=== PATIENT | female | born 1950 | race Caucasian/White ===

== ENCOUNTER 2018-10-13 21:46 | Outpatient (REF) | payer BC, MEDICARE, SELFPAY ==
[2018-10-13 20:59] LABS: ALT 29 U/L (12-78); AST 21 U/L (15-37); Albumin 4.1 g/dL (3.4-5.0); Alkaline Phosphatase 131 U/L (46-116); BUN 18 mg/dL (7-18); Bilirubin, Total 0.3 mg/dL (0.2-1.0); CREATININE 0.77 mg/dL (0.55-1.02); Calcium 9.5 mg/dL (8.5-10.1); Calculated LDL 155; Chloride 105 mmol/L (98-107); Cholesterol 238 mg/dL (50-200); Glucose 98 mg/dL (70-100); HDL Cholesterol 48 mg/dL (40-60); Potassium 4.1 mmol/L (3.5-5.1); Sodium 141 mmol/L (136-145); Total Protein 7.4 g/dL (6.4-8.2); Triglyceride 175 mg/dL (30-150)
[2018-10-13 21:26] LABS: Vitamin D 25 Total 26.5 ng/ml (30-100)
== END 2018-10-13 22:06 ==
LOC: NCHCN 21:46
PROVIDERS: PCP Nurse Practitioner; Visit Provider Nurse Practitioner
DX: I10 Essential (primary) hypertension (principal); E78.5 Hyperlipidemia, unspecified; E55.9 Vitamin D deficiency, unspecified
CPT/HCPCS: 80053; 80061; 82306; 83721

== ENCOUNTER 2018-11-27 01:26 | Outpatient (CLI) | payer BC, MEDICARE, SELFPAY ==
--- NOTE | 2018-11-27 07:30 | MERGE_ITS ---
*[facility]* *[facility]* [address] [place] [address] Date of study: 11/27/2018 Transthoracic Echocardiography M-mode, complete 2D, complete spectral Doppler, and color Doppler *STUDY CONCLUSIONS* Summary: 1. Left ventricle: The cavity size was normal. Wall thickness was normal. Systolic function was normal. The estimated ejection fraction was 60-65%. Wall motion was normal; there were no regional wall motion abnormalities. 2. Right ventricle: The cavity size was normal. Systolic function was normal. 3. Aortic valve: Trileaflet; mildly thickened, mildly calcified leaflets. Valve mobility was restricted. Transvalvular velocity was increased. There was mild stenosis. There was mild to moderate regurgitation. Peak velocity (S): 2.7m/sec. VTI ratio of LVOT to aortic valve: 0.42. 4. Inferior vena cava: The vessel was patent and normal in size. The respirophasic diameter changes were in the normal range (greater than or equal to 50%), consistent with normal central venous pressure. *PATIENT PRESENTATION* Height: 162.6cm (64in ) S/D Pressure: 153 / 83 Weight: 74.8kg (164.7lb ) BSA: 1.86m^2 Test start time: 07:40 AM. Test stop time: 08:35 AM. PERFORMING Unknown PERFORMING [facility] CONSULTING Dianne Reece ORDERING Dianne Reece REFERRING Dianne Reece BANQUET STEWARD Haven Simms, (R)(CT), TIMUR *PROCEDURE DATA* Procedure information: This study was interpreted by [facility]. Pertinent images and digital data are archived for permanent storage and are available for subsequent review. No prior study was available for comparison. Study status: Routine. Transthoracic echocardiography. M-mode, complete 2D, complete spectral Doppler, and color Doppler. A Transthoracic Echocardiogram was performed. Scanning was performed from the parasternal, apical, subcostal, and suprasternal notch acoustic windows. Images were obtained using an [id number] cardiac ultrasound machine. Image quality was adequate. Study completion: The patient tolerated the procedure well. There were no complications. History: PMH: New heart murmur r01.1. *CARDIAC ANATOMY* Left ventricle: The cavity size was normal. Wall thickness was normal. Systolic function was normal. The estimated ejection fraction was 60-65%. Wall motion was normal; there were no regional wall motion abnormalities. Aortic valve: Trileaflet; mildly thickened, mildly calcified leaflets. Valve mobility was restricted. Doppler: Transvalvular velocity was increased. There was mild stenosis. There was mild to moderate regurgitation. VTI ratio of LVOT to aortic valve: 0.42. Valve area (VTI): 1.4cm^2. Indexed valve area (VTI): 0.7cm^2/m^2. Peak velocity ratio of LVOT to aortic valve: 0.43. Valve area (Vmax): 1.4cm^2. Indexed valve area (Vmax): 0.8cm^2/m^2. Mean velocity ratio of LVOT to aortic valve: 0.43. Valve area (Vmean): 1.4cm^2. Indexed valve area (Vmean): 0.8cm^2/m^2. Mean gradient (S): 16.9mm Hg. Peak gradient (S): 28.6mm Hg. Aorta: Aortic root: The aortic root was normal in size. Ascending aorta: The ascending aorta was at upper normal limits. Mitral valve: Mildly calcified annulus. Mildly thickened leaflets. Mobility was not restricted. Doppler: Transvalvular velocity was within the normal range. There was no evidence for stenosis. There was mild regurgitation. Valve area by pressure half-time: 4.1cm^2. Indexed valve area by pressure half-time: 2.2cm^2/m^2. Peak gradient (D): 3.1mm Hg. Left atrium: The atrium was normal in size. Right ventricle: The cavity size was normal. Systolic function was normal. Pulmonic valve: The pulmonary valve appears to be grossly normal. Doppler: Transvalvular velocity was within the normal range. There was no evidence for stenosis. There was no significant regurgitation. Tricuspid valve: Structurally normal valve. Doppler: Transvalvular velocity was within the normal range. There was no evidence for stenosis. There was mild regurgitation. Pulmonary artery: The main pulmonary artery was normal-sized. Pulmonary systolic pressure was in the range of 35mm Hg to 40mm Hg. Right atrium: The atrium was normal in size. Pericardium: There was no pericardial effusion. Systemic veins: Inferior vena cava: Well visualized. The vessel was patent and normal in size. The respirophasic diameter changes were in the normal range (greater than or equal to 50%), consistent with normal central venous pressure. Baseline ECG: Normal sinus rhythm. Measurements Left ventricle Value Reference LV ID, ED, PLAX 5.0 cm 3.5 - 6.0 LV ID, ES, PLAX 2.8 cm 2.1 - 4.0 LV PW thickness, ED, PLAX 1.0 cm LV end-diastolic volume, 1-p A2C 66 ml LV ejection fraction, 1-p A2C 75 % LV end-diastolic volume, 1-p A4C 58 ml LV ejection fraction, 1-p A4C 65 % LV e', lateral 0.06 m/sec LV E/e', lateral 15 LV e', medial 0.052 m/sec LV E/e', medial 17 LV e', average 0.056 m/sec LV E/e', average 16 Ventricular septum Value Reference IVS thickness, ED, PLAX 1.0 cm LVOT Value Reference LVOT ID, A-P 2.1 cm LVOT area 3.3 cm^2 LVOT peak velocity, S 1.15 m/sec LVOT mean velocity, S 0.84 m/sec LVOT VTI, S 26.9 cm LVOT peak gradient, S 5.3 mm Hg LVOT mean gradient, S 3.2 mm Hg Stroke volume (SV), LVOT DP 89 ml Stroke index (SV/bsa), LVOT DP 48 ml/m^2 Aortic valve Value Reference Aortic valve peak velocity, S 2.7 m/sec Aortic valve mean velocity, S 2 m/sec Aortic valve VTI, S 64.0 cm Aortic mean gradient, S 16.9 mm Hg Aortic peak gradient, S 28.6 mm Hg VTI ratio, LVOT/AV 0.42 Aortic valve area, VTI 1.4 cm^2 Velocity ratio, peak, LVOT/AV 0.43 Aortic valve area, peak velocity 1.4 cm^2 Velocity ratio, mean, LVOT/AV 0.43 Aortic valve area, mean velocity 1.4 cm^2 Aortic valve area/bsa, mean velocity 0.8 cm^2/m^2 Aortic regurg deceleration 372 cm/s^2 Aortic regurg pressure half-time 406 ms Aorta Value Reference Aortic root ID, ED 3.3 cm Ascending aorta ID, A-P, S 3.7 cm Left atrium Value Reference LA ID, A-P, ES 2.5 cm LA ID/bsa, A-P 1.3 cm/m^2 <=2.2 LA volume/bsa, ES, 1-p A4C 20 ml/m^2 LA volume, ES, 2-p 39 ml LA volume/bsa, ES, 2-p 21 ml/m^2 LA/aortic root ratio 0.74 Mitral valve Value Reference Mitral E-wave peak velocity 0.88 m/sec Mitral A-wave peak velocity 1.13 m/sec Mitral deceleration time 186 ms 150 - 230 Mitral pressure half-time 54 ms Mitral peak gradient, D 3.1 mm Hg Mitral E/A ratio, peak 0.78 Mitral valve area, PHT, DP 4.1 cm^2 Pulmonary veins Value Reference Pulmonary vein peak velocity, S 0.61 m/sec Pulmonary vein peak velocity, D 0.41 m/sec Pulmonary vein velocity ratio, peak, 1.47 S/D Pulmonary vein A-wave reversal peak 0.43 m/sec velocity Pulmonary vein A-wave reversal 152 ms duration Tricuspid valve Value Reference Tricuspid regurg peak velocity 2.8 m/sec Tricuspid peak RV-RA gradient 31.9 mm Hg Right atrium Value Reference RA area, ES, A4C 14.4 cm^2 8.3 - 19.5 Legend: (L) and (H) joellen values outside specified reference range. I have personally reviewed the images and have reviewed and edited the reported findings. Electronically signed by Camilo Coleman 11/27/2018 09:46
== END 2018-11-27 01:46 ==
PROVIDERS: PCP Nurse Practitioner; Visit Provider Nurse Practitioner Family
DX: R01.1 Cardiac murmur, unspecified (principal); I35.0 Nonrheumatic aortic (valve) stenosis
CPT/HCPCS: 93306

== ENCOUNTER 2018-11-27 07:27 | Outpatient (CLI) | payer BC, SELFPAY ==
--- NOTE | 2018-11-27 09:00 | DI.MAMMO_ITS ---
SYMPTOM/DIAGNOSIS: SCREENING BILATERAL SCREENING MAMMOGRAM: Mammograms were interpreted according to the usual protocol including computer analysis with CAD system, tomosynthesis and C view imaging. Comparison is made with exams from 2011 through 2018. The breasts are composed of fatty density tissue, breast density category A. No suspicious masses or suspicious microcalcifications are seen. There has been no significant changes. IMPRESSION: Category 1, negative mammogram. Yearly screening mammography is recommended. Breast density category A. SA ASSESSMENT OF FINDINGS: Negative. Category 1. Patient will receive a letter notifying them of these results. BI-RAD category A. The breasts are almost entirely fatty.
== END 2018-11-27 07:47 ==
PROVIDERS: PCP Nurse Practitioner; Visit Provider Nurse Practitioner Family
DX: Z12.31 Encounter for screening mammogram for malignant neoplasm of breast (principal)
CPT/HCPCS: 77063; 77067

== ENCOUNTER 2019-10-20 16:00 | Outpatient (REF) | payer BC, SELFPAY ==
[2019-10-20 19:01] LABS: ALT 29 U/L (14-59); AST 22 U/L (15-37); Albumin 4.5 g/dL (3.4-5.0); Alkaline Phosphatase 116 U/L (46-116); Anion Gap 7.4 mmol/L (3-11); BUN 24 mg/dL (7-18); Bilirubin, Total 0.4 mg/dL (0.2-1.0); CO2 29.6 mmol/L (21.0-32.0); CREATININE 0.88 mg/dL (0.55-1.02); Calcium 9.8 mg/dL (8.5-10.1); Calculated LDL 157 mg/dL (<100); Chloride 104 mmol/L (98-107); Cholesterol 238 mg/dL (<200); Glucose 98 mg/dL (74-106); HDL Cholesterol 49 mg/dL (40-60); Potassium 4.4 mmol/L (3.5-5.1); Sodium 141 mmol/L (136-145); Total Protein 7.6 g/dL (6.4-8.2); Triglyceride 162 mg/dL (<150)
== END 2019-10-20 16:20 ==
LOC: NCHCN 16:00
PROVIDERS: PCP Nurse Practitioner; Visit Provider Nurse Practitioner
DX: I10 Essential (primary) hypertension (principal); E78.5 Hyperlipidemia, unspecified; I35.0 Nonrheumatic aortic (valve) stenosis
CPT/HCPCS: 80053; 80061

== ENCOUNTER 2020-04-11 17:40 | Outpatient (REF) | payer MEDICARE, BC, SELFPAY ==
--- NOTE | 2020-04-11 15:40 | PAPFT_PTH ---
PATIENT: Shellie Lyon LOC: [facility] U#:[id number] AGE/SX: 69/F ROOM: RE04/11/[address]: ISIDORO Sprague : 1950 BED: DIS: 04/11/2020 SPEC #: [id number] RECD: 04/11/20 18:31 STATUS: SOLITARIO REQ #: [id number] MYRANDA: 04/11/20 15:[address]: Carmen Souht DEPT: [facility] Cytology RECD BY: Paty Núñez ENTERED: 04/11/20 18:31 SP TYPE: PAPFT OTHR DR: Dianne Reece Tissues: 1 - CX/ENDOCX FOR PAP SMEARS Procedures: PAP THIN PREP/[facility] Screening HPV DNA PROBE Comments: [id number]
== END 2020-04-11 18:00 ==
LOC: LBN 17:40
PROVIDERS: PCP Nurse Practitioner; Visit Provider Nurse Practitioner Family
DX: Z12.4 Encounter for screening for malignant neoplasm of cervix (principal); Z11.51 Encounter for screening for human papillomavirus (HPV)
CPT/HCPCS: 88142; 87624

== ENCOUNTER 2020-05-11 03:28 | Outpatient (CLI) | payer MEDICARE, BC, SELFPAY ==
--- NOTE | 2020-05-11 08:00 | DI.MAMMO_ITS ---
EXAM: MG MAMMO SCREENING CLINICAL HISTORY: screening,Z12.39. TECHNIQUE: Bilateral full field digital CC and MLO mammographic images were obtained with 3D tomosyn thesis and utilizing computer aided detection (CAD). COMPARISON: Prior mammograms dating back to 2010, the most recent being November 2018. FINDINGS: There are no CAD designations. There are no spiculated masses nor malignant appearing microcalcification groups. There is no signif icant architectural distortion nor skin thickening-retraction. IMPRESSION: No radiographic evidence of malignancy. BI-RADS Category 1 - Negative Breast Density - Category A - Almost entirely fatty Breast density Category C or D implies that the patient has dense breast tissue. Dense breast tissue can make it harder to find cancer on a mammogram. Dense breast tissue is also associated with an incr eased risk of breast cancer. This information about the result of the mammogram report was provided to the patient to raise their awareness. Use this report when you speak with the patient about their risks for breast cancer, which includes their family history. At that time, you may recommend additional screening tests (Ultrasoun d or MRI) as these tests may add significant information. A negative radiographic report should not delay biopsy if a dominant or clinically suspicious mass is present. Up to ten percent of cancers are not identified on mammography. A negative report may reinforce clinical impression. Adenosis and dense breasts may obscure an underlying neoplasm. False positive reports average 6 to 10%. Patient will receive a letter notifying them of these results.
== END 2020-05-11 03:48 ==
PROVIDERS: PCP Nurse Practitioner; Visit Provider Nurse Practitioner Family
DX: Z12.31 Encounter for screening mammogram for malignant neoplasm of breast (principal)
CPT/HCPCS: 77063; 77067

== ENCOUNTER 2020-12-05 16:41 | Outpatient (REF) | payer MEDICARE, BC, SELFPAY ==
[2020-12-05 20:19] LABS: ALT 22 U/L (14-59); AST 24 U/L (15-37); Albumin 2.6 g/dL (3.4-5.0); Alkaline Phosphatase 106 U/L (46-116); Anion Gap 10.7 mmol/L (3-11); BUN 19 mg/dL (7-18); Bilirubin, Total 0.3 mg/dL (0.2-1.0); CO2 26.3 mmol/L (21.0-32.0); CREATININE 0.9 mg/dL (0.55-1.02); Calcium 9.8 mg/dL (8.5-10.1); Calculated LDL 160 mg/dL (<100); Chloride 105 mmol/L (98-107); Cholesterol 242 mg/dL (<200); Glucose 105 mg/dL (74-106); HDL Cholesterol 50 mg/dL (40-60); Potassium 4.2 mmol/L (3.5-5.1); Sodium 142 mmol/L (136-145); TSH (W/Ref FT4) 1.17 uIU/mL (0.36-3.74); Total Protein 7.2 g/dL (6.4-8.2); Triglyceride 162 mg/dL (<150)
[2020-12-05 20:20] LABS: Abs Immature Grans 0.01 10^3/uL (0.0-0.06); Absolute Basophil Count 0.03 10^3/uL (0.0-0.2); Absolute Eosinophil Count 0.05 10^3/uL (0.0-0.7); Absolute Lymphocyte Count 2.37 10^3/uL (1.2-3.4); Absolute Monocyte Count 0.59 10^3/uL (0.1-0.8); Absolute Neutrophil Count 5.35 10^3/uL (1.2-6.7); Basophils % 0.4; Eosinophils % 0.6; HCT 40.9 % (36.0-46.0); HGB 13.6 g/dL (11.2-15.7); Immature Grans % 0.1; Lymphocytes % 28.2; MCH 27.3 pg (27.0-33.0); MCHC 33.3 % (32.0-36.0); MPV 11.4 fL (8.0-11.0); Neutrophils % 63.7; Nucleated RBC 0 %; Platelet Count 250 10^3/uL (130-400); RBC 4.99 10^6/uL (3.93-5.22); RDW 12.6 % (11.7-14.6); RDW-SD 37.6 fL
== END 2020-12-05 16:42 | disposition home or self-care (01) ==
LOC: NCHCN 16:41
PROVIDERS: PCP Nurse Practitioner; Visit Provider Nurse Practitioner
DX: R53.83 Other fatigue (principal); I10 Essential (primary) hypertension; E78.5 Hyperlipidemia, unspecified
CPT/HCPCS: 80053; 80061; 84443; 85025

== ENCOUNTER → 2021-10-30 02:40 | Outpatient (CLI) | payer MEDICARE, SELFPAY ==
--- NOTE | 2021-10-30 | DI.MAMMO_ITS ---
Exam(s) MAMMO SCREENING EXAM: MAMMO SCREENING CLINICAL HISTORY: SCREENING, Z12.39. TECHNIQUE: Bilateral full field digital CC and MLO mammographic images were obtained with 3D tomosyn thesis and utilizing computer aided detection (CAD). COMPARISON: Prior mammograms were reviewed, the most recent being May 2020. FINDINGS: There has been no significant change in the appearance and distribution of the fibroglandular tissue. There are no CAD designations. There are no new spiculated masses nor malignant appearing microcalcification groups. There is no significant architectural distortion nor skin thickening-retraction. IMPRESSION: No radiographic evidence of malignancy. BI-RADS Category 1 - Negative Breast Density - Category B - Scattered areas of fibroglandular density Breast density Category C or D implies that the patient has dense breast tissue. Dense breast tissue can make it harder to find cancer on a mammogram. Dense breast tissue is also associated with an incr eased risk of breast cancer. This information about the result of the mammogram report was provided to the patient to raise their awareness. Use this report when you speak with the patient about their risks for breast cancer, which includes their family history. At that time, you may recommend additional screening tests (Ultrasoun d or MRI) as these tests may add significant information. A negative radiographic report should not delay biopsy if a dominant or clinically suspicious mass is present. Up to ten percent of cancers are not identified on mammography. A negative report may reinforce clinical impression. Adenosis and dense breasts may obscure an underlying neoplasm. False positive reports average 6 to 10%. Patient will receive a letter notifying them of these results.
== END ==
PROVIDERS: PCP Nurse Practitioner; Visit Provider Nurse Practitioner Family
DX: Z12.31 Encounter for screening mammogram for malignant neoplasm of breast (principal)
CPT/HCPCS: 77063; 77067

== ENCOUNTER 2022-01-28 09:26 | Emergency (ER) | payer MEDICARE, SELFPAY ==
[2022-01-28] VITALS (43 sets, daily range): BP systolic 124–167; BP diastolic 64–128; PULSE 70–102; RESP 13–37; TEMP 36.8; O2SAT 94–98
--- NOTE | 2022-01-28 09:30 | RT.EKG_ITS ---
APPROVED REPORT Exam: Resting ECG Reason for Exam: chest pain Patient Location: E HR:86 bpm ECG Measurements Heart Rate 86 AXIS SD 144 P 59 QRSd 78 QRS 51 QT 377 T 41 QTc 451 Conclusion Sinus rhythm...normal P axis, V-rate 60- 99. Sinus. Normal axis. No STEMI. I have reviewed and interpreted ECG and agree with software generated interpretation.
--- NOTE | 2022-01-28 09:41 | W.ED.GENAD ---
Discharge Plan Disposition Patient Disposition: [facility] Condition: Stable Discharge Details Clinical Impression: NSTEMI (non-ST elevated myocardial infarction) Primary Care Provider: Dianne Reece ED Provider: Evonne Gu Home Meds and New Rx's Prescriptions: No Action amlodipine 5 MG tablet 5 mg PO DAILY losartan 25 mg tablet 25 mg PO 1XD Label Comments: TAKE 1 TABLET BY MOUTH EVERY DAY Discharge Data Discharge Date/Time-TO BE ENTERED AT DEPARTURE: 01/28/22 14:50 Medical Decision Making 0950 -- 71-year-old female with history of hypertension presents for chest pain, shortness of breath and dizziness that occurs mostly with activity since yesterday. Vitals within normal limits. EKG on arrival notes a rate of 86, sinus, normal axis, no STEMI nondiagnostic. Patient appears comfortable and nontoxic. She has a 4/6 murmur. Echocardiogram from November 2018 notes that she has mild aortic stenosis and mild to moderate aortic regurgitation. Differential diagnosis includes ACS, PE, CHF, arrhythmia, electrolyte abnormality. History and presentation does not appear consistent with dissection for COVID. Will obtain screening labs, chest x-ray. 1100 -- labs and imaging reviewed. Normal white blood cell count. D-dimer negative per age-adjusted cut off. Troponin significantly elevated at 3433. BNP 2808. Chest x-ray negative. Will order full dose aspirin, 300 mg Plavix p.o. and heparin bolus and drip for NSTEMI. [facility] cardiology consulted. Case discussed with [facility] cardiology accepts patient for transfer for type I NSTEMI. Recommend metoprolol 12.5 mg twice daily. Accepting physician Dr. Kirkpatrick. Pt agreeable with plan. 1300 -- repeat EKG notes [address] elevation in anterior leads. It does not meet official criteria for STEMI but there are evolving changes. Repeat troponin pending. [facility] cardiology paged for update. Discussed with [facility] cardiology --repeat EKG does not meet criteria for STEMI. As patient is pain-free we will hold on any treatment with lytics at this time. Pending bed availability approximately 5 or 6 PM. 1545 -- Pt hemodynamically stable prior to transfer. Medical Records Medical records reviewed: Yes I reviewed the patient's medical records. Medical records narrative: Date of study: 11/27/2018 Transthoracic Echocardiography Summary: 1. Left ventricle: The cavity size was normal. Wall thickness was ?? normal. Systolic function was normal. The estimated ejection fraction ?? was 60-65%. Wall motion was normal; there were no regional wall ?? motion abnormalities. 2. Right ventricle: The cavity size was normal. Systolic function was ?? normal. 3. Aortic valve: Trileaflet; mildly thickened, mildly calcified ?? leaflets. Valve mobility was restricted. Transvalvular velocity was ?? increased. There was mild stenosis. There was mild to moderate ?? regurgitation. Peak velocity (S): 2.7m/sec. VTI ratio of LVOT to ?? aortic valve: 0.42. 4. Inferior vena cava: The vessel was patent and normal in size. The ?? respirophasic diameter changes were in the normal range (greater than ?? or equal to 50%), consistent with normal central venous pressure. Imaging Data Radiologic Study: Radiologist's impression: XR Chest Exam date and time: 01/28/2022 10:18 AM Age: 71 years old Clinical indication: Other: Chest pain, SOB, dizzy, R/O acute disease TECHNIQUE: Imaging protocol: Radiologic exam of the chest. Views: 2 views. COMPARISON: No relevant prior studies available. FINDINGS: Lungs: Unremarkable. No consolidation. Pleural spaces: Unremarkable. No pleural effusion. No pneumothorax. Heart/Mediastinum: Unremarkable. No cardiomegaly. Bones/joints: Unremarkable. IMPRESSION: No acute findings. Lab Data Lab results reviewed: Yes I reviewed the patient's lab results. Labs: Laboratory Tests Range/Units 01/28/22 01/28/22 01/28/22 10:15 10:15 10:15 WBC (4.4-10.8) 10^3/uL 6.39 RBC (3.93-5.22) 10^6/uL 5.44 H Hgb (11.2-15.7) g/dL 14.7 Hct (36.0-46.0) % 44.3 MCV (80-95) fL 81 MCH (27.0-33.0) pg 27.0 MCHC (32.0-36.0) % 33.2 RDW (11.7-14.6) % 12.9 Plt Count (130-400) 10^3/uL 242 MPV (8.0-11.0) fL 10.3 Immature Gran % 0.2 Neutrophils % 59.0 Lymphocytes % 33.3 Monocytes % 6.6 Eosinophils % 0.6 Basophils % 0.3 Nucleated RBC % (0.0-0.3) % 0.0 Absolute Neutrophils (1.2-6.7) 10^3/uL 3.77 Absolute Lymphocytes (1.2-3.4) 10^3/uL 2.13 Absolute Monocytes (0.1-0.8) 10^3/uL 0.42 Absolute Eosinophils (0.0-0.7) 10^3/uL 0.04 Absolute Basophils (0.0-0.2) 10^3/uL 0.02 PT (9.3-11.0) sec INR (0.9-1.1) APTT (21.0-27.5) sec D-Dimer (<500) ng/mlFEU 579 H Sodium (136-145) mmol/L 138 Potassium (3.5-5.1) mmol/L 3.8 Chloride (98-107) mmol/L 103 Carbon Dioxide (21.0-32.0) mmol/L 28.4 Anion Gap (3-11) mmol/L 6.6 BUN (7-18) mg/dL 18 Creatinine (0.55-1.02) mg/dL 0.9 Est GFR (CKD-EPI 2020) (mL/min/1.73m2) 69.20 Glucose (74-106) mg/dL 140 H Calcium (8.5-10.1) mg/dL 9.6 Magnesium (1.8-2.4) mg/dL 1.9 Total Bilirubin (0.2-1.0) mg/dL 0.5 AST (15-37) U/L 34 ALT (14-59) U/L 31 Alkaline Phosphatase (46-116) U/L 118 H Troponin I (<or=60) ng/L 3433 H* NT-Pro-B Natriuret Pep (<300) pg/mL 2808 H Total Protein (6.4-8.2) g/dL 8.0 Albumin (3.4-5.0) g/dL 3.7 Range/Units 01/28/22 01/28/22 10:15 10:28 WBC (4.4-10.8) 10^3/uL RBC (3.93-5.22) 10^6/uL Hgb (11.2-15.7) g/dL Hct (36.0-46.0) % MCV (80-95) fL MCH (27.0-33.0) pg MCHC (32.0-36.0) % RDW (11.7-14.6) % Plt Count (130-400) 10^3/uL MPV (8.0-11.0) fL Immature Gran % Neutrophils % Lymphocytes % Monocytes % Eosinophils % Basophils % Nucleated RBC % (0.0-0.3) % Absolute Neutrophils (1.2-6.7) 10^3/uL Absolute Lymphocytes (1.2-3.4) 10^3/uL Absolute Monocytes (0.1-0.8) 10^3/uL Absolute Eosinophils (0.0-0.7) 10^3/uL Absolute Basophils (0.0-0.2) 10^3/uL PT (9.3-11.0) sec 9.4 INR (0.9-1.1) 0.9 APTT (21.0-27.5) sec 26.0 D-Dimer (<500) ng/mlFEU Sodium (136-145) mmol/L Potassium (3.5-5.1) mmol/L Chloride (98-107) mmol/L Carbon Dioxide (21.0-32.0) mmol/L Anion Gap (3-11) mmol/L BUN (7-18) mg/dL Creatinine (0.55-1.02) mg/dL Est GFR (CKD-EPI 2020) (mL/min/1.73m2) Glucose (74-106) mg/dL Calcium (8.5-10.1) mg/dL Magnesium (1.8-2.4) mg/dL Total Bilirubin (0.2-1.0) mg/dL AST (15-37) U/L ALT (14-59) U/L Alkaline Phosphatase (46-116) U/L Troponin I (<or=60) ng/L NT-Pro-B Natriuret Pep (<300) pg/mL Cancelled Total Protein (6.4-8.2) g/dL Albumin (3.4-5.0) g/dL ECG Data Attestation: I personally reviewed and interpreted this ECG (s) as follows: Interpretation: #1 -- rate of 86, sinus, no stemi. #2 -- rate of 82, sinus, 1mm ST elevation V2-6. HPI General Date/Time Provider Initiated Documentation: 01/28/22 09:40. Limitations to Documentation: no limitations. Information obtained by: patient. HPI Narrative: Patient is a 71-year-old female with a history of hypertension who presents for chest pain, shortness of breath and dizziness since yesterday. Patient states she was doing a lot of work cleaning out a garage and shed yesterday and was doing exertional activity. She states after she was finished and was walking she noticed substernal chest tightness. She states since then the chest tightness has been at times associated with shortness of breath and dizziness that occurs mostly with activity. She states when she rests the symptoms improved. She describes the dizziness as lightheadedness. She denies any known fever, cough, nausea, vomiting, diarrhea, headache or leg swelling. Related Data Home Medications Medication Instructions Recorded Confirmed amlodipine 5 mg tablet 5 mg PO DAILY 12/30/15 01/28/22 losartan 25 mg tablet 25 mg PO 1XD 01/28/22 01/28/22 Allergies Allergy/AdvReac Type Severity Reaction Status Date / Time No Known Drug Allergies Allergy Verified 05/15/18 12:57 Adhesives AdvReac Intermediate Rash Uncoded 04/11/20 15:05 General Stated Complaint: Chest Pain SILVESTRE: 3 Review of Systems All systems reviewed & are unremarkable except as noted in HPI and below Constitutional Constitutional: Denies chills, Denies excessive sweating, Denies fatigue, Denies fever(s), Denies weakness and Denies weight loss Eyes Eyes: Reports system reviewed and no additional complaints, except as documented and Denies blurry vision ENT Ears, Nose, Mouth, and Throat: Denies vertigo, Denies dizziness, Denies otalgia, Denies nasal congestion, Denies sore throat and Denies throat swelling Cardiovascular Cardiovascular: Denies chest pain, Denies syncope, Denies rapid heart rate and Denies dyspnea Respiratory Respiratory: Denies chest congestion, Denies cough, Denies pain on inspiration and Denies dyspnea Gastrointestinal Gastrointestinal: Denies abdominal pain, Denies diarrhea and Denies vomiting Genitourinary Genitourinary: Denies hematuria, Denies dysuria and Denies flank pain Musculoskeletal Musculoskeletal: Denies back pain and Denies joint swelling Integumentary/Breasts Skin/Breast: Denies lesions and Denies rash Neurologic Neurologic: Denies behavioral changes, Denies confusion, Denies vertigo, Denies dizziness, Denies syncope, Denies localized weakness and Denies weakness Psychiatric Psychiatric: Denies behavioral changes, Denies confusion and Denies depression Endocrine Endocrine: Denies excessive sweating and Denies fatigue Hematologic/Lymphatic Hematologic/Lymphatic: Denies easy bruising and Denies lymphadenopathy Allergic/Immunologic Allergic/Immunologic: Denies throat swelling PFSH All Active Problems (Updated 01/28/22 @ 11:52 by Evonne Gu DO) NSTEMI (non-ST elevated myocardial infarction) (Acute) Hypertension (Acute 10/07/13) Medical History (Updated 01/28/22 @ 11:52 by Evonne Gu DO) Cervical intraepithelial neoplasia grade III with severe dysplasia 1976 on Pap with conization and D & C with pathology showing chronic cervicitis with focal koilocytic atypia and not neoplasic Surgical History (Updated 02/19/18 @ 14:34 by [employer]) Cervical Conization/LEEP 1976 Koilocytosis not neoplastic section Colonoscopy - IV Sedation Dilation and curettage 1976 Family History Mother Osteoporosis Father Diabetes Heart disease Hyperlipidemia Sister Personal history of malignant neoplasm Grandmother Personal history of malignant neoplasm Social History Smoking/Tobacco Use Status: Never Smoking risk assessment performed?: Yes Alcohol Intake: current Alcohol Intake frequency: a few times a month Drug use: Never Substance use type: does not use Do you feel safe at home: Yes Do you feel safe in your relationship?: Yes History History 2 Para 2 Hx # Term Pregnancies Multiple births Hx # Pregnancies Ectopic pregnancies AB induced Hx Number of Living Children AB spontaneous Exam Const General: cooperative and no acute distress Orientation: alert, awake and oriented x3 HENMT Head: normal to inspection Ears: hearing grossly normal bilaterally and external ears normal Eyes General: appearance normal, both eyes and all related structures Eyelids: eyelids normal Pupils: PERRL EOM: EOM intact bilaterally Neck Neck: normal visual inspection Lymphatic: no lymphadenopathy noted Chest Chest: normal inspection of the chest Resp Effort & Inspection: normal respiratory effort and able to speak in complete sentences Auscultation: clear to auscultation bilaterally Cardio Rate: regular rate Rhythm: regular rhythm Heart Sounds: murmur systolic IV/ GI Inspection: normal to inspection Palpation: soft, not firm, no guarding, no hepatosplenomegaly, no masses and nontender Auscultation: hypoactive bowel sounds Skin General skin exam: no rashes or lesions noted Neuro General: patient alert and patient awake Cognition: normal cognition Speech: speech normal Gait: normal gait Motor: muscle tone normal throughout Sensory Exam: no sensory deficits noted Extrem General: normal to inspection, full ROM, capillary refill normal and no edema Psych Appearance: grossly normal Mental Status: mental status grossly normal Speech and Movement: speech and movement normal Affect: normal affect Thought Process: normal
--- NOTE | 2022-01-28 10:00 | DI.RAD_ITS ---
Exam(s) XR CHEST 2V PA LATERAL EXAM: XR CHEST 2V PA LATERAL CLINICAL HISTORY: chest pain, sob, dizzy, r/o acute disease TECHNIQUE: 2D digital imaging was performed. COMPARISON: No exams were available for comparison FINDINGS: The heart is not enlarged. The lungs are clear and well expanded. No pleural effusion seen. Mediastin al contours appear intact. IMPRESSION: Normal chest. RADIATION DOSE DELIVERED: Total DLP
[2022-01-28 10:19] LABS: Abs Immature Grans 0.01 10^3/uL (0.0-0.06); Absolute Basophil Count 0.02 10^3/uL (0.0-0.2); Absolute Eosinophil Count 0.04 10^3/uL (0.0-0.7); Absolute Lymphocyte Count 2.13 10^3/uL (1.2-3.4); Absolute Monocyte Count 0.42 10^3/uL (0.1-0.8); Absolute Neutrophil Count 3.77 10^3/uL (1.2-6.7); Basophils % 0.3; Eosinophils % 0.6; HCT 44.3 % (36.0-46.0); HGB 14.7 g/dL (11.2-15.7); Immature Grans % 0.2; Lymphocytes % 33.3; MCHC 33.2 % (32.0-36.0); MCV 81 fL (80-95); MPV 10.3 fL (8.0-11.0); Monocytes % 6.6; Platelet Count 242 10^3/uL (130-400); RBC 5.44 10^6/uL (3.93-5.22); RDW 12.9 % (11.7-14.6); WBC 6.39 10^3/uL (4.4-10.8)
--- NOTE | 2022-01-28 10:32 | DI.VRAD_ITS ---
PROCEDURE INFORMATION: Exam: XR Chest Exam date and time: 01/28/2022 10:18 AM Age: 71 years old Clinical indication: Other: Chest pain, SOB, dizzy, R/O acute disease TECHNIQUE: Imaging protocol: Radiologic exam of the chest. Views: 2 views. COMPARISON: No relevant prior studies available. FINDINGS: Lungs: Unremarkable. No consolidation. Pleural spaces: Unremarkable. No pleural effusion. No pneumothorax. Heart/Mediastinum: Unremarkable. No cardiomegaly. Bones/joints: Unremarkable. IMPRESSION: No acute findings. Dictated and Authenticated by: Petros Frias MD. Ordering:TRAVIS Douglass MD
[2022-01-28 10:49] LABS: ALT 31 U/L (14-59); AST 34 U/L (15-37); Albumin 3.7 g/dL (3.4-5.0); Alkaline Phosphatase 118 U/L (46-116); Anion Gap 6.6 mmol/L (3-11); BUN 18 mg/dL (7-18); Bilirubin, Total 0.5 mg/dL (0.2-1.0); CO2 28.4 mmol/L (21.0-32.0); CREATININE 0.9 mg/dL (0.55-1.02); Calcium 9.6 mg/dL (8.5-10.1); Chloride 103 mmol/L (98-107); Glucose 140 mg/dL (74-106); Magnesium 1.9 mg/dL (1.8-2.4); NT-proBNP 2808 pg/mL (<300); Potassium 3.8 mmol/L (3.5-5.1); Sodium 138 mmol/L (136-145)
[2022-01-28 10:51] LABS: D-Dimer 579 ng/mlFEU (<500)
[2022-01-28 10:53] LABS: Troponin I 3433 ng/L (<or=60)
[2022-01-28] MEDS: Clopidogrel 300 MG TAB PO (11:17)
[2022-01-28] MEDS: Aspirin 325 MG TAB PO (11:17)
[2022-01-28 11:23] LABS: INR 0.9 (0.9-1.1); Prothrombin Time 9.4 sec (9.3-11.0)
[2022-01-28] MEDS: Metoprolol 12.5 MG TAB PO (11:40)
--- NOTE | 2022-01-28 12:45 | RT.EKG_ITS ---
APPROVED REPORT Exam: Resting ECG Reason for Exam: chest pain Patient Location: E HR:82 bpm ECG Measurements Heart Rate 82 AXIS WI 146 P 53 QRSd 78 QRS 40 QT 389 T 43 QTc 455 Conclusion Sinus rhythm...normal P axis, V-rate 60- 99 ST elevation, consider anterior injury...ST >0.15mV, V1-V5. Sinus. Normal axis. 1mm ST elevation in V3-6. Does not meet criteria for STEMI. I have reviewed and interpreted ECG and agree with software generated interpretation.
[2022-01-28 13:30] LABS: Troponin I 5846 ng/L (<or=60)
== END 2022-01-28 14:50 | disposition short-term general hospital (02) ==
PROVIDERS: Emergency Provider Physician Assistant; PCP Nurse Practitioner
DX: I21.4 Non-ST elevation (NSTEMI) myocardial infarction (principal); I10 Essential (primary) hypertension; I35.0 Nonrheumatic aortic (valve) stenosis
CPT/HCPCS: 80053; 93005; 99285; 71046; 83735; 83880; 84484; 85025; 85379; 85610; 85730; 93010; 99284; J3490

== ENCOUNTER 2022-02-15 09:14 | Outpatient (CLI) | payer MEDICARE, SELFPAY ==
--- NOTE | 2022-02-15 09:00 | RT.EKG_ITS ---
APPROVED REPORT Exam: Resting ECG Reason for Exam: OK Patient Location: O HR:69 bpm ECG Measurements Heart Rate 69 AXIS AZ 134 P 55 QRSd 86 QRS 36 QT 419 T 189 QTc 449 Conclusion Sinus rhythm...normal P axis, V-rate 50- 99 Probable left atrial enlargement...P >50mS, <-0.10mV V1 Abnormal T, consider ischemia, diffuse leads...T <-0.20mV, ant/lat/inf
== END 2022-02-15 09:15 | disposition home or self-care (01) ==
LOC: DI.CARD 09:15
PROVIDERS: PCP Nurse Practitioner Family; Visit Provider Internal Medicine Cardiovascular Disease
DX: I21.4 Non-ST elevation (NSTEMI) myocardial infarction (principal); Z95.1 Presence of aortocoronary bypass graft; R94.31 Abnormal electrocardiogram [ECG] [EKG]
CPT/HCPCS: 93010

== ENCOUNTER → 2022-02-15 09:27 | Outpatient (BNVA) | payer MEDICARE, SELFPAY | PROVIDERS: PCP Nurse Practitioner Family; Referring Provider Nurse Practitioner Family; Visit Provider Internal Medicine Cardiovascular Disease | DX: R06.09 Other forms of dyspnea (principal); I21.4 Non-ST elevation (NSTEMI) myocardial infarction; I10 Essential (primary) hypertension; Z95.1 Presence of aortocoronary bypass graft | CPT/HCPCS: 93005; 99203; 99214 ==

== ENCOUNTER 2022-03-05 13:39 | Outpatient (RCR) | payer MEDICARE, SELFPAY | END 2022-03-05 23:59 | disposition home or self-care (01) | LOC: CR 13:39 | PROVIDERS: PCP Nurse Practitioner Family; Referring Provider Thoracic Surgery (Cardiothoracic Vascular Surgery); Visit Provider Internal Medicine Cardiovascular Disease | DX: Z51.89 Encounter for other specified aftercare (principal); I25.2 Old myocardial infarction; Z95.1 Presence of aortocoronary bypass graft | CPT/HCPCS: S9472 ==

== ENCOUNTER → 2022-03-27 09:42 | Outpatient (BNVA) | payer MEDICARE, SELFPAY | PROVIDERS: PCP Nurse Practitioner Family; Referring Provider Nurse Practitioner Family; Visit Provider Internal Medicine Cardiovascular Disease | DX: I10 Essential (primary) hypertension (principal); I25.2 Old myocardial infarction; Z95.1 Presence of aortocoronary bypass graft; Z98.890 Other specified postprocedural states | CPT/HCPCS: 99214 ==

== ENCOUNTER 2022-04-04 09:00 | Outpatient (RCR) | payer MEDICARE, SELFPAY | END 2022-04-04 23:59 | disposition home or self-care (01) | LOC: CR 09:00 | PROVIDERS: PCP Nurse Practitioner Family; Referring Provider Thoracic Surgery (Cardiothoracic Vascular Surgery); Visit Provider Internal Medicine Cardiovascular Disease | DX: I25.2 Old myocardial infarction (principal); Z95.1 Presence of aortocoronary bypass graft; Z51.89 Encounter for other specified aftercare | CPT/HCPCS: S9472 ==

== ENCOUNTER 2022-05-04 09:49 | Outpatient (RCR) | payer MEDICARE, SELFPAY | END 2022-05-05 23:59 | disposition home or self-care (01) | LOC: CR 09:49 | PROVIDERS: PCP Nurse Practitioner Family; Referring Provider Thoracic Surgery (Cardiothoracic Vascular Surgery); Visit Provider Internal Medicine Cardiovascular Disease | DX: I25.2 Old myocardial infarction (principal); Z51.89 Encounter for other specified aftercare; Z95.5 Presence of coronary angioplasty implant and graft | CPT/HCPCS: S9472 ==

== ENCOUNTER 2022-06-04 09:00 | Outpatient (RCR) | payer MEDICARE, SELFPAY | END 2022-06-05 23:59 | disposition home or self-care (01) | LOC: CR 09:00 | PROVIDERS: PCP Nurse Practitioner Family; Referring Provider Thoracic Surgery (Cardiothoracic Vascular Surgery); Visit Provider Internal Medicine Cardiovascular Disease | DX: I25.2 Old myocardial infarction (principal); Z95.1 Presence of aortocoronary bypass graft; Z51.89 Encounter for other specified aftercare | CPT/HCPCS: S9472 ==

== ENCOUNTER 2022-06-18 11:31 | Outpatient (RCR) | payer MEDICARE, SELFPAY | END 2022-07-03 23:59 | disposition home or self-care (01) | LOC: CR 11:31 | PROVIDERS: PCP Nurse Practitioner Family; Referring Provider Thoracic Surgery (Cardiothoracic Vascular Surgery); Visit Provider Internal Medicine Cardiovascular Disease | DX: I25.2 Old myocardial infarction (principal); Z95.1 Presence of aortocoronary bypass graft; Z51.89 Encounter for other specified aftercare | CPT/HCPCS: S9472 ==

== ENCOUNTER 2022-06-18 18:19 | Inpatient (IN) | payer MEDICARE, SELFPAY ==
[2022-06-18 18:24] VITALS: BP 152/66; PULSE 74; RESP 16; TEMP 36.8; O2SAT 97
--- NOTE | 2022-06-18 19:15 | ED.GENADUL_ITS ---
Discharge Plan Disposition Patient Disposition: Admit to [facility] Condition: Fair Condition: Good Discharge Details Chief Complaint: Abd Prob Clinical Impression: Choledocholithiasis Admit Date/Time: 06/18/22 23:13 Admit Provider: Victor M Becker Attending Provider: Victor M Becker Primary Care Provider: VERONICA KRUSE ED Provider: Marii Mccarty Discharge Instructions Activity:: No heavy lifting Equipment/Supplies:: No Equipment Needed Diet:: As Tolerated Discharge Orders Discharge Orders: Discharge Order (Routine); Ordered 06/21/22 Ordered By: Ebenezer Almanzar Discharge Data Discharge Date/Time-TO BE ENTERED AT DEPARTURE: 06/19/22 00:08 Medical Decision Making Patient is a pleasant 71-year-old female presenting today with chief complaint of right upper quadrant pain. States that it began about 4 and half hours ago after eating a very rich lunch which included peanut butter and cream-based chicken?. States that since then the pain has been fairly persistent. Has had some pain that radiates towards the right flank. No change in bowel or bladder habits she does endorse some chronic constipation. She denies any chest pain or shortness of breath. Patient does have a history of CABG 4 months ago but states this feels very different than when she has had her ischemic events in the past. Past surgical history is pertinent for . Has not had pain like this in the past. On exam, patient appears nontoxic. She is hemodynamically stable. She appears well-hydrated. Lungs are clear. Notable systolic murmur which patient reports is baseline. She does have tenderness in the right upper quadrant and positive Cabrales sign. Abdominal exam is otherwise without acute abnormality. No CVA tenderness. 2+ distal pulses. Primarily Concern for possible gallbladder pathology and will obtain CT as ultrasound is not currently available. We will give IV acetaminophen and keep patient NPO. FINDINGS: Lungs: Lung bases clear. Heart: Heart only partially visualized but normal in size. Small-moderate sized pericardial effusion partially visualized Liver: Small indeterminate hypoattenuating hepatic lesions, incompletely characterized but most likely small cysts and/or hemangiomas. Gallbladder and bile ducts: Prominent gallbladder distension. Suggestion of gallbladder wall thickening versus fluid between the gallbladder and liver. 3 mm calcified gallstone in the region of the gallbladder neck/cystic duct, best demonstrated on the coronal series on image 42 of series 6. Common bile duct dilated to 8 mm. 2 mm stone in the distal common duct at the sphincter of Oddi, image 39 of series 6 and 30 of series 4. Mild intrahepatic biliary prominence. Pancreas: Normal appearing pancreas. Spleen: Normal appearing spleen. Adrenal glands: Normal appearing adrenal glands. Kidneys and ureters: Normal appearing kidneys. No hydronephrosis. No obstructing ureteral stones. Stomach and bowel: No oral contrast. Stomach partially distended with fluid. Duodenal diverticula incidentally noted. No small bowel dilatation to suggest obstruction. The. Normal-appearing colon. Scattered sigmoid diverticula. No evidence of diverticulitis or colitis. Appendix: Normal appendix, partially obscured distally. Intraperitoneal space: No gross ascites or free air. Vasculature: Normal caliber abdominal aorta. Lymph nodes: No pathologically enlarged mesenteric, retroperitoneal, or pelvic sidewall lymph nodes. Urinary bladder: Normal appearing urinary bladder. Reproductive: Uterus and ovaries partially obscured but grossly normal in size. Bones/joints: No acute fracture seen among the bones of the abdomen or pelvis. Soft tissues: No significant ventral or inguinal hernia. IMPRESSION: Prominent gallbladder distension. Suggestion of gallbladder wall thickening versus fluid between the gallbladder and liver. 3 mm calcified gallstone in the region of the gallbladder neck/cystic duct. Common bile duct dilated to 8 mm. 2 mm stone in the distal common duct at the sphincter of Oddi. Acute cholecystitis suspected. Clinical correlation recommended. Consulted with Dr. Becker with general surgery. Patient NPO. Dr. Becker reviewed the imaging and is concerned for choledocholithiasis. Advised that patient will need admission with subsequent MRCP tomorrow. Based on that, may need [place] [facility] She is concerned about the dilation and possible impending cholangitis. She did recommend admitting for continued IV fluids, repeat labs in the morning and antibiotics, recommended IV abx. Patient to be admitted for choledocholithiasis HPI General Date/Time Provider Initiated Documentation: 06/18/22 18:51 . Limitations to Documentation: no limitations . Information obtained by: patient and RN notes reviewed . History of Present Illness 71 year old F presents to the emergency department with the chief complaint of RUQ pain, described as moderate, with intensity rated at 7. Quality is described as aching and constant, and is localized to the abdomen. Patient reports no radiation. Patient started experiencing this hour(s) and it has been constant. No relieving factors improve symptom(s), Eating worsens symptoms . Patient notes no other symptoms.. Patient did receive the following treatments prior to arrival, none Related Data Home Medications Medication Instructions Recorded Confirmed losartan 25 mg tablet 25 mg PO 1XD 01/28/22 06/18/22 acetaminophen 500 mg capsule 1,000 mg PO Q6H PRN 02/13/22 06/18/22 aspirin 81 mg chewable tablet 81 mg PO DAILY 02/13/22 06/18/22 metoprolol tartrate 25 mg tablet 25 mg PO BID 02/13/22 06/18/22 atorvastatin 80 mg tablet 40 mg PO QPM 03/27/22 06/18/22 calcium phosphate,dibasic 77 1 tab PO DAILY 06/18/22 06/18/22 mg-vitamin D3 400 unit tablet tramadol 50 mg tablet 50 mg PO Q8H PRN pain #12 tabs 06/21/22 Previous Rx's Medication Instructions Recorded tramadol 50 mg tablet 50 mg PO Q8H PRN pain #12 tabs 06/21/22 Allergies Allergy/AdvReac Type Severity Reaction Status Date / Time No Known Drug Allergies Allergy Verified 06/18/22 18:40 Adhesives AdvReac Intermediate Rash Uncoded 06/18/22 18:40 General Stated Complaint: Abd Prob SILVESTRE: 3 Review of Systems Constitutional Constitutional: Reports as per HPI, Denies chills, Denies fatigue, Denies fever(s) and Denies headache(s) ENT Ears, Nose, Mouth, and Throat: Denies headache(s) Cardiovascular Cardiovascular: Reports as per HPI, Denies chest pain and Denies dyspnea Respiratory Respiratory: Reports as per HPI, Denies cough and Denies dyspnea Gastrointestinal Gastrointestinal: Reports as per HPI Musculoskeletal Musculoskeletal: Reports as per HPI and Denies back pain Integumentary/Breasts Skin/Breast: Reports as per HPI and Denies rash Neurologic Neurologic: Reports as per HPI and Denies headache(s) Endocrine Endocrine: Denies fatigue PFSH All Active Problems (Updated 07/05/22 @ 09:13 by GENEVIEVE Aguirre) Choledocholithiasis (Acute) Hypertension (Acute 10/07/13) Medical History Cervical intraepithelial neoplasia grade III with severe dysplasia 1977 on Pap with conization and D & C with pathology showing chronic cervicitis with focal koilocytic atypia and not neoplasic Surgical History Cervical Conization/LEEP 1976 Koilocytosis not neoplastic section Colonoscopy - IV Sedation Dilation and curettage 1976 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 [facility] [place] Mother Osteoporosis Father Diabetes Heart disease Hyperlipidemia Sister Personal history of malignant neoplasm Grandmother Personal history of malignant neoplasm Social History Smoking/Tobacco Use Status: Never Smoking risk assessment performed?: Yes Alcohol Intake: current Alcohol Intake frequency: a few times a month Drug use: Never Substance use type: does not use Do you feel safe at home: Yes Do you feel safe in your relationship?: Yes History History 2 Para 2 Hx # Term Pregnancies Multiple births Hx # Pregnancies Ectopic pregnancies AB induced Hx Number of Living Children AB spontaneous Exam Const General: cooperative, healthy appearing, comfortable, no acute distress and well developed Nutritional Appearance: average body habitus and well nourished Orientation: alert and awake HENMT Head: normal to inspection Mouth: moist mucous membranes Resp Effort & Inspection: normal respiratory effort, able to speak in complete sentences and no respiratory distress Auscultation: clear to auscultation bilaterally, no rales, no rhonchi and no wheezes Cardio Rate: regular rate Rhythm: regular rhythm Heart Sounds: S1 normal and S2 normal GI Inspection: normal to inspection Palpation: soft, no hepatosplenomegaly, not rigid and tender in the RUQ and Cabrales's sign positive; not at McBurney's point and with no rebound tenderness Percussion: normal to percussion Auscultation: normal bowel sounds Back/Spine/Pelvis Back: no CVA tenderness Skin General skin exam: no rashes or lesions noted Trauma: no lacerations or abrasions Neuro General: patient alert and patient awake Cognition: normal cognition Speech: speech normal Gait: normal gait Psych Appearance: grossly normal and well kempt Mental Status: mental status grossly normal Speech and Movement: speech and movement normal Course Vital Signs Vital signs: Vital Signs Temperature 36.8 C 06/18/22 18:24 Pulse 74 06/18/22 18:24 Respiratory Rate 16 06/18/22 18:24 Blood Pressure 152/66 H 06/18/22 18:24 Pulse Oximetry 97 06/18/22 18:24 Temperature 36.8 C 06/18/22 18:24 Temperature Source Tympanic 06/18/22 18:24 Pulse 74 06/18/22 18:24 Respiratory Rate 16 06/18/22 18:24 Respiratory Effort Normal 06/18/22 18:27 Blood Pressure 152/66 H 06/18/22 18:24 Blood Pressure Position Sitting 06/18/22 18:24 Pulse Oximetry 97 06/18/22 18:24 Oxygen Delivery Method Room Air 06/18/22 18:24 Oxygen Flow Rate 0 06/18/22 18:24 Pain Level 7 06/18/22 18:36
--- NOTE | 2022-06-18 19:15 | DI.CT_ITS ---
Exam(s) CT ABDOMEN PELVIS W EXAM: CT ABDOMEN PELVIS W CLINICAL HISTORY: RUQ pain after eating. TECHNIQUE: Imaging Protocol: Axial computed tomography images with coronal and sagittal reformatted images were created and reviewed CONTRAST MATERIAL: Intravenous: Omnipaque-350 100cc Oral: None COMPARISON: No exams were available for comparison FINDINGS: VISUALIZED LUNG BASES: No nodules nor pleural effusions evident. ABDOMEN: There is no ascites. LIVER: There are few small benign cysts in the right hepatic lobe. There is mild dilatation of intra hepatic ducts in both the right and left hepatic lobes. GALLBLADDER/BILIARY: Is mildly distended and edematous. There is a small calculus in the lower gallb ladder dependent wall. CBD is mildly dilated 8-9 millimeters diameter.. There is a small density wh ich may be a small calculus at junction of the CBD and duodenum. (Series 4/image 30). This has jo ann lar size to the small calcified gallstone within the gallbladder lumen. PANCREAS: No evidence of pancreatic mass nor dilatation of the pancreatic duct. No evidence of pancr eatitis. SPLEEN: Spleen is not enlarged. No obvious intrasplenic lesions. Splenic and portal veins are paten t. ADRENALS: There are no significant adrenal masses. KIDNEYS:No cysts evident. No solid renal masses. No calculi nor hydronephrosis.. ABDOMINAL AORTA: Abdominal aorta is not enlarged. LYMPH NODES:There is no retroperitoneal nor paraaortic adenopathy. ABDOMINAL WALL: No evidence of significant anterior abdominal wall nor inguinal hernia. GI: There is no evidence of bowel obstruction, free air, nor abscess. PELVIS: GI: No evidence of appendicitis.Sigmoid diverticuli but no evidence of acute diverticulitis. No free fluid. LYMPH NODES: There is no intrapelvic nor inguinal adenopathy. REPRODUCTIVE: Uterus and adnexal region appear age appropriate. URINARY BLADDER: No calculi nor obvious masses evident OSSEOUS: No fractures and no significant osseous lesions. Advanced disc space narrowing L4-5 level. IMPRESSION: 1. Cholelithiasis and acute cholecystitis. In addition to a 3 millimeter gallstone in the lower gall bladder lumen there also appears to be a 2 millimeter calculus in the distal CBD at the sphincter of Oddi level. CBD is mildly dilated 8-9 mm. 2. No evidence of appendicitis nor diverticulitis. No ascites. RADIATION DOSE DELIVERED: 980.25mGy.cm Total DLP DATA REPOSITORY: All CT scans at this facility are submitted to the National Radiology Data Registry (NRDR) Dose Index Registry (DIR) with the [employer] (ACR). RADIATION OPTIMIZATION: All CT scans at this facility use at least one of these dose optimization te chniques: automated exposure control; mA and/or kV adjustment per patient size (includes targeted exa ms where dose is matched to clinical indication); or iterative reconstruction.
[2022-06-18 19:48] LABS: Abs Immature Grans 0.04 10^3/uL (0.0-0.06); Absolute Basophil Count 0.03 10^3/uL (0.0-0.2); Absolute Lymphocyte Count 2.22 10^3/uL (1.2-3.4); Absolute Monocyte Count 0.76 10^3/uL (0.1-0.8); Absolute Neutrophil Count 9.51 10^3/uL (1.2-6.7); Basophils % 0.2; Eosinophils % 0.6; HCT 42.9 % (36.0-46.0); HGB 13.9 g/dL (11.2-15.7); Immature Grans % 0.3; Lymphocytes % 17.6; MCH 26.5 pg (27.0-33.0); MCHC 32.4 % (32.0-36.0); MCV 82 fL (80-95); MPV 11.4 fL (8.0-11.0); Neutrophils % 75.3; Platelet Count 240 10^3/uL (130-400); RBC 5.25 10^6/uL (3.93-5.22); RDW 14.1 % (11.7-14.6); RDW-SD 41.2 fL; WBC 12.63 10^3/uL (4.4-10.8)
[2022-06-18] MEDS: Lactated Ringers 1,000 ML 1000 ML IV (19:48)
[2022-06-18] MEDS: ACETAMINOPHEN 1,000 MG/100 ML BTL 400 MG IVPB (19:49)
[2022-06-18 19:57] LABS: Absolute Eosinophil Count 0.08 10^3/uL (0.0-0.7)
[2022-06-18 20:06] LABS: ALT 69 U/L (14-59); AST 107 U/L (15-37); Alkaline Phosphatase 112 U/L (46-116); BUN 25 mg/dL (7-18); Bilirubin, Total 0.8 mg/dL (0.2-1.0); Calcium 10.3 mg/dL (8.5-10.1); Chloride 101 mmol/L (98-107); Estimated GFR 60.98 (mL/min/1.73m2); Glucose 143 mg/dL (74-106); Lipase 73 U/L (16-77); Potassium 3.9 mmol/L (3.5-5.1); Sodium 137 mmol/L (136-145); Total Protein 7.5 g/dL (6.4-8.2)
[2022-06-18] MEDS: Omnipaque 350 MG/ML 100 ML BTL IJ (21:09)
[2022-06-18] MEDS: Normal Saline - Diluent 50 ML VIAL IJ (21:10)
[2022-06-18] MEDS: Normal Saline Flush 10 ML SYR IVP (21:11)
--- NOTE | 2022-06-18 21:47 | DI.VRAD_ITS ---
PROCEDURE INFORMATION: Exam: CT Abdomen And Pelvis With Contrast Exam date and time: 06/18/2022 8:58 PM Age: 71 years old Clinical indication: Abdominal pain; Localized; Right upper quadrant (ruq); Prior surgery; Surgery date: 1-6 months; Surgery type: Cabg; Patient HX: Ruq pain after eating TECHNIQUE: Imaging protocol: Computed tomography of the abdomen and pelvis with contrast. Radiation optimization: All CT scans at this facility use at least one of these dose optimization techniques: automated exposure control; mA and/or kV adjustment per patient size (includes targeted exams where dose is matched to clinical indication); or iterative reconstruction. Contrast material: OMNIPAQUE 350; Contrast volume: 100 ml; Contrast route: INTRAVENOUS (IV); COMPARISON: CR XR CHEST 2V PA LATERAL 01/28/2022 10:18 AM FINDINGS: Lungs: Lung bases clear. Heart: Heart only partially visualized but normal in size. Small-moderate sized pericardial effusion partially visualized Liver: Small indeterminate hypoattenuating hepatic lesions, incompletely characterized but most likely small cysts and/or hemangiomas. Gallbladder and bile ducts: Prominent gallbladder distension. Suggestion of gallbladder wall thickening versus fluid between the gallbladder and liver. 3 mm calcified gallstone in the region of the gallbladder neck/cystic duct, best demonstrated on the coronal series on image 42 of series 6. Common bile duct dilated to 8 mm. 2 mm stone in the distal common duct at the sphincter of Oddi, image 39 of series 6 and 30 of series 4. Mild intrahepatic biliary prominence. Pancreas: Normal appearing pancreas. Spleen: Normal appearing spleen. Adrenal glands: Normal appearing adrenal glands. Kidneys and ureters: Normal appearing kidneys. No hydronephrosis. No obstructing ureteral stones. Stomach and bowel: No oral contrast. Stomach partially distended with fluid. Duodenal diverticula incidentally noted. No small bowel dilatation to suggest obstruction. The. Normal-appearing colon. Scattered sigmoid diverticula. No evidence of diverticulitis or colitis. Appendix: Normal appendix, partially obscured distally. Intraperitoneal space: No gross ascites or free air. Vasculature: Normal caliber abdominal aorta. Lymph nodes: No pathologically enlarged mesenteric, retroperitoneal, or pelvic sidewall lymph nodes. Urinary bladder: Normal appearing urinary bladder. Reproductive: Uterus and ovaries partially obscured but grossly normal in size. Bones/joints: No acute fracture seen among the bones of the abdomen or pelvis. Soft tissues: No significant ventral or inguinal hernia. IMPRESSION: Prominent gallbladder distension. Suggestion of gallbladder wall thickening versus fluid between the gallbladder and liver. 3 mm calcified gallstone in the region of the gallbladder neck/cystic duct. Common bile duct dilated to 8 mm. 2 mm stone in the distal common duct at the sphincter of Oddi. Acute cholecystitis suspected. Clinical correlation recommended. Dictated and Authenticated by: Quincy Sanchez MD. Ordering:STEF Colvin MD
[2022-06-18 22:17] LABS: Bilirubin Negative (Negative); Blood Negative (Negative); Clarity Clear (Clear); Glucose Negative (Negative); Ketones Trace mg/dL (Negative); Leukocyte Esterase Trace (Negative); Nitrite Negative (Negative); Urobilinogen 0.2 EU/dL (Up TO 0.2)
[2022-06-18 22:23] LABS: Bacteria Negative HPF (Negative); C & S Indicated? No; Casts Negative LPF (Negative); Crystals Negative HPF (Negative); Epithelial Cells Few HPF (Negative); Mucus Negative (Negative); Other Cells Negative (Negative); RBC 0-2 HPF (0-2); WBC 0-2 HPF (0-5)
[2022-06-18 22:38] LABS: Source Nasal/Nares
[2022-06-18 23:08] LABS: COVID-19 PCR Negative (Negative)
[2022-06-18 23:46] VITALS: BP 175/77; PULSE 63; RESP 16; TEMP 36.2; O2SAT 98
[2022-06-19] VITALS (7 sets, daily range): BP systolic 161–182; BP diastolic 68–84; PULSE 61–66; RESP 16–17; TEMP 36.7–37.2; O2SAT 97–99
--- NOTE | 2022-06-19 | DI.MRI_ITS ---
Exam(s) MR ABDOMEN WO EXAM: MR ABDOMEN WO CLINICAL HISTORY: eval choledocholithiasis, TECHNIQUE: Multiplanar multisequence MRI was performed. MRCP also performed COMPARISON: CT scan 06/18/2022 reviewed FINDINGS: VISUALIZED LUNG BASES: No pleural effusions evident. There is a tiny amount of perihepatic ascites evident. This is probably related to the gallbladder f indings. LIVER: There are a few small benign appearing cysts in the liver. These all measure less than 1 cm. There is mild dilatation of intrahepatic ducts. BILIARY: Gallbladder is distended and edematous. There is some pericholecystic fluid noted. Tiny ga llstone noted on the dependent wall of the gallbladder fundus. CBD diameter is upper normal, measuri ng 7 millimeters proximally and 6 millimeters at the level of the pancreatic head. There is focal na rrowing of the lower CBD seen on the MRCP. This is just above the ampulla. No obvious calculus seen at this level. Pancreatic duct is not dilated. PANCREAS: There is no evidence of pancreatic mass nor dilatation of the pancreatic duct. SPLEEN: Spleen is not enlarged and there are no intrasplenic lesions.Splenic and portal veins are pat ent ADRENALS: There are no significant adrenal masses. KIDNEYS: No solid renal masses. No hydronephrosis.No cysts evident. ABDOMINAL AORTA: Not enlarged and there is no significant para-aortic adenopathy. ANTERIOR ABDOMINAL WALL/GI: There is no evidence of significant anterior abdominal wall hernia in the field of view of this study.Is no evidence of obvious bowel obstruction. OSSEOUS: There are no lytic osseous lesions in the field of view of this study. Artifact noted in the upper anterior midline which are probably related to sternotomy wires. IMPRESSION: 1. The gallbladder is distended and edematous, consistent with acute cholecystitis. There is also a small amount of pericholecystic fluid and there is a tiny amount of perihepatic ascites which is most probably related to gallbladder findings. There is a tiny 2-3 millimeter calculus in the gallbladde r lumen. CBD diameter is upper normal, at most minimally prominent. The tiny findings seen in the l ower most CBD on the recent CT scan is difficult to appreciate on MRI although there does appear to b e a slight focal narrowing of the distal CBD on the MRCP images. 2. Small benign-appearing cysts in the liver. No metastatic appearing lesions in the liver. 3. Pancreas unremarkable. The pancreatic duct is not dilated. DATA REPOSITORY:
[2022-06-19] MEDS: PIPERACILLIN/TAZO 3.375 GM in Normal Saline 50 ML IVPB ×3 (00:39→22:22)
[2022-06-19] MEDS: Melatonin 3 MG TAB PO (00:56)
[2022-06-19] MEDS: HYDROmorphone 2 MG/ML SYR 0.5 MG IVP (00:58)
[2022-06-19] MEDS: Lactated Ringers 1,000 ML 125 ML IV ×3 (01:21→21:44)
[2022-06-19 07:44] LABS: HCT 41.9 % (36.0-46.0); HGB 13.6 g/dL (11.2-15.7); MCH 26.4 pg (27.0-33.0); MCHC 32.5 % (32.0-36.0); MCV 81 fL (80-95); MPV 10.5 fL (8.0-11.0); Platelet Count 197 10^3/uL (130-400); RBC 5.15 10^6/uL (3.93-5.22); RDW 14.2 % (11.7-14.6); RDW-SD 41.9 fL; WBC 7.99 10^3/uL (4.4-10.8)
[2022-06-19 08:01] LABS: ALT 632 U/L (14-59); AST 563 U/L (15-37); Albumin 3.6 g/dL (3.4-5.0); Alkaline Phosphatase 157 U/L (46-116); Anion Gap 6.8 mmol/L (3-11); BUN 19 mg/dL (7-18); Bilirubin, Total 2.7 mg/dL (0.2-1.0); CO2 28.2 mmol/L (21.0-32.0); Calcium 9.6 mg/dL (8.5-10.1); Chloride 103 mmol/L (98-107); Estimated GFR 60.98 (mL/min/1.73m2); Glucose 117 mg/dL (74-106); Sodium 138 mmol/L (136-145); Total Protein 7.1 g/dL (6.4-8.2)
[2022-06-19] MEDS: Metoprolol 25 MG TAB PO ×2 (08:09→20:02)
--- NOTE | 2022-06-19 09:10 | HPE_ITS ---
Date of service: 06/19/22 Time of Service: 09:10 Assessment and Plan Assessment and plan (1) Choledocholithiasis: Status: Acute Assessment and plan: This is a 71yo female who presented with epigastric/RUQ pain and was found to have CT evidence of choledocholithiasis with mild CBD and intrahepatic biliary dilation. This morning, her exam and pain have improved, however the derangement in her LFTs represent a persistent cholestatic picture. --Consult made to [facility] for possible ERCP. I spoke with Jayne Aguiar. She agreed with obtaining an MRCP, and was surprised by the degree of change in LFTs. She was concerned about any hepatotoxic insults, and recommended holding the pt's statin, acetaminophen, and hepatotoxic meds, and to pursue a hepatitis panel. 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 She describes having a rich chicken meal with butter, cream, and cheese for the last 3-4 days, and then 'ants on a log' around 2pm yesterday. Soon after that she developed epigastric and RUQ pain radiating to the back. She had the feeling that she could not get comfortable and tried several different positions. She induced vomiting a couple of times, and that did not give her relief. For these reasons, she presented to the ED. Review of Systems Eyes Eyes: Denies blurry vision and Denies diplopia ENT Ears, Nose, Mouth, and Throat: Denies dysphagia, Denies dizziness and Denies odynophagia Cardiovascular Cardiovascular: Denies chest pain with activity, Denies syncope and Denies dyspnea Comments: NSTEMI on 01/28/2022, CABGx2 on 02/01/2022 Respiratory Respiratory: Denies cough and Denies dyspnea Comments: recent cold about 3 weeks ago Gastrointestinal Gastrointestinal: Reports abdominal pain, Denies hematochezia, Denies constipation, Denies dysphagia, Denies heartburn, Denies diarrhea, Denies odynophagia and Reports vomiting (self-induced) Neurologic Neurologic: Denies dizziness, Denies syncope, Denies lack of coordination and Denies paresthesias PFSH All Active Problems (Updated 06/19/22 @ 09:50 by Victor M Becker MD) Choledocholithiasis (Acute) Hypertension (Acute 10/07/13) Medical History Cervical intraepithelial neoplasia grade III with severe dysplasia 1976 on Pap with conization and D & C with pathology showing chronic c ervicitis with focal koilocytic atypia and not neoplasic Surgical History Cervical Conization/LEEP 1976 Koilocytosis not neoplastic section Colonoscopy - IV Sedation Dilation and curettage 1976 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 [facility] [place] History Mother Osteoporosis Father Diabetes Heart disease Hyperlipidemia Sister Personal history of malignant neoplasm Grandmother Personal history of malignant neoplasm Social History Smoking/Tobacco Use Status: Never Smoking risk assessment performed?: Yes Alcohol Intake: current Alcohol Intake frequency: a few times a month Drug use: Never Substance use type: does not use Do you feel safe at home: Yes Do you feel safe in your relationship?: Yes History History 2 Para 2 Hx # Term Pregnancies Multiple births Hx # Pregnancies Ectopic pregnancies AB induced Hx Number of Living Children AB spontaneous Meds Allergies and Home Medications Allergies Allergy/AdvReac Type Severity Reaction Status Date / Time No Known Drug Allergies Allergy Verified 06/18/22 18:40 Adhesives AdvReac Intermediate Rash Uncoded 06/18/22 18:40 Home Medications Medication Instructions Recorded Confirmed Type losartan 25 mg tablet 25 mg PO 1XD 01/28/22 06/18/22 History acetaminophen 500 mg capsule 1,000 mg PO Q6H PRN 02/13/22 06/18/22 History aspirin 81 mg chewable tablet 81 mg PO DAILY 02/13/22 06/18/22 History metoprolol tartrate 25 mg tablet 25 mg PO BID 02/13/22 06/18/22 History atorvastatin 80 mg tablet 40 mg PO QPM 03/27/22 06/18/22 History calcium phosphate,dibasic 77 1 tab PO DAILY 06/18/22 06/18/22 History mg-vitamin D3 400 unit tablet Exam Const General: cooperative, healthy appearing, comfortable, no acute distress, well developed and well groomed Nutritional Appearance: average body habitus and well nourished Orientation: alert, awake and oriented x3 Neck Neck: normal visual inspection and supple Resp Effort & Inspection: normal respiratory effort, able to speak in complete sentences, no grunting, not labored and no nasal flaring Auscultation: clear to auscultation bilaterally Cardio Rate: regular rate Rhythm: regular rhythm Heart Sounds: murmur GI Inspection: non-distended Palpation: soft, no guarding, not rigid and nontender Back/Spine/Pelvis Cervical Spine: No cervical spinal tenderness Thoracic/Lumbar Spine: No thoraco-lumbar spasm and No thoracic spinal tenderness Other: no flank/CVA tenderness Neuro General: patient alert, patient awake and patient oriented x3 Psych Mental Status: mental status grossly normal Speech and Movement: speech and movement normal Mood: congruent mood Affect: normal affect Thought Process: normal Thought Content: normal Results Imaging Additional studies: CT ABD/PEL (06/18/2022): FINDINGS: Lungs: Lung bases clear. Heart: Heart only partially visualized but normal in size. Small-moderate sized pericardial effusion partially visualized Liver: Small indeterminate hypoattenuating hepatic lesions, incompletely characterized but most likely small cysts and/or hemangiomas. Gallbladder and bile ducts: Prominent gallbladder distension. Suggestion of gallbladder wall thickening versus fluid between the gallbladder and liver. 3 mm calcified gallstone in the region of the gallbladder neck/cystic duct, best demonstrated on the coronal series on image 42 of series 6. Common bile duct dilated to 8 mm. 2 mm stone in the distal common duct at the sphincter of Oddi, image 39 of series 6 and 30 of series 4. Mild intrahepatic biliary prominence. Pancreas: Normal appearing pancreas. Spleen: Normal appearing spleen. Adrenal glands: Normal appearing adrenal glands. Kidneys and ureters: Normal appearing kidneys. No hydronephrosis. No obstructing ureteral stones. Stomach and bowel: No oral contrast. Stomach partially distended with fluid. Duodenal diverticula incidentally noted. No small bowel dilatation to suggest obstruction. The. Normal-appearing colon. Scattered sigmoid diverticula. No evidence of diverticulitis or colitis. Appendix: Normal appendix, partially obscured distally. Intraperitoneal space: No gross ascites or free air. Vasculature: Normal caliber abdominal aorta. Lymph nodes: No pathologically enlarged mesenteric, retroperitoneal, or pelvic sidewall lymph nodes. Urinary bladder: Normal appearing urinary bladder. Reproductive: Uterus and ovaries partially obscured but grossly normal in size. Bones/joints: No acute fracture seen among the bones of the abdomen or pelvis. Soft tissues: No significant ventral or inguinal hernia. IMPRESSION: Prominent gallbladder distension. Suggestion of gallbladder wall thickening versus fluid between the gallbladder and liver. 3 mm calcified gallstone in the region of the gallbladder neck/cystic duct. Common bile duct dilated to 8 mm. 2 mm stone in the distal common duct at the sphincter of Oddi. Acute cholecystitis suspected. Clinical correlation recommended. Labs 06/19/22 07:30 06/19/22 07:30 Labs: Laboratory Results - last 24 hr 06/18/22 06/18/22 06/18/22 18:40 18:40 22:05 WBC 12.63 H RBC 5.25 H Hgb 13.9 Hct 42.9 MCV 82 MCH 26.5 L MCHC 32.4 RDW 14.1 Plt Count 240 MPV 11.4 H Immature Gran % 0.3 Neutrophils % 75.3 Lymphocytes % 17.6 Monocytes % 6.0 Eosinophils % 0.6 Basophils % 0.2 Nucleated RBC % 0.0 Absolute Neutrophils 9.51 H Absolute Lymphocytes 2.22 Absolute Monocytes 0.76 Absolute Eosinophils 0.08 Absolute Basophils 0.03 Sodium 137 Potassium 3.9 Chloride 101 Carbon Dioxide 29.0 Anion Gap 7.0 BUN 25 H Creatinine 1.0 Est GFR (CKD-EPI 2020) 60.98 Glucose 143 H Calcium 10.3 H Magnesium 2.0 Total Bilirubin 0.8 AST 107 H ALT 69 H Alkaline Phosphatase 112 Total Protein 7.5 Albumin 4.0 Lipase 73 Urine Color Yellow Urine Clarity Clear Urine pH 6.0 Ur Specific Monument 1.010 Urine Protein Negative Urine Ketones Trace H Urine Blood Negative Urine Nitrite Negative Urine Bilirubin Negative Urine Urobilinogen 0.2 Ur Leukocyte Esterase Trace H Urine RBC 0-2 Urine WBC 0-2 Ur Epithelial Cells Few Urine Crystals Negative Urine Bacteria Negative Urine Casts Negative Urine Mucus Negative Urine Other Negative Ur Culture Indicated? No Urine Glucose Negative COVID-19 Source SARS-CoV-2 (PCR) 06/18/22 06/19/22 06/19/22 22:32 07:30 07:30 WBC 7.99 RBC 5.15 Hgb 13.6 Hct 41.9 MCV 81 MCH 26.4 L MCHC 32.5 RDW 14.2 Plt Count 197 MPV 10.5 Immature Gran % Neutrophils % Lymphocytes % Monocytes % Eosinophils % Basophils % Nucleated RBC % Absolute Neutrophils Absolute Lymphocytes Absolute Monocytes Absolute Eosinophils Absolute Basophils Sodium 138 Potassium 4.0 Chloride 103 Carbon Dioxide 28.2 Anion Gap 6.8 BUN 19 H Creatinine 1.0 Est GFR (CKD-EPI 2020) 60.98 Glucose 117 H Calcium 9.6 Magnesium Total Bilirubin 2.7 H AST 563 H ALT 632 H Alkaline Phosphatase 157 H Total Protein 7.1 Albumin 3.6 Lipase Urine Color Urine Clarity Urine pH Ur Specific Monument Urine Protein Urine Ketones Urine Blood Urine Nitrite Urine Bilirubin Urine Urobilinogen Ur Leukocyte Esterase Urine RBC Urine WBC Ur Epithelial Cells Urine Crystals Urine Bacteria Urine Casts Urine Mucus Urine Other Ur Culture Indicated? Urine Glucose COVID-19 Source Nasal/Nares SARS-CoV-2 (PCR) Negative Last Vital Signs Temp 98.2 F 06/19/22 07:24 Pulse 66 06/19/22 07:24 Resp 16 06/19/22 07:24 BP 161/72 H 06/19/22 07:24 Pulse Ox 97 06/19/22 07:24 Time Spent Time spent with Patient: 40-54 minutes Time was spent: preparing to see the patient(eg.review tests), obtaining and/or reviewing separately otained hiistory, ordering medications,tests, procedures, referring, communicating with other health care information associate, indepentently interpreting results and counseling the patient
[2022-06-19] MEDS: Losartan 25 MG TAB PO (10:26)
[2022-06-19 12:22] LABS: Prothrombin Time 10.3 sec (9.3-11.0)
--- NOTE | 2022-06-19 12:30 | INITIAL_ITS ---
- If Service Date Differs Date of service: 06/19/22 Time of Service: 12:30 Care Management Initial Assess REASON FOR HOSPITALIZATION:: Choledocholithiasis PAST MEDICAL HISTORY/PAST SURGICAL HISTORY:: All Active Problems. Choledocholithiasis (Acute). Hypertension (Acute 10/07/13). Medical History. Cervical intraepithelial neoplasia grade III with severe dysplasia. 1976 on Pap with conization and D & C with pathology showing chronic cervicitis with focal koilocytic atypia and not neoplasic. Surgical History. Cervical Conization/LEEP. 1976 Koilocytosis not neoplastic. section. Colonoscopy - IV Sedation. Dilation and curettage. 1976. S/P CABG x 2. 02/01/22 [facility] [place] PREVIOUS FUNCTIONAL STATUS/SOCIAL/FAMILY SUPPORTS:: Shellie lives in [place] with her , Gold. She is independent at baseline. CURRENT FUNCTIONAL STATUS:: Shellie was not in her room when CM attempted to meet with her. Per report, she will likely have an MRCP tomorrow. MD consulted [facility] regarding possible ERCP. [facility] agreed with obtaining an MRCP. She is currently NPO. CM will continue to follow. ADVANCE DIRECTIVES:: Not on file. Has patient been provided with info about the portal/API?: Yes Did the patient sign up for the portal?: Yes (active) CODE STATUS:: Full Code INSURANCE COVERAGE / FINANCIAL ISSUES:: [employer] M[employer] advantage CURRENT HOME/COMMUNITY SERVICES/EQUIPMENT:: No known services or equipment. PRIMARY CARE PHYSICIAN:: Kerri Pearce POTENTIAL DISCHARGE NEEDS:: Evaluations for further needs, follow up appointments. PATIENT/FAMILY EDUCATION NEEDS:: Review discharge instructions and limitations, discussion of self care needs including ask me three. ANTICIPATED BARRIERS TO DISCHARGE:: None identified at this time. TRANSPORTATION:: Via private vehicle by her spouse. PLAN:: Anticipate Shellie will return home once medically cleared. Her will drive her home via private vehicle. She will follow up with her PCP and discharge plan of care. CM will continue to follow.
[2022-06-19 14:51] LABS: Absolute Basophil Count 0.01 10^3/uL (0.0-0.2); Absolute Eosinophil Count 0.06 10^3/uL (0.0-0.7); Absolute Monocyte Count 0.33 10^3/uL (0.1-0.8); Basophils % 0.2; Eosinophils % 1.2; HCT 40.4 % (36.0-46.0); HGB 13.1 g/dL (11.2-15.7); Lymphocytes % 23.5; MCH 26.4 pg (27.0-33.0); MCHC 32.4 % (32.0-36.0); MCV 82 fL (80-95); MPV 10.3 fL (8.0-11.0); Monocytes % 6.5; Neutrophils % 68.6; Platelet Count 198 10^3/uL (130-400); RBC 4.96 10^6/uL (3.93-5.22); RDW 14.4 % (11.7-14.6)
[2022-06-19 15:12] LABS: ALT 524 U/L (14-59); AST 382 U/L (15-37); Albumin 3.4 g/dL (3.4-5.0); Alkaline Phosphatase 159 U/L (46-116); Anion Gap 5.5 mmol/L (3-11); BUN 15 mg/dL (7-18); Bilirubin, Total 3.1 mg/dL (0.2-1.0); CO2 28.5 mmol/L (21.0-32.0); CREATININE 0.9 mg/dL (0.55-1.02); Calcium 9.6 mg/dL (8.5-10.1); Chloride 106 mmol/L (98-107); Glucose 102 mg/dL (74-106); Potassium 4.1 mmol/L (3.5-5.1); Sodium 140 mmol/L (136-145); Total Protein 6.8 g/dL (6.4-8.2)
[2022-06-19 15:46] LABS: Bilirubin, Direct 1.6 mg/dL (0.0-0.2)
--- NOTE | 2022-06-19 15:48 | CHAPLAIN ---
Shellie was sitting up in bed when I visited. She told me she had a double bypass surgery not to long ago and is now dealing with gallstones. She's waiting to see if she'll stay here or be transferred to [facility] [place], she said, but hasn't seen a physician since this morning. Shellie lives in [place] with her . She said she doesn't like having family visit while she's in the hospital and she's fine being here by herself. I explained my role and offered support.
[2022-06-19 16:12] LABS: Acetaminophen < 2 ug/mL (10-30)
[2022-06-20] VITALS: BP 170/78; PULSE 64; RESP 17; TEMP 36.7; O2SAT 96
--- NOTE | 2022-06-20 00:02 | PGE_ITS ---
Date of Service Date of service: 06/19/22 Time of Service: 17:10 Assessment and Plan Assessment and plan (1) Choledocholithiasis: Status: Acute Assessment and plan: In consult with [facility] gastroenterology, given pt's persistently elevated LFTs, adn MRCP findings, the patient was accepted for [id number] transfer for ERCP on 06/20. --NPO past midnight Objective Last Vital Signs Temp 99.0 F 06/19/22 20:00 Pulse 63 06/19/22 20:00 Resp 17 06/19/22 20:00 BP 182/84 H 06/19/22 20:00 Pulse Ox 98 06/19/22 20:00 Laboratory Results - last 24 hr 06/19/22 06/19/22 06/19/22 07:30 07:30 11:49 WBC 7.99 RBC 5.15 Hgb 13.6 Hct 41.9 MCV 81 MCH 26.4 L MCHC 32.5 RDW 14.2 Plt Count 197 MPV 10.5 Immature Gran % Neutrophils % Lymphocytes % Monocytes % Eosinophils % Basophils % Nucleated RBC % Absolute Neutrophils Absolute Lymphocytes Absolute Monocytes Absolute Eosinophils Absolute Basophils PT 10.3 INR 1.0 Sodium 138 Potassium 4.0 Chloride 103 Carbon Dioxide 28.2 Anion Gap 6.8 BUN 19 H Creatinine 1.0 Est GFR (CKD-EPI 2020) 60.98 Glucose 117 H Calcium 9.6 Total Bilirubin 2.7 H Conjugated Bilirubin AST 563 H ALT 632 H Alkaline Phosphatase 157 H Total Protein 7.1 Albumin 3.6 Acetaminophen 06/19/22 06/19/22 06/19/22 14:45 14:45 14:45 WBC 5.10 RBC 4.96 Hgb 13.1 Hct 40.4 MCV 82 MCH 26.4 L MCHC 32.4 RDW 14.4 Plt Count 198 MPV 10.3 Immature Gran % 0.0 Neutrophils % 68.6 Lymphocytes % 23.5 Monocytes % 6.5 Eosinophils % 1.2 Basophils % 0.2 Nucleated RBC % 0.0 Absolute Neutrophils 3.50 Absolute Lymphocytes 1.20 Absolute Monocytes 0.33 Absolute Eosinophils 0.06 Absolute Basophils 0.01 PT INR Sodium 140 Potassium 4.1 Chloride 106 Carbon Dioxide 28.5 Anion Gap 5.5 BUN 15 Creatinine 0.9 Est GFR (CKD-EPI 2020) 69.20 Glucose 102 Calcium 9.6 Total Bilirubin 3.1 H Conjugated Bilirubin 1.6 H AST 382 H ALT 524 H Alkaline Phosphatase 159 H Total Protein 6.8 Albumin 3.4 Acetaminophen 06/19/22 06/19/22 14:45 15:35 WBC RBC Hgb Hct MCV MCH MCHC RDW Plt Count MPV Immature Gran % Neutrophils % Lymphocytes % Monocytes % Eosinophils % Basophils % Nucleated RBC % Absolute Neutrophils Absolute Lymphocytes Absolute Monocytes Absolute Eosinophils Absolute Basophils PT INR Sodium Potassium Chloride Carbon Dioxide Anion Gap BUN Creatinine Est GFR (CKD-EPI 2020) Glucose Calcium Total Bilirubin Conjugated Bilirubin AST ALT Alkaline Phosphatase Total Protein Albumin Acetaminophen < 2 Cancelled Time Spent with Patient Time Spent with Patient: 25-34 minutes Time was spent: preparing to see the patient(eg.review tests), ordering medi cations,tests, procedures, referring, communicating with other health geriatric personal care aide, indepentently interpreting results, counseling the patient and care coordination
[2022-06-20 04:39] VITALS: BP 172/85; PULSE 70; RESP 20; TEMP 36.6; O2SAT 96
[2022-06-20] MEDS: PIPERACILLIN/TAZO 3.375 GM in Normal Saline 50 ML IVPB ×3 (04:39→21:41)
[2022-06-20 07:28] LABS: Abs Immature Grans 0.01 10^3/uL (0.0-0.06); Absolute Basophil Count 0.02 10^3/uL (0.0-0.2); Absolute Eosinophil Count 0.13 10^3/uL (0.0-0.7); Absolute Neutrophil Count 2.91 10^3/uL (1.2-6.7); Basophils % 0.4; Eosinophils % 2.4; HCT 43.2 % (36.0-46.0); Immature Grans % 0.2; Lymphocytes % 35.4; MCH 26.1 pg (27.0-33.0); MCHC 32.4 % (32.0-36.0); MCV 81 fL (80-95); MPV 10.5 fL (8.0-11.0); Monocytes % 7.4; Neutrophils % 54.2; Platelet Count 213 10^3/uL (130-400); RBC 5.36 10^6/uL (3.93-5.22); RDW 14.3 % (11.7-14.6); RDW-SD 41.7 fL; WBC 5.37 10^3/uL (4.4-10.8)
[2022-06-20 07:44] VITALS: BP 162/75; PULSE 74; RESP 20; TEMP 36.5; O2SAT 97
[2022-06-20 08:07] LABS: ALT 395 U/L (14-59); AST 236 U/L (15-37); Albumin 3.7 g/dL (3.4-5.0); Alkaline Phosphatase 165 U/L (46-116); Anion Gap 10.3 mmol/L (3-11); BUN 11 mg/dL (7-18); Bilirubin, Total 2.5 mg/dL (0.2-1.0); CO2 26.7 mmol/L (21.0-32.0); CREATININE 0.9 mg/dL (0.55-1.02); Chloride 106 mmol/L (98-107); Glucose 100 mg/dL (74-106); Potassium 4.2 mmol/L (3.5-5.1); Sodium 143 mmol/L (136-145); Total Protein 7.4 g/dL (6.4-8.2)
[2022-06-20] MEDS: Losartan 25 MG TAB PO (08:17)
[2022-06-20] MEDS: Metoprolol 25 MG TAB PO ×2 (08:17→19:12)
[2022-06-20 10:49] LABS: Hepatitis A Antibody IgM Negative (Negative); Hepatitis B Core Antibody Negative (Negative); Hepatitis B surface Ag Negative (Negative); Hepatitis C Ab w Rflx HCV PCR Negative (Negative)
--- NOTE | 2022-06-20 13:58 | PDOC.CMPRO ---
- If Service Date Differs Date of service: 06/20/22 Time of Service: 13:58 Care Management Progress Note S/O: Per report, Shellie had an MRCP yesterday. Due to the findings on the MRCP and Shellie's persistently elevated LFT's, she was accepted for a down and back transfer to [facility] to have an ERCP. Due to this, CM was unable to meet with her today. CM will continue to follow. A: Shellie is a 71 year old female admitted to [facility] on 06/18/22 for choledocholithiasis. P: Anticipate Shellie will return home when medically cleared. Her will drive her home via private vehicle. She will follow up with her PCP and discharge plan of care. CM will continue to follow.
[2022-06-20 15:13] VITALS: BP 199/85; PULSE 78; RESP 20; TEMP 36.8; O2SAT 97
--- NOTE | 2022-06-20 17:41 | PGE_ITS ---
Date of Service Date of service: 06/20/22 Time of Service: 17:41 Assessment and Plan Assessment and plan (1) Choledocholithiasis: Status: Acute Assessment and plan: There was no evidence of choledocholithiasis on the ERCP today. I was able to review the images personally. She does have cholelithiasis. With her LFTs normalizing, I suspect that she has passed the stone through her common bile duct spontaneously. I do recommend cholecystectomy to prevent recurrence of choledocholithiasis. We will make arrangements to perform that tomorrow. Subjective Subjective Interval history since last seen: She felt fine today, and tolerated the trip down to [facility] without issue. She is hungry, and denies any pain. Exam GI Other: Abdomen is soft, nontender nondistended. She does not have any tenderness over her gallbladder. Objective Last Vital Signs Temp 98.2 F 06/20/22 15:13 Pulse 78 06/20/22 15:13 Resp 20 06/20/22 15:13 BP 199/85 H 06/20/22 15:13 Pulse Ox 97 06/20/22 15:13 Laboratory Results - last 24 hr 06/19/22 06/20/22 06/20/22 11:49 06:40 06:40 WBC 5.37 RBC 5.36 H Hgb 14.0 Hct 43.2 MCV 81 MCH 26.1 L MCHC 32.4 RDW 14.3 Plt Count 213 MPV 10.5 Immature Gran % 0.2 Neutrophils % 54.2 Lymphocytes % 35.4 Monocytes % 7.4 Eosinophils % 2.4 Basophils % 0.4 Nucleated RBC % 0.0 Absolute Neutrophils 2.91 Absolute Lymphocytes 1.90 Absolute Monocytes 0.40 Absolute Eosinophils 0.13 Absolute Basophils 0.02 Sodium 143 Potassium 4.2 Chloride 106 Carbon Dioxide 26.7 Anion Gap 10.3 BUN 11 Creatinine 0.9 Est GFR (CKD-EPI 2020) 69.20 Glucose 100 Calcium 10.0 Total Bilirubin 2.5 H AST 236 H ALT 395 H Alkaline Phosphatase 165 H Total Protein 7.4 Albumin 3.7 Hepatitis A IgM Ab Negative Hep Bs Antigen Negative Hep B Core Total Ab Negative Hepatitis C Antibody Negative Time Spent with Patient Time Spent with Patient: 25-34 minutes Time was spent: preparing to see the patient(eg.review tests), ordering medications,tests, procedures and indepentently interpreting results
[2022-06-20] MEDS: Lactobacillus Acidophilus CAP 1 CAP PO (19:11)
[2022-06-20] MEDS: Lactated Ringers 1,000 ML 125 ML IV (19:12)
[2022-06-20 22:49] VITALS: BP 147/68; PULSE 60; RESP 17; TEMP 36.1; O2SAT 98
[2022-06-21] VITALS (8 sets, daily range): BP systolic 141–193; BP diastolic 67–91; PULSE 56–68; RESP 13–21; TEMP 35.8–37; O2SAT 93–97; BMI 25.7
[2022-06-21] MEDS: Lactated Ringers 1,000 ML 125 ML IV ×2 (00:02→09:09)
[2022-06-21] MEDS: Normal Saline Flush 10 ML SYR IVP ×2 (04:01→10:15)
[2022-06-21] MEDS: PIPERACILLIN/TAZO 3.375 GM in Normal Saline 50 ML IVPB ×2 (04:01→10:14)
[2022-06-21 07:27] LABS: ALT 270 U/L (14-59); AST 105 U/L (15-37); Albumin 3.4 g/dL (3.4-5.0); Alkaline Phosphatase 135 U/L (46-116); Anion Gap 7.8 mmol/L (3-11); BUN 8 mg/dL (7-18); Bilirubin, Total 1.2 mg/dL (0.2-1.0); CO2 28.2 mmol/L (21.0-32.0); Calcium 9.6 mg/dL (8.5-10.1); Chloride 106 mmol/L (98-107); Estimated GFR 60.98 (mL/min/1.73m2); Glucose 101 mg/dL (74-106); Lipase 51 U/L (16-77); Potassium 3.8 mmol/L (3.5-5.1); Sodium 142 mmol/L (136-145); Total Protein 6.8 g/dL (6.4-8.2)
[2022-06-21] MEDS: Losartan 25 MG TAB PO (07:40)
[2022-06-21] MEDS: Metoprolol 25 MG TAB PO (07:40)
--- NOTE | 2022-06-21 08:05 | PGE_ITS ---
Date of Service Date of service: 06/21/22 Time of Service: 08:05 Assessment and Plan Assessment and plan (1) Choledocholithiasis: Status: Acute Assessment and plan: Plan is to have a laparoscopic cholecystectomy later today. Patient may shower this morning prior to her surgery. Continue to be n.p.o. Patient may ambulate as tolerated. Continue pulmonary toilet P// Lap. Nery (possiblely open) later today with Dr. Almanzar It looks great today, and I see no contraindication to cystectomy. We will make arrangements for this afternoon. Subjective Subjective Interval history since last seen: Patient expressed that she is very eager to have surgery so she can go home. She denies any pain today. She denies any nausea, vomiting or GI complaints. She expressed that she is very hungry and ready to eat as well. Exam Const General: cooperative, healthy appearing and comfortable Orientation: alert and oriented x3 Resp Effort & Inspection: normal respiratory effort, no audible wheezes and no cough GI Inspection: normal to inspection Palpation: soft, no guarding and nontender Objective Last Vital Signs Temp 36.8 C 06/21/22 07:31 Pulse 68 06/21/22 07:31 Resp 18 06/21/22 07:31 BP 186/91 H 06/21/22 07:31 Pulse Ox 97 06/21/22 07:31 Laboratory Results - last 24 hr 06/19/22 06/20/22 06/21/22 11:49 06:40 05:35 WBC Cancelled RBC Cancelled Hgb Cancelled Hct Cancelled MCV Cancelled MCH Cancelled MCHC Cancelled RDW Cancelled Plt Count Cancelled MPV Cancelled Immature Gran % Cancelled Neutrophils % Cancelled Band Neutrophils % Cancelled Lymphocytes % Cancelled Atypical Lymphs % Cancelled Monocytes % Cancelled Eosinophils % Cancelled Basophils % Cancelled Metamyelocytes % Cancelled Myelocytes % Cancelled Promyelocytes % Cancelled Other Cells % Cancelled Nucleated RBC % Cancelled Absolute Neutrophils Cancelled Absolute Lymphocytes Cancelled Absolute Monocytes Cancelled Absolute Eosinophils Cancelled Absolute Basophils Cancelled RBC Morphology Cancelled Polychromasia Cancelled Hypochromasia Cancelled Poikilocytosis Cancelled Basophilic Stippling Cancelled Anisocytosis Cancelled Microcytosis Cancelled Macrocytosis Cancelled Spherocytes Cancelled Tear Drop Cells Cancelled Ovalocytes Cancelled Stomatocytes Cancelled [place] Bodies Cancelled [place] Cells/Echinocytes Cancelled Acanthocytes (Spur) Cancelled Schistocytes Cancelled Sodium 143 Potassium 4.2 Chloride 106 Carbon Dioxide 26.7 Anion Gap 10.3 BUN 11 Creatinine 0.9 Est GFR (CKD-EPI 2020) 69.20 Glucose 100 Calcium 10.0 Total Bilirubin 2.5 H AST 236 H ALT 395 H Alkaline Phosphatase 165 H Total Protein 7.4 Albumin 3.7 Lipase Hepatitis A IgM Ab Negative Hep Bs Antigen Negative Hep B Core Total Ab Negative Hepatitis C Antibody Negative 06/21/22 06/21/22 06:00 06:30 WBC RBC Hgb Hct MCV MCH MCHC RDW Plt Count MPV Immature Gran % Neutrophils % Band Neutrophils % Lymphocytes % Atypical Lymphs % Monocytes % Eosinophils % Basophils % Metamyelocytes % Myelocytes % Promyelocytes % Other Cells % Nucleated RBC % Absolute Neutrophils Absolute Lymphocytes Absolute Monocytes Absolute Eosinophils Absolute Basophils RBC Morphology Polychromasia Hypochromasia Poikilocytosis Basophilic Stippling Anisocytosis Microcytosis Macrocytosis Spherocytes Tear Drop Cells Ovalocytes Stomatocytes [place] Bodies [place] Cells/Echinocytes Acanthocytes (Spur) Schistocytes Sodium Cancelled 142 Potassium Cancelled 3.8 Chloride Cancelled 106 Carbon Dioxide Cancelled 28.2 Anion Gap Cancelled 7.8 BUN Cancelled 8 Creatinine Cancelled 1.0 Est GFR (CKD-EPI 2020) Cancelled 60.98 Glucose Cancelled 101 Calcium Cancelled 9.6 Total Bilirubin Cancelled 1.2 H AST Cancelled 105 H ALT Cancelled 270 H Alkaline Phosphatase Cancelled 135 H Total Protein Cancelled 6.8 Albumin Cancelled 3.4 Lipase 51 Hepatitis A IgM Ab Hep Bs Antigen Hep B Core Total Ab Hepatitis C Antibody Time Spent with Patient Time Spent with Patient: <25 minutes Time was spent: preparing to see the patient(eg.review tests) and counseling the patient
--- NOTE | 2022-06-21 09:49 | W.ANESPRE ---
General Info Date of Service Date Performed: 06/21/22 Height: 5 ft 4 in Weight: 68.039 kg Body Mass Index (BMI): 25.7 Surgical Procedure: Operation Date: 06/21/22 12:10 Proposed Procedure Side Surgeon p Cholecystectomy Laparoscopic Ebenezer Almanzar MD Meds Allergies and Home Medications Allergies Allergy/AdvReac Type Severity Reaction Status Date / Time No Known Drug Allergies Allergy Verified 06/18/22 18:40 Adhesives AdvReac Intermediate Rash Uncoded 06/18/22 18:40 Home Medication Medication Instructions Recorded losartan 25 mg tablet 25 mg PO 1XD 01/28/22 acetaminophen 500 mg capsule 1,000 mg PO Q6H PRN 02/13/22 aspirin 81 mg chewable tablet 81 mg PO DAILY 02/13/22 metoprolol tartrate 25 mg tablet 25 mg PO BID 02/13/22 atorvastatin 80 mg tablet 40 mg PO QPM 03/27/22 calcium phosphate,dibasic 77 1 tab PO DAILY 06/18/22 mg-vitamin D3 400 unit tablet Current Visit Medications: Current Medications Generic Name Dose Route Start Last Admin Trade Name Freq PRN Reason Stop Dose Admin Acidophilus/Pectin 1 cap 06/20/22 16:55 06/20/22 19:11 Lactobacillus Acidophilus Cap PO 1 cap TID PRN PRN Administration Hydromorphone HCl 0.5 mg 06/19/22 14:24 Hydromorphone 2 Mg/Ml Vial IVP Q3H PRN PRN Sodium Chloride 500 mls @ 0 mls/hr 06/18/22 23:13 Saline 500ml Bag IV PRN PRN As Directed Ringer's Solution 1,000 mls @ 125 mls/hr 06/19/22 00:45 06/21/22 09:09 IV 125 mls/hr INFUSION SKINNY Administration Piperacillin Sod/Tazobactam 50 mls @ 100 mls/hr 06/19/22 16:00 06/21/22 04:52 Sod 3.375 gm/ Sodium Chloride IVPB Infused Q6H SKINNY Infusion Protocol IV Miscellaneous Supplies 1 each 06/18/22 23:15 Iv Access IV DIRECTED SKINNY Lorazepam 0.25 mg 06/20/22 05:08 Lorazepam 2 Mg/Ml Vial IVP Q2H PRN PRN Anxiety Losartan Potassium 25 mg 06/19/22 08:30 06/21/22 07:40 Losartan 25 Mg Tab PO 25 mg DAILY SKINNY Administration Melatonin 3 mg 06/19/22 01:15 Melatonin 3 Mg Tab PO HS PRN PRN Metoprolol Tartrate 25 mg 06/19/22 08:00 06/21/22 07:40 Metoprolol 25 Mg Tab PO 25 mg Q12H SKINNY Administration Sodium Chloride 0 ml 06/18/22 19:25 06/21/22 04:01 Normal Saline Flush 10 Ml Syr IVP 10 ml PRN PRN Administration Sodium Chloride 50 ml 06/18/22 21:15 06/18/22 21:10 Normal Saline - Diluent 50 Ml Vial IJ 50 ml .FOR DI USE SKINNY Administration PFSH Active Problems Active Problems: Problem Status Onset Code Choledocholithiasis K80.50 Hypertension 10/07/13 I10 Medical History Medical History Cervical intraepithelial neoplasia grade III with severe dysplasia 1976 on Pap with conization and D & C with pathology showing chronic cervicitis with focal koilocytic atypia and not neoplasic Surgical History Surgical History Cervical Conization/LEEP 1976 Koilocytosis not neoplastic section Colonoscopy - IV Sedation Dilation and curettage 1976 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 [facility] Tobacco Smoking/Tobacco Use Status: Never Alcohol Alcohol Intake: current Alcohol intake frequency: a few times a month Substance Use Substance use: Never Substance use type: does not use Prental History History 2 Para 2 Hx # Term Pregnancies Multiple births Hx # Pregnancies Ectopic pregnancies AB induced Hx Number of Living Children AB spontaneous Vital Signs and Lab Results Vital Signs Most Recent Vital Signs in EMR: Most Recent Vital Signs Temp Pulse Resp BP Pulse Ox 36.8 C 68 18 186/91 H 97 06/21/22 07:31 06/21/22 07:31 06/21/22 07:31 06/21/22 07:31 06/21/22 07:31 Lab Results 06/20/22 06:40 06/21/22 06:30 Blood Type / Crossmatch: No Data to Display Complete Blood Count: White Blood Count 5.37 10^3/uL (4.4-10.8) 06/20/22 06:40 Red Blood Count 5.36 10^6/uL (3.93-5.22) H 06/20/22 06:40 Hemoglobin 14.0 g/dL (11.2-15.7) 06/20/22 06:40 Hematocrit 43.2 % (36.0-46.0) 06/20/22 06:40 Platelet Count 213 10^3/uL (130-400) 06/20/22 06:40 Complete Metabolic Panel: Sodium 142 mmol/L (136-145) 06/21/22 06:30 Potassium 3.8 mmol/L (3.5-5.1) 06/21/22 06:30 Chloride 106 mmol/L (98-107) 06/21/22 06:30 Carbon Dioxide 28.2 mmol/L (21.0-32.0) 06/21/22 06:30 BUN 8 mg/dL (7-18) 06/21/22 06:30 Creatinine 1.0 mg/dL (0.55-1.02) 06/21/22 06:30 Est GFR (CKD-EPI 2020) 60.98 (mL/min/1.73m2) 06/21/22 06:30 Magnesium 2.0 mg/dL (1.8-2.4) 06/18/22 18:40 Calcium 9.6 mg/dL (8.5-10.1) 06/21/22 06:30 Albumin 3.4 g/dL (3.4-5.0) 06/21/22 06:30 Glucose 101 mg/dL (74-106) 06/21/22 06:30 Liver Function Panel: Alanine Aminotransferase (ALT/SGPT) 270 U/L (14-59) H 06/21/22 06:30 Aspartate Amino Transf (AST/SGOT) 105 U/L (15-37) H 06/21/22 06:30 Coagulation Panel: INR International Normalized Ratio 1.0 (0.9-1.1) 06/19/22 11:49 Prothrombin Time 10.3 sec (9.3-11.0) 06/19/22 11:49 Cardiac Panel: No Data to Display Arterial Blood Gas: No Data to Display Venous Blood Gas: No Data to Display Pancreas Panel: Lipase 51 U/L (16-77) 06/21/22 06:30 Thyroid Panel: No Data to Display Infectious Disease: Coronavirus (COVID-19)(PCR) Negative (Negative) 06/18/22 22:32 Coronavirus 2019 Source Nasal/Nares 06/18/22 22:32 Hepatitis B Surface Antigen Negative (Negative) 06/19/22 11:49 Hepatitis C Antibody Negative (Negative) 06/19/22 11:49 Blood Cultures: No Data to Display Toxicology Panel: No Data to Display Imaging and Studies Imaging and Studies Study information below may be from another EMR and interpreted by another provider. Please see original notes in EMR for more complete details. EKG Summary: EKG PATIENT NAME: Shellie Lyon #: [id number] ORDERING PROVIDER: Alesia Loya M.D. PRIMARY CARE PROVIDER:VERONICA KRUSE NP DATE/TIME OF SERVICE: 02/15/2245 : 1950ERFORMING LOCATION: .CARD APPROVED REPORT Exam: Resting ECG Reason for Exam: IA Patient Location: O HR:69 bpm ECG Measurements Heart Rate 69 AXIS SD 134 P 55 QRSd 86 QRS 36 QT 419 T189 QTc 449 Conclusion Sinus rhythm...normal P axis, V-rate 50- 99 Probable left atrial enlargement...P >50mS, <-0.10mV V1 Abnormal T, consider ischemia, diffuse leads...T <-0.20mV, ant/lat/inf Echocardiogram Summary: Patient Name: SHELLIE LYON #: [id number]: DI Ordering Provider: Claudio Reece #: [id number]: REG CLI Primary Care Provider: Praveen Reece of Exam: 11/27/18Sex: F : 1950ge: 68 Exam(s) a US:US echocardiogram *[facility]* *[facility]* [address] [place] [address] Date of study: 11/27/2018 Transthoracic Echocardiography M-mode, complete 2D, complete spectral Doppler, and color Doppler *STUDY CONCLUSIONS* Summary: 1. Left ventricle: The cavity size was normal. Wall thickness was normal. Systolic function was normal. The estimated ejection fraction was 60-65%. Wall motion was normal; there were no regional wall motion abnormalities. 2. Right ventricle: The cavity size was normal. Systolic function was normal. 3. Aortic valve: Trileaflet; mildly thickened, mildly calcified leaflets. Valve mobility was restricted. Transvalvular velocity was increased. There was mild stenosis. There was mild to moderate regurgitation. Peak velocity (S): 2.7m/sec. VTI ratio of LVOT to aortic valve: 0.42. 4. Inferior vena cava: The vessel was patent and normal in size. The respirophasic diameter changes were in the normal range (greater than or equal to 50%), consistent with normal central venous pressure. Anesthesia Assessment and Plan Anesthesia History Personal History: No History of Anesthesia Complications Family History: No Family History of Anesthesia Complications Exercise Tolerance Exercise Tolerance: Metabolic Equivalents>4 Pertinent Negatives Pertinent Negatives: No Symptoms of GERD Cardiac & Pulmonary Exam Cardiac Exam: Normal S1/S2 Heart Sounds Pulmonary Exam: Clear Bilateral Breath Sounds Cardiac and Pulmonary Comment:: Recent CABGx2 at [facility]. MISBAH for her CABG found no change from the pre-procedure ECHO Implantable Cardiac Device Does patient have a Pacemaker or an ICD?: No Airway Exam Known Difficult Airway: No Mallampati Class: 2 Mouth Opening: Normal (> 3cm) Thyromental Distance: Greater than 3 cm Neck Range of Motion: Full ROM Neck Circumference: Normal Teeth Condition: Normal Dentition ASA Classification ASA Score: ASA 2 Emergency Case?: Yes NPO Status NPO Status: NPO Clears >2 hours, Solids >8 hours Anesthesia Plan Resuscitation Status: Full Code Anesthesia Technique: General Anesthesia Airway Planned: Endotracheal Tube Monitors Used: Standard Monitors Preoperative Comments:: S/P CABG x2 01/2022 at [facility]. Card Surgery note 03/15/2022: In summary, Ms. Lyon has recovered nicely following her bypass surgery. We are going to discharge her from our service at this time...
[2022-06-21] MEDS: Lactated Ringers 1,000 ML 30 ML IV (12:45)
--- NOTE | 2022-06-21 12:48 | W.PM.DSUDISC ---
Date of service: 06/21/22 Time of Service: 15:56 Discharge Plan Disposition Patient Disposition: Home Condition: Good Discharge Details Reason For Visit: Choledocholithiasis Admit Date/Time: 06/18/22 23:13 Admit Provider: Victor M Becker Attending Provider: Victor M Becker Primary Care Provider: VERONICA KRUSE Home Meds and New Rx's Prescriptions: New tramadol 50 mg tablet 50 mg PO Q8H PRN (Reason: pain) Qty: 12 0RF Rx Instructions: take one tablet by mouth up to every 8 hours as needed for severe pain. Do not drive while using this medication Continued atorvastatin 80 mg tablet 40 mg PO QPM Rx Instructions: Take 1 tablet by mouth every evening. acetaminophen 500 mg capsule 1,000 mg PO Q6H PRN Rx Instructions: Take 2 tablets by mouth every 6 hours as needed for Pain aspirin 81 mg tablet,chewable 81 mg PO DAILY Rx Instructions: Take 81 mg by mouth daily. metoprolol tartrate 25 mg tablet 25 mg PO BID Rx Instructions: Take 1 tablet by mouth 2 times daily. calcium phos,dibas-vitamin D3 77-400 mg-unit Tablet 1 tab PO DAILY losartan 25 mg tablet 25 mg PO 1XD Patient Comments: TAKE 1 TABLET BY MOUTH EVERY DAY Discharge Instructions Instructions: Laparoscopic Cholecystectomy (GEN) Additional Instructions: 1. Resume all of your medications 2. Okay to use tylenol and ibuprofen over the counter as needed. Use tramadol as needed for severe pain. 3. Ice packs and heating pads are also fine to use for your discomfort 4. Leave bandage in place for 24 hours, then remove. 5. Shower with warm soapy water. Pat dry. Use a bandaid if needed to protect your clothing. 6. No soaking or tub baths until I see you in the office. 7. No heavy lifting until I see you in the office. 8. Call the office (or go directly to the emergency room after hours) if you notice any of the following: Develop chills (warm to touch), or if you have a thermometer and your temperature is above 101 Difficulty breathing or difficultly swallowing Persistent vomiting Any bleeding ? exceeding one tablespoon 6. Call your physician if the site where your intravenous was started becomes red, swollen, painful, and warm to touch. Referrals: Ebenezer Almanzar MD [ [facility] STAFF PHYSICIAN] - (07/06 at 9:30 AM...you will actually see a partner named Dr. Levine) Activity:: No heavy lifting Equipment/Supplies:: No Equipment Needed Diet:: As Tolerated Discharge Orders Discharge Orders: Discharge Order (Routine); Ordered 06/21/22 Ordered By: Ebenezer Almanzar DS: Diagnosis Discharge Diagnosis (1) Choledocholithiasis: Status: Acute
--- NOTE | 2022-06-21 13:04 | PDOC.CMDIS ---
- If Service Date Differs Date of service: 06/21/22 Time of Service: 13:04 LACE Index Scoring Tool - Questions: Length of Stay (in days): 3 Acuity (Admit via E.D.?): Yes E.D. Visits: 2 - Answers: Total Score: 8 Risk of Readmission: Low Risk Care Management Discharge Reason for Hospitalization: Choledocholithiasis Discharge Plan: Shellie will return home once medically cleared. Her will drive her home via private vehicle. She will follow up with her PCP and discharge plan of care. Patient/Family Education Needs: Review discharge instructions, discuss Ask Me Three.
--- NOTE | 2022-06-21 13:31 | GB_PTH ---
PATIENT: Shellie Lyon LOC: U#:[id number] AGE/SX: 71/F ROOM: 214 RE06/18/[address]: Victor M Becker : 1950 BED: A DIS: 06/21/2022 SPEC #: [id number] RECD: 06/21/22 18:23 STATUS: SOLITARIO REQ #: [id number] MYRANDA: 06/21/22 13:[address]: Victor M Becker DEPT: Surgical Specimen RECD BY: Paty Núñez ENTERED: 06/21/22 18:24 SP TYPE: GB OTHR DR: VERONICA KRUSE, KWADWO Tissues: 1 - GALLBLADDER Procedures: GROSS AND MICRO LEVEL 3 Comments: [id number]
[2022-06-21] MEDS: Bupivacaine 0.25% Pres-Free 30 ML VIAL (13:37)
--- NOTE | 2022-06-21 13:57 | ROE_ITS ---
Date of service: 06/21/22 Time of Service: 13:57 Operative Note Operative Note DATE OF PROCEDURE: 06/21/22 PRE-OP DIAGNOSIS: Choledocholithiasis POST-OP DIAGNOSIS: same PROCEDURE: Laparoscopic cholecystectomy SURGEON: Ebenezer Almanzar REPLANTING MACHINE CREWMAN: Cece May ANESTHESIA TYPE: General LMA/ETT Refer to Anesthesia Record ESTIMATED BLOOD LOSS: 30 PATHOLOGY: other (Gallbladder) COMPLICATIONS: None Patient was transported to: PACU Patient's condition: stable Indications: Cristiano is a 71-year-old woman with a cute onset of right upper quadrant pain. She had imaging concerning for choledocholithiasis, and elevated liver function test and bilirubin. She underwent an MRCP that supported the diagnosis of choledocholithiasis. This was followed by an ERCP to clear the duct. By the day of the operation, her LFTs were trending towards normal and she was pain- free. Procedure Description: After satisfactory induction of general anesthesia, I prepped and draped the abdomen in usual fashion. Next, I began with a periumbilical incision. I dissected down to the fascia and elevated it with Wili clamps. I incised it sharply. Next, I passed a 12 mm operating port in the umbilical site. I secured it to the fascia with 0 Vicryl stitches. I then insufflated the peritoneal cavity. Next I inserted a 5 mm 30 degree scope scope and examined the underlying viscera. There was no evidence of injury created upon entry. I then placed the patient in some reverse Trendelenburg and left side down positioning. Then, with the assistance of the laparoscope, I used local anesthetic to anesthetize the midepigastric and 2 right upper quadrant port sites. Under the vision of the laparoscope, I passed 3 more 5 mm ports. I then grasped the gallbladder fundus and elevated cephalad. I began by dissecting the gallbladder infundibulum. I worked in a lateral to medial fashion. Once I skeletonized the cystic duct and cystic artery, with a satisfactory critical view of safety, I doubly clipped and divided them. I then used electrocautery to dissect the gallbladder off the gallbladder fossa. I passed the gallbladder into an Endo Catch bag and removed it by way of the umbilical site. I examined the surgical field. It was hemostatic. I then removed the 5 mm ports under the vision of the laparoscope. Finally, I removed the umbilical port site and closed the fascia with Vicryl stitches. Sites were irrigated, and the skin was closed with subcuticular stitches. Bandages were applied, patient was awakened from anesthesia, and transferred to the recovery unit.
--- NOTE | 2022-06-22 11:26 | W.ANESPOSTOP ---
Postoperative Evaluation Date, Time and Location Date Performed: 06/22/22 Time Performed: 11:27 Patient Location: Other Vital Signs Most Recent Imported Vital Signs: Most Recent Vital Signs Temp Pulse Resp BP Pulse Ox 35.8 C L 66 17 193/82 H 94 06/21/22 14:56 06/21/22 14:56 06/21/22 14:56 06/21/22 14:56 06/21/22 14:56 Pain Score Most Recent Pain Score: Most Recent Pain Score Pain Level 4 06/21/22 14:35 Assessment Mental Status: Awake (Alert & Oriented to Patient Baseline) Airway and Respiratory Function: Patent airway with normal (patient baseline) respiratory exam Cardiovascular Function: Hemodynamically Stable Hydration Status: Adequately Hydrated Nausea & Vomiting: No Nausea or Vomiting Pain: Pain is tolerable per patient Peripheral Nerve Block: Patient did not receive a nerve block Postoperative Comments:: Patient doing well and denying any questions. Is cleaning her house and has over 6500 steps today.
== END 2022-06-21 17:31 | disposition home or self-care (01) | DRG 419 ==
LOC: ER 18:23 → MS 06-19 00:28
PROVIDERS: Surgery; Admitting Provider Surgery; Emergency Provider Physician Assistant; PCP Nurse Practitioner Family; Visit Provider Surgery
PROC: 0FT44ZZ Resection of Gallbladder, Percutaneous Endoscopic Approach (ICD-10-PCS; CPT 47562; principal; 2022-06-21 12:00)
DX: K81.1 Chronic cholecystitis (principal); I10 Essential (primary) hypertension; Z95.1 Presence of aortocoronary bypass graft; I25.2 Old myocardial infarction
CPT/HCPCS: 47562; 36415; 80053; 83690; 85027; 86704; 86709; 86803; 87340; 87635; 96361; 96365; 96366; 99222; 99231; 99285; 74177; 74181; 80329; 81003; 81015; 82248; 83735; 85025; 85610; 88304; J0131; J0360; J1100; J1170; J1885; J2405; J2543; J2704; J3490

== ENCOUNTER → 2022-07-06 09:19 | Outpatient (BNVA) | payer MEDICARE, SELFPAY | PROVIDERS: PCP Nurse Practitioner Family; Referring Provider Nurse Practitioner Family; Visit Provider Surgery | DX: Z48.815 Encounter for surgical aftercare following surgery on the digestive system (principal); Z90.49 Acquired absence of other specified parts of digestive tract ==

== ENCOUNTER 2022-08-15 03:10 | Outpatient (CLI) | payer MEDICARE, SELFPAY ==
[2022-08-15 08:43] LABS: Calculated LDL 38 mg/dL (<100); Cholesterol 106 mg/dL (<200); HDL Cholesterol 56 mg/dL (40-60); Triglyceride 64 mg/dL (<150)
== END 2022-08-15 03:11 | disposition home or self-care (01) ==
LOC: LBO 03:10
PROVIDERS: PCP Nurse Practitioner Family; Visit Provider Internal Medicine Cardiovascular Disease
DX: I10 Essential (primary) hypertension (principal)
CPT/HCPCS: 36415; 80061

== ENCOUNTER → 2022-08-23 09:44 | Outpatient (BNVA) | payer MEDICARE, SELFPAY | PROVIDERS: PCP Nurse Practitioner Family; Referring Provider Nurse Practitioner Family; Visit Provider Internal Medicine Cardiovascular Disease | DX: Z09 Encounter for follow-up examination after completed treatment for conditions other than malignant neoplasm (principal); Z95.1 Presence of aortocoronary bypass graft; I10 Essential (primary) hypertension | CPT/HCPCS: 99214 ==

== ENCOUNTER 2023-05-21 09:42 | Outpatient (REF) | payer MEDICARE, SELFPAY ==
[2023-05-21 15:28] LABS: HCT 44.8 % (36.0-46.0); HGB 14.5 g/dL (11.2-15.7); MCH 27.8 pg (27.0-33.0); MCHC 32.4 % (32.0-36.0); MCV 86 fL (80-95); MPV 11.3 fL (8.0-11.0); Platelet Count 244 10^3/uL (130-400); RBC 5.21 10^6/uL (3.93-5.22); RDW 12.2 % (11.7-14.6); RDW-SD 38.4 fL; WBC 5.34 10^3/uL (4.4-10.8)
[2023-05-21 15:44] LABS: ALT 33 U/L (14-59); AST 30 U/L (15-37); Albumin 3.8 g/dL (3.4-5.0); Alkaline Phosphatase 98 U/L (46-116); Anion Gap 6.3 mmol/L (3-11); BUN 21 mg/dL (7-18); Bilirubin, Total 0.7 mg/dL (0.2-1.0); CO2 28.7 mmol/L (21.0-32.0); Calcium 9.9 mg/dL (8.5-10.1); Calculated LDL 31 mg/dL (<100); Chloride 105 mmol/L (98-107); Cholesterol 129 mg/dL (<200); Estimated GFR 60.61 (mL/min/1.73m2); Glucose 126 mg/dL (74-106); HDL Cholesterol 57 mg/dL (40-60); Potassium 4.9 mmol/L (3.5-5.1); Sodium 140 mmol/L (136-145); Total Protein 7.6 g/dL (6.4-8.2); Triglyceride 209 mg/dL (<150)
== END 2023-05-21 09:43 | disposition home or self-care (01) ==
LOC: NCHCN 09:42
PROVIDERS: PCP Nurse Practitioner Family; Visit Provider Nurse Practitioner Family
DX: E78.5 Hyperlipidemia, unspecified (principal); I10 Essential (primary) hypertension
CPT/HCPCS: 80053; 80061; 85027

== ENCOUNTER → 2023-06-20 03:46 | Outpatient (CLI) | payer MEDICARE, SELFPAY ==
--- NOTE | 2023-06-20 08:45 | DI.MAMMO_ITS ---
Exam(s) MAMMO SCREENING EXAM: MAMMO SCREENING CLINICAL HISTORY: SCREENING, Z12.31 TECHNIQUE: Mammograms were interpreted according to the usual protocol including computer analysis w Tagboard CAD system, tomosynthesis and C-view imaging. COMPARISON: 2013 through 2021 FINDINGS: The breasts are composed of scattered fibroglandular densities, Breast Density category B. No suspicious masses or suspicious microcalcifications are seen. No skin thickening or abnormal axillary lymph nodes are seen. There has been no significant change from prior exams. IMPRESSION: BI-RADS Category 1, Negative mammogram Yearly screening mammography is recommended. Breast Density - Category B, scattered fibroglandular densities. A negative radiographic report should not delay biopsy if a dominant or clinically suspicious mass is present. Up to ten percent of cancers are not identified on mammography. A negative report may reinforce clinical impression. Adenosis and dense breasts may obscure an underlying neoplasm. False positive reports average 6 to 10%. Patient will receive a letter notifying them of these results.
== END ==
PROVIDERS: PCP Nurse Practitioner Family; Visit Provider Nurse Practitioner Family
DX: Z12.31 Encounter for screening mammogram for malignant neoplasm of breast (principal)
CPT/HCPCS: 77063; 77067

== ENCOUNTER → 2023-08-22 09:49 | Outpatient (BNVA) | payer MEDICARE, SELFPAY | PROVIDERS: PCP Nurse Practitioner Family; Visit Provider Internal Medicine Cardiovascular Disease | DX: I10 Essential (primary) hypertension (principal); Z95.1 Presence of aortocoronary bypass graft | CPT/HCPCS: 99213 ==

== ENCOUNTER 2024-05-25 11:17 | Outpatient (CLI) | payer MEDICARE, SELFPAY ==
[2024-05-25 10:27] LABS: HCT 45.5 % (36.0-46.0); HGB 15.3 g/dL (11.2-15.7); MCH 28.1 pg (27.0-33.0); MCHC 33.6 % (32.0-36.0); MCV 84 fL (80-95); MPV 10.7 fL (8.0-11.0); Platelet Count 263 10^3/uL (130-400); RBC 5.45 10^6/uL (3.93-5.22); RDW 12.5 % (11.7-14.6); RDW-SD 37.5 fL; WBC 8.23 10^3/uL (4.4-10.8)
[2024-05-25 10:37] LABS: ALT 24 U/L (14-59); AST 22 U/L (15-37); Albumin 4.2 g/dL (3.4-5.0); Alkaline Phosphatase 123 U/L (46-116); Anion Gap 4.7 mmol/L (3-11); BUN 20 mg/dL (7-18); Bilirubin, Total 0.78 mg/dL (0.2-1.0); CO2 30.3 mmol/L (21.0-32.0); CREATININE 1.1 mg/dL (0.55-1.02); Calcium 10.1 mg/dL (8.5-10.1); Calculated LDL 50 mg/dL (<100); Chloride 104 mmol/L (98-107); Cholesterol 134 mg/dL (<200); Estimated GFR 53.72 (mL/min/1.73m2); Glucose 114 mg/dL (74-106); HDL Cholesterol 57 mg/dL (40-60); Potassium 4.9 mmol/L (3.5-5.1); Sodium 139 mmol/L (136-145); Total Protein 8.1 g/dL (6.4-8.2); Triglyceride 139 mg/dL (<150)
--- OUTSIDE RECORDS SUMMARY | 2024-05-25 11:19 | XMS_ITS ---
Author Organization Unknown ALLERGIES AND ADVERSE REACTIONS No information ASSESSMENT No information CHIEF COMPLAINT No information MEDICATIONS No information OBJECTIVE DATA No information PHYSICAL EXAMINATION No information TREATMENT PLAN Planned Care Start Date Provider Encounter for Check-up [phone] PROBLEMS No information RESULTS No information REVIEW OF SYSTEMS No information SUBJECTIVE DATA No information VITAL SIGNS No information
--- OUTSIDE RECORDS SUMMARY | 2024-05-25 11:20 | XMS_ITS | Encounter Summary ---
Author Organization [facility] Address [address] [place] [address] Care Team Providers Care Director Compensation Name Role Phone Unavailable Primary Care Provider Unavailabl e Encounter Details Date Type Department Care Team (Late st Contact Info) Description 01/03/2017 Results Only [facility] [phone] Carmen South, [address] [place] [address] Social History Tobacco Use Types Packs/Day Years Used Date Smoking Tobacco: Never Assessed Comments Unknown Sex and Gender Information Value Date Recorded Sex Assigned at Not on file Legal Sex Female 18:12 EST Gender Identity Not on file Sexual Orientation Not on file documented as of this encounter Plan of Treatment Not on file documented as of this encounter Procedures Procedure Name Priority Date/Time Associated Diagnosis Comments PAP TEST- RESULT ONLY Routine 01/03/2017 0:00 EDT documented in this encounter Results * PAP TEST- RESULT ONLY (01/03/2017 0:00 EDT) Pathology Report: CYTOPATHOLOGY REPORT Reports generated via electronic interface contain original data; however they are lacking the format of the original report. Caution should be taken when reading/interpreti ng unformatted reports. Name: ? SHELLIE LYON ? Accession #: ? [id number] ? : ? 1950 (Age: 66) ??F ?Collect Date: ? 01/03/2017 ? Location: ? [facility] ? Receive Date: ? 01/04/2017 ? Provider: CARMEN SOUTH TETRYL BLENDER OPERATOR Copy to: KATHLEEN MCDANIELS MD ? Final Report SPECIMEN ADEQUACY ? Satisfactory for Evaluation - transformation zone component absent GENERAL CATEGORIZATION ? Negative for Intraepithelial Lesion or Malignancy ?? Last Menstrual Period: 2002 Other: Stenotic os Specimen/Source: ??Pap Test, Cervix, ThinPrep Imaging System with manual evaluation Document reviewed and electronically signed by: ? Ludivina Neumann, CT(ASCP) ? Report ??Date: 01/14/2017 15:07 HPV with Pap Test ? Date Ordered: ? 01/14/2017 ? Status: ?? Signed Out ?Date Complete: ? 01/15/2017 ? By: ??System Interface ? Date Reported: ? 01/15/2017 ? Interpretation RESULT: Negative for HPV. No E6 or E7 mRNA is detected from HPV types 16,18,31,33,35, 39,45,51,52,56,58, 59,66, and 68 by snath handle assembler mediated amplification. Comments Document reviewed and electronically signed by: ? System Interface ? Report date: 01/15/2017 By the signature above, the attending physician certifies that he/she has personally conducted a gross and/or microscopic examination of the described specimens and rendered or confirmed the above diagnosis. End of Report [facility] 01/03/2017 01/04/2017 us Carmen South TETRYL BLENDER OPERATOR PATHOLOGY ORDERABLES Final R esult [facility] [address] [place] [address] documented in this encounter Visit Diagnoses Not on filedocumented in this encounter
--- OUTSIDE RECORDS SUMMARY | 2024-05-25 11:20 | XMS_ITS | Encounter Summary ---
Author Organization [facility] [place] [address] Care Team Providers Care Shell Assembler Name Role Phone Kerri Pearce Carmen MORA Primary Care Provider Reason for Visit * Auth/Cert (Routine) Specialty Diagnoses / Procedures Referred By Karli crockett Referred To Contact Diagnoses choledoco back and forth Procedures PRO ERCP,DIAGNOSTIC PRO UPPER GI ENDOSCOPY, REMOV F.B. PRO ANESTH, UGI ENDOSCOPY ERCP ERCP Jackson Coles MD [facility] [place] [address] [facility] Referral ID Status Reason Start Date Expiration Date Visits Re quested Visits Authorized [id number] 1 1 Encounter Details Date Type Department Care Team (Late st Contact Info) Description 06/20/2022 11:49 AM EST Anesthesia [place] [address] Byron Gutiérrez MD [facility] [place] [address] Anesthesia Record Procedure Summary Procedure Name Responsible Anesthesiologist Anesthesia Start Time Anesthesia Stop Time ERCP (WRVU 5.85) (Trunk) Byron Gutiérrez MD 06/20/22 1149 06/20/22 1253 Events Date Time Event Comment 06/20/2022 1133 1148 AN Verify 1149 Start 1149 An Start Data 1153 An Induction 1154 An Intubation 1155 Anesthesia Ready 1251 Extubation/LMA Out 1253 an stop data 1253 Recovery or ICU Handoff Seema ent care was transferred to the destination unit staff after review of the patient's medical history, current anesthetic/surgical status and plan, according to the Provider Handoff Checklist. 1253 Stop Meds Name Total Propofol 200 mg Propofol INF 767.26 mg Succinylcholine 100 mg lactated ringers infusion 0 mL * Agents Name O2 Auxiliary Flowmeter 1 * Blood No blood administrations on file. Lines, Drains, and Airways Type Details Placement Removal Incision 02/01/22; 821; ante rior, medial; sternal; vertical, midline 02/01/22821 by Love Coats RN Incision 02/01/22; 821; Righ t; leg; non-laparascopic puncture 02/01/22821 by Love Coats RN ETT Mask Ventilation: Ea sy (1); ETT Type: Cuffed, Oral; ETT Size: 7.5 mm; Mac Blade: 3; Notes: Asleep, Pre-O2, Stylette; Attempts: 1; Laryngoscopy Grade: 1; ETT Placement Verified By: Auscultation, Capnometry, Visual; Secured at Teeth: 22 cm; Inserted by: Rodrigo Gutiérrez; Removal Date: 06/20/22; Removal Time: 1251 06/20/22 1154 by Uazir Lindsey CRNA 06/20/22 1251 by Uzair Lindsey CRNA documented in this encounter Social History Tobacco Use Types Packs/Day Years Used Date Smoking Tobacco: Never Smokeless Tobacco: Never Alcohol Use Standard Drinks/Week Comments Not Currently 0 (1 standard drink = 0.6 oz pur e alcohol) Sex and Gender Information Value Date Recorded Sex Assigned at Not on file Gender Identity Not on file Sexual Orientation Not on file documented as of this encounter OR Notes * Anesthesia Postprocedure Evaluation - Byron Gutiérrez MD - 06/20/2022 12:56 PM EST Department of Anesthesiology Post-procedure Note Patient: Shellie Lyon Procedure Summary Date: 06/20/22 Room / Location: [facility] 2 / [facility] Anesthesia Start: 1149 Anesthesia Stop: 1253 Procedures: ERCP (Trunk) ERCP W/SPHINCTEROTOMY/PAPILLOTOMY ERCP W/REMOVAL CALCULI/DEBRIS FROM BILARY/PANCREATIC DUCT(S) Diagnosis: (choledoco) (back and forth) Surgeons: Jakcson Coles MD Responsible Provider: Byron Gutiérrez MD Anesthesia Type: general ASA Status: 3 All Anesthesia Providers: Anesthesiologist: Byron Gutiérrez MD OIL SPRAYING MACHINE OPERATOR: Uzair Lindsey CRNA Vitals Value Taken Time BP Temp Pulse Resp SpO2 Pain Level Patient Location: PACU/[facility] Level of Consciousness: Awake and Alert Pain Management: Satisfactory Analgesia PONV: None Cardiovascular Status: At Baseline and Hemodynamically Stable Respiratory Status: At Baseline and Room Air Postoperative Fluid Status: Intravascular EUvolemia Possible Anesthetic Complications: NONE apparent at time of evaluation Final Primary Anesthesia Type: General (The anesthetic type performed was the same as planned.) Comments: Byron Gutiérrez MD * Anesthesia Preprocedure Evaluation - Byron Gutiérrez MD - 06/20/2022 7:34 AM EST Pre-Anesthesia Evaluation for: Shellie Lyon a 71 y.o. female. Procedure(s):ERCP (Trunk) Patient Active Problem List Diagnosis Date Noted ??? NSTEMI (non-ST elevated myocardial infarction) 01/28/2022 ??? Inflamed seborrheic keratosis 02/10/2013 No past medical history on file. Past Surgical History: Procedure Laterality Date ??? PRO CABG, ARTERIAL, SINGLE N/A 02/01/2022 @CABG, USING ARTERIAL GRAFT;SINGLE ARTERIAL GRAFT (WRVU 33.75) performed by Hong Tate MD at [facility] ??? PRO CABG, ARTERY-VEIN, SINGLE N/A 02/01/2022 @CABG, VENOUS & ARTERIAL GRAFT;SINGLE VEIN GRAFT (WRVU 3.61) performed by Hong Tate MD at [facility] ??? PRO ENDOSCOPY W/VIDEO-ASST VEIN HARVEST, CABG N/A 02/01/2022 ENDOSCOPIC HARVEST VEIN(S) FOR CABG (WRVU 0.31) performed by Hong Tate MD at [facility] Social History Tobacco Use ??? Smoking status: Never ??? Smokeless tobacco: Never Substance Use Topics ??? Alcohol use: Not Currently Social History Substance and Sexual Activity Drug Use Not Currently Allergies Allergen Reactions ??? Adhesive Rash Medications: MAR and/or home medications have been reviewed. Physical Exam: Preprocedure Vitals Current as of 01/31/22 1503 BP: 130/72 Pulse: 67 Resp: 18 SpO2: 98 Temp: 36.7 ??C (98.1 ??F) Height: 162.6 cm (5' 4) (01/28/22) Weight: 67.4 kg (148 lb 9.4 oz) (01/31/22) BMI: 25.51 IBW: 54.7 kg (120 lb 10.7 oz) Last edited 01/31/22 1437 by FAUSTINO Currently displaying vitals information from multiple entries within 180 minutes of most recent vitals. Airway Assessment: Mallampati: II TM distance: >3 FB Neck ROM: full Cardiovascular Assessment: Rhythm: regular Rate: normal system normal Pulmonary Assessment: pulmonary exam normal Dental Assessment: - normal exam Misc Assessment: Patient is wearing No contact(s). IV access: Peripheral line Last Filed Perioperative Cognitive Screening None Anesthesia Plan: ASA 3 general, with a(n) intravenous induction 71 year-old 66.1 kg F with PMH: ASCVD (CABG times 07/23/2021, aspirin), HLD (atorvastatin), HTN (losartan, metoprolol), patient presents today for ERCP. Allergies: Adhesive Review of status: Appropriate Plan: GETA, PIV x1, standard ASA monitors Region - Other Informed Consent: Anesthetic plan and risks discussed with patient. Plan discussed with OIL SPRAYING MACHINE OPERATOR and attending. Anesthesia Screening documented in this encounter Plan of Treatment Not on file documented as of this encounter Visit Diagnoses Not on filedocumented in this encounter Administered Medications Inactive Administered Medications - up to 3 most recent administrations Medication Order MAR Action Action Date Dose Rate Site lactated ringers infusion 100 mL/hr, Intravenous, CONTINUOUS, Starting on Sat06/20/22 at 1100, Until Sat06/20/22 at 1559, Endoscopy (Day of Procedure) New Bag 06/20/2022 11:49 AM EST propofoL (Diprivan) (10 mg/mL) infusion Intravenous, CONTINUOUS PRN, Starting on Sat06/20/22 at 1153, Until Sat06/20/22 at 1253, Anesthesia Intra-op, Routine Rate/Dose Change 06/20/2022 12:06 PM EST 200 mcg/kg/min 81.12 mL/hr New Bag 06/20/2022 11:53 AM EST 150 mcg/kg/min 60.84 mL /hr propofoL (Diprivan) 10 mg/mL bolus injection (Anesthesia) Intravenous, PRN, Starting on Sat06/20/22 at 1153, Until Sat06/20/22 at 1253, Anesthesia Intra-op Given 06/20/2022 11:53 AM EST 200 mg succinylcholine (Anectine;Quelicin) (20 mg/mL) injection Intravenous, PRN, Starting on Sat06/20/22 at 1153, Until Sat06/20/22 at 1253, Anesthesia Intra-op, Routine Given 06/20/2022 11:53 AM EST 100 mg documented in this encounter Care Teams Shell Assembler Relationship Specialty Start Date End Date Kerri Pearce, HEALTH SPECIALIST [facility] [place] [address] PCP - General Family Medicine 01/04/22 documented as of this encounter
--- OUTSIDE RECORDS SUMMARY | 2024-05-25 11:20 | XMS_ITS | Encounter Summary ---
Author Organization [facility] [place] [address] Care Team Providers Care Network And Threat Support Specialist Name Role Phone Kerri Pearce APRN Primary Care Provider [phone] Reason for Visit * Reason Comments Medication Refill Encounter Details Date Type Department Care Team (Late st Contact Info) Description 06/26/2022 Refill [place] [address] Meche Bernal APRN [facility] [place] [address] Social History Tobacco Use Types Packs/Day Years [...] Diagnoses Not on filedocumented in this encounter Care Teams Network And Threat Support Specialist Relationship Specialty Start Date End Date Kerri Pearce, DYE [place]ANGE [place] [address] PCP - General Family Medicine 01/04/22 documented as of this encounter
--- OUTSIDE RECORDS SUMMARY | 2024-05-25 11:20 | XMS_ITS | Encounter Summary ---
Author Organization [facility] Address [address] [place] [address] Care Team Providers Care Foster Care Case Manager Name Role Phone Unavailable Primary Care Provider Unavailabl e Encounter Details Date Type Department Care Team (Late st Contact Info) Description 10/07/2013 Results Only [facility] - [facility] ([address] [address] Rabia Stevenson, GENERAL ACCOUNTING MANAGER Social History Tobacco Use Types Packs/Day Years [...] Diagnosis Comments PAP TEST- RESULT ONLY Routine 10/07/2013 0:00 EDT documented in this encounter Results * PAP TEST- RESULT ONLY (10/07/2013 0:00 EDT) Pathology Report: CYTOPATHOLOGY REPORT Reports generated via electronic interface contain original data; however they are lacking the format of the original report. Caution should be taken when reading/interpreti ng unformatted reports. Name: ? SHELLIE LYON ? Accession #: ? [id number] ? : ? 1950 (Age: 62) ??F ?Collect Date: ? 10/07/2013 ? Location: ? [facility] ? Receive Date: ? 10/08/2013 ? Provider: RABIA STEVENSON GENERAL ACCOUNTING MANAGER Copy to: JAY CONTRERAS MD ? Final Report SPECIMEN ADEQUACY ? Satisfactory for Evaluation - transformation zone component absent GENERAL CATEGORIZATION ? Negative for Intraepithelial Lesion or Malignancy ?? Last Menstrual Period: 2002 Treatment History: Miscellaneous treatment: Conization level of dysplasia 1976 pap/HPV - since Other: Additional clinical information: Last pap 11/17/2008 WNL and - HPV Specimen/Source: ??Pap Test, Cervix/Endocervix, ThinPrep Imaging System with manual evaluation Document reviewed and electronically signed by: ? Anny Armas, CHASITY(ASCP) ? Report ??Date: 10/14/2013 10:53 HPV with Pap Test ? Date Ordered: ? 10/14/2013 ? Status: ?? Signed Out ?Date Complete: ? 10/16/2013 ? By: ??System Interface ? Date Reported: ? 10/16/2013 ? Interpretation RESULT: Negative for HPV. No E6 or E7 mRNA is detected from HPV types 16,18,31,33,35, 39,45,51,52,56,58, 59,66, and 68 by stencil maker mediated amplification. Comments Document reviewed and electronically signed by: ? System Interface ? Report date: 10/16/2013 By the signature above, the attending physician certifies that he/she has personally conducted a gross and/or microscopic examination of the described specimens and rendered or confirmed the above diagnosis. End of Report [facility] 10/07/2013 10/08/2013 us Rabia Stevenson GENERAL ACCOUNTING MANAGER PATHOLOGY ORDERABLES Final Re sult [facility] [address] [place] [address] documented in this encounter Visit Diagnoses Not on filedocumented in this encounter
--- OUTSIDE RECORDS SUMMARY | 2024-05-25 11:20 | XMS_ITS | Encounter Summary ---
Author Organization [facility] [place] [address] Care Team Providers Care Trimmer Hand Name Role Phone Ramses, Kerri Morales APRN Primary Care Provider [phone] Reason for Visit * Auth/Cert (Routine) Specialty Diagnoses / Procedures Referred By Karli crockett Referred To Contact Diagnoses choledoco back and forth Procedures PRO ERCP,DIAGNOSTIC PRO UPPER GI ENDOSCOPY, REMOV F.B. PRO ANESTH, UGI ENDOSCOPY ERCP ERCP Jackson Coles MD [facility] [place] [address] [facility] Referral ID Status Reason Start Date Expiration Date Visits Re quested Visits Authorized [id number] 1 1 Encounter Details Date Type Department Care Team (Late st Contact Info) Description 06/20/2022 11:30 AM EST - 06/20/2022 1:00 PM EST [place] [address] Jackson Coles MD [facility] [place] [address] ERCP (WRVU 5.85) Social History Tobacco Use Types Packs/Day Years Used Date Smoking Tobacco: Never Smokeless Tobacco: Never Alcohol Use Standard Drinks/Week Comments Not Currently 0 (1 standard drink = 0.6 oz pur e alcohol) Sex and Gender Information Value Date Recorded Sex Assigned at Not on file Gender Identity Not on file Sexual Orientation Not on file documented as of this encounter Last Filed Vital Signs Vital Sign Reading Time Taken Comments Blood Pressure 134/72 06/20/2022 1:00 PM EST Pulse 69 06/20/2022 10:34 AM EST Temperature 36.3 ??C (97.3 ??F) 06/20/2022 10:[address] Respiratory Rate 18 06/20/2022 1:00 PM EST Oxygen Saturation 97% 06/20/2022 1:00 PM EST Inhaled Oxygen Concentration - - Weight 67.6 kg (149 lb) 06/20/2022 10:34 AM EST Height 163.2 cm (5' 4.25) 06/20/2022 10:[address] Body Mass Index 25.38 06/20/2022 10:34 AM EST documented in this encounter Medications at Time of Discharge Medication Sig Dispensed Refills Start Date End Date acetaminophen (Tylenol) 500 mg Tablet Take 2 tablets by mouth every 6 hours as needed for Pain. 30 tablet 1 02/05/2022 aspirin 81 mg Tablet, Chewable Take 81 mg by mouth daily. 30 tablet 3 02/05/2022 atorvastatin (Lipitor) 80 mg Tablet Take 1 tablet by mouth every evening. 90 tablet 3 02/05/2022 losartan (Cozaar) 25 mg Tablet Take 1 tablet by mouth daily. 30 tablet 3 02/05/2022 metoproloL tartrate (Lopressor) 25 mg Tablet Take 1 tablet by mouth 2 times daily. 180 tablet 3 02/05/2022 documented as of this encounter H&P Notes * Serena Aguiar MD - 06/20/2022 11:19 AM EST Gastroenterology and Hepatology Pre-Procedure History and Physical Exam Procedure: ERCP: Indication: choledocholithiasis Patient Active Problem List Diagnosis Code ??? Inflamed seborrheic keratosis L82.0 ??? NSTEMI (non-ST elevated myocardial infarction) I21.4 EXAM: HEENT: Airway examined, oropharynx clear Mallampati Score: II (soft palate, uvula, fauces visible) LUNGS: Clear to auscultation HEART: Regular rate and rhythm, normal S1, S2 ABDOMEN: Normal bowel sounds, soft, non tender, non distended A/P: Proceed with the planned endoscopic procedure. ASA 2 - Patient with mild systemic disease with no functional limitations Sedation Plan: anesthesia Risks and benefits of the procedure explained to the patient. Consent form signed and included in the patient's chart. Serena Aguiar MD PGY-4, Gastroenterology documented in this encounter Plan of Treatment Not on file documented as of this encounter Procedures Procedure Name Priority Date/Time Associated Diagnosis Comments XR ERCP Routine 06/20/2022 1:13 PM EST Ercp, W/Removal Stone, Arik/Pancr Ducts (80122) 06/20/2022 11:48 AM EST choledoco back and forth Ercp, Sphincterotomy (03308) 06/20/2022 11:48 AM EST choledoco back and forth Ercp, Diagnostic (81325) 06/20/2022 11:48 AM EST choledoco back and forth ERCP Routine 06/20/2022 11:43 AM EST documented in this encounter Results * XR ERCP (06/20/2022 1:13 PM EST) Narrative [facility] - 06/20/2022 1:13 PM EST See PACS for result report. Jackson Coles MD IMG FILM LIBRARY ORD ERABLES Performing Organization Address City/State/[facility] Co de Phone Number [place], [place] * ERCP (06/20/2022 11:43 AM EST) ERCP [facility] Endoscopy Procedure Date: 06/20/2022 11:43 AM ? Patient Name: Shellie Lyon ? Date of : 1950 ? Age: 71 ? Order #: [id number] ? Instrument Name: [id number] ? Procedure: ? ERCP Indications: ? Suspected bile duct stone(s), ? Elevated liver enzymes Providers: ? Jackson Coles MD, Mark Hancock ? KYM Mao, Josefina Willson Referring : ?Victor M Becker Medicines: ? General Anesthesia, Indomethacin ? 100 mg PA Complications: ? No immediate complications. Procedure: ? Pre-Anesthesia Assessment: ? - Prior to the procedure, a History ? and Physical was performed, and ? patient medications, allergies and ? sensitivities were reviewed. The ? patient's tolerance of previous ? anesthesia was reviewed. ? - The risks and benefits of the ? procedure and the sedation options ? and risks were discussed with the ? patient. All questions were ? answered and informed consent was ? obtained. ? - ASA Grade Assessment: II - A ? patient with mild systemic disease. ? - Using IV propofol under the ? supervision of an anesthesiologist ? was determined to be medically ? necessary for this procedure based ? on age 65 or older and complex ? procedure (ERCP, EUS). ? The procedure, indications, ? benefits, risks and alternatives ? were explained to the patient. ? Specifically discussed were ? potential complications including, ? but not limited to, bleeding, ? perforation, infection, ? pancreatitis, missing a cancer, and ? adverse medication reactions. The ? Duodenoscope was introduced through ? the mouth, and advanced to the ? duodenum where it was used to ? inject contrast into and used for ? direct visualization of the bile ? duct and ventral pancreatic duct. ? The patient tolerated the procedure ? well. ? Findings: ? The storage solutions architect film was normal. The esophagus was ? successfully intubated under direct vision. The scope ? was advanced to a normal major papilla in the ? descending duodenum without detailed examination of ? the pharynx, larynx and associated structures, and ? upper GI tract. The upper GI tract was notable for a ? ring at he GE Jct. The bile duct was deeply ? cannulated with the short-nosed traction ? sphincterotome and guidewire. Contrast was injected. ? I personally interpreted the bile duct images. There ? was brisk flow of contrast through the ducts. Image ? quality was excellent. Contrast extended to the ? hepatic ducts. Opacification of the entire biliary ? tree was successful. The maximum diameter of the ? ducts was 5 mm. There were no filling defects in the ? CBD but there appear to be small stones in a ? partially opacified gallbladder. The biliary tree was ? otherwise normal. A 0.025 in Visiglide II wire was ? passed into the biliary tree. A 10 mm biliary ? sphincterotomy was made with a monofilament CleverCut ? [id number] sphincterotome using ERBE ? electrocautery. There was no post-sphincterotomy ? bleeding. The biliary tree was swept with an 11.5 mm ? balloon starting at the bifurcation. Nothing was ? found. The PD was briefly accessed with the guide ? wire during initial cannulation attempts but no ? contrast was injected. ? Moderate Sedation: ? Not applicable - See Anesthesia documentation Impression: ?- No evidence for CBD stone though ? she may have passed a stone. A ? biliary sphincterotomy was ? performed. The biliary tree was ? swept and nothing was found. ? - Cholelithiasis. Recommendation: ?- Observe patient's clinical course. ? - Proceed with elective ? cholecystectomy. ? Attending Participation: ? I personally performed the entire procedure. ? Jackson Coles MD 06/20/2022 12:51:23 PM This report has been signed electronically. Number of Addenda: 0 Note Initiated On: 06/20/2022 11:43 AM PROVATION 06/20/2022 11:4 3 AM EST Victor M Becker MD GENERAL SURGICAL ORD ERABLES PROVATION documented in this encounter Visit Diagnoses Not on filedocumented in this encounter Administered Medications Inactive Administered Medications - up to 3 most recent administrations Medication Order MAR Action Action Date Dose Rate Site indomethacin (Indocin) suppository 100 mg 100 mg, Rectal, ONCE, 1 dose, On Sat06/20/22 at 1300, Endoscopy (Intra-Procedure), Routine Given 06/20/2022 12:40 PM EST 100 mg lactated ringers infusion 100 mL/hr, Intravenous, CONTINUOUS, Starting on Sat06/20/22 at 1100, Until Sat06/20/22 at 1559, Endoscopy (Day of Procedure) New Bag 06/20/2022 11:49 AM EST documented in this encounter Active and Recently Administered Medications Times are shown in EST. Scheduled Medication Order 06/18/2022 06/19/2022 06/20/2022 indomethacin (Indocin) suppository 100 mg (COMPLETED) 100 mg, Rectal, ONCE, 1 dose, On Sat06/20/22 at 1300, Endoscopy (Intra-Procedure), Routine 1240 (Given - Provid er: Quincy Sanders RN - Comment: two 50 mg suppositories placed in rectum)1300 (Due) Continuous Medication Order 06/18/2022 06/19/2022 06/20/2022 lactated ringers infusion 100 mL/hr, Intravenous, CONTINUOUS, Starting on Sat06/20/22 at 1100, Until Sat06/20/22 at 1559, Endoscopy (Day of Procedure) 1149 (New Bag - Prov ider: Uzair Lindsey CRNA) documented in this encounter Care Teams Trimmer Hand Relationship Specialty Start Date End Date Kerri Pearce [place] [address] PCP - General Family Medicine 01/04/22 documented as of this encounter
--- OUTSIDE RECORDS SUMMARY | 2024-05-25 11:20 | XMS_ITS | Encounter Summary ---
Author Organization [facility] Address [address] [place] [address] Care Team Providers Care Operating Room Tech Name Role Phone Ramses Kerri Morales [employer] Primary Care Provider [phone] Encounter Details Date Type Department Care Team (Late st Contact Info) Description 06/19/2022 Lab Requisition [facility] Pathology & Laboratory Medicine - [facility] [address], [place] [id number] Outr Resulting Lab, Provider Social History Tobacco Use Types Packs/Day Years [...] Procedure Name Priority Date/Time Associated Diagnosis Comments ACUTE HEPATITIS PROFILE Routine 06/19/2022 11:49 EST documented in this encounter Results * ACUTE HEPATITIS PROFILE (06/19/2022 11:49 EST) Hep B Surface Ag Negative Negative 06/20/2022 10:44 EST [facility] Hep C Antibody Negative Negative 06/20/2022 10:44 EST [facility] Hepatitis A Antibody, IgM Negative Negative 06/20/2022 10:44 EST [facility] Comment:The results of this assay can be falsely lowered due to the consumption of Biotin. Hepatitis B Core Ab, Total Negative Negative 06/20/2022 10:44 EST [facility] Blood VENOUS BLOOD / Unknown 06/19/2022 11:49 EST 06/19/2022 21:48 EST us Provider Outr Resulting Lab CHEMISTRY & BLOOD GA S ORDERABLES Final Result [facility] [address] [place] [id number] documented in this encounter Visit Diagnoses Not on filedocumented in this encounter Care Teams Operating Room Tech Relationship Specialty Start Date End Date Kerri Pearce, KWADWO [facility] [place] [address] PCP - General Family Medicine - Primary Care 06/06/22 documented as of this encounter
--- OUTSIDE RECORDS SUMMARY | 2024-05-25 11:20 | XMS_ITS | Encounter Summary ---
Author Organization [facility] Address [address] [place] [address] Care Team Providers Care Harmonic Analyst Name Role Phone Unavailable Primary Care Provider Unavailabl e Encounter Details Date Type Department Care Team (Late st Contact Info) Description 01/16/2001 Results Only [facility] conversion [address] [place] [address] Rabia Stevenson NP Social History Tobacco Use Types Packs/Day Years [...] Procedure Name Priority Date/Time Associated Diagnosis Comments CYTOPATHOLOGY Routine 01/16/2001 0:00 EDT documented in this encounter Results * CYTOPATHOLOGY (01/16/2001 0:00 EDT) Pathology Report: CYTOPATHOLOGY REPORT Reports generated via electronic interface contain original data; however they are lacking the format of the original report. Caution should be taken when reading/interpreti ng unformatted reports. Name: ? SHELLIE LYON ? Accession #: ? [id number] : ? 1950 (Age: 50) ??F ?Collect Date: ? 01/16/2001 Location: ? [facility] ? Receive Date: ? 01/17/2001 Provider: ?RABIA STEVENSON APPLICATION PACKAGER Copy to: ? Specimen/Source: ?ThinPrep Pap Test, Cervix/Endocervix Last Menstrual Period: ? 11/29/00 ? SPECIMEN ADEQUACY ? Satisfactory for evaluation. GENERAL CATEGORIZATION ? Within Normal Limits ? Document reviewed and electronically signed by: ? Precious Vieyra, SCT(ASCP) ? Report Date: ??01/21/2001 08:41 End of Report [facility] 01/16/2001 01/17/2001 us Rabia Stevenson APPLICATION PACKAGER PATHOLOGY ORDERABLES Final Re sult [facility] [address] [place] [address] documented in this encounter Visit Diagnoses Not on filedocumented in this encounter
--- OUTSIDE RECORDS SUMMARY | 2024-05-25 11:20 | XMS_ITS | Clinical Summary ---
Author Organization [facility] Address [address] [place] [address] Care Team Providers Care Compliance Coordinator Name Role Phone Kerri Pearce [employer]OLDING SUPERVIS[employer] Primary Care Provider [phone] Social History Tobacco Use Types Packs/Day Years Used Date Smoking Tobacco: Never Assessed Comments Unknown Sex and Gender Information Value Date Recorded Sex Assigned at Not on file Legal Sex Female 18:12 EST Gender Identity Not on file Sexual Orientation Not on file Plan of Treatment Health Maintenance Due Date Last Done Comments Hepatitis C Screen 1950 Fall Risk Screening 2017 COVID-19 Vaccine (2023-25 season) 2024 RSV Immunization ( o r 60+ Years) (1 - 1-dose 75+ series) 10/25/2027 Insurance [facility] MEDICARE Care Teams Compliance Coordinator Relationship Specialty Start Date End Date Kerri Pearce NP [facility] [place] [address] PCP - General Family Medicine - Primary Care 06/06/22
--- OUTSIDE RECORDS SUMMARY | 2024-05-25 11:20 | XMS_ITS | Encounter Summary ---
Author Organization [facility] Address [address] [place] [address] Care Team Providers Care Starch Cooker Name Role Phone Ramses Kerri Morales US[employer] LETTER CARRIER Primary Care Provider [phone] Encounter Details Date Type Department Care Team (Late st Contact Info) Description 06/22/2022 Lab Requisition [facility] Pathology & Laboratory Medicine - [facility] [address] [place] [address] [place] [address] [place] [address], [address] [place] [address] Calculus of bile duct without cholangitis or cholecystitis without obstruction; Essential (primary) hypertension Social History Tobacco Use Types Packs/Day Years [...] Procedure Name Priority Date/Time Associated Diagnosis Comments SURGICAL PATHOLOGY Today 06/21/2022 13 :31 EST Calculus of bile duct without cholangitis or cholecystitis without obstruction Essential (primary) hypertension documented in this encounter Results * SURGICAL PATHOLOGY (06/21/2022 13:31 EST) Note to Patient The following pathology results have been interpreted by your pathologist and may be available to you before your health provider has had the opportunity to review them. Please allow time for your provider to receive these results and explore management options, if applicable. 06/26/2022 11:15 EST [facility] Final Diagnosis A. GALLBLADDER, CHOLECYSTECTOMY: - Chronic cholecystitis. 06/26/2022 11:15 [facility] Attestation There was significan t resident/fellow involvement in the diagnostic evaluation of this case. By the signature below, the attending physician certifies that they have personally conducted a gross and/or microscopic examination of the described specimens and rendered or confirmed the above diagnosis. 06/26/2022 11:15 [facility] at [address] Clinical History Choledocholithiasis 06/26/2022 11:15 [facility] Gross Description A. Received in formalin labelled with proper patient identification (initials B, J) and gallbladder is an intact gallbladder with an attached segment of cystic duct (8.5 x 2.8 x 2.0 cm). A cystic duct lymph node is not present. The serosa is han purple and smooth. The mucosa is green and velvety and the wall averages 0.4 cm in thickness. The cystic duct lumen is patent and measures 0.3 cm in diameter. The cystic duct margin is inked blue. There are no choleliths present. Two direct marketing representative sections and the en face cystic duct margin are submitted in A1. CARINE BENSON MD 06/22/2022 14:20 06/26/2022 11:15 [facility] Resident/Fell ow: Carine Benson MD 06/26/2022 11:15 [facility] Performing Lab [facility] 06/26/2022 11:15 [facility] Scanned Images 06/26/2022 11:15 [facility] Tissue ENTIRE GALLBLADDER / Unknown 06/21/2022 13:31 EST 06/22/2022 8:40 EST us Ebenezer Almanzar MD PATHOLOGY ORDERABLES Final Resu lt [facility] [address] [place] [address] documented in this encounter Visit Diagnoses Diagnosis Calculus of bile duct without cholangitis or cholecystitis without obstruction Calculus of bile duct without mention of cholecystitis or obstruction Essential (primary) hypertension Unspecified essential hypertension documented in this encounter Care Teams Starch Cooker Relationship Specialty Start Date End Date Kerri Pearce, KWADWO [address] [place] [address] PCP - General Family Medicine - Primary Care 06/06/22 documented as of this encounter
--- OUTSIDE RECORDS SUMMARY | 2024-05-25 11:20 | XMS_ITS | Continuity of Care Document ---
Author Organization [facility] Address [address] [place] [address] Care Team Providers Care Automatic Lathe Tender Name Role Phone VERONICA KRUSE Primary Care Provider Assessment No assessment recorded. Plan of Treatment Reminders Order Date Submit Date Provider Last Modified By Organization Details Last Modified Time Details Appointments Follow Up 2024 09:00A M Veronica Kruse Not available Not available Not available Follow Up 2025 09:00A M Veronica Kruse Not available Not available Not available Lab CBC 2024 025 [facility] ([facility]), [address] [place] [address] [place], [address], 05/25/2024 10:32:05 CMP, serum or plasma 2024 025 [facility] ([facility]), [address] [place] [address] [place], [address], 05/25/2024 10:42:05 lipids, total, serum 2024 025 [facility] ([facility]), [address] [place] [address] [place], [address], 05/25/2024 09:55:21 Referral None recorded. Procedures None recorded. Surgeries None recorded. Imaging MAMMO, screening , bilateral 2024 025 [email or web address] (Radiology), [address] [place] [address] [place], [address], 05/25/2024 09:53:49 Medication Orders metoprolo l tartrate 25 mg tablet 2024 025 [facility], [address] [place], [address], 05/25/2024 09:38:26 losartan 25 mg tablet 2024 025 [facility], [address] [place], [address], 05/25/2024 09:38:26 atorvasta tin 20 mg tablet 2024 025 [facility], [address] [place], [address], 05/25/2024 09:38:28 Patient TargetsNo targets recorded. Patient Instructions Encounter Date Encounter Id Patient Instructions Last Modified By Organization Details Last Modified Time 05/25/2024 [id number] 1 year follow-up. Follow-up with cardiology as schedule. Mammogram ordered for 2024. Recommend checking your blood pressure 2-3 times a month. Blood pressure goal systolic <135. If your blood pressure remains elevated, lets consider a small increase in your LOSARTAN (either 50 mg once daily OR 25 mg twice daily) Routine lab orders sent to [facility]. Raynaud's / chilblains -continue to protect her hands and feet from cold exposure, and avoid extreme temperature changes. Perform daily foot checks. Consider trial of a vasodilator, such as amlodipine. Please call with any questions or concerns. [email or web address] Not available 05/25/2024 09:44:51 Reason for Referral None Reported. Problems Name Problem SNOMED Code Status Onset Date Resolution Date Notes Provider Name and Address Organization Details Recorded Time Vitamin D deficien cy 25421100 Active 2015 ISIDORO WALSH [address], [place], [address] , [facility]. 10:54:16 Hyperlip idemia 72045530 Active [address], [place], [address] , [facility] 4 10:54:23 Estephanie paulsonen porfirio 04331793 Active [address], [place], [address] , [facility] 4 10:54:29 Osteoart hritis 206800645 Active [address], [place], [address] , [facility] 4 10:54:21 Acute bronchit is 71375274 Completed 201704/28/2018 01/21/20 18 - Comments only - Zoila Orosco MD - appears to be getting better. However symtpoms for 3 weeks, slight wheezing . If not improved in the next 2-3 days, to take zpack azithro and predniso ne 40 mg for 5 days. Problem Code: J20.9; Problem Code Type: ICD-10; Not Available Counts include 234 beds at the [facility] 3 05:34:02 Heart murmur 89977655 Active [address], [place], [address] , [facility]. 4 10:54:26 Aortic stenosis , non-rheu matic 327001247 Active [address], [place], [address] , [facility]. 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 4 10:54:10 Fatigue 47579829 Active [address], [place], [address] , [facility] 4 10:53:58 Anxiety disorder 218039930 Active [address], [place], [address] , [facility] 4 10:53:50 Screenin g for malignan t neoplasm of breast Active [address], [place], [address] , [facility] 4 10:54:18 Actinic keratosi s 158438977 Active [address], [place], [address] , [facility] 4 10:53:43 Aortocor onary bypass graft present 305271920 Active 2021 Status post CABG x2 ( 2) [address], [place], [address] , [facility] 4 10:54:48 Adult health examinat ion Active [address], [place], [address] , [facility] 4 10:54:13 Dizzines s and giddines s 743189823 Active [address], [place], [address] , [facility] 4 10:54:02 Gastroin testinal tract excision Completed 202206/14/2023 Problem Code: Z90.49; Problem Code Type: ICD-10; [address], [place], [address] , [facility] 4 10:53:53 Hyperten sive disorder 72335743 Completed 200801/30/2023 Not Available Counts include 234 beds at the [facility] 3 05:34:04 Adult health examinat ion Completed 201501/01/2016 Problem Code: Z00.00; Problem Code Type: ICD-10; IS[address], [place] [address] , [facility] 4 10:54:14 Disorder of soft tissue 84410444 Completed 201810/26/2019 Problem Code: M70.90; Problem Code Type: ICD-10; Not Available Counts include 234 beds at the [facility] 3 05:34:04 Adult health examinat ion Completed 201508/27/2015 Problem Code: Z00.00; Problem Code Type: ICD-10; IS[address] Dr, [place] [address] , [facility] 4 10:54:14 Raynaud' s disease 994948197 Active [address], [place] [address] , [facility] 4 09:37:51 History of cholecys tectomy 773077775 Active 2023 S/P 06-21-[address], [place] [address] , [facility] 4 10:58:58 Bite of tick Active [address], [place] [address] , [facility] 4 10:29:01 Problem Notes None recorded. Medical Equipment None Reported. Allergies No known drug allergies Medications Name Sig Start Date Stop Date Status Note LastModified by Organization Details LastModified Time atorvasta tin 40 mg tablet TAKE 1 TABLET BY MOUTH EVERY EVENING 05/21 completed Not Available Not Available Not Available atorvasta tin 80 mg tablet Take 1 tablet by mouth every evening active Not Available Not Available No t Available atorvasta tin 20 mg tablet TAKE ONE TABLET BY MOUTH EVERY EVENING 2024 active Not Available Not Available Not Avai lable azithromy kelle 250 mg tablet Take 2 by mouth now, then take 1 by mouth daily x 4 days 01/25 completed Not Available Not Available Not Available prednison e 20 mg tablet Take two tabs PO x 5 days, then stop. 10/13 completed Not Available Not Available Not Available fluoroura cil 5 % topical cream Apply 1 a small amount to affected area twice a day 02/07 completed Not Available Not Available Not Available amlodipin e 5 mg tablet Take 1 tablet by mouth once a day TAKE 1 TABLET BY MOUTH DAILY 11/30 completed Not Available Not Available Not Available aspirin 81 mg tablet,de layed release TAKE ONE TABLET BY MOUTH EVERY DAY active Not Available Not Available No t Available doxycycli ne monohydra te 100 mg tablet TAKE TWO TABLETS BY MOUTH AT ONE-TIME active Not Available Not Available No t Available calcium 600 mg (as calcium carbonate 1,500 mg) tablet Take 2 tab by mouth daily 03/19 completed Not Available Not Available Not Available lorazepam 0.5 mg tablet 1 tab three times a day as needed for acute situatio nal anxiety. 02/07 completed Not Available Not Available Not Available losartan 25 mg tablet Take 1 tablet by mouth once a day 2024 active Not Available Not Available Not Avai lable aspirin 81 mg chewable tablet CHEW AND SWALLOW 1 TABLET BY MOUTH DAILY 02/07 completed Not Available Not Available Not Available lisinopri l 5 mg tablet Take 1 tablet by mouth once a day 11/14 completed Not Available Not Available Not Available hydrochlo rothiazid e 25 mg tablet 1/2 tab qd 10/27 completed Not Available Not Available Not Available metoprolo l tartrate 25 mg tablet TAKE ONE TABLET BY MOUTH TWICE A DAY 2024 active Not Available Not Available Not Avai lable cholecalc iferol (vitamin D3) 25 mcg (1,000 unit) tablet 1 once a day 08/30 completed Not Available Not Available Not Available Vitamin D3 50 mcg (2,000 unit) capsule 1 tab daily 03/19 completed Not Available Not Available Not Available Calcium with Vit D3 600 mg (as carbonate )-12.5 mcg (500 unit) capsule Take 1 tablet by mouth once a day 2016 active 400 IU of vit D3 90 IU of Calcium Not Available Not Available Not Available Vitals Date Recorded Body height Body mass index (BMI) Body weight Body temperature Oxygen saturation Oxygen saturation in Arterial blood by Pulse oximetry Heart rate Respiratory rate Systolic blood pressure Diastolic blood pressure Provider Name and Address Organization Details Last Updated DateTime 5 162.99 cm 27.9 kg/m2 79766.9 6 g 98.7 [degF] 96 % 96 % 62 /min 16 /min 138 mm[Hg] 70 mm[Hg] ISIDORO WALSH [address], [place], [address] , [facility] 09:23:06 Social History Question Answer Notes LastModified by Organizat ion Details LastModified Time Tobacco Smoking Status Never Smoker Kate Santana RN [facility] 02/08/2024 09:58:28 What Was The Date Of Your Most Recent Tobacco Screening? 02/08/2024 Information not available 02/08/2024 Has Tobacco Cessation Counseling Been Provided? Yes Information not available 02/08/2024 On What Date Was Tobacco Cessation Counseling Provided? 02/08/2024 Information not available 02/08/2024 Do You Or Have You Ever Used Any Other Forms Of Tobacco Or Nicotine? No Information not available 02/08/2024 Sex: Female Functional Status None recorded. Mental Status None recorded. Family History Relationship Description Onset Age of this Age Resolved Age Notes LastModified by Organization Details LastModified Time Father Family history of Hypercholest erolemia [email or web address] Not available 2022 03:58:31 Father Family history of Hypertension [email or web address] Not available 02/2023 03:58:31 Father Family history of stroke [email or web address] Not available 2022 03:58:31 Father Family history of heart failure [email or web address] Not available 2022 03:58:31 Sister Family history of malignant neoplasm [email or web address] Not available 2022 03:58:31 Mother No family history of respiratory disease [email or web address] Not available 2022 03:58:31 Medical History No medical history recorded. Gynecological HistoryNo gynecological history recorded. Obstetrics History GPAL:G 0 P 0 0 0 0 Immunizations Vaccine Type Date Status Note Provider Nam e and Address Organization Details Recorded Time Td (adult), 2 Lf tetanus toxoid, preservative free, adsorbed 9 completed Not Available [facility] 03/15/2023 04:19:46 pneumococcal, unspecified formulation 8 completed Not Available [facility] 03/15/2023 04:19:46 Tdap 9 completed Not Available [facility] 03/15/2023 04:19:46 zoster live 3 completed Not Available [facility] 03/15/2023 04:19:47 COVID-19, mRNA, LNP-S, PF, 100 mcg/0.5mL dose or 50 mcg/0.25mL dose 1 completed Not Available [facility] 03/15/2023 04:19:48 COVID-19, mRNA, LNP-S, PF, 100 mcg/0.5mL dose or 50 mcg/0.25mL dose 1 completed Not Available [facility] 03/15/2023 04:19:48 COVID-19, mRNA, LNP-S, PF, 100 mcg/0.5mL dose or 50 mcg/0.25mL dose 2 completed Not Available [facility] 03/15/2023 04:19:48 SARS-COV-2 (COVID-19) vaccine, UNSPECIFIED 1 completed Not Available [facility] 03/15/2023 04:19:49 COVID-19, mRNA, LNP-S, bivalent, PF, 30 mcg/0.3 mL dose 3 completed Not Available [facility] 03/15/2023 04:19:49 pneumococcal polysaccharide PPV23 9 completed Not Available Counts include 234 beds at the [facility] 03/15/2023 04:19:50 influenza, unspecified formulation 9 completed Not Available Counts include 234 beds at the [facility] 03/15/2023 04:19:50 influenza, unspecified formulation 6 completed Not Available Counts include 234 beds at the [facility] 03/15/2023 04:19:50 influenza, unspecified formulation 1 completed Not Available Counts include 234 beds at the [facility] 03/15/2023 04:19:50 influenza, unspecified formulation 5 completed Not Available Counts include 234 beds at the [facility] 03/15/2023 04:19:50 influenza, unspecified formulation 7 completed Not Available Counts include 234 beds at the [facility] 03/15/2023 04:19:50 SARS-COV-2 (COVID-19) vaccine, UNSPECIFIED 3 completed Not Available Counts include 234 beds at the [facility] 05/17/2023 05:33:22 Influenza, high-dose, trivalent, PF 5 completed ISIDORO WALSH [address], [place], [address], [facility] 05/25/2024 09:51:23 SARS-COV-2 (COVID-19) vaccine, UNSPECIFIED 4 completed ISIDORO WALSH [address], [place], [address], [facility] 05/25/2024 09:31:12 Past Encounters Encounter ID Performer Location Encounter Start Date Encounter Closed Date Diagnosis/Indication Diagnosis SNOMED-CT Code Diagnosis ICD10 Code Diagnosis Note [id number] ISIDORO WALSH [facility] [address] [place] [address] 05/25/2024 08:50:42 05/25/2024 09:53:45 Essential hypertension 65212205 I10 Acceptable today. History of whitecoat syndrome?L OSARTAN 25 mg + METOPROLOL 25 mg daily.Sche duled for cardiology follow up this spring.Rec ommend to monitor BP at home. Due for routine labs today.If blood pressure remains mildly elevated at home, recommend losartan 25 mg twice daily. Aortocoron ady bypass graft present 753624490 Z95.1 Status post CABG x2 (02-01-22) + aortic stenosis.C ompleted cardiac rehab 2021.Yearl y follow-up with cardiology .Continues on statin therapy + beta-block er + ASANo complaints of dyspnea, fatigue, pain, shortness of breath, lower extremity swelling.H istory of second hand smoke exposure as a child. No personal tobacco use history. Anxiety disorder 06 F41.9 Situationa l. Underlying component of ADHD? Well controlled .Prior anxiety associated with airflight, PRN use of lorazepam in 2022. Hyperlipidemia 68425608 E78.5 Stable.LIDIA RVASTIN 20 mg daily. LDL at rivd49-09- 24 - TOTAL 129, HDL 57, LDL 31.16- 3 - TOTAL 129, HDL 57, LDL 31, TRIG 209 (non-fasti ng) History of cholecystectomy 755854473 Z90.49 S/P laparoscop ic cholecyste ctomy - 06-21-22Re covered. Has resumed full activity + diet. No complaints of loose stool or constipati on. Raynaud's disease 583515 006 I73.00 Raynaud's versus chilblains .Continue to protect from injury and exposure. Consider trial of vasodilato r, such as amlodipine (prior history?) -Recommend discussing with cardiology . Vitamin D deficiency 347 [address] E55.9 Vitamin D deficiency .Continues on vitamin D supplement s. Consider routine labs at next follow-up visit. Actinic keratosis 007 L57.0 When compared to photograph s from last year, significan t improvemen t.Left upper cheek, central scarring from prior biopsy in 2012 with dermatolog y, for diagnosis of inflamed seborrheic keratosis. Mild pigmentati on surroundin g. No overt punctate or central lesion to address.Co ntinue with daily sunscreen applicatio n, avoid/mini bozena sun exposure.R ecommend photograph s every 6 to 12 months to trend.May consider repeat trial of Efudex cream for 2 to 4 weeks.Cons ider dermatolog y referral.F ollow-up precaution s reviewed. We will plan to reassess at scheduled follow-up in May. Screening for malignant neoplasm of colon 878630126 Z12.11 10-14-2023 - cologuard negative. Screening mammography 24 368111 Z12.31 Due for routine breast cancer screening. Currently completing q 18 months. Delayed order for fall 2024. Active or passive immunization 254231929 Z23 Influenza vaccine updated today. Unfortunat kerline, we did not have COVID in stock - Shellie will discuss with pharmacy and/or return for a nurse visit. Health Concerns Section Related Observation LastModified by Organization Detai ls LastModified Time None Recorded Concern Status LastModified by Organization Details LastModified Time None Recorded Payers Encounter Date Sequence Insurance Name Policy Number Policy Park Covered Member ID Park Member ID Guarantor Name 05/25/2024 1 [id number]AGE - PPO) [id number] Shellie Lyon [id number] Shellie Lyon Notes Date Note Type Note Provider Name and Address Organization Details Recorded Time 05/25/2024 text/html Shellie presents to [facility] today for one year routine chronic care follow-up. Medical history includes hypertension, hyperlipidemia, aortic valve stenosis, anxiety, and degenerative joint disease. Status post CABG x2 (02-01-22) + recent cholecystectomy 06-21-2022. Shellie has returned to regular routine cardiovascular activity, including walking 3 to 5 days a week + biking. She is also participating in free weights. Overall, feels well. Denies any symptoms of exertional dyspnea or chest pain. Weight remains stable. VERONICA KRUSE, JAR CAPPER [address], [place], [address], [facility]. 05/25/2024 10:04:06 OBGyn Episode No OBEpisode recorded.
--- OUTSIDE RECORDS SUMMARY | 2024-05-25 11:20 | XMS_ITS | Clinical Summary ---
Author Organization [facility] [place] [address] Care Team Providers Care Tariff Compiler Name Role Phone Kerri Pearce APRN Primary Care Provider [phone] Allergies Active Allergy Reactions Criticality Noted Date Comments Adhesive Rash 01/28/2022 Medications Medication Sig Dispensed Refills Start Date End Date Status acetaminophen (Tylenol) 500 mg Tablet Take 2 tablets by mouth every 6 hours as needed for Pain. 30 tablet 1 02/05/2022 Active aspirin 81 mg Tablet, Chewable Take 81 mg by mouth daily. 30 tablet 3 02/05/2022 Active atorvastatin (Lipitor) 80 mg Tablet Take 1 tablet by mouth every evening. 90 tablet 3 02/05/2022 Active losartan (Cozaar) 25 mg Tablet Take 1 tablet by mouth daily. 30 tablet 3 02/05/2022 Active metoproloL tartrate (Lopressor) 25 mg Tablet Take 1 tablet by mouth 2 times daily. 180 tablet 3 02/05/2022 Active Active Problems Problem Noted Date Diagnosed Date NSTEMI (non-ST elevated myocardial infarction) 0 01/28/2022 Inflamed seborrheic keratosis 02/10/2013 Social History Tobacco Use Types Packs/Day Years Used Date Smoking Tobacco: Never Smokeless Tobacco: Never Alcohol Use Standard Drinks/Week Comments Not Currently 0 (1 standard drink = 0.6 oz pur e alcohol) Sex and Gender Information Value Date Recorded Sex Assigned at Not on file Gender Identity Not on file Sexual Orientation Not on file Last Filed Vital Signs Vital Sign Reading Time Taken Comments Blood Pressure 158/84 06/20/2022 1:20 PM EST Pulse 69 06/20/2022 10:34 AM EST Temperature 36.3 ??C (97.3 ??F) 06/20/2022 10:[address] Respiratory Rate 18 06/20/2022 1:20 PM EST Oxygen Saturation 94% 06/20/2022 1:20 PM EST Inhaled Oxygen Concentration - - Weight 67.6 kg (149 lb) 06/20/2022 10:34 AM EST Height 163.2 cm (5' 4.25) 06/20/2022 10:[address] Body Mass Index 25.38 06/20/2022 10:34 AM EST Plan of Treatment Health Maintenance Due Date Last Done Comments CT Colonography 1952 Colonoscopy 1952 Colorectal Cancer Screening 1952 FIT DNA 1952 FIT 1952 Sigmoidoscopy (10 year) with FIT yearly 1952 Sigmoidoscopy 1952 Hepatitis C Screening 1970 Pneumoccocal Vaccine: 50+ (1 of 2 - PCV) 10/25/1971 Tetanus/Diphtheria/Pertussis Vaccines (1 - Tdap) 10/25/1971 Breast Cancer Share Decision Needed 1992 Breast Cancer screening 1992 Zoster vaccine (1 of 2) 2002 Advance Directive 10/25/2007 RSV Vaccine (1 - Risk 60-74 years 1-dose series) 2012 Bone Density Scan 2017 Covid-19 Vaccine (1 - 2023-2 5 season) 2024 Influenza (Flu) vaccine (1 o f 1 - Influenza standard series) 01/05/2024 Diabetes Screening (HgbA1C o r Glucose) Discontinued 02/04/2022, 02/02/2022, 02/01/2022, Additional history exists Medical Devices Implanted Type Area Fleet Manager/Dispatch Device Identifier Shelf Expiration Date Model / Serial / Lot Cable,Cut,Edg ,Blnt,Ss,3tpr ([id number]) - [id number] Implanted:Qty : 1 on 02/01/2022 by Hong Tate MD at [facility] N/A: Sternum [employer] - [id number] 09/08/2026 [id number] / / [id number] Description:4 cables Procedures Procedure Name Priority Date/Time Associated Diagnosis Comments BASIC METABOLIC PANEL Routine 02/04/2022 5:37 AM EDT from Last 3 Months or Most Recently Relevant to Health Maintenance Results * (ABNORMAL) Basic Metabolic Panel (non-fasting) (02/04/2022 5:37 AM EDT) Glucose 115 65 - 199 mg/dL [facility] Comment:Diabetes: >=200 mg/d L plus symptoms Blood Urea Nitrogen 12 8 - 18 mg/dL [facility] Creatinine 0.60(L) 0.70 - 1.20 mg/dL [facility] Sodium 141 135 - 145 mmol/L [facility] Potassium 3.9 3.5 - 5.0 mmol/L [facility] Comment: Please note: ??Patients with WBC >100,000 may have falsely elevated Potassium levels. ??For accurate Potassium quantification in these patients send serum separator tube (gold top) for subsequent determinations. ??Contact the Clinical Chemistry Laboratory if there are any questions. Chloride 106 98 - 107 mmol/L [facility] Carbon Dioxide 26 22 - 31 mmol/L [facility] Anion Gap 9 5 - 15 mmol/L [facility] Calcium 9.0 8.5 - 10.5 mg/dL [facility] Comment:result rechecked-sf Est Glomerular Filtration Rate 97 >=60 mL/min/1. 73 m?? [facility] Comment: This patient's estimated GFR was calculated using the 2020 CKD-EPI equation. The estimated GFR can vary from the measured GFR by up to 30% in the absence of rapidly changing kidney function. Assessment of the estimated GFR is not appropriate when creatinine concentrations are rapidly changing. For clinical situations in which a more precise estimate of GFR is necessary, consider alternative methods of GFR estimation such as a 24-hour urine creatinine clearance. Assignment of CKD stage 1-5 for patients with an eGFR near the transition point between stages may be based on clinical assessment of muscle mass and symptoms in addition to eGFR. Blood 02/04/2022 5:37 AM EDT 02/04/2022 5:45 AM EDT Narrative Resulting Agency Comment Spec In Lab Hong Tate MD CHEMISTRY ORDERABLE S [facility] [place] [address] from Last 3 Months or Most Recently Relevant to Health Maintenance Advance Directives * Attempt Cardiopulmonary Resuscitation - Inpatient (Latest Code Status on File) Date Activated Date Inactivated Comments 02/01/2022 1:15 PM 02/05/2022 11:24 AM Question Answer Comments Code Status decision made by: Patient * Attempt Cardiopulmonary Resuscitation - Inpatient Date Activated Date Inactivated Comments 01/28/2022 6:11 PM 02/01/2022 1:15 PM Question Answer Comments Code Status decision made by: Patient * Attempt Cardiopulmonary Resuscitation - Inpatient Date Activated Date Inactivated Comments 01/28/2022 5:58 PM 01/28/2022 6:11 PM Question Answer Comments Code Status decision made by: Patient Care Teams Tariff Compiler Relationship Specialty Start Date End Date Kerri Pearce, [place] [address] PCP - General Family Medicine 01/04/22
--- OUTSIDE RECORDS SUMMARY | 2024-05-25 11:20 | XMS_ITS | Encounter Summary ---
Author Organization [facility] Address [address] [place] [address] Care Team Providers Care Senior Gl Accountant Name Role Phone Unavailable Primary Care Provider Unavailabl e Encounter Details Date Type Department Care Team (Late st Contact Info) Description 11/17/2008 Orders Only [facility] Laboratory Services - [facility] ([facility]) [address] [place] [address] [id number] Rabia Stevenson, MANAGEMENT SUPERVISOR Social History Tobacco Use Types Packs/Day Years [...] Procedure Name Priority Date/Time Associated Diagnosis Comments HPV DETECTION, HIGH RISK TYPES Routine 11/17/2008 14:00 EDT CYTOPATHOLOGY Routine 11/17/2008 0:00 EDT documented in this encounter Results * HUMAN PAPILLOMA VIRUS DNA TEST (11/17/2008 14:00 EDT) Specimen Description Cervix, ThinPrep vial [facility] Result Negative for HPV types 16, 18, 31, 33, 35, 39, 45, 51, 52, 56, 58, 59, and 68. [facility] Report Status Final 11/26/2008 [facility] 11/17/2008 14:0 0 EDT 11/23/2008 13:30 EDT Rabia Stevenson NP MICROBIOLOGY - GENERAL ORDERA BLES Final Result [facility] [address] [place] [address] * CYTOPATHOLOGY (11/17/2008 0:00 EDT) Pathology Report: CYTOPATHOLOGY REPORT ? Reports generated via electronic interface contain original data; ? however they are lacking the format of the original report. ? Caution should be taken when reading/interpreti ng unformatted reports. ? Name: ? SHELLIE LYON ? Accession #: ? [id number] ? : ? 1950 (Age: 58) ??F ?Collect Date: ? 11/17/2008 ? Location: ? [facility] ? Receive Date: ? 11/18/2008 ? Provider: ?RABIA M WOODY MANAGEMENT SUPERVISOR ? Copy to: ? Specimen/Source: ?Pap Test, Cervix/Endocervix, ThinPrep Imaging System ? with manual evaluation ? Last Menstrual Period: ? 1/03 ? Previous Gynecologic Pathology: ? Benign cellular changes: 1996 ? Other: ? Additional clinical information: stenotic OS ? HPVDX - HPV testing requested regardless of diagnosis on current ThinPrep Pap ?? test. ? SPECIMEN ADEQUACY ? Satisfactory for Evaluation ? - transformation zone component present ? GENERAL CATEGORIZATION ? Negative for Intraepithelial Lesion or Malignancy ? Document reviewed and electronically signed by: ? Jayne Estrella, CT(ASCP) ? Report Date: ??11/22/2008 13:28 ? End of Report ? [facility] 11/17/2008 11/18/2008 us Rabia Stevenson NP PATHOLOGY ORDERABLES Final Re sult [facility] [address] [place] [address] documented in this encounter Visit Diagnoses Not on filedocumented in this encounter
--- OUTSIDE RECORDS SUMMARY | 2024-05-25 11:20 | XMS_ITS | Encounter Summary ---
Author Organization [facility] Address [address] [place] [address] Care Team Providers Care Death Claim Examiner Name Role Phone Unavailable Primary Care Provider Unavailabl e Encounter Details Date Type Department Care Team (Late st Contact Info) Description 12/04/1999 Results Only [facility] conversion [address] [place] [address] Rabia Stevenson NP Social History Tobacco Use [...] Priority Date/Time Associated Diagnosis Comments CYTOPATHOLOGY Routine 12/04/1999 0:00 EDT documented in this encounter Results * CYTOPATHOLOGY (12/04/1999 0:00 EDT) Pathology Report: CYTOPATHOLOGY REPORT Reports generated via electronic interface contain original data; however they are lacking the format of the original report. Caution should be taken when reading/interpreti ng unformatted reports. Name: ? SHELLIE LYON ? Accession #: ? [id number] : ? 1950 (Age: 49) ??F ?Collect Date: ? 12/04/1999 Location: ? [facility] ? Receive Date: ? 12/06/1999 Provider: ?RABIA STEVENSON AEROSPACE PHYSIOLOGICAL TECHNICIAN Copy to: ? Specimen/Source: ?ThinPrep Pap Test, Cervix/Endocervix Last Menstrual Period: ? 11/20/99 ? SPECIMEN ADEQUACY ? Satisfactory for evaluation. GENERAL CATEGORIZATION ? Within Normal Limits ? Document reviewed and electronically signed by: ? CHASITY Chirinos(ASCP) ? Report Date: ??12/08/1999 10:08 End of Report [facility] 12/04/1999 12/06/1999 us Rabia Stevenson NP PATHOLOGY ORDERABLES Final Re sult [facility] [address] [place] [address] documented in this encounter Visit Diagnoses Not on filedocumented in this encounter
--- OUTSIDE RECORDS SUMMARY | 2024-05-25 11:20 | XMS_ITS | Encounter Summary ---
Author Organization [facility] Address [address] [place] [address] Care Team Providers Care Cleaner Touch Up Worker Name Role Phone Ramses Kerri Morales COMMISSIONER CONSERVATION OF RESOURCES Primary Care Provider [phone] Encounter Details Date Type Department Care Team (Late st Contact Info) Description 04/12/2020 Lab Requisition [facility] [address] [place] [address] Carmen South, [facility] [address] [place] [phone] Encounter for other general examination Social History Tobacco Use Types Packs/Day Years [...] Name Priority Date/Time Associated Diagnosis Comments PAP TEST Today 04/11/2020 15:40 EST Encounter for other general examination HPV DNA DETECTION WITH GENOTYPING, PCR Today 04/11/2020 15:40 EST Encounter for other general examination documented in this encounter Results * HUMAN PAPILLOMAVIRUS (HPV) DETECTION-HIGH RISK TYPES (04/11/2020 15:40 EST) HPV other High Risk types, PCR Negative Negative 04/19/2020 7:08 EST [facility] Comment:No E6 or E7 mRNA is detected from HPV types 16,18,31,33,35,39,45,51,52,56,58,59,66, and 68 by director correctional agency mediated amplification. Papanicolaou smear specimen (specimen) CERVIX UTERI STRUCTURE / Unknown 04/11/2020 15:40 EST 04/15/2020 10:43 EST us Carmen ESTRADAP MICROBIOLOGY - GENERAL ORDER USHA Final Result [facility] [address] [place] [id number] * PAP TEST (04/11/2020 15:40 EST) Specimens A. Cervix and/or Endocervix , ThinPrep Imaging System with Manual Evaluation 04/19/2020 7:09 [facility] Specimen Adequacy Satisfactory for Evaluation - transformation zone component present 04/19/2020 7:09 [facility] General Categorization Negative for intraepithelial lesion or malignancy 04/19/2020 7:09 [facility] Attestation . 04/19/2020 7:09 [facility] at 0708 Clinical History See below 04/19/20 20 7:09 [facility] HPV The result for the Human Papillomavirus (HPV) Detection-High Risk Types is Negative. No E6 or E7 mRNA is detected from HPV types 16,18,31,33,35,39 ,45,51,52,56,58,5 9,66, and 68 by director correctional agency mediated amplification.Blanca ting was performed on specimen [id number] and was resulted on 04/19/2020 0704 EST by JOE, LAB INSTRUMENT RESULTS IN 04/19/2020 7:09 [facility] Performing Lab [facility] 04/19/2020 7:09 [facility] Scanned Images 04/19/2020 7:09 [facility] Papanicolaou smear specimen (specimen) CERVIX UTERI STRUCTURE / Unknown 04/11/2020 15:40 EST 04/12/2020 11:30 EST Carmen South SHOWPLACE MANAGER PATHOLOGY ORDERABLES Final R esult [facility] [address] [place] [address] documented in this encounter Visit Diagnoses Diagnosis Encounter for other general examination documented in this encounter Care Teams Cleaner Touch Up Worker Relationship Specialty Start Date End Date Kerri Pearce NP [address] [place] [address] PCP - General Family Medicine - Primary Care 06/06/22 documented as of this encounter
--- OUTSIDE RECORDS SUMMARY | 2024-05-25 11:20 | XMS_ITS | Encounter Summary ---
Author Organization [facility] [place] [address] Care Team Providers Care Director Of Special Services Name Role Phone Kerri Pearce MORGAN Primary Care Provider [phone] Encounter Details Date Type Department Care Team (Late st Contact Info) Description 06/19/2022 Telephone [place] [address] Sernea Aguiar MD [facility] [address] [place] [address] Social History Tobacco Use Types Packs/Day Years Used Date Smoking Tobacco: Never Smokeless Tobacco: Never Alcohol Use Standard Drinks/Week Comments Not Currently 0 (1 standard drink = 0.6 oz pur e alcohol) Sex and Gender Information Value Date Recorded Sex Assigned at Not on file Gender Identity Not on file Sexual Orientation Not on file documented as of this encounter Miscellaneous Notes * Telephone Encounter - Juan Diego Napoles S - 06/19/2022 5:02 PM EST 06/19/2022 5:02 PM Update from surgery team re: Ms. Lyon. MRCP performed and c/f cholecystitis, likely small residual distal CBD stone. They are requesting ERCP be performed tomorrow prior to lap valentin which seems reasonable. Dr. Aguiar to reach out tomorrow re: timing. Juan Diego Napoles MD PGY-6, Gastroenterology * Telephone Encounter - Serena Aguiar MD - 06/19/2022 9:26 AM EST Images from the original note were not included. DIVISION OF GASTROENTEROLOGY & [facility]PATOLOG[facility]SF[facility] CALL Name: Shellie Lyon Date: 06/19/2022 Time: 9:27 AM Referring Location: [facility] Referring Provider: Victor M Becker MD 71F with HTN, OA, NSTEMI s/p CABG on 02/01/2022 on Aspirin who presented to OSH with RUQ/epigastric pain on 06/18. Per report, she developed sudden onset RUQ and epigastric pain that radiated to the right flank in the afternoon on 06/18. She induced vomiting thinking this would help, but continued to feel worse and thus presented to the ED. Vitals: afebrile, HDS Exam: mild tenderness with deep palpation in RUQ Labs: WBC 12.6 -> WBC 7.9, Hgb 13.6, PLT 197 BUN 19, Cr 1.0 TBili 0.8, AST 107, ALT 69, ALP 112 -> TBili 2.7, AST 563, ALT 632, ALP 157 INR not obtained Imaging: CT AP with IV contrast - CBD dilated to 8mm with 2mm stone in distal duct, intrahepatic biliary prominence The patient received 1.5L IVFs, Dilaudid one time, and one dose of Zosyn. Today, the patient reportedly feels well with improvement in her abdominal pain. An MRCP is ordered. I recommended avoiding hepatotoxic medications given AST/ALT rise and agreed with MRCP given minimal elevation in TBili and in the setting of improved pain today. We will tentatively plan for ERCP tomorrow pending MRCP results, labs, and clinical course. This is not an official consult, as my recommendations are limited by my inability to interview andexamine the patient as well as personally review the medical record, imaging, and laboratory findings. Serena Aguiar MD PGY-4, Gastroenterology documented in this encounter Plan of Treatment Not on file documented as of this encounter Visit Diagnoses Not on filedocumented in this encounter Care Teams Director Of Special Services Relationship Specialty Start Date End Date Kerri Pearce, ROCKET PROPELLANT PLANT SUPERVISOR [address] [facility] [address] PCP - General Family Medicine 01/04/22 documented as of this encounter
--- OUTSIDE RECORDS SUMMARY | 2024-05-25 11:20 | XMS_ITS | Encounter Summary ---
Author Organization [facility] Address [address] [place] [address] Care Team Providers Care Batter Scaler Name Role Phone Unavailable Primary Care Provider Unavailabl e Encounter Details Date Type Department Care Team (Late st Contact Info) Description 10/14/[address] [facility] conversion [address] [place] [address] Rabia Stevenson NP Social History Tobacco Use [...] Priority Date/Time Associated Diagnosis Comments CYTOPATHOLOGY Routine 10/14/2006 0:00 EDT documented in this encounter Results * CYTOPATHOLOGY (10/14/2006 0:00 EDT) Pathology Report: CYTOPATHOLOGY REPORT Reports generated via electronic interface contain original data; however they are lacking the format of the original report. Caution should be taken when reading/interpreti ng unformatted reports. Name: ? SHELLIE LYON ? Accession #: ? [id number] : ? 1950 (Age: 55) ??F ?Collect Date: ? 10/14/2006 Location: ? [facility] ? Receive Date: ? 10/14/2006 Provider: ?RABIA STEVENSON PEANUT SEPARATOR Copy to: ? Specimen/Source: ?ThinPrep Pap Test, Cervix/Endocervix, processed on Octro ThinPrep Imaging System, with manual evaluation Last Menstrual Period: ? 08/05 Previous Gynecologic Pathology: ? Benign cellular changes: 1995 Other: ? Additional clinical information: Stenotic cx os HPVA - HPV testing requested if ASC-US on the current ThinPrep Pap test. ? SPECIMEN ADEQUACY ? Satisfactory for Evaluation - transformation zone component absent GENERAL CATEGORIZATION ? Negative for Intraepithelial Lesion or Malignancy ? Document reviewed and electronically signed by: ? Precious Vieyra, SCT(ASCP) ? Report Date: ??10/21/2006 10:19 End of Report [facility] 10/14/2006 10/14/2006 us Rabia Stevenson NP PATHOLOGY ORDERABLES Final Re sult [facility] [address] [place] [address] documented in this encounter Visit Diagnoses Not on filedocumented in this encounter
--- OUTSIDE RECORDS SUMMARY | 2024-05-25 11:20 | XMS_ITS | Encounter Summary ---
Author Organization [facility] [place] [address] Care Team Providers Care Compliance Administrator Name Role Phone Kerri Pearce MORGAN Primary Care Provider [phone] Encounter Details Date Type Department Care Team (Late st Contact Info) Description 06/19/2022 4:45 PM EST Ancillary Procedure Radiology [facility] [place] [address] Jackson Coles MD [facility] [place] [address] Social History Tobacco Use Types Packs/Day Years [...] Procedure Name Priority Date/Time Associated Diagnosis Comments FILM LIBRARY STORAGE ONLY MR ABDOMEN Routine 06/19/2022 4:42 PM EST documented in this encounter Results * Film Library- Storage Only MR Abdomen (06/19/2022 4:42 PM EST) Narrative [facility][NOTE 3] - 06/19/2022 4:42 PM EST This exam is auto-finalizing. It's purpose is for storage only. Jackson Coles MD IM FILM LIBRARY ORD ERABLES [place], [place] documented in this encounter Visit Diagnoses Not on filedocumented in this encounter Care Teams Compliance Administrator Relationship Specialty Start Date End Date Kerri Pearce APRN [address] [place] [address] PCP - General Family Medicine 01/04/22 documented as of this encounter
--- OUTSIDE RECORDS SUMMARY | 2024-05-25 11:20 | XMS_ITS | Encounter Summary ---
Author Organization [facility] Address [address] [place] [address] Care Team Providers Care Astro Technician Name Role Phone Unavailable Primary Care Provider Unavailabl e Encounter Details Date Type Department Care Team (Late st Contact Info) Description 05/24/2003 Results Only [facility] conversion [address] [place] [address] Rabia Stevenson NP Social History Tobacco Use [...] Priority Date/Time Associated Diagnosis Comments CYTOPATHOLOGY Routine 05/24/2003 0:00 EST documented in this encounter Results * CYTOPATHOLOGY (05/24/2003 0:00 EST) Pathology Report: CYTOPATHOLOGY REPORT Reports generated via electronic interface contain original data; however they are lacking the format of the original report. Caution should be taken when reading/interpreti ng unformatted reports. Name: ? SHELLIE LYON ? Accession #: ? [id number] : ? 1950 (Age: 52) ??F ?Collect Date: ? 05/24/2003 Location: ? [facility] ? Receive Date: ? 05/26/2003 Provider: ?RABIA STEVENSON CHEF HEAD Copy to: ? Specimen/Source: ?ThinPrep Pap Test, Cervix/Endocervix Last Menstrual Period: ? 08/14/01 Spotted 04/05 ? SPECIMEN ADEQUACY ? Satisfactory for Evaluation - transformation zone component absent GENERAL CATEGORIZATION ? Negative for Intraepithelial Lesion or Malignancy ? Document reviewed and electronically signed by: ? CHASITY Adrian(ASCP) ? Report Date: ??06/01/2003 07:19 End of Report [facility] 05/24/2003 05/26/2003 us Rabia Stevenson NP PATHOLOGY ORDERABLES Final Re sult [facility] [address] [place] [address] documented in this encounter Visit Diagnoses Not on filedocumented in this encounter
--- OUTSIDE RECORDS SUMMARY | 2024-05-25 11:20 | XMS_ITS | Encounter Summary ---
[place] [address] Care Team Providers Care Cloth Framer Name Role Phone Kerri Pearce Carmen MORA Primary Care Provider [phone] Encounter Details Date Type Department Care Team (Late st Contact Info) Description 06/25/2022 Telephone [place] [id number] Shani Tran Social History Tobacco Use Types Packs/Day Years [...] encounter Miscellaneous Notes * Telephone Encounter - Shani Tran - 06/25/2022 5:03 PM EST SOCCER: Study Of forCeps Cannulation during ERcp PI: Sami Pollack MD [place] Velos # [id number] Objective of visit: Shani Rachel , research coordinator, spoke to Shellie Lyon over the phone regarding protocol [id number]. As per the study protocol, I asked about the patient's pain and answered questions. Assessment/Outcome: Shellie Lyon reported no issues with the ERCP and some pain after her cholecystectomy due to the CO2 gas. 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 Plan: 1. Update Dr. Pollack about the end of the study, patient's progress, and questions. 2. File all CRFs into binder and close out patient on study. 3. No AEs documented in this encounter Plan of Treatment Not on file documented as of this encounter Visit Diagnoses Not on filedocumented in this encounter Care Teams Cloth Framer Relationship Specialty Start Date End Date Kerri Pearce, CURATOR OF EDUCATION [address] [place] [address] PCP - General Family Medicine 01/04/22 documented as of this encounter
--- OUTSIDE RECORDS SUMMARY | 2024-05-25 11:20 | XMS_ITS | Encounter Summary ---
Author Organization [facility] Address [address] [place] [address] Care Team Providers Care Machine Stitcher Name Role Phone Unavailable Primary Care Provider Unavailabl e Encounter Details Date Type Department Care Team (Late st Contact Info) Description 06/02/2004 Results Only [facility] [place] conversion [address] [place] [address] Carmen South, [facility] [address] [place] [address] Social History Tobacco Use Types [...] Priority Date/Time Associated Diagnosis Comments CYTOPATHOLOGY Routine 06/02/2004 0:00 EST documented in this encounter Results * CYTOPATHOLOGY (06/02/2004 0:00 EST) Pathology Report: CYTOPATHOLOGY REPORT Reports generated via electronic interface contain original data; however they are lacking the format of the original report. Caution should be taken when reading/interpreti ng unformatted reports. Name: ? SHELLIE LYON ? Accession #: ? [id number] : ? 1950 (Age: 53) ??F ?Collect Date: ? 06/02/2004 Location: ? [facility] ? Receive Date: ? 06/06/2004 Provider: ?CARMEN SOUTH ELECTRONICS DEPARTMENT MANAGER Copy to: ? Specimen/Source: ?ThinPrep Pap Test, Cervix/Endocervix Last Menstrual Period: ? 08/14/01 Previous Gynecologic Pathology: ? Benign cellular changes Other: ? HPVA - HPV testing requested if ASC-US on the current ThinPrep Pap test. ? SPECIMEN ADEQUACY ? Satisfactory for Evaluation - transformation zone component absent GENERAL CATEGORIZATION ? Negative for Intraepithelial Lesion or Malignancy ? Document reviewed and electronically signed by: ? Precious Vieyra, SCT(ASCP) ? Report Date: ??06/09/2004 10:36 End of Report [facility] 06/02/2004 06/06/2004 us Carmen South ELECTRONICS DEPARTMENT MANAGER PATHOLOGY ORDERABLES Final R esult [facility] [address] [place] [address] documented in this encounter Visit Diagnoses Not on filedocumented in this encounter
--- OUTSIDE RECORDS SUMMARY | 2024-05-25 11:20 | XMS_ITS | Encounter Summary ---
Author Organization [facility] Address [address] [place] [address] Care Team Providers Care Strategic Account Director Name Role Phone Unavailable Primary Care Provider Unavailabl e Encounter Details Date Type Department Care Team (Late st Contact Info) Description 11/05/2007 Before PRISM Converted Visit ([facility]) [facility] conversion [address] [place] [address] Rabia Stevenson, BARISTA Social History Tobacco Use Types Packs/Day Years [...] Priority Date/Time Associated Diagnosis Comments CYTOPATHOLOGY Routine 11/05/2007 0:00 EDT documented in this encounter Results * CYTOPATHOLOGY (11/05/2007 0:00 EDT) Pathology Report: CYTOPATHOLOGY REPORT ? Reports generated via electronic interface contain original data; ? however they are lacking the format of the original report. ? Caution should be taken when reading/interpreti ng unformatted reports. ? Name: ? SHELLIE LYON ? Accession #: ? [id number] ? : ? 1950 (Age: 57) ??F ?Collect Date: ? 11/05/2007 ? Location: ? [facility] ? Receive Date: ? 11/06/2007 ? Provider: ?RABIA M WOODY BARISTA ? Copy to: ? Specimen/Source: ?ThinPrep Pap Test, Cervix/Endocervix, processed on Cytyc ThinPrep Imaging System, with manual evaluation ? Last Menstrual Period: ? Aly. 2003 ? Other: ? Additional clinical information: Stenotic Os. ? SPECIMEN ADEQUACY ? Satisfactory for Evaluation ? - transformation zone component present ? GENERAL CATEGORIZATION ? Negative for Intraepithelial Lesion or Malignancy ? Document reviewed and electronically signed by: ? Lynan Pawel, CT(ASCP) ? Report Date: ??11/13/2007 11:27 ? End of Report ? [facility] 11/05/2007 11/06/2007 us Rabia Stevenson BARISTA PATHOLOGY ORDERABLES Final Re sult [facility] [address] [place] [address] documented in this encounter Visit Diagnoses Not on filedocumented in this encounter
--- OUTSIDE RECORDS SUMMARY | 2024-05-25 11:20 | XMS_ITS | Referral Summary ---
Author Organization [facility] Address [address] [place] [address] Care Team Providers Care Nuclear Reactor Operator Name Role Phone Kerri Pearce NP Primary Care Provider [phone] Social History Tobacco Use Types Packs/Day Years Used Date Smoking Tobacco: Never Assessed Comments Unknown Sex and Gender Information Value Date Recorded Sex Assigned at Not on file Legal Sex Female 18:12 EST Gender Identity Not on file Sexual Orientation Not on file Plan of Treatment Not on file Insurance [facility] MEDICARE Care Teams Nuclear Reactor Operator Relationship Specialty Start Date End Date Kerri Pearce NP [facility] [place] [address] PCP - General Family Medicine - Primary Care 06/06/22
--- OUTSIDE RECORDS SUMMARY | 2024-05-25 11:20 | XMS_ITS | Encounter Summary ---
Author Organization [facility] [place] [address] Care Team Providers Care Speech Therapist Early Intervention Name Role Phone Ramses, Kerri Morales APRN Primary Care Provider [phone] Reason for Visit * Auth/Cert (Routine) Specialty Diagnoses / Procedures Referred By Karli crockett Referred To Contact Diagnoses choledoco back and forth Procedures PRO ERCP,DIAGNOSTIC PRO UPPER GI ENDOSCOPY, REMOV F.B. PRO ANESTH, UGI ENDOSCOPY ERCP ERCP Jackson Coles MD [facility] [place] [address] [facility] Referral ID Status Reason Start Date Expiration Date Visits Re quested Visits Authorized [id number] 1 1 Encounter Details Date Type Department Care Team (Latest Contact Info) Description 06/20/2022 10:29 AM EST - 06/20/2022 1:58 PM EST Hospital Encounter [place] [address] Jackson Coles MD [facility] [place] [address] Discharge Disposition: Home Social History Tobacco Use Types Packs/Day Years [...] PM EST Ercp, W/Removal Stone, Arik/Pancr Ducts ([id number]) 06/20/2022 11:48 AM EST choledoco back and forth Ercp, Sphincterotomy ([id number]) 06/20/2022 11:48 AM EST choledoco back and forth Ercp, Diagnostic ([id number]) 06/20/2022 11:48 AM EST choledoco back and forth ERCP Routine 06/20/2022 11:43 AM EST documented in this encounter Results * XR ERCP (06/20/2022 1:13 PM EST) Narrative [facility] - 06/20/2022 1:13 PM EST See PACS for result report. Jackson Coles MD IM FILM LIBRARY ORD ERABLES Performing Organization Address City/State/[facility] Co de Phone Number [place], [place] * ERCP (06/20/2022 11:43 AM EST) ERCP [facility] Endoscopy Procedure Date: 06/20/2022 11:43 AM ? Patient Name: Shellie Lyon ? Date of : 1950 ? Age: 71 ? Order #: [id number] ? Instrument Name: [id number] ? Procedure: ? ERCP Indications: ? Suspected bile duct stone(s), ? Elevated liver enzymes Providers: ? Jackson Coles MD, Mark Hancock ? KYM Mao, Josefina Morales MD: ?Victor M Becker Medicines: ? General Anesthesia, Indomethacin ? 100 mg MT Complications: ? No immediate complications. Procedure: ? [...] procedure ? well. ? Findings: ? The technology recruiter film was normal. The esophagus was ? successfully intubated under direct vision. The scope ? was advanced to a normal major papilla in the ? descending duodenum without detailed examination of ? the pharynx, larynx and associated structures, and ? upper GI tract. The upper GI tract was notable for a ? ring at GE Jct. The bile duct was deeply [...] was made with a monofilament CleverCut ? [id number] sphincterotome using ERBE ? electrocautery. There was [...] CRNA) documented in this encounter Care Teams Speech Therapist Early Intervention Relationship Specialty Start Date End Date [place] [address] PCP - General Family Medicine 01/04/22 documented as of this encounter
--- OUTSIDE RECORDS SUMMARY | 2024-05-25 11:20 | XMS_ITS | Encounter Summary ---
Author Organization [facility] [place] [address] Care Team Providers Care Kiln Feeder Name Role Phone Kerri Pearce APRN Primary Care Provider Reason for Visit * Auth/Cert (Routine) Specialty Diagnoses / Procedures Referred By Karli crockett Referred To Contact Diagnoses choledoco back and forth Procedures PRO ERCP,DIAGNOSTIC PRO UPPER GI ENDOSCOPY, REMOV F.B. PRO ANESTH, UGI ENDOSCOPY ERCP ERCP Jackson Coles MD [facility] [place] [address] [facility] Referral ID Status Reason Start Date Expiration Date Visits Re quested Visits Authorized [id number] 1 1 Encounter Details Date Type Department Care Team (Late st Contact Info) Description 06/20/2022 11:30 AM EST Ancillary [place] [address] Social History Tobacco Use Types Packs/Day Years [...] XR ERCP Routine 06/20/2022 1:13 PM EST documented in this encounter Results * XR ERCP (06/20/2022 1:13 PM EST) Narrative RAD - 06/20/2022 1:13 PM EST See PACS for result report. Jackson Coles MD IMG FILM LIBRARY ORD ERABLES Performing Organization Address City/State/[facility] Co de Phone Number [place], [place] documented in this encounter Visit Diagnoses Not on filedocumented in this encounter Care Teams Kiln Feeder Relationship Specialty Start Date End Date Kerri Pearce, [employer] [place] [address] PCP - General Family Medicine 01/04/22 documented as of this encounter
--- OUTSIDE RECORDS SUMMARY | 2024-05-25 11:20 | XMS_ITS | Encounter Summary ---
Author Organization [facility] Address [address] [place] [address] Care Team Providers Care Hybrid Tester Name Role Phone Unavailable Primary Care Provider Unavailabl e Encounter Details Date Type Department Care Team (Late st Contact Info) Description 07/25/2005 Results Only [facility] conversion [address] [place] [address] Rabia Stevenson NP Social History Tobacco Use [...] Priority Date/Time Associated Diagnosis Comments CYTOPATHOLOGY Routine 07/25/2005 0:00 EST documented in this encounter Results * CYTOPATHOLOGY (07/25/2005 0:00 EST) Pathology Report: CYTOPATHOLOGY REPORT Reports generated via electronic interface contain original data; however they are lacking the format of the original report. Caution should be taken when reading/interpreti ng unformatted reports. Name: ? SHELLIE LYON ? Accession #: ? [id number] : ? 1950 (Age: 54) ??F ?Collect Date: ? 07/25/2005 Location: ? [facility] ? Receive Date: ? 07/26/2005 Provider: ?RABIA STEVENSON FINISHER [employer] DIES Copy to: ? Specimen/Source: ?ThinPrep Pap Test, Cervix/Endocervix, processed on [employer] ThinPrep Imaging System, with manual evaluation Last Menstrual Period: ? 08/14/01 Previous Gynecologic Pathology: ? Benign cellular changes: 1995 Other: ? Additional clinical information: Stenotic Cx Os HPVA - HPV testing requested if ASC-US on the current ThinPrep Pap test. ? SPECIMEN ADEQUACY ? Satisfactory for Evaluation - transformation zone component absent GENERAL CATEGORIZATION ? Negative for Intraepithelial Lesion or Malignancy ? Document reviewed and electronically signed by: ? CHASITY Hoff(ASCP) ? Report Date: ??07/27/2005 15:10 End of Report [facility] 07/25/2005 07/26/2005 us Rabia Stevenson NP PATHOLOGY ORDERABLES Final Re sult [facility] [address] [place] [address] documented in this encounter Visit Diagnoses Not on filedocumented in this encounter
--- OUTSIDE RECORDS SUMMARY | 2024-05-25 11:20 | XMS_ITS | Encounter Summary ---
Author Organization [facility] Address [address] [place] [address] Care Team Providers Care Mechanical Engineering Lecturer Name Role Phone Unavailable Primary Care Provider Unavailabl e Encounter Details Date Type Department Care Team (Late st Contact Info) Description 03/26/2002 Results Only [facility] conversion [address] [place] [address] Rabia Stevenson NP Social History Tobacco Use [...] Priority Date/Time Associated Diagnosis Comments CYTOPATHOLOGY Routine 03/26/2002 0:00 EST documented in this encounter Results * CYTOPATHOLOGY (03/26/2002 0:00 EST) Pathology Report: CYTOPATHOLOGY REPORT Reports generated via electronic interface contain original data; however they are lacking the format of the original report. Caution should be taken when reading/interpreti ng unformatted reports. Name: ? SHELLIE LYON ? Accession #: ? [id number] : ? 1950 (Age: 51) ??F ?Collect Date: ? 03/26/2002 Location: ? [facility] ? Receive Date: ? 03/30/2002 Provider: ?RABIA STEVENSON DIRECTOR OF DIGITAL PLATFORMS Copy to: ? Specimen/Source: ?ThinPrep Pap Test, Cervix/Endocervix Last Menstrual Period: ? 08/14/01 Previous Gynecologic Pathology: ? Benign cellular changes: 1995 ? SPECIMEN ADEQUACY ? Satisfactory for Evaluation - transformation zone component present GENERAL CATEGORIZATION ? Negative for Intraepithelial Lesion or Malignancy ? Document reviewed and electronically signed by: ? Precious Vieyra, SCT(ASCP) ? Report Date: ??04/03/2002 13:27 End of Report [facility] 03/26/2002 03/30/2002 us Rabia Stevenson DIRECTOR OF DIGITAL PLATFORMS PATHOLOGY ORDERABLES Final Re sult [facility] [address] [place] [address] documented in this encounter Visit Diagnoses Not on filedocumented in this encounter
--- OUTSIDE RECORDS SUMMARY | 2024-05-25 11:20 | XMS_ITS | Data Portability ---
Author Organization [facility] Address [address] [place] [address] Care Team Providers Care Line Clearance Foreman Name Role Phone VERONICA PEARCE Primary Care Provider Assessment No assessment recorded. Plan of Treatment Reminders Order Date Submit Date Provider Last Modified By Organization Details Last Modified Time Details Appointments Follow Up 2024 09:00A M Veronica Pearce Not available Not available Not available Follow Up 2025 09:00A M Veronica Pearce Not available Not available Not available Lab CBC - 1 mint and 1 lav tube collected from right ac. pt tolerated well. 2023 024 [facility] (Registration ), [address] [place] [address] [place], [address], 05/21/2023 15:30:07 CMP, serum or plasma - 1 mint and 1 lav tube collected from right ac. pt tolerated well. 2023 024 [facility] (Registration ), [address] [place] [address] [place], [address], 05/21/2023 15:47:14 lipids, total, serum - 1 mint and 1 lav tube collected from right ac. pt tolerated well. [email or web address] [facility] (Registration ), [address] [place] [address] [place], [address], 05/28/2023 10:35:46 CBC 2024 025 [facility] (Lab Direct), [address] [place] [address] [place], [address], 05/25/2024 10:32:05 CMP, serum or plasma 2024 025 [facility] ([facility]), [address] [place] [address] [place], [address], 05/25/2024 10:42:05 lipids, total, serum 2024 025 [facility]), [address] [place] [address] [place], [address], 05/25/2024 09:55:21 Referral None recorded. Procedures colonosco py screening (PROC) 2023 024 [email or web address] Not available 01/09/2024 15:07:23 Surgeries None recorded. Imaging MAMMO, screening , bilateral 2023 024 [facility] (Radiology), [address] [place] [address] [place], [address], 06/28/2023 08:04:12 MAMMO, screening , bilateral [email or web address] (Radiology), [address] [place] [address] [place], [address], 05/25/2024 09:53:49 Medication Orders Ativan 0.5 mg tablet 2023 024 [email or web address] [facility], [address] [facility], [place], [address], 02/08/2024 09:57:46 doxycycli ne monohydra te 100 mg tablet 2023 024 GUTIERREZ [facility], [address] [facility] [facility], [place], [address], 02/08/2024 10:30:09 metoprolo l tartrate 25 mg tablet 2024 025 G[facility]IERREZ [facility], [address] [place], [address], 05/25/2024 09:38:26 losartan 25 mg tablet 2024 025 G[facility]IERREZ [facility], [address] [place], [address], 05/25/2024 09:38:26 atorvasta tin 20 mg tablet 2024 025 G[facility]IERREZ [facility], [address] [place], [address], 05/25/2024 09:38:28 Patient TargetsNo targets recorded. Patient Instructions Encounter Date Encounter Id Patient Instructions Last Modified By Organization Details Last Modified Time 05/21/2023 [id number] 1 year follow-up. Follow-up with cardiology in 6 months. Colonoscopy referral sent to [place]. Delayed mammogram order for 2 to 3 months sent to [facility]? expect a phone call around July to schedule. Routine labs today -CBC, CMP, lipid profile Situational anxiety and stress? May trial Ativan as needed for acute stressors (such as airflight and travel). Recommend trialing 1-2 doses prior to stressful event. ATIVAN PRESCRIBED. Raynaud's / chilblains -continue to protect her hands and feet from cold exposure, and avoid extreme temperature changes. Perform daily foot checks. Consider trial of a vasodilator, such as amlodipine. Please call with any questions or concerns. [email or web address] Not available 05/21/2023 09:14:33 02/08/2024 [id number] - Take the prescribed one-time dose of doxycycline with a full glass of water to ensure proper ingestion. - Monitor the site of tick bite for signs of infection, such as increased redness, swelling, fever, or chills. - Avoid further manipulation of the bite site to prevent additional damage or infection. - Contact the clinic if systemic symptoms like fever, rash, or joint pain develop. - Be aware of sun sensitivity with antibiotic use, although unlikely with only a single dose. - Practice tick preventive measures during outdoor activities, particularly in areas endemic to Lyme disease. [email or web address] Not available 02/08/2024 11:10:58 05/25/2024 [id number] 1 year follow-up. Follow-up with cardiology as schedule. Mammogram ordered for 2024. Recommend checking your blood pressure 2-3 times a month. Blood pressure goal systolic <135. If your blood pressure remains elevated, lets consider a small increase in your LOSARTAN (either 50 mg once daily OR 25 mg twice daily) Routine lab orders sent to [facility]. Raynaud's / chilblains -continue to protect her hands and feet from cold exposure, and avoid extreme temperature changes. Perform daily foot checks. Consider trial of a vasodilator, such as amlodipine. Please call with any questions or concerns. Not available 05/25/2024 09:44:51 Reason for Referral None Reported. Results Created Date Observation Date Name Description Value Unit Range Abnormal Flag Note LastModifiedBy Organization Detail LastModifiedTime 05/21/19 24 05/21/2023 COMPL ETE BLOOD COUNT NO DIFF WBC 5.34 10_3/ uL 4.4-10 .8 normal Not Available [address] [facility] [place], [address] 05/21/2023 15:30:07 05/21/19 24 05/21/2023 COMPL ETE BLOOD COUNT NO DIFF RBC 5.21 10_6/ uL 3.93-5 .22 normal Not Available [address] [place], [address] 05/21/2023 15:30:07 05/21/19 24 05/21/2023 COMPL ETE BLOOD COUNT NO DIFF HGB 14.5 g/dL 11.2-1 5.7 normal Not Available [address] [place], [address] 05/21/2023 15:30:07 05/21/19 24 05/21/2023 COMPL ETE BLOOD COUNT NO DIFF HCT 44.8 % 36.0-4 6.0 normal Not Available [address] [place], [address] 05/21/2023 15:30:07 05/21/19 24 05/21/2023 COMPL ETE BLOOD COUNT NO DIFF MCV 86 fL 80-95 normal Not Available Kiana zuñiga [address] [place], [address] 05/21/2023 15:30:07 05/21/19 24 05/21/2023 COMPL ETE BLOOD COUNT NO DIFF MCH 27.8 pg 27.0-3 3.0 normal Not Available [address] [place], [address] 05/21/2023 15:30:07 05/21/19 24 05/21/2023 COMPL ETE BLOOD COUNT NO DIFF MCHC 32.4 % 32.0-3 6.0 normal Not Available [address] [place], [address] 05/21/2023 15:30:07 05/21/19 24 05/21/2023 COMPL ETE BLOOD COUNT NO DIFF RDW 12.2 % 11.7-1 4.6 normal Not Available [address] [place], [address] 05/21/2023 15:30:07 05/21/19 24 05/21/2023 COMPL ETE BLOOD COUNT NO DIFF platelet count 244 10_3/ uL 130-40 0 normal Not Available [address] [place], [address] 05/21/2023 15:30:07 05/21/19 24 05/21/2023 COMPL ETE BLOOD COUNT NO DIFF MPV 11.3 fL 8.0-11 .0 high Not Available [address] [place], [address] 05/21/2023 15:30:07 05/21/19 24 05/21/2023 COMPR EHENS MOHINI METAB OLIC PANEL calcium 9.9 mg/dL 8.5-10 .1 normal Not Available [address] [place], [address] 05/21/2023 15:47:14 05/21/19 24 05/21/2023 COMPR EHENS MOHINI METAB OLIC PANEL glucose 126 mg/dL 74-106 high Not Available Kiana zuñiga [address] [place], [address] 05/21/2023 15:47:14 05/21/19 24 05/21/2023 COMPR EHENS MOHINI METAB OLIC PANEL BUN 21 mg/dL 7-18 high Not Available Kiana zuñiga [address] [place], [address] 05/21/2023 15:47:14 05/21/19 24 05/21/2023 COMPR EHENS MOHINI METAB OLIC PANEL creatinine 1.0 mg/dL 0.55-1 .02 normal Not Available [address] [place], [address] 05/21/2023 15:47:14 05/21/19 24 05/21/2023 COMPR EHENS MOHINI METAB OLIC PANEL estimated GFR 60.61 mL/min /1.73m 2 The eGFR is calcu lated from a serum creat inine using the CKD-E PI 2020 equat ion. Other varia bles requi red for the equat ion are gende r and age; this equat ion does not inclu de a race coeff icien t. This equat ion has simil ar overa ll perfo rmanc e to previ ous equat ions excep t value s may diffe r, in parti cular , in patie nts with highe r value s of eGFR and young er-ag ed adult s. Not Available [address] [place], [address] 05/21/2023 15:47:14 05/21/19 24 05/21/2023 COMPR EHENS MOHINI METAB OLIC PANEL total protein 7.6 g/dL 6.4-8. 2 normal Not Available [address] [place], [address] 05/21/2023 15:47:14 05/21/19 24 05/21/2023 COMPR EHENS MOHINI METAB OLIC PANEL albumin 3.8 g/dL 3.4-5. 0 normal Not Available [address] [place], [address] 05/21/2023 15:47:14 05/21/19 24 05/21/2023 COMPR EHENS MOHINI METAB OLIC PANEL bilirubin, total 0.7 mg/dL 0.2-1. 0 normal Not Available [address] [place], [address] 05/21/2023 15:47:14 05/21/19 24 05/21/2023 COMPR EHENS MOHINI METAB OLIC PANEL alk phos 98 U/L 46-116 normal Not Available [address] [place], [address] 05/21/2023 15:47:14 05/21/19 24 05/21/2023 COMPR EHENS MOHINI METAB OLIC PANEL sodium 140 mmol/ L 136-14 5 normal Not Available [address] [place], [address] 05/21/2023 15:47:14 05/21/19 24 05/21/2023 COMPR EHENS MOHINI METAB OLIC PANEL potassium 4.9 mmol/ L 3.5-5. 1 normal Not Available [address] [place], [address] 05/21/2023 15:47:14 05/21/19 24 05/21/2023 COMPR EHENS MOHINI METAB OLIC PANEL chloride 105 mmol/ L 98-107 normal Not Available [address] [place], [address] 05/21/2023 15:47:14 05/21/19 24 05/21/2023 COMPR EHENS MOHINI METAB OLIC PANEL CO2 28.7 mmol/ L 21.0-3 2.0 normal Not Available [address] [place], [address] 05/21/2023 15:47:14 05/21/19 24 05/21/2023 COMPR EHENS MOHINI METAB OLIC PANEL anion gap 6.3 mmol/ L 3-11 normal Not Available [address] [place], [address] 05/21/2023 15:47:14 05/21/19 24 05/21/2023 COMPR EHENS MOHINI METAB OLIC PANEL AST 30 U/L 15-37 normal Not Available [address] [place], [address] 05/21/2023 15:47:14 05/21/19 24 05/21/2023 COMPR EHENS MOHINI METAB OLIC PANEL ALT 33 U/L 14-59 normal Not Available Kiana zuñiga [facility] [address] [place], [address] 05/21/2023 15:47:14 05/21/19 24 05/21/2023 LIPID 2 cholesterol 129 mg/dL <200 Not Available [address] [place], [address] 05/21/2023 15:47:15 05/21/19 24 05/21/2023 LIPID 2 triglyceride 209 mg/dL <150 high Not Available [address] [place], [address] 05/21/2023 15:47:15 05/21/19 24 05/21/2023 LIPID 2 HDL cholesterol 57 mg/dL 40-60 Not Available [facility] [address] [place], [address] 05/21/2023 15:47:15 05/21/19 24 05/21/2023 LIPID 2 calculated LDL 31 mg/dL <100 Natio nal Nery stero l Educa tion Progr am (NCEP -ATPI II) class ifica tions : Nery stero l <200 mg/dL Yumiko able Nery stero l 200-2 39 mg/dL Borde rline High Nery stero l >or=2 40 mg/dL High HDL <40 mg/dL Low HDL >or=6 0 mg/dL High LDL <100 mg/dL Optim al LDL 100-1 29 mg/dL Near Optim al/Ab ove Optim al LDL 130-1 59 mg/dL Borde rline High LDL 160-1 89 mg/dL High LDL >or=1 90 mg/dL Very High *The above refer ence range is for adult s 18 years or older . Not Available [address] [place], [address] 05/21/2023 15:47:15 06/20/19 24 06/20/2023 eris STERN bilat eral Patien t Name: Shellie Lyon Unit #: [id number] Loc: DI Orderi ng Provid er: VERONICA PEARCE DATA GOVERNANCE CONSULTANT Accoun t #: [id number] Status : REG CLI Primar y Care Provid er: VERONICA PEARCE DATA GOVERNANCE CONSULTANT Date of Exam: 06/06 09/26 Sex: F Admiss ion Date: : 1950 Age: 72 Exam(s ) MG MAMMO SCREEN ING EXAM: MG MAMMO SCREEN ING CLINIC AL HISTOR Y: SCREEN ING, Z12.31 TECHNI QUE: Mammog reynaldo were interp reted accord ing to the usual protoc ol includ ing comput er analys is with CAD system , tomosy nthesi s and C-view imagin g. COMPAR MORGAN: 2013 throug h 2021 FINDIN GS: The breast s are compos ed of scatte red fibrog landul ar densit ies, Breast Densit y catego ry B. No suspic ious masses or suspic ious microc alcifi cation s are seen. No skin thicke lex or abnorm al axilla ry lymph nodes are seen. There has been no signif icant change from prior exams. IMPRES JENN: BI-RAD S Catego ry 1, Negati ve mammog teetee Yearly screen ing mammog rock is recomm ended. Breast Densit y - Catego ry B, scatte red fibrog landul ar densit ies. A negati ve radiog raphic report should not delay biopsy if a domina nt or clinic ally suspic ious mass is presen t. Up to ten percen t of cancer s are not identi fied on mammog rock. A negati ve report may reinfo rce clinic al impres jenn. Adenos is and dense breast s may obscur e an underl jhonny neopla sm. False positi ve report s averag e 6 to 10%. Patien t will receiv e a letter notify ing them of these result s. Ordere d By: VERONICA PEARCE DATA GOVERNANCE CONSULTANT CC: ------ ------ ------ ------ ------ ------ ------ ------ ------ ------ ------ ------ - Dictat ed By: Laly Woods 1127 02/15/ 24 1127 Transc ribed By: Katerina Disla 1126 This is privil eged, confid ential inform ation intend ed only for the provid er named. Any use or distri bution by any person other than this provid er is strict ly prohib ited. If you receiv e this report in error, please notify us immedi miriamly at and return the origin al report to us at the addres s above. Thank- you. [email or web address] [facility] [address], [place], [address] 07/04/2023 12:12:54 01/20/2002/15/2022 imagi ng/di agnos tic resul t No observ ation record ed. Not Available 01/19 03:00:09 01/20/20 24 06/19/2022 imagi ng/di agnos tic resul t No observ ation record ed. Not Available 01/19 03:00:18 01/20/20 24 10/30/2021 MAMMO , diagn ostic No observ ation record ed. Not Available 01/19 03:00:27 01/20/20 24 06/19/2022 imagi ng/di agnos tic resul t No observ ation record ed. Not Available 01/19 03:00:28 01/20/20 24 10/30/2021 MAMMO , scree lex No observ ation record ed. Not Available 01/19 03:00:29 01/20/20 24 05/12/2020 MAMMO , scree lex No observ ation record ed. Not Available 01/19 03:00:30 01/20/20 24 05/12/2020 MAMMO , scree lex No observ ation record ed. Not Available 01/19 03:00:31 01/20/20 24 11/27/2018 MAMMO , scree lex No observ ation record ed. Not Available 01/19 03:00:32 09/16/20 24 06/18/2022 imagi ng/di agnos tic resul t No observ ation record ed. Not Available 01/19 03:00:59 01/20/20 24 02/15/2022 imagi ng/di agnos tic resul t No observ ation record ed. Not Available 01/19 03:01:08 01/20/20 24 01/28/2022 imagi ng/di agnos tic resul t No observ ation record ed. Not Available 01/19 03:01:12 01/20/20 24 11/27/2018 imagi ng/di agnos tic resul t No observ ation record ed. Not Available 01/19 03:01:42 Result Notes None recorded. Problems Name Problem SNOMED Code Status Onset Date Resolution Date Notes Provider Name and Address Organization Details Recorded Time Vitamin D deficien cy 04436566 Active [address], [facility] [address] , [facility] 4 10:54:16 Hyperlip idemia 07543362 Active [address], [facility] [address] , [facility] 4 10:54:23 [facility] hyperten jenn 84921934 Active [address], [facility] [address] , [facility] 4 10:54:29 Osteoart hritis 429754655 Active [address], [facility] [address] , [facility] 4 10:54:21 Acute bronchit is 63514199 Completed 201704/28/2018 01/21/20 18 - Comments only - Zoila Orosco MD - appears to be getting better. However symtpoms for 3 weeks, slight wheezing . If not improved in the next 2-3 days, to take zpack azithro and predniso ne 40 mg for 5 days. 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 506336861 Active [address], [facility] [address] , [facility] 4 10:54:10 Fatigue 50326729 Active [address], [facility] [address] , [facility] 4 10:53:58 Anxiety disorder 497897060 Active [address], [facility] [address] , [facility] 4 10:53:50 Screenin g for malignan t neoplasm of breast Active [address], [facility] [address] , [facility] 4 10:54:18 Actinic keratosi s 168790155 Active [address], [facility] [address] , [facility] 4 10:53:43 Aortocor onary bypass graft present 004507083 Active 2021 Status post CABG x2 ( 2) [address], [place], [address] , [facility] 4 10:54:48 Adult health examinat ion Active [address], [place], [address] , [facility] 4 10:54:13 Dizzines s and giddines s 908375381 Active [address], [place], [address] , [facility] 4 10:54:02 Gastroin testinal tract excision Completed 202206/14/2023 Problem Code: Z90.49; Problem Code Type: ICD-10; [address], [place], [address] , [facility] 4 10:53:53 Hyperten sive disorder 31803668 Completed 200801/30/2023 Not Available [facility] 3 05:34:04 Adult health examinat ion Completed 201501/01/2016 Problem Code: Z00.00; Problem Code Type: ICD-10; [address], [place], [address] , [facility] 4 10:54:14 Disorder of soft tissue 75068855 Completed 201810/26/2019 Problem Code: M70.90; Problem Code Type: ICD-10; Not Available [facility] 3 05:34:04 Adult health examinat ion Completed 201508/27/2015 Problem Code: Z00.00; Problem Code Type: ICD-10; [address], [place], [address] , [facility] 10:54:14 Raynaud' s disease 051904686 Active 2023 [address], [place], [address] , [facility] 09:37:51 History of cholecys tectomy 587231237 Active 2023 S/P 06-21-[address], [facility] [address] , [facility] 10:58:58 Bite of tick Active 2023 HANNA DEL RIO MD [address], [facility] [address] , [facility] 10:29:01 Problem Notes None recorded. Procedures Surgical History None recorded. Imaging Results Imaging Date Name Status LastModified by [facility]iz [facility] Details LastModified Time 06/20/2023 MAMMO, screening, bilateral completed [email or web address] [facility] [address] , [facility] [place], [address] 07/04/2023 12:12:54 02/15/2022 imaging/diagnos tic result completed Information not available 01/20/2024 03:00:09 06/19/2022 imaging/diagnos tic result completed Information not available 01/20/2024 03:00:18 10/30/2021 MAMMO, diagnostic completed Information not available 01/20/2024 03:00:27 06/19/2022 imaging/diagnos tic result completed Information not available 01/20/2024 03:00:28 10/30/2021 MAMMO, screening completed Information not available 01/20/2024 03:00:29 05/12/2020 MAMMO, screening completed Information not available 01/20/2024 03:00:30 05/12/2020 MAMMO, screening completed Information not available 01/20/2024 03:00:31 11/27/2018 MAMMO, screening completed Information not available 01/20/2024 03:00:32 06/18/2022 imaging/diagnos tic result completed Information not available 01/20/2024 03:00:59 02/15/2022 imaging/diagnos tic result completed Information not available 01/20/2024 03:01:08 01/28/2022 imaging/diagnos tic result completed Information not available 01/20/2024 03:01:12 11/27/2018 imaging/diagnos tic result completed Information not available 01/20/2024 03:01:42 Procedure Notes None recorded. Medical Equipment None Reported. [...] Arterial blood by Pulse oximetry Heart rate Systolic blood pressure Diastolic blood pressure Provider Name and Address Organization Details Last Updated DateTime 4 162.99 cm 26.9 kg/m2 27435.8 g 97.9 [degF] 96 % 96 % 78 /min 140 mm[Hg] 72 mm[Hg] Nany Browne [place] [facility]. 4 08:32:18 Date Recorded Body height Body mass index (BMI) Body weight Respiratory rate Oxygen saturation Oxygen saturation in Arterial blood by Pulse oximetry Heart rate Body temperature Provider Name and Address Organization Details Last Updated DateTime 4 162.99 cm 27.8 kg/m2 75726.5 6 g 17 /min 98 % 98 % 54 /min 97.5 [degF] Kate Santana RN [facility] 09:56:06 Date Recorded Body height Body mass index (BMI) Body weight Body temperature Oxygen saturation Oxygen saturation in Arterial blood by Pulse oximetry Heart rate Respiratory rate Systolic blood pressure Diastolic blood pressure Provider Name and Address Organization Details Last Updated DateTime 5 162.99 cm 27.9 kg/m2 33337.9 6 g 98.7 [degF] 96 % 96 % 62 /min 16 /min 138 mm[Hg] 70 mm[Hg] [address], [place], [address] , [facility] 5 09:23:06 Social History Question Answer Notes LastModified by Organizat ion Details LastModified Time Tobacco Smoking Status Never Smoker Kate Santana RN [facility], [facility] 02/08/2024 09:58:28 What Was The Date Of [...] Time Father Family history of Hypercholest erolemia [email or web address] Not available 2022 03:58:31 Father Family history of Hypertension [email or web address] Not available 02/2023 03:58:31 Father Family history of stroke [email or web address] Not available 2022 03:58:31 Father Family history [...] preservative free, adsorbed 9 completed Not Available [facility] 03/15/2023 04:19:46 pneumococcal, unspecified formulation 8 completed Not Available [facility] 03/15/2023 04:19:46 Tdap 9 completed Not Available [facility] 03/15/2023 04:19:46 zoster live 3 completed Not Available [facility] 03/15/2023 04:19:47 COVID-19, mRNA, LNP-S, PF, 100 mcg/0.5mL dose or 50 mcg/0.25mL dose 1 completed Not Available [facility] 03/15/2023 04:19:48 COVID-19, mRNA, LNP-S, PF, 100 mcg/0.5mL dose or 50 mcg/0.25mL dose 1 completed Not Available [facility] 03/15/2023 04:19:48 COVID-19, mRNA, LNP-S, PF, 100 mcg/0.5mL dose or 50 mcg/0.25mL dose 2 completed Not Available [facility] 03/15/2023 04:19:48 SARS-COV-2 (COVID-19) vaccine, UNSPECIFIED 1 completed Not Available [facility] 03/15/2023 04:19:49 COVID-19, mRNA, LNP-S, bivalent, PF, 30 mcg/0.3 mL dose 3 completed Not Available [facility] 03/15/2023 04:19:49 pneumococcal polysaccharide PPV23 9 completed Not Available [facility] 03/15/2023 04:19:50 influenza, unspecified formulation 9 completed Not Available [facility] 03/15/2023 04:19:50 influenza, unspecified formulation 6 completed Not Available [facility] 03/15/2023 04:19:50 influenza, unspecified formulation 1 completed Not Available [facility] 03/15/2023 04:19:50 influenza, unspecified formulation 5 completed Not Available [facility] 03/15/2023 04:19:50 influenza, unspecified formulation 7 completed Not Available [facility] 03/15/2023 04:19:50 SARS-COV-2 (COVID-19) vaccine, UNSPECIFIED 3 completed Not Available [facility] 05/17/2023 05:33:22 Influenza, high-dose, trivalent, PF 5 completed [address], [place], [address], [facility] [facility] 05/25/2024 09:51:23 SARS-COV-2 (COVID-19) vaccine, UNSPECIFIED 4 completed ISIDORO WALSH [address], [place], [address], [facility] 05/25/2024 09:31:12 Past Encounters Encounter ID Performer Location Encounter Start Date Encounter Closed Date Diagnosis/Indication Diagnosis SNOMED-CT Code Diagnosis ICD10 Code Diagnosis Note [id number] ISIDORO WALSH [facility] [address] [place] [address] 05/21/2023 08:18:10 05/21/2023 09:24:56 Anxiety disorder 497351331 F41.9 Situationa l. Underlying component of ADHD?Gener ally well-contr olled. However, concerned about upcoming travel later this summer and associated anxiety with airflight. May trial Ativan? prescribed . Continue to assess underlying anxiety pattern at follow-up visits. Aortocoron ady bypass graft present 109120561 Z95.1 Status post CABG x2 (02-01-22) + aortic stenosis.C ompleted cardiac rehab.Year ly follow-up with cardiology .Continues on statin therapy + beta-block er.No complaints of dyspnea, fatigue, pain, shortness of breath, lower extremity swelling. Essential hypertension 81763278 I10 Improved. Mildly elevated today.LOSA RTAN 25 mg + METOPROLOL 25 mg daily.Sche duled for cardiology follow up this summer.Rec ommend to monitor BP at home. Due for routine labs today. Hyperlipidemia 50849024 E78.5 Stable.LIDIA RVASTIN 20 mg daily. LDL at einw79-65- 23 - TOTAL 129, HDL 57, LDL 31, TRIG 209 (non-fasti ng) History of cholecystectomy 744362532 Z90.49 S/P laparoscop ic cholecyste ctomy - 06-21-22Re covered. Has resumed full activity. No complaints of loose stool or constipati on. Raynaud's disease 777959 006 I73.00 Raynaud's versus chilblains .Continue to protect from injury and exposure. Consider trial of vasodilato r, such as amlodipine (prior history?) -Recommend discussing with cardiology . Vitamin D deficiency 347 62824 E55.9 Vitamin D deficiency .Continues on vitamin [...] May. Screening for malignant neoplasm of colon 663589551 Z12.11 Due for routine colon cancer screening. Referral sent. Screening mammography 064165 Z12.31 Due for routine breast cancer screening. [id number] HANNA DEL RIO MD [address], [address] [place] [address] 02/08/2024 09:14:33 02/08/2024 10:30:48 Bite of tick [id number] W57.XXXA Education about not going after digging after multiple heart as above. Keep covered with anticoagul ant and a dressing. Discussed general tick avoidance and management issues. One-time dose of doxycyclin e for prophylaxi s. Follow-up with PCP if any concerns of illness [id number] VERONICA PEARCE, SKEIN BANDER [facility] [address] [place] [address] 05/25/2024 08:50:42 05/25/2024 09:53:45 Essential hypertension 62007144 I10 Acceptable today. History of whitecoat syndrome?L OSARTAN 25 mg + METOPROLOL 25 mg daily.Sche duled for cardiology follow up this spring.Rec ommend to monitor BP at home. Due for routine labs today.If blood pressure remains mildly elevated at home, recommend losartan 25 mg twice daily. Aortocoron ady bypass graft present 958755853 Z95.1 Status post CABG x2 (02-01-22) + [...] PRN use of lorazepam in 2022. Hyperlipidemia 37670375 E78.5 Stable.LIDIA RVASTIN 20 mg daily. LDL at mqvt73-96- 24 - TOTAL 129, HDL 57, LDL 31.-16-2 3 - TOTAL 129, HDL 57, LDL 31, TRIG 209 (non-fasti ng) History of cholecystectomy 218727889 Z90.49 S/P laparoscop ic cholecyste ctomy - 06-21-22Re covered. Has resumed full activity + diet. No complaints of loose stool or constipati on. Raynaud's disease 636761 006 I73.00 Raynaud's versus chilblains .Continue to protect from injury and exposure. Consider trial of vasodilato r, such as amlodipine (prior history?) -Recommend discussing with cardiology . Vitamin D deficiency 347 62203 E55.9 Vitamin D deficiency .Continues on vitamin [...] May. Screening for malignant neoplasm of colon 743600960 Z12.11 10-14-2023 - cologuard negative. Screening mammography 24 875394 Z12.31 Due for routine breast cancer screening. Currently completing q 18 months. Delayed order for fall 2024. Active or passive immunization 811086459 Z23 Influenza vaccine updated today. Unfortunat kerline, we did not have COVID in stock - Shellie will discuss with pharmacy and/or return for a nurse visit. Health Concerns Section Related Observation LastModified by Organization Detai ls LastModified Time None Recorded Concern Status LastModified by Organization Details LastModified Time None Recorded Advance Directives Directive None Recorded Payers Encounter Date Sequence Insurance Name Policy Number Policy Park Covered Member ID Park Member ID Guarantor Name 05/21/2023 1 [id number]ANTAGE - PPO) [id number] Shellie H Sonali [id number] Julieta Sonali 02/08/2024 1 [place]) [id number] Shellie H Sonali [id number] Sonali 05/25/2024 1 [place] - [place]) [id number] Shellie Julieta Sonali [id number] Sonali Notes Date Note Type Note Provider Name and Address Organization Details Recorded Time 05/21/2023 text/html Shellie presents to [facility] for routine chronic care follow-up. Medical history includes hypertension, hyperlipidemia, aortic valve stenosis, anxiety, and degenerative joint disease. Status post CABG x2 (02-01-22) + recent cholecystectomy 06-21-2022. . Shellie has returned to regular routine cardiovascular activity, including walking 3 to 5 days a week + biking. She is also participating in free weights. Overall, feels well. Denies any symptoms of exertional dyspnea or chest pain. Weight remains stable. IS[address]OR[address], [place], [address], [facility] 06/14/2023 11:07:05 02/08/2024 text/html The patient is a 73-year-old female presenting with a tick bite. The patient reported noticing the tick at approximately 11 PM last night left lateral abdomen. She believes it was a deer tick, did not appear to be engorged, she states actually appeared to be somewhat dried. Tried digging at it a bit to remove what appeared to be's remaining body parts without success. Area. But irritated now, she has had no fevers or chills. Does have frequent exposure to ticks, notes identified them and generally how to remove them MD [address], [place], [address], [facility]. 02/09/2024 13:36:50 05/25/2024 text/html Shellie presents to [facility] for one year routine chronic care follow-up. [...] dyspnea or chest pain. Weight remains stable. ISIDORO WALSH [address], [place], [address], [facility]. 05/25/2024 10:04:06 OBGyn Episode No OBEpisode recorded.
--- OUTSIDE RECORDS SUMMARY | 2024-05-25 11:20 | XMS_ITS | Encounter Summary ---
[place] [address] Care Team Providers Care Insole Tack Puller Hand Name Role Phone Kerri Pearce MORGAN Primary Care Provider [phone] Encounter Details Date Type Department Care Team (Late st Contact Info) Description 06/20/2022 Notes [place] [address] Shani Tran Social History Tobacco Use Types Packs/Day Years Used Date Smoking Tobacco: Never Smokeless Tobacco: Never Alcohol Use Standard Drinks/Week Comments Not Currently 0 (1 standard drink = 0.6 oz pur e alcohol) Sex and Gender Information Value Date Recorded Sex Assigned at Not on file Gender Identity Not on file Sexual Orientation Not on file documented as of this encounter Progress Notes * Shani Tran - 06/20/2022 12:00 PM EST SOCCER: Study Of forCeps Cannulation during ERcp PI: Sami Pollack MD [place] Krzysztof # [id number] Objective of visit: Shani Rachel , research coordinator, and Dr. Napoles and Dr. Coles met with Shellie Lyon in [facility] to provide information regarding protocol [id number], answer questions or concerns about study plan, and evaluate their interest in study participation. Information Provided: Protocol was reviewed with Shellie Lyon including, a description of the proposed care, treatment, services, medications, interventions, procedures, and follow-up including duration of subject's participation in study. Purpose of the study was also reviewed with the patient. Potential discomforts and risks were reviewed. The patient was informed regarding the uncertainties, both in terms of benefits as well as risks that are part of participation in clinical trials. Discussed confidentiality of patient's health information as specified in the protocol. Patient was advised that they may discontinue treatment at any time and that refusing to participate or discontinuing treatment will not compromise the patient's access to treatment options or care. Financial considerations in the context of clinical trials reviewed. The patient was given written information regarding the protocol during their visit on 06/20/22 andwas offered adequate time to review the information. The patient was given adequate time to ask questions and review concerns, all of which were answered to the patient's satisfaction by Dr. Coles and Dr. Napoles The PI/Sub I was available to answer any medical related questions if applicable. Shellie Lyon inquired about the study follow up and was eager to sign up. Assessment/Outcome: Shellie Lyon verbalized understanding of the protocol and consents for treatment by using the teach-back method and being able to relay the purpose of the study and known possible risks/side effectsof the procedure and treatment. Shellie Lyon signed and dated consent version 1 on 06/20/22 . A copy of the signed consent form was given to them for their records. Original, signed informed consent document will be scanned into the patient's electronic medical record and stored in the subject's study binder. Written informed consent was obtained prior to any study related procedures being done. Plan: 1. Shellie Lyon agreed to participate in the above mentioned clinical trial. 2. Informed consent form signed 3. Patient will continue to be screened on study [id number] to determine if patient meets criteria during the procedure This patient was enrolled in study protocol [id number] in which they were randomized to receive either the use of forceps or no use of forceps during cannulation in relation to studying the prevention of post-ERCP pancreatitis. The patient was given a copy of the ICF, date of follow up call, and business card with contact information. documented in this encounter Plan of Treatment Not on file documented as of this encounter Visit Diagnoses Not on filedocumented in this encounter Care Teams Insole Tack Puller Hand Relationship Specialty Start Date End Date Kerri Pearce, CITY LIBRARY DIRECTOR Karlee [place] [address] PCP - General Family Medicine 01/04/22 documented as of this encounter
--- OUTSIDE RECORDS SUMMARY | 2024-05-25 11:21 | XMS_ITS | Encounter Summary ---
Author Organization [facility] [place] [address] Care Team Providers Care Piping Drafter Name Role Phone Ramses Kerri Morales APRN Primary Care Provider [phone] Encounter Details Date Type Department Care Team (Late st Contact Info) Description 03/15/2022 1:40 PM EST Office Visit [place] [address] Hong Tate MD [facility] DR CARDIOTHORACIC SURGERY [place] [address] S/P CABG (coronary artery bypass graft) Social History Tobacco Use Types Packs/Day Years [...] Sign Reading Time Taken Comments Blood Pressure 144/68 03/15/2022 1:33 PM EST Pulse 64 03/15/2022 1:33 PM EST Temperature - - Respiratory Rate - - Oxygen Saturation 99% 03/15/2022 1:33 PM EST Inhaled Oxygen Concentration - - Weight 66.2 kg (146 lb) 03/15/2022 1:33 PM EST Height 163.2 cm (5' 4.25) 03/15/2022 1:33 PM ES T Body Mass Index 24.87 03/15/2022 1:33 PM EST documented in this encounter Progress Notes * Hong Tate MD - 03/15/2022 1:40 PM EST To: MD Kerri Washington APRN Re: Shellie Lyon ( 1950) We met with Ms. Lyon today as a follow-up visit from her urgent bypass grafting for an NSTEMI. She presents ambulatory to the office looks and states that she feels quite well she specifically denies effort dyspnea or angina. Her postoperative chest x-ray is clear, she has met with her construction economist and is involved in cardiac rehab. On examination she has a blood pressure 144/68, her heart rates in the 60s at sinus by palpation. Her midline sternal wound has healed well the underlying sternum is firm to palpation there is no click. Her chest is clear to auscultation. Her lower extremities are free of edema, the saphenectomy sites have healed well. In summary, Ms. Lyon has recovered nicely following her bypass surgery. We are going to dischargeher from our service at this time and leave her in your care. In the interim should there be anything further that I can provide please do not hesitate to contact my office. Best personal regards, Hong Tate MD [phone] documented in this encounter Plan of Treatment Not on file documented as of this encounter Visit Diagnoses Diagnosis S/P CABG (coronary artery bypass graft) Postsurgical aortocoronary bypass status documented in this encounter Care Teams Piping Drafter Relationship Specialty Start Date End Date Kerri Pearce, AUTOMOBILE [place] [address] PCP - General Family Medicine 01/04/22 documented as of this encounter
--- OUTSIDE RECORDS SUMMARY | 2024-05-25 11:21 | XMS_ITS | Encounter Summary ---
Author Organization [facility] [place] [address] Care Team Providers Care Finisher Hot Strip Name Role Phone Kerri Pearce APRN Primary Care Provider [phone] Encounter Details Date Type Department Care Team (Late st Contact Info) Description 02/06/2022 Orders [place] [address] Hong Tate MD [facility] CARDIOTHORACIC [place] [address] S/P CABG (coronary artery bypass graft) Social [...] status documented in this encounter Care Teams Finisher Hot Strip Relationship Specialty Start Date End Date [place] [address] PCP - General Family Medicine 01/04/22 documented as of this encounter
--- OUTSIDE RECORDS SUMMARY | 2024-05-25 11:21 | XMS_ITS | Encounter Summary ---
Author Organization [facility] Address [facility] [place] [address] Care Team Providers Care Steam Table Attendant Name Role Phone Kerri Pearce APRN Primary Care Provider [phone] Encounter Details Date Type Department Care Team (Latest Contact Info) Description 03/15/2022 12:28 PM EST - 03/15/2022 11:59 PM [facility] Hospital Encounter XRay at [address] [place] [address] NSTEMI (non-ST elevated myocardial infarction) Discharge Disposition: Home Social History Tobacco Use Types Packs/Day Years Used Date Smoking Tobacco: Never Smokeless Tobacco: Never Alcohol Use Standard Drinks/Week Comments Not Currently 0 (1 standard drink = 0.6 oz pur e alcohol) Sex and Gender Information Value Date Recorded Sex Assigned at Not on file Gender Identity Not on file Sexual Orientation Not on file documented as of this encounter Medications at Time of Discharge [...] 3 02/05/2022 documented as of this encounter Plan of Treatment Not on file documented as of this encounter Procedures Procedure Name Priority Date/Time Associated Diagnosis Comments XR CHEST PA AND LATERAL Routine 03/15/2022 12:45 PM EST NSTEMI (non-ST elevated myocardial infarction) documented in this encounter Results * XR Chest PA & Lateral (Generic) (03/15/2022 12:45 PM EST) Anatomical Region Laterality Modality Chest N/A Digital Radiogra phy Impressions 03/15/2022 2:00 PM EST Resolution of pleural effusions. No acute cardiopulmonary process. I have personally reviewed the image(s) and the resident's interpretation and agree with the findings, Satinder Arauz MD at 03/15/2022 2:00 PM Thank you for letting us participate in the care of this patient. ??If you are a health care provider and have any questions regarding this report, please contact the number below. ??For patients who have questions please contact the health child daycare worker that requested your imaging first. ? Electronically signed by: Satnider Arauz MD, [facility] ([phone]), at 03/15/2022 2:00 PM Narrative 03/15/2022 2:00 PM EST EXAMINATION: XR CHEST PA AND LATERAL (GENERIC) CLINICAL HISTORY: S/P CABG TECHNIQUE: PA and lateral views of the chest COMPARISON: Chest radiograph 02/04/2022 FINDINGS: No focal airspace consolidation. Minimal right linear atelectasis. Interval resolution of the right and left pleural effusions. No pneumothorax. The cardiomediastinal silhouette is within normal limits. Median sternotomy wires and mediastinal clips present. No acute osseous pathology. Procedure Note Satinder Arauz MD - 03/15/2022 EXAMINATION: XR CHEST PA AND LATERAL (GENERIC) CLINICAL HISTORY: S/P CABG TECHNIQUE: PA and lateral views of the chest COMPARISON: Chest radiograph 02/04/2022 FINDINGS: No focal airspace consolidation. Minimal right linear atelectasis.Interval resolution of the right and left pleural effusions. No pneumothorax. The cardiomediastinal silhouette is within normal limits. Mediansternotomy wires and mediastinal clips present. No acute osseous pathology. IMPRESSION Resolution of pleural effusions. No acute cardiopulmonary process. I have personally reviewed the image(s) and the resident's interpretationand agree with the findings, Satinder Arauz MD at 03/15/2022 2:00 PM Thank you for letting us participate in the care of this patient. If youare a health care provider and have any questions regarding this report,please contact the number below. For patients who have questions please contactthe health child daycare worker that requested your imaging first. Meche Gabe MORA IMG DX ORDERABLES documented in this encounter Visit Diagnoses Diagnosis NSTEMI (non-ST elevated myocardial infarction) Acute myocardial infarction, subendocardial infarction, episode of care unspecified documented in this encounter Care Teams Steam Table Attendant Relationship Specialty Start Date End Date Kerri Pearce APRN [place] [place] [address] PCP - General Family Medicine 01/04/22 documented as of this encounter
--- OUTSIDE RECORDS SUMMARY | 2024-05-25 11:21 | XMS_ITS | Encounter Summary ---
Author Organization [facility] [place] [address] Care Team Providers Care Concrete Form Setter Name Role Phone Kerri Pearce APRN Primary Care Provider [phone] Encounter Details Date Type Department Care Team (Late st Contact Info) Description 06/18/2022 Ancillary Procedure Radiology Library at [facility] [place] [address] Marii Mccarty PA [address] [place], [place] [id number] Social History Tobacco Use Types Packs/Day Years [...] Associated Diagnosis Comments FILM LIBRARY STORAGE ONLY CT ABDOMEN AND PELVIS Routine 06/18/2022 12:00 AM EST documented in this encounter Results * Film Library- Storage Only CT Abdomen & Pelvis (06/18/2022 12:00 AM EST) Narrative [facility] - 06/19/2022 9:19 AM EST This exam is auto-finalizing. It's purpose is for storage only. Marii VALLEJO IM FILM LIBRARY ORD ERABLES [place], [place] documented in this encounter Visit Diagnoses Not on filedocumented in this encounter Care Teams Concrete Form Setter Relationship Specialty Start Date End Date Kerri Pearce, GREEN MATERIAL VALUE ADDED ASSESSOR [place] [address] PCP - General Family Medicine 01/04/22 documented as of this encounter
--- OUTSIDE RECORDS SUMMARY | 2024-05-25 11:21 | XMS_ITS | Encounter Summary ---
Author Organization [facility] [place] [address] Care Team Providers Care Business Liaison Manager Name Role Phone Kerri Pearce APRN Primary Care Provider [phone] Encounter Details Date Type Department Care Team (Latest Contact Info) Description 03/15/2022 Travel Social History Tobacco Use Types Packs/Day Years [...] on filedocumented in this encounter Care Teams Business Liaison Manager Relationship Specialty Start Date End Date Kerri Pearce [place] [address] PCP - General Family Medicine 01/04/22 documented as of this encounter
--- OUTSIDE RECORDS SUMMARY | 2024-05-25 11:21 | XMS_ITS | Encounter Summary ---
Author Organization [facility] [place] [address] Care Team Providers Care Furniture Designer Name Role Phone Kerri Pearce APRN Primary Care Provider [phone] Encounter Details Date Type Department Care Team (Latest Contact Info) Description 03/08/2022 Travel Social History Tobacco Use Types Packs/Day [...] on filedocumented in this encounter Care Teams Furniture Designer Relationship Specialty Start Date End Date Kerri Pearce [place] [address] PCP - General Family Medicine 01/04/22 documented as of this encounter
--- OUTSIDE RECORDS SUMMARY | 2024-05-25 11:21 | XMS_ITS | Encounter Summary ---
[place] [address] Care Team Providers Care Tester Regulator Name Role Phone Ramses, Kerri Morales APRN Primary Care Provider [phone] Encounter Details Date Type Department Care Team (Late st Contact Info) Description 02/06/2022 Telephone [place] [address] Michelle Saha RN Social History Tobacco Use Types Packs/Day Years [...] encounter Miscellaneous Notes * Telephone Encounter - Michelle Saha RN - 02/06/2022 9:59 AM EDT I called and spoke with this patient regarding participation in outpatient cardiac rehab. She is s/p CABG and was discharged home yesterday from [facility]. She agreed to a referral to [facility]. Will send the discharge summary and referral to [facility] cardiac rehab. She should expect to hear from them in 1-2 weeks. documented in this encounter Plan of Treatment Not on file documented as of this encounter Visit Diagnoses Not on filedocumented in this encounter Care Teams Tester Regulator Relationship Specialty Start Date End Date Kerri Pearce, DATA OPERATIONS DIRECTOR Karlee [facility] [place] [address] PCP - General Family Medicine 01/04/22 documented as of this encounter
--- OUTSIDE RECORDS SUMMARY | 2024-05-25 11:22 | XMS_ITS | Encounter Summary ---
Author Organization [facility] [place] [address] Care Team Providers Care District [place] Name Role Phone Kerri Pearce Carmen MORA Primary Care Provider [phone] Reason for Visit * Auth/Cert Specialty Diagnoses / Procedures Referred By Karli crockett Referred To Contact Diagnoses NSTEMI (non-ST elevated myocardial infarction) Chest Pain Procedures EMERGENCY IPI Avril Lyman MD [facility] [place] [address] [facility] Referral ID Status Reason Start Date Expiration Date Visits Re quested Visits Authorized [id number] 1 1 Encounter Details Date Type Department Care Team (Late st Contact Info) Description 02/01/2022 7:30 AM EDT - 02/01/2022 12:44 PM EDT [place] [id number] Hong Eugene MD [facility] [place] [address] ENDOSCOPIC HARVEST VEIN(S) FOR CABG (WRVU 0.31) Social History Tobacco Use Types Packs/Day Years [...] Sign Reading Time Taken Comments Blood Pressure 138/66 02/01/2022 5:52 AM EDT Pulse 57 02/01/2022 5:52 AM EDT Temperature 36.5 ??C (97.7 ??F) 02/01/2022 2:26 AM ED T Respiratory Rate 18 02/01/2022 5:52 AM EDT Oxygen Saturation 99% 02/01/2022 5:52 AM EDT Inhaled Oxygen Concentration - - Weight 67.4 kg (148 lb 9.4 oz) 02/01/2022 2:26 A M EDT Height 162.6 cm (5' 4) 01/28/2022 5:39 PM EDT Body Mass Index 26.53 01/28/2022 5:39 PM EDT documented in this encounter Discharge Summaries * Meche Bernal APRN - 02/05/2022 8:04 AM EDT Inpatient - Discharge Summary Patient Name: Shellie Lyon Patient Age: 71 y.o. Birthdate: 1950 Language: [place] Citizen Race: White Ethnicity: Not nor Admit Date: 01/28/2022 Discharge Date: 02/05/2022 Attending Physician: Hong Eugene MD Follow-up Recommendations for Providers: ??? Please continue routine management of cardiovascular risk factors including blood pressure, lipids, glucose, etc. ??? Please note any changes to medications. ??? Our office will schedule an appointment with your PCP, Kerri Pearce APRN, in 1-2 weeks. ??? Our office will schedule an appointment with your Textile Examiner, Near home, in 2 weeks. ??? Our office will schedule an appointment with your Cardiac Surgeon, Dr. Hong Eugene, in 4weeks with chest x-ray, EKG before your appointment. Inpatient Provider Contact Information: [facility] [place]iac [place] [facility] [place] [address] FAX [phone] Discharge Diagnoses (Hospital Problems) Primary Diagnoses: NSTEMI s/p CABGx2 Secondary Diagnoses: Active Hospital Problems Diagnosis ??? NSTEMI (non-ST elevated myocardial infarction) Resolved Hospital Problems No resolved problems to display. Other Diagnoses (Chronic Problems): Active Non-Hospital Problems Diagnosis ??? Inflamed seborrheic keratosis Discharged to: Patient discharged to home Functional and Cognitive Status: stable Discharge Conditions/Prognosis: stable No past medical history on file. Past Surgical History: Procedure Laterality Date ??? PRO CABG, ARTERIAL, SINGLE N/A 02/01/2022 @CABG, USING ARTERIAL GRAFT;SINGLE ARTERIAL GRAFT (WRVU 33.75) performed by Hong Eugene MD at [facility] MAIN OR ??? PRO CABG, ARTERY-VEIN, SINGLE N/A 02/01/2022 @CABG, VENOUS & ARTERIAL GRAFT;SINGLE VEIN GRAFT (WRVU 3.61) performed by Hong Eugene MD at [facility] MAIN OR ??? PRO ENDOSCOPY W/VIDEO-ASST VEIN HARVEST, CABG N/A 02/01/2022 ENDOSCOPIC HARVEST VEIN(S) FOR CABG (WRVU 0.31) performed by Hong Eugene MD at [facility] MAIN OR Prior To Admission Medications No medications prior to admission. Updated Allergies/ADRs: Allergies Allergen Reactions ??? Adhesive Rash History of Presentation: Shellie Lyon is a 71 y.o. female with PMH of HTN, OA who has been admitted to hospital for NSTEMI.Cath 01/29 revealed Lmain ds 60%. Echo ef 60% hypokinetic apex. Cr 0.78. She was loaded on plavix 01/28. She is chest pain free. ?? Denies chest pain, dyspnea, orthopnea, PND, lightheadedness, syncope, palpitations, cough, edema, nausea, vomiting, diaphoresis, weight gain Major Procedures/Operations: 02/01/22 CABGx2 Hospital Course: NSTEMI s/p CABGx2 Shellie Lyon was admitted to [facility] on 01/28/2022 via the Cardiology Service. She was brought to the operating room where Dr. Hong Eugene performed coronary artery bypass grafting. She tolerated the procedure and was brought to the Cardiovascular Intensive Care Unit for recovery. She initially required the pharmacologic support of intravenous vasopressin and levophed. She was extubated from the ventilator on the day of surgery. All drips were weaned to off. Routine postoperative and home medications were started and a diet was advanced. Aspirin 81mg daily was started. Statin therapy was continued. She was started on beta blockade and this was optimized. Diuretics were started and she responded appropriately. She was transferred to the Intermediate Cardiac Care Unit for continued rehabilitation. All tubes, lines, and epicardial pacing wires were removed without incident. She voided normally after her Hernández was removed. She was seen by Physical Therapy and Cardiac Rehabilitation. Sternal precaution education was provided. Her discharge plan at this time is to home. The remainder of the her hospital course was uneventful and by postoperative day #4 she had met all criteria for discharge. Pain was controlled on oralmedications. She had walked 5 minutes and gone up and down stairs. She was tolerating a regular diet and had a bowel movement. Vital Signs at Discharge: Last set of vitals: BP 143/76 (BP Location (NBP): Left arm, Patient Position: Sitting) Pulse 88 Temp 37.2 ??C (99 ??F) (Oral) Resp (!) 37 Ht 162.6 cm (5' 4) Wt 70.1 kg (154 lb 8.7 oz) SpO2 93% BMI 26.53 kg/m?? Patient Vitals for the past 168 hrs: Weight 02/05/22 0413 70.1 kg (154 lb 8.7 oz) 02/04/22 0500 70.6 kg (155 lb 10.3 oz) 02/01/22 0226 67.4 kg (148 lb 9.4 oz) 01/31/22 0000 67.4 kg (148 lb 9.4 oz) 01/30/22 0327 67 kg (147 lb 9.6 oz) Current weight: 70.1 kg Admit/Preop weight: 67.4 kg Pertinent physical exam findings prior to discharge: General: sitting up in chair, pleasant Neuro: A&Ox3, NFD. Moving all ext Lungs: LS clear dim bibasilar Heart: rrr, no mrg Abdomen: soft nt active bs Ext: wwp, no edema Incisions: CDI intact Important Studies and Lab Data: Lab Results Component Value Date WBC 9.1 02/04/2022 RBC 3.88 (L) 02/04/2022 HGB 10.9 (L) 02/04/2022 HCT 32.4 (L) 02/04/2022 PLATELET 208 02/04/2022 Recent Labs 02/01/22 1050 INR 1.3 Lab Results Component Value Date NA 141 02/04/2022 K 4.4 02/05/2022 CL 106 02/04/2022 CO2 26 02/04/2022 BUN 12 02/04/2022 CREATININE 0.60 (L) 02/04/2022 Pending Studies and Lab Data: none Immunizations Given this Hospitalization: There is no immunization history for the selected administration types on file for this patient. Smoking Status at Discharge: Social History Tobacco Use Smoking Status Never Smoker Smokeless Tobacco Never Used STS Data Medications: Pre-operative beta sreekanth? Given Discharge beta sreekanth? Given Discharge lipid therapy? Given Discharge anti-platelet therapy? Given Discharge Medications: Your Medications New Medications Dose Details acetaminophen 500 mg Tab Commonly known as: Tylenol Take 2 tablets by mouth every 6 hours as needed for Pain. 1,000 mg Quantity: 30 tablet Refills: 1 aspirin 81 mg Chew Take 81 mg by mouth daily. 81 mg Quantity: 30 tablet Refills: 3 atorvastatin 80 mg Tab Commonly known as: Lipitor Take 1 tablet by mouth every evening. 80 mg Quantity: 90 tablet Refills: 3 losartan 25 mg Tab Commonly known as: Cozaar Take 1 tablet by mouth daily. 25 mg Quantity: 30 tablet Refills: 3 metoproloL tartrate 25 mg Tab Commonly known as: Lopressor Take 1 tablet by mouth 2 times daily. 25 mg Quantity: 180 tablet Refills: 3 Cardiac Surgery Discharge Instructions: Call your doctor if: You have a fever of greater than 101 degrees, shaking chills, if you develop redness or drainage from your incision sites, or if you have questions. Please call your surgeon's office if you have any discharge or drainage from your chest incision. Your surgeon, Dr. Hong Eugene and/or the Cardiac Surgery Physician Film Loader Team may be reached at . Weight: Weigh yourself daily. Please call the office if you notice increasing weight, increasing fluid retention (edema), and/or SOB. Sternal (breast bone) precautions: No lifting greater than 7-10 pounds; no pushing or pulling with upper extremities; no excessive chest stretching for the first 4 weeks. Further instructions will begiven to you at your follow-up appointment. Activity level: Walk three times a day. You should continue to increase your walks by 1-2 minutes each day. It is expected that you will be walking 20-30 minutes twice a day within 3-4 weeks after discharge to home. Rest between activities and after meals. Use common sense, don't exhaust yourself. Biking: You may use a stationary bicycle whenever you are comfortable enough to permit this. Tighten the resistance slightly. Increase the amount of time on the bicycle as you would do for your walks, a minute or two each day. No biking outside until after your return appointment with Dr. Hong Eugene. You may use a [place] or treadmill but avoid any pulling motion with the arms. Home activities: You may do light housework, e.g. dusting, setting the table, washing dishes, preparing a meal. Light carpentry and gardening are allowed. Avoid trying to open tight jars and stuck windows. No vacuuming, mopping, raking, shoveling, digging or hoeing until after your return visit with the surgeon. Sexual activity: You may engage in sexual activity when you feel ready. Use a position that protects your sternum (breastbone). Do not have your partner lie on your chest. Stairs: There are no restrictions on stair climbing. Use common sense. Don't exhaust yourself. Activities outside the home: After the first week home you may go out to dinner, visit friends, go to a movie, go to shinto, etc. Heavy activities: No hunting, skiing, jogging, snow shoveling, snowmobiling, lawn mowing, swimming,golf or tennis until after your return appointment with the surgeon. Do not ride motorcycles, ATV'stractors or horses. Avoid the use of a rifle with kickback against the shoulder for six months. Sleep: Try to establish normal sleep patterns. Long naps during the day may make it hard for you tosleep at night. Use the pain medication at bedtime for the first week at home. If you have nightmares, contact us. Some medications make this worse and these can be changed. Smoking: It is very important that you not smoke after surgery. Smoking cessation education was provided as appropriate. If you need further assistance with this please call and you will be referred to a smoking cessation specialist. Medications: Take only those medications listed on your discharge information. Keep your pain undercontrol so you can be active, do your coughing and breathing exercises and sleep. Contact us if thepain medication isn't working for you. Do not take any herbal preparations until after you return to see the surgeon. Special Physician Instructions: DO NOT USE ANY IBUPROFEN (ADVIL, MOTRIN, ETC) OR OTHER NSAIDS (NONSTEROIDAL ANTI-INFLAMMATORY DRUGS) FOR A TOTAL OF 10 DAYS AFTER SURGERY. PLEASE CONTACT THE CARDIOTHORACIC SURGERY OFFICE IF YOU HAVE QUESTIONS ABOUT WHICH DRUGS YOU SHOULD NOT USE. . Diet: You should follow a regular diet until your appetite returns to normal. At that point in timeyou should resume a low fat, low cholesterol, [place] Heart [employer] Diet. Driving: No driving until cleared by your surgeon. Avoid long trips if possible. If you must go on a long trip, stop the car and walk every hour. Shower/Bath: You may shower daily. No baths, soaking, or swimming until cleared by your surgeon. Wound care: Wash your incisions daily with soap and rinse well, pat dry. Assess for any signs of infection such as increased redness, pain, warmth or drainage. Please call your surgeon's office if you have any discharge or drainage from your chest incision. If there is a lot of swelling, apply jocelyn wraps during the day and remove at bedtime. Elevate your legs when you are sitting. REMOVE CHEST TUBE SUTURES ON OR AFTER 02/11/22 Home oxygen therapy: N/A Follow up appointments: ??? Our office will schedule an appointment with your PCP, Kerri Pearce APRN, in 1-2 weeks. ??? Our office will schedule an appointment with your Textile Examiner in 2 weeks. ??? Our office will schedule an appointment with your Cardiac Surgeon, Dr. Hong Eugene, in 4weeks with chest x-ray, EKG before your appointment. Cardiac Rehabilitation: You will be contacted Future Appointments and Orders Future Appointments and Orders Future Appointments Provider Department Dept Phone 03/15/2022 12:45 PM [facility] DX ROOM 2 XRay at [facility] Arrive at: [facility] Specialist Area 3T [phone] Please go to Intelligence Specialist Area 3T ([place] Location). 03/15/2022 1:40 PM Hong Eugene MD Cardiac Surgery at [facility] Arrive at: Intelligence Specialist Area 4A [phone] Future Orders Complete By Expires Referral to Home Health [REF34 Custom] As directed Process Instructions: If no progress note charted, please enter Clinical details in comments. Scheduling Instructions: Comments: Please evaluate Shellie Lyon for admission to Home Health. [facility] [address] (home) Date of : 1950 Inpatient DOCUMENTATION FOR VNA SERVICES (INCLUDING THOSE PATIENTS WITH MEDICARE COVERAGE REQUIRINGHOME VNA SERVICES AND/OR HOSPICE SERVICES) PATIENT'S LOCATION: Shellie Lyon [address] [facility] [phone] (home) Cell: No relevant phone numbers on file. Channel Opener Outsoles's Name: Self In discussion with the attending physician, it is certified that this patient is under their care and that they, or a Nurse Practitioner,Clinical Nurse specialist or Physician Film Loader who is working directly with them, had a face to face encounter that meets the physician face to face encounter requirements with this patient on 02/05/2022 The encounter with the patient was in whole, or in part, for the following medical condition, whichis the primary reason for home health care services: s/p cabg In discussion with the provider, it is certified that, based on their findings, the following services are medically necessary for home health services. To provide the following care/treatments with the clinical findings supporting the need for services as follows: HOME CARE ORDERS: RN ORDERS:Assess wound or incision, vital signs, cardiopulmonary status, nutrition, hydration, elimination, meds effectiveness and management; reinforce education re health issues PT ORDERS: Continue rehab for endurance, gait stability and strength with mobility and transfers. Home safety evaluation. Home exercise program if appropriate. OT: assess and continue rehab for managing ADL's. HOME HEALTH CARE AGENCY: [facility]. [address] [place] [address] PHONE: [phone] FAX: [phone] Start of care: 24 to 48 hours FOR MEDICARE ONLY: (please delete this section if not Medicare) In discussion with the attending physician, it is certified that the clinical findings support thatthis patient is homebound because absences from home require considerable and taxing effort due to:Patient is unable to leave home without assistance and ambulation is severely limited by pain, decreased strength and/or endurance. Please note that any additional orders needs or changes will need to be obtained from this patient's PCP: Kirit Garcia MD (Inactive) [address] [place] [id number] All VNA agencies which cover the area of patient's residence have been reviewed, either verbally shaista writing, and patient/family have chosen the home health care agency noted Questions: Disciplines Requested: Nursing Physical Therapy Occupational Therapy Arrangements for VNA/home care: As above. VN RN OR PCP TO PLEASE REMOVE CHEST TUBE SUTURES ON OR AFTER 02/11/22 Signed: MECHE BERNAL APRN [facility] Section [place] Cardiac [place] [facility] [address] FAX [phone] Date: 02/05/2022 CC: MORGAN Joseph Tara J [address] [place] [address] [place] [address] documented in this encounter Discharge Instructions * Patient Instructions* Meche Bernal APRN - 02/05/2022 8:09 AM EDT Cardiac Surgery Discharge Instructions: Call your doctor if: You have a fever of greater than 101 degrees, shaking chills, if you develop redness or drainage from your incision sites, or if you have questions. Please call your surgeon's office if you have any discharge or drainage from your chest incision. Your surgeon, Dr. Hong Eugene and/or the Cardiac Surgery Physician Film Loader Team may be reached at . Weight: Weigh yourself daily. Please call the office if you notice increasing weight, increasing fluid retention (edema), and/or SOB. Sternal (breast bone) precautions: No lifting greater than 7-10 pounds; no pushing or pulling with upper extremities; no excessive chest stretching for the first 4 weeks. Further instructions will begiven to you at your follow-up appointment. Activity level: Walk three times a day. You should continue to increase your walks by 1-2 minutes each day. It is expected that you will be walking 20-30 minutes twice a day within 3-4 weeks after discharge to home. Rest between activities and after meals. Use common sense, don't exhaust yourself. Biking: You may use a stationary bicycle whenever you are comfortable enough to permit this. Tighten the resistance slightly. Increase the amount of time on the bicycle as you would do for your walks, a minute or two each day. No biking outside until after your return appointment with Dr. Hong Eugene. You may use a [place] or treadmill but avoid any pulling motion with the arms. Home activities: You may do light housework, e.g. dusting, setting the table, washing dishes, preparing a meal. Light carpentry and gardening are allowed. Avoid trying to open tight jars and stuck windows. No vacuuming, mopping, raking, shoveling, digging or hoeing until after your return visit with the surgeon. Sexual activity: You may engage in sexual activity when you feel ready. Use a position that protects your sternum (breastbone). Do not have your partner lie on your chest. Stairs: There are no restrictions on stair climbing. Use common sense. Don't exhaust yourself. Activities outside the home: After the first week home you may go out to dinner, visit friends, go to a movie, go to shinto, etc. Heavy activities: No hunting, skiing, jogging, snow shoveling, snowmobiling, lawn mowing, swimming,golf or tennis until after your return appointment with the surgeon. Do not ride motorcycles, ATV'stractors or horses. Avoid the use of a rifle with kickback against the shoulder for six months. Sleep: Try to establish normal sleep patterns. Long naps during the day may make it hard for you tosleep at night. Use the pain medication at bedtime for the first week at home. If you have nightmares, contact us. Some medications make this worse and these can be changed. Smoking: It is very important that you not smoke after surgery. Smoking cessation education was provided as appropriate. If you need further assistance with this please call and you will be referred to a smoking cessation specialist. Medications: Take only those medications listed on your discharge information. Keep your pain undercontrol so you can be active, do your coughing and breathing exercises and sleep. Contact us if thepain medication isn't working for you. Do not take any herbal preparations until after you return to see the surgeon. Special Physician Instructions: DO NOT USE ANY IBUPROFEN (ADVIL, MOTRIN, ETC) OR OTHER NSAIDS (NONSTEROIDAL ANTI-INFLAMMATORY DRUGS) FOR A TOTAL OF 10 DAYS AFTER SURGERY. PLEASE CONTACT THE CARDIOTHORACIC SURGERY OFFICE IF YOU HAVE QUESTIONS ABOUT WHICH DRUGS YOU SHOULD NOT USE. . Diet: You should follow a regular diet until your appetite returns to normal. At that point in timeyou should resume a low fat, low cholesterol, [place] Heart [employer] Diet. Driving: No driving until cleared by your surgeon. Avoid long trips if possible. If you must go on a long trip, stop the car and walk every hour. Shower/Bath: You may shower daily. No baths, soaking, or swimming until cleared by your surgeon. Wound care: Wash your incisions daily with soap and rinse well, pat dry. Assess for any signs of infection such as increased redness, pain, warmth or drainage. Please call your surgeon's office if you have any discharge or drainage from your chest incision. If there is a lot of swelling, apply jocelyn wraps during the day and remove at bedtime. Elevate your legs when you are sitting. REMOVE CHEST TUBE SUTURES ON OR AFTER 02/11/22 Home oxygen therapy: N/A Follow up appointments: Our office will schedule an appointment with your PCP, Kerri Pearce APRN, in 1-2 weeks. Our office will schedule an appointment with your Textile Examiner in 2 weeks. Our office will schedule an appointment with your Cardiac Surgeon, Dr. Hong Eugene, in 4 weeks with chest x-ray, EKG before your appointment. Cardiac Rehabilitation: You will be contacted documented in this encounter Medications at Time [...] 3 02/05/2022 documented as of this encounter Progress Notes * Bry Portillo RN - 02/05/2022 8:56 AM EDT Pt discharged per order, AVS reviewed and all questions answered. PIV d/c'd. [facility]. * Kirby Dexter RN - 02/04/2022 4:34 PM EDT Pt up for 3rd walk of day, 3/4 of a lap reported dizziness, monitor with HR in 50s and desaturations into 80s. Wheeled back to room, symptoms self resolved with improvements of vitals. * Anne Santacruz RCP - 02/04/2022 12:46 PM EDT 02/04/22 0801 Oxygen Therapy O2 Device RA SpO2 92 % Resp 25 Pt on room air angela well Pt has no treatments ordered at this time * Jayne Aragon PA - 02/04/2022 9:54 AM EDT Cardiac Surgery Progress Note HPI Shellie Lyon is a 71 y.o. female with PMH of NSTEMI, HTN, GERD, seborrheic keratosis who is 3 DaysPost-Op s/p CABGx2 Events: No overnight events S: Patient feeling well, denies pain, SOB, dizziness. Tolerating PO diet although with less of an appetite. +BM. O: Temp: [36.4 ??C (97.5 ??F)-36.7 ??C (98 ??F)] Heart Rate: [70-88] Resp: [14-30] BP: (115-148)/(68-85) SpO2: [88 %-97 %] Heart Rate from SpO2: [70 bpm-91 bpm] Physical Exam: General: sitting up in chair, pleasant Neuro: A&Ox3, NFD. Moving all ext Lungs: LS clear dim bibasilar Heart: rrr, no mrg Abdomen: soft nt active bs Ext: wwp, no edema Incisions: CDI intact Tubes/Lines/Drains: PIV, pw I/O last 3 completed shifts: In: 1260 [P.O.:1260] Out: 1340 [Urine:1340] A&P 71 y.o. female 3 Days Post-Op s/p CABGx2. Extubated. HDS off vasoactive drips. Recovering well fromsurgery. Pathway Remove TPW Ambulate Continue metop, losartan and lasix Floor status Neuro: APAP 1g q6h, Oxy 5-10 q4h prn. CV: Metop 25, cozaar 25, statin Pulm: NC to keep spo2>92%, pulm toilet GI: regular diet, protonix, RBOs : voiding Renal: UOP adequate, lasix 20 po daily Heme: ASA 81 ID: periop abx complete Endo: no DM Dispo: floor status, Full code Discussed with attending surgeon on AM rounds GENEVIEVE Carrillo 02/04/2022 * Anthony Velez MD - 02/04/2022 9:22 AM EDT CARDIAC CRITICAL CARE ATTENDING STAFF PROGRESS NOTE Patient seen and examined. Shellie Lyon is a 71 y.o. female with: Active Hospital Problems Diagnosis ??? NSTEMI (non-ST elevated myocardial infarction) Resolved Hospital Problems No resolved problems to display. ?? 71 yo F with HTN who initially presented with NSTEMI found to have LM disease now s/p CABG x 2 [address]Dr. Eugene on 02/01/2022. Post op course has been relatively unremarkable thus far.? ASSESSMENT, MANAGEMENT, and DECISION MAKING: Neuro: Pain controlled on oral regimen.? CV:??Michaelar, BB, lasix. Intra-op MISBAH notable for preserved LVEF, mild AI/MR/TR.?? Resp: Oxygenation adequate on??RA. Ambulating, pulm toilet, IS as able.?? Endo:??SSI GI:??ADAT, PPI Renal: Monitor UOP, replete lytes as appropriate, K 3.9, Cr 0.6 Heme: ASA, hgb 10.9 ID: Periop abx x 24 hours??complete. Afebrile EXAM: Patient Vitals for the past 168 hrs: Weight 02/04/22 0500 70.6 kg (155 lb 10.3 oz) 02/01/22 0226 67.4 kg (148 lb 9.4 oz) 01/31/22 0000 67.4 kg (148 lb 9.4 oz) 01/30/22 0327 67 kg (147 lb 9.6 oz) 01/29/22 0600 67.1 kg (147 lb 14.9 oz) 01/28/22 1739 67.1 kg (148 lb) Temp: [36.4 ??C (97.5 ??F)-36.7 ??C (98 ??F)] Heart Rate: [70-88] Resp: [14-36] BP: (115-148)/(68-85) SpO2: [88 %-97 %] Heart Rate from SpO2: [70 bpm-91 bpm] Physical Exam AAO x 3, NAD CTAB RRR, no m S/NT/ND, + BSs WWP Recent Results (from the past 24 hour(s)) Basic Metabolic Panel (non-fasting) Result Value Ref Range Glucose Lvl 115 65 - 199 mg/dL BUN 12 8 - 18 mg/dL Creatinine 0.60 (L) 0.70 - 1.20 mg/dL Sodium 141 135 - 145 mmol/L Potassium 3.9 3.5 - 5.0 mmol/L Chloride 106 98 - 107 mmol/L CO2 26 22 - 31 mmol/L Anion Gap 9 5 - 15 mmol/L Calcium 9.0 8.5 - 10.5 mg/dL Estimated GFR 97 >=60 mL/min/1.73 m?? Hemogram Result Value Ref Range WBC 9.1 4.0 - 9.5 x10(3)/mcL RBC 3.88 (L) 4.00 - 5.21 x10(6)/mcL Hemoglobin 10.9 (L) 11.7 - 15.5 g/dL Hematocrit 32.4 (L) 35.7 - 45.8 % MCV 83.5 82.6 - 94.4 fL MCH 28.1 27.1 - 32.0 pg MCHC 33.6 31.7 - 35.0 g/dL Platelets 208 145 - 357 x10(3)/mcL RDWSD 42.5 37.0 - 46.0 fL RDWCV 13.9 11.5 - 14.1 % MPV 10.8 7.6 - 12.9 fL nRBC % Auto 0.0 % nRBC Abs Auto 0.000 0.000 - 0.000 x10(3)/mcL Differential, Automated Result Value Ref Range Neutrophils % 63.7 % Neutr Abs (ANC) 5.80 1.70 - 6.10 x10(3)/mcL Lymphocytes % 27.1 % Lymphocytes Abs 2.5 0.9 - 3.2 x10(3)/mcL Monocytes % 7.3 % Monocyte Abs 0.7 0.3 - 0.9 x10(3)/mcL Eosinophils % 1.0 % Eosinophils Abs 0.1 0.0 - 0.4 x10(3)/mcL Basophils % 0.2 % Basophils Abs 0.0 0.0 - 0.1 x10(3)/mcL Immature Gran % 0.70 % Daysi Gran Abs 0.06 (H) 0.00 - 0.04 x10(3)/mcL IS PATIENT CRITICALLY ILL ? Is there a high potential of sudden, clinically significant, or life threatening deterioration? No Is there a need for direct personal assessment and management to treat/prevent multiple vital organfailure/deterioration? No * Viviana Bonner RN - 02/04/2022 5:59 AM EDT 0500: PA/lat. cxr in dept. Via wheelchair POD#3. * Meche Bernal APRN - 02/03/2022 10:09 AM EDT Cardiac Surgery Progress Note HPI Shellie Lyon is a 71 y.o. female with PMH of NSTEMI, HTN, GERD, seborrheic keratosis who is 2 DaysPost-Op s/p CABGx2 Events: Pathway Floor status On metop, losartan, lasix S: Pain controlled. Hungry, looking forward to ambulating. No complaints O: Temp: [36.5 ??C (97.7 ??F)-37.1 ??C (98.8 ??F)] Heart Rate: [75-91] Resp: [14-36] BP: (116-148)/(63-77) SpO2: [91 %-100 %] Heart Rate from SpO2: [74 bpm-91 bpm] Physical Exam: General: sitting up in chair Neuro: A&Ox3, NFD. Moving all ext Lungs: LS clear dim bibasilar Heart: rrr, s1s2 no mrg Abdomen: soft nt hypoactive bs Ext: wwp, no edema Incisions: CDI intact Tubes/Lines/Drains: PIV, pw, hernández I/O last 3 completed shifts: In: 1861.3 [P.O.:650; I.V.:1212.3] Out: 1999 [Urine:1595; Other:405] A&P 71 y.o. female 2 Days Post-Op s/p CABGx2. Extubated. HDS off vasoactive drips. Recovering well fromsurgery. Pathway D/c hernández Keep pw one more day Continue metop, losartan and lasix Floor status Neuro: APAP 1g q6h, Oxy 5-10 q4h prn. CV: Metop 25, cozaar 25, statin Pulm: NC to keep spo2>92%, pulm toilet GI: ADAT to regular diet, protonix, RBOs : Hernández dc Renal: UOP adequate, lasix 20 po daily Heme: ASA 81 ID: periop abx complete Endo: no DM Dispo: CVCC, Full code, transfer Discussed with attending surgeon on AM rounds MECHE BERNAL APRN 02/03/2022 * Anthony Velez MD - 02/03/2022 8:57 AM EDT CARDIAC CRITICAL CARE ATTENDING STAFF PROGRESS NOTE Patient seen and examined. Shellie Lyon is a 71 y.o. female with: Active Hospital Problems Diagnosis ??? NSTEMI (non-ST elevated myocardial infarction) Resolved Hospital Problems No resolved problems to display. 71 yo F with HTN who initially presented with NSTEMI found to have LM disease now s/p CABG x [address] Eugene on 02/01/2022. Post op course has been relatively unremarkable thus far. ?? ASSESSMENT, MANAGEMENT, and DECISION MAKING: Neuro: Pain controlled on oral regimen. CV: Currently off all pharmacologic agents. BB, lasix. Intra-op MISBAH notable for preserved LVEF, mild AI/MR/TR. Resp: Oxygenation adequate on RA. Encouraging ambulation, pulm toilet, IS as able. Endo: SSI GI: ADAT, PPI Renal: Monitor UOP, replete lytes as appropriate, K 3.8, pull hernández Heme: ASA ID: Periop abx x 24 hours complete EXAM: Patient Vitals for the past 168 hrs: Weight 02/01/22 0226 67.4 kg (148 lb 9.4 oz) 01/31/22 0000 67.4 kg (148 lb 9.4 oz) 01/30/22 0327 67 kg (147 lb 9.6 oz) 01/29/22 0600 67.1 kg (147 lb 14.9 oz) 01/28/22 1739 67.1 kg (148 lb) Temp: [36.5 ??C (97.7 ??F)-37.1 ??C (98.8 ??F)] Heart Rate: [75-91] Resp: [14-27] BP: (116-148)/(63-77) SpO2: [91 %-100 %] Heart Rate from SpO2: [75 bpm-91 bpm] Physical Exam Awake and alert CTAB RRR, no m S/NT/ND, + BSs WWP Recent Results (from the past 24 hour(s)) POCT Glucose Result Value Ref Range POC Glucose 157 65 - 199 mg/dL Potassium Result Value Ref Range Potassium 3.8 3.5 - 5.0 mmol/L IS PATIENT CRITICALLY ILL ? Is there a high potential of sudden, clinically significant, or life threatening deterioration? No Is there a need for direct personal assessment and management to treat/prevent multiple vital organfailure/deterioration? No * Nara Lopez, PT - 02/02/2022 2:17 PM EDT Physical Therapy Evaluation Patient profile: Shellie Lyon is a 71 y.o. female admitted on 01/28/[address] Hong Eugene MD, p/w chest pain. Now s/p CABG x2. PMH significant for NSTEMI, HTN, GERD, seborrheic keratosis. Patient with the following active problems: No past medical history on file. Past Surgical History: Procedure Laterality Date ??? PRO CABG, ARTERIAL, SINGLE N/A 02/01/2022 @CABG, USING ARTERIAL GRAFT;SINGLE ARTERIAL GRAFT (WRVU 33.75) performed by Hong Eugene MD at [facility] MAIN OR ??? PRO CABG, ARTERY-VEIN, SINGLE N/A 02/01/2022 @CABG, VENOUS & ARTERIAL GRAFT;SINGLE VEIN GRAFT (WRVU 3.61) performed by Hong Eugene MD at [facility] MAIN OR ??? PRO ENDOSCOPY W/VIDEO-ASST VEIN HARVEST, CABG N/A 02/01/2022 ENDOSCOPIC HARVEST VEIN(S) FOR CABG (WRVU 0.31) performed by Hong Eugene MD at [facility] MAIN OR Active Non-Hospital Problems Diagnosis ??? Inflamed seborrheic keratosis Social History: Home set-up: Lives with Raymond & dog in multi-level home Bathroom: Full bath on first floor only Stairs: 3STE with LILLIAN rails, 13 stairs inside up to bedroom Baseline mobility: IND at baseline with mobility, ambulation, self-care, ADLs without using a device. In free time enjoys babysitting grandchildren & tap- dancing. Typically sleeps in flat bed on second floor but can sleep on futon or in recliner on first floor. Equipment at home: cane Support at home: Bill home most days Fall history: denies Precautions/Special Considerations: sternal precautions, full code, adhesive allergy, low BPs Lines: catheter, arterial line, central line, TPW, supplemental O2 Diet: sips & chips Mobility and Positioning Recommendations: ?? Pt. to utilize FWW and 1A for ambulation and transfers with nursing, beneficial to have second person for line mgmt & chair follow. ?? Please encourage up to chair for meal times as able. ?? Pt encouraged to ambulate frequently with staff, getting into the bathroom for toileting and walking out in the davis >/= 3 times daily as able. Subjective: ???I feel okay besides the fact that I just feel really dumb right now?? I feel so hot and sweaty (during ambulation) Objective: Pt seen for evaluation today. Pain: no c/o pain during session Vital Signs: (RN aware/present throughout session monitoring vitals) At Rest: HR 75 bpm, SpO2 91% on RA / 97% on 1L During Activity: SBP dropped to 80s-90s, took seated rest Post Activity: HR 74 bpm, SpO2 93% on 1L, BP 147/69 Mental Status: AO but reports grogginess and feeling dumb / out of it post- surgery. Mildly decreased safety awareness, attempted to show off tap-dancing move during ambulation. Vision: wears glasses Skin: sternal incision covered by bandage (C,D,I), RLE covered by JOCELYN bandage Musculoskeletal: ROM: LILLIAN LEs WFL Strength: LILLIAN LEs >3/5 throughout Bed Mobility: not assessed; session began & ended in bedside recliner chair Transfers: Sit to Stand: Bhargav progressing to CGA with cardiac pillow & O2 alvarez, VCs for adequate forwardtrunk lean & keeping both hands on pillow. Stand to Sit: CGA, VCs to feel legs on back of chair prior to sitting, lower self slowly. Good eccentric control. Gait: Distance: 2 x 50 ft with seated rest in-between Device used: O2 alvarez Level of assist: CGA x1, second person for line mgmt & chair follow Gait mechanics: Presents with decreased william, decreased step length , limited foot clearance during swing phase, limited hip extension at terminal stance and lateral trunk lean towards stance limb Stairs: not appropriate today. Balance: Sitting Static: good Sitting Dynamic: good Standing Static: fair+ Standing Dynamic / Gait: fair, no overt [id number] observed but struggled to don mask in standing on her own (requiring CGA steadying assist), and certainly derived benefit by UE support on O2tank. Therex: Practiced incentive spirometry, VCs to breathe out completely before starting each repetition. Education: patient has been educated on Transfers, Assistive device/technique, Breathing exercises,Safety , Precautions/protocol, Gait , Activity pacing/Energy conservation, Role of therapy and Discharge planning. Verbalizes understanding, will benefit from additional reinforcement. Assessment: Shellie Lyon was seen today for physical therapy evaluation. Patient tolerated therapyfairly but was limited by fatigue & hypotension. Additionally, Patient presents with decreased balance, decreased endurance and decreased cardiovascular fitness, limiting functional mobility, ambulation, activity tolerance, safety and ability to manage own needs. This is significantly below Patient's baseline, and as a result, Patient will benefit from continued skilled therapy services whilein the hospital. Discharge Recommendations: Based on the current findings, Anticipated Discharge Disposition (PT): home with home health when medically ready for hospital discharge. Despite deficits, based on performance today it is likely Patient will be able to progress to the point where d/c home with home health is appropriate. Consult Recommendations: No other consults recommended at this time. Equipment needs: Anticipated Equipment Needs at Discharge (PT): None Goals: To be achieved by 02/07/22: 1. Pt to consistently adhere to sternal precautions without requiring cues/assist from PT 2. Pt. to perform bed mobility independently from elevated bed without use of bed rails (has recliner at home) 3. Pt. to perform nyv-zl-pikar transfers with modified independence using LRAD vs no AD and cardiacpillow. 4. Pt. to ambulate >100 feet with modified independence using a LRAD vs no AD and cardiac pillow. 5. Pt. to ambulate up/down >3 step/stairs using one rail with supervision. 6. Pt to demonstrate appropriate activity pacing without requiring cues from PT 7. Pt to demonstrate appropriate usage of incentive spirometer Plan: Therapy Frequency (PT): 2-4 times/wk for therapy including balance training, bed mobility training, gait training, patient/family education, stair training and transfer training. Patient/familyunderstand and agree with plan as stated above. 2017 PT Evaluation Code Rationale: ?? Diagnosis & Pertinent Co-Morbidities, personal factors, and present illness affecting Plan of Care: (see above); Additional personal factors or co- morbidities that impact plan: ?? Total # of Factors: 0 1-2 3+ x ?? Examination of body system impairments, functional limitations and behaviors, and/or participation restrictions. Addressing 1-2 elements Addressing 3 + elements Addressing 4 + elements x ?? Clinical presentation: See assessment above. Stable/Uncomplicated Evolving/Fluctuating Symptoms Unstable/Unpredictable x ?? Clinical decision making of moderate complexity based on pt's functional performance as outlinedin this evaluation. Time IN / OUT: 3310-5771 Total Minutes, Physical Therapy: 38 Nara Lopez DPT Pager: [phone] Physical Therapy Inpatient Rehabilitation Department * Kendall Villanueva PA - 02/02/2022 9:59 AM EDT Cardiac Surgery Progress Note HPI Shellie Lyon is a 71 y.o. female with PMH of NSTEMI, HTN, GERD, seborrheic keratosis who is 1 Day Post-Op s/p CABGx2 Events: From OR on levo and vaso, weaned off Vagal last night and this evening Got albumin HTN this AM, on nitro. S: Pain controlled. Intermittent nausea with movement and concomitant BP swings. Tolerating sips and chips. Denies fever or chills. O: Temp: [34.8 ??C (94.6 ??F)-36.8 ??C (98.2 ??F)] Heart Rate: [0-96] Resp: [0-28] BP: (106-111)/(59-67) SpO2: [89 %-100 %] Heart Rate from SpO2: [58 bpm-96 bpm] Physical Exam: General: Laying in bed Neuro: Awake and alert. CN II-XII grossly intact. Moves all extremities with equal strength. Lungs: Normal effort on RA decreased at the bases bilat Heart: RRR, S1S2, NSR on tele. Abdomen: Soft, NTND, hypoactive bowel sounds. Ext: warm, no LE edema. Incisions: dressing CDI without drainage or crepitus. Tubes/Lines/Drains: RIJ, A-line, Mediastinal CT, L Pleural CT, TPW, Hernández, PIV Hemodynamics: CI 2.7 Drips: nitro I/O last 3 completed shifts: In: 4168.7 [I.V.:3286.7; Blood:632; Other:250] Out: 2772 [Urine:1655; Other:485; Blood:632] Mediastinal CTs - 350 / 70 in last 4 hours, SS, no air leak L Pleural CT - 75 / 15 in last 4 hours, SS, no air leak Net +2.2L A&P 71 y.o. female 1 Day Post-Op s/p CABGx2. Extubated. HDS off vasoactive drips. Recovering well from surgery. Mobilize Metop 25 Cozaar 25 Lasix 20 po daily Neuro: APAP 1g q6h, Oxy 5-10 q4h prn. CV: Metop 25, cozaar 25, statin Pulm: NC to keep spo2>92%, pulm toilet GI: ADAT to regular diet, protonix, RBOs : Hernández Renal: UOP adequate, lasix 20 po daily Heme: ASA 81 ID: periop abx complete Endo: no DM Dispo: CVCC, Full code, possible transfer later Discussed with attending surgeon on AM rounds GENEVIEVE White 02/02/2022 * Anthony Velez MD - 02/02/2022 9:41 AM EDT CARDIAC CRITICAL CARE ATTENDING STAFF PROGRESS NOTE Patient seen and examined. Shellie Lyon is a 71 y.o. female with: Active Hospital Problems Diagnosis ??? NSTEMI (non-ST elevated myocardial infarction) Resolved Hospital Problems No resolved problems to display. 71 yo F with HTN who initially presented with NSTEMI found to have LM disease now s/p CABG x [address] Eugene on 02/01/2022. Post op course has been relatively unremarkable thus far. ASSESSMENT, MANAGEMENT, and DECISION MAKING: Neuro: Pain controlled on oral regimen. CV: HDs off pressors. Symptomatic vagal episode with standing last evening. Currently in NSR with back-up DDD at 60. Currently off all pharmacologic agents. Last C.I. > 2. Agree with gentle volumeexpansion. Will need initiation of BB in addition to afterload management possibly later today. Intra-op MISBAH notable for preserved LVEF, mild AI/MR/TR. Resp: Oxygenation adequate on RA. Encouraging ambulation, pulm toilet, IS as able. Initial CXR unremarkable. Abg reassuring. Endo: SSI GI: ADAT, PPI Renal: Monitor UOP, replete lytes as appropriate, Cr 0.66 Heme: ASA, monitor CT output and pull. Hgb 8.7 -consider recheck tomorrow. ID: Periop abx x 24 hours complete EXAM: Patient Vitals for the past 168 hrs: Weight 02/01/22 0226 67.4 kg (148 lb 9.4 oz) 01/31/22 0000 67.4 kg (148 lb 9.4 oz) 01/30/22 0327 67 kg (147 lb 9.6 oz) 01/29/22 0600 67.1 kg (147 lb 14.9 oz) 01/28/22 1739 67.1 kg (148 lb) Temp: [34.8 ??C (94.6 ??F)-36.8 ??C (98.2 ??F)] Heart Rate: [0-96] Resp: [0-28] BP: (106-111)/(59-67) SpO2: [89 %-100 %] Heart Rate from SpO2: [58 bpm-96 bpm] Physical Exam Awake and alert, NAD CTAB RRR, no m S/NT/ND, + BSs WWP Recent Results (from the past 24 hour(s)) Fibrinogen Result Value Ref Range Fibrinogen 154 (L) 200 - 393 mg/dL Hemoglobin and Hematocrit, blood Result Value Ref Range Hemoglobin 7.9 (L) 11.7 - 15.5 g/dL Hematocrit 24.1 (L) 35.7 - 45.8 % Platelet count Result Value Ref Range Platelets 191 145 - 357 x10(3)/mcL Plat Immature % 3.7 0.0 - 7.4 % Prepare Platelets, Apheresis Result Value Ref Range Dispensed? Yes BLOOD GAS 2 ARTERIAL Result Value Ref Range pH Art 7.35 7.35 - 7.45 pCO2 Art 43 35 - 45 mmHg pO2 Art 403 (H) 85 - 104 mmHg HCO3 Art 23.3 20.0 - 26.0 mmol/L BE Art -2.3 -3.0 - 3.0 mmol/L Hgb Blood Gas 8.7 (L) 11.7 - 15.5 g/dL O2HB Art 98.9 (H) 94.0 - 97.0 % COHB Art 0.4 % METHB Art 0.3 <=1.5 % Na Whole Blood 130 (L) 135 - 145 mmol/L K Whole Blood 5.9 (H) 3.5 - 5.0 mmol/L ICa Whole Blood 0.97 (L) 1.15 - 1.33 mmol/L CL Whole Blood 106 98 - 107 mmol/L Gluc Whole Bld 251 (H) 65 - 199 mg/dL Lactate WB 0.8 0.5 - 2.2 mmol/L BLOOD GAS 2 ARTERIAL Result Value Ref Range pH Art 7.30 (L) 7.35 - 7.45 pCO2 Art 54 (H) 35 - 45 mmHg pO2 Art 335 (H) 85 - 104 mmHg HCO3 Art 26.0 20.0 - 26.0 mmol/L BE Art -0.3 -3.0 - 3.0 mmol/L Hgb Blood Gas 8.7 (L) 11.7 - 15.5 g/dL O2HB Art 99.1 (H) 94.0 - 97.0 % COHB Art 0.1 % METHB Art 0.3 <=1.5 % Na Whole Blood 133 (L) 135 - 145 mmol/L K Whole Blood 5.0 3.5 - 5.0 mmol/L ICa Whole Blood 1.52 (H) 1.15 - 1.33 mmol/L CL Whole Blood 107 98 - 107 mmol/L Gluc Whole Bld 196 65 - 199 mg/dL Lactate WB 1.2 0.5 - 2.2 mmol/L BLOOD GAS 2 ARTERIAL Result Value Ref Range pH Art 7.38 7.35 - 7.45 pCO2 Art 43 35 - 45 mmHg pO2 Art 358 (H) 85 - 104 mmHg HCO3 Art 24.5 20.0 - 26.0 mmol/L BE Art -0.7 -3.0 - 3.0 mmol/L Hgb Blood Gas 8.7 (L) 11.7 - 15.5 g/dL O2HB Art 99.0 (H) 94.0 - 97.0 % COHB Art 0.2 % METHB Art 0.3 <=1.5 % Na Whole Blood 136 135 - 145 mmol/L K Whole Blood 4.4 3.5 - 5.0 mmol/L ICa Whole Blood 1.24 1.15 - 1.33 mmol/L CL Whole Blood 110 (H) 98 - 107 mmol/L Gluc Whole Bld 162 65 - 199 mg/dL Lactate WB 1.6 0.5 - 2.2 mmol/L Hemogram Result Value Ref Range WBC 7.2 4.0 - 9.5 x10(3)/mcL RBC 2.86 (L) 4.00 - 5.21 x10(6)/mcL Hemoglobin 8.0 (L) 11.7 - 15.5 g/dL Hematocrit 23.9 (L) 35.7 - 45.8 % MCV 83.6 82.6 - 94.4 fL MCH 28.0 27.1 - 32.0 pg MCHC 33.5 31.7 - 35.0 g/dL Platelets 122 (L) 145 - 357 x10(3)/mcL RDWSD 41.1 37.0 - 46.0 fL RDWCV 13.3 11.5 - 14.1 % MPV 10.3 7.6 - 12.9 fL nRBC % Auto 0.0 % nRBC Abs Auto 0.000 0.000 - 0.000 x10(3)/mcL Prothrombin Time Result Value Ref Range PT 15.3 (H) 9.4 - 12.5 sec INR 1.3 APTT Result Value Ref Range PTT 29 25 - 37 sec Fibrinogen Result Value Ref Range Fibrinogen 163 (L) 200 - 393 mg/dL BLOOD GAS 2 ARTERIAL Result Value Ref Range pH Art 7.42 7.35 - 7.45 pCO2 Art 32 (L) 35 - 45 mmHg pO2 Art 284 (H) 85 - 104 mmHg HCO3 Art 20.4 20.0 - 26.0 mmol/L BE Art -4.1 (L) -3.0 - 3.0 mmol/L Hgb Blood Gas 11.7 11.7 - 15.5 g/dL O2HB Art 97.9 (H) 94.0 - 97.0 % COHB Art 0.3 % METHB Art 0.7 <=1.5 % Na Whole Blood 136 135 - 145 mmol/L K Whole Blood 4.0 3.5 - 5.0 mmol/L ICa Whole Blood 1.24 1.15 - 1.33 mmol/L CL Whole Blood 110 (H) 98 - 107 mmol/L Gluc Whole Bld 114 65 - 199 mg/dL Lactate WB 0.7 0.5 - 2.2 mmol/L FIO2 Art 100 % PF Ratio Art 284 Potassium Result Value Ref Range Potassium 4.2 3.5 - 5.0 mmol/L Hemoglobin Result Value Ref Range Hemoglobin 10.2 (L) 11.7 - 15.5 g/dL BLOOD GAS 2 ARTERIAL Result Value Ref Range pH Art 7.32 (L) 7.35 - 7.45 pCO2 Art 44 35 - 45 mmHg pO2 Art 98 85 - 104 mmHg HCO3 Art 22.3 20.0 - 26.0 mmol/L BE Art -3.7 (L) -3.0 - 3.0 mmol/L Hgb Blood Gas 11.3 (L) 11.7 - 15.5 g/dL O2HB Art 95.5 94.0 - 97.0 % COHB Art 0.3 % METHB Art 0.8 <=1.5 % Na Whole Blood 137 135 - 145 mmol/L K Whole Blood 4.2 3.5 - 5.0 mmol/L ICa Whole Blood 1.23 1.15 - 1.33 mmol/L CL Whole Blood 108 (H) 98 - 107 mmol/L Gluc Whole Bld 163 65 - 199 mg/dL Lactate WB 0.8 0.5 - 2.2 mmol/L FIO2 Art 40 % PF Ratio Art 245 POCT Glucose Result Value Ref Range POC Glucose 150 65 - 199 mg/dL POCT Glucose Result Value Ref Range POC Glucose 157 65 - 199 mg/dL Troponin Result Value Ref Range Troponin-T 0.37 (H) 0.00 - 0.00 ng/mL Troponin-T HS 454 (CRIT) <=14 ng/L Basic Metabolic Panel (non-fasting) Result Value Ref Range Glucose Lvl 172 65 - 199 mg/dL BUN 17 8 - 18 mg/dL Creatinine 0.66 (L) 0.70 - 1.20 mg/dL Sodium 140 135 - 145 mmol/L Potassium 4.4 3.5 - 5.0 mmol/L Chloride 110 (H) 98 - 107 mmol/L CO2 22 22 - 31 mmol/L Anion Gap 8 5 - 15 mmol/L Calcium 8.0 (L) 8.5 - 10.5 mg/dL Estimated GFR 95 >=60 mL/min/1.73 m?? Hemogram Result Value Ref Range WBC 8.8 4.0 - 9.5 x10(3)/mcL RBC 3.21 (L) 4.00 - 5.21 x10(6)/mcL Hemoglobin 8.9 (L) 11.7 - 15.5 g/dL Hematocrit 26.2 (L) 35.7 - 45.8 % MCV 81.6 (L) 82.6 - 94.4 fL MCH 27.7 27.1 - 32.0 pg MCHC 34.0 31.7 - 35.0 g/dL Platelets 127 (L) 145 - 357 x10(3)/mcL RDWSD 40.6 37.0 - 46.0 fL RDWCV 13.5 11.5 - 14.1 % MPV 11.1 7.6 - 12.9 fL nRBC % Auto 0.0 % nRBC Abs Auto 0.000 0.000 - 0.000 x10(3)/mcL Differential, Automated Result Value Ref Range Neutrophils % 83.9 % Neutr Abs (ANC) 7.38 (H) 1.70 - 6.10 x10(3)/mcL Lymphocytes % 10.7 % Lymphocytes Abs 0.9 0.9 - 3.2 x10(3)/mcL Monocytes % 5.0 % Monocyte Abs 0.4 0.3 - 0.9 x10(3)/mcL Eosinophils % 0.0 % Eosinophils Abs 0.0 0.0 - 0.4 x10(3)/mcL Basophils % 0.1 % Basophils Abs 0.0 0.0 - 0.1 x10(3)/mcL Immature Gran % 0.30 % Daysi Gran Abs 0.03 0.00 - 0.04 x10(3)/mcL POCT Glucose Result Value Ref Range POC Glucose 161 65 - 199 mg/dL IS PATIENT CRITICALLY ILL ? Is there a high potential of sudden, clinically significant, or life threatening deterioration? No Is there a need for direct personal assessment and management to treat/prevent multiple vital organfailure/deterioration? No * Joaquin Castanon RN - 02/02/2022 12:38 AM EDT 2215- Attempted to sit pt at side of bed. Upon going from lying to sitting position pt reported feeling dizzy. BP went from 140systolic when lying to 50 systolic at beside. Pt was immediately sat back down, Nitro was shut off, Levo was turned on. Pt recovered quickly and did not loose consciousness. Levo weaned back off- MD informed and 1 unit of albumin infused. 0240- during assisting pt with reposition pt had another hypotensive/Bradycardic event. BP went from 140sysolic down into the 60s systolic and Back up pacing 100% V paced. Levo turned on and then weaned back down. Spoke with MD Montiel regarding events- Orders to hold Nitro and contact MD Montiel back for PRN hydralazine if BP > 150/160. Also infused a second dose of albumin 0600- Obtained order for 10mg PRN hydralazine d/t BP 160. Pt had another episode of hypotension (80systolic) requiring levo to be turned on again for a couple of minuets to stabilize BP-levo weaned off. MD Montiel informed of event. * Michael Kong RN - 02/01/2022 6:59 PM EDT At approx. 1800, Pt's HR in 90s, SBP 150s, on 125 of nitro. HR dropped to the 40s precipitously triggering back up V pacing, SBP in 40s W/changes in mentation. Pacing rate increased to 80, Nitro turned off and crystaloid gtt started (given total of 700 NS). Norepinephrine turned on briefly. Hughes rhythm returned within a couple of minutes, pt normotensive. Levo weaned off and fluids stopped. * Landy Mckinney RCP - 02/01/2022 1:10 PM EDT CTICU Protocol: Yes PSBT Protocol: Yes SBT: Passed Vent Settings: Settings: Tidal Volume Set: 430 Resp. Rate Set: 14 PS Above PEEP (cm H2O): 5 Set PEEP (cm H2O): 5 Set FiO2: 100 % VT/K Inspiratory Time: 0.9 Sec(s) Measurements: Tidal Volume Measured Exp.: 420 Resp: 16 Peak Inspiratory Pressure: 22 Mean Airway Pressure (cm H2O): 9 Minute Ventilation Total Exhaled (L/min): 7.1 SpO2: 100 % ETCO2 (mmHg): 31 mmHg Airway: 8.0 @ 23 cm at the Teeth. Skin Integrity: WDL Assessment / Events / Plan of the Day: Patient arrived out of OR intubated and placed in SIMV+VC onabove noted settings. 1334-ABG Results on 100% 7.42/32/284/20.4. FiO2 titrated to 40% per protocol. 1605-Start PSBT 1640-ABG post PSBT 7.33/44/98/22.3. 1700-Patient extubated to 5L NC, SpO2 100%. Patient tolerated extubation well with no stridor, goodcough and able to phonate. Continue to monitor Landy Mckinney RCP * Avril Lyman MD - 01/31/2022 6:34 AM EDT Images from the original note were not included. Cardiology ICU Progress Note Patient info: Name: Shellie Lyon : 1950 PCP: Kerri Pearce APRN PCP phone number: [phone] Date of Admission: 01/28/2022 ( Hospital Day 3 days ) Attending:Avril Lyman MD ID: Shellie Lyon is a 71 y.o. female w/ PMH of HTN (on losartan and amlodipine) and OA who presented to [facility] with chest pain on Hospital Day3. 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 heparin (porcine) infusion 800 Units/hr (01/31/22 0600) Objective: Vitals Last value Range last 24 hrs Temperature Temp: 36.5 ??C (97.7 ??F) Temp: [36.5 ??C (97.7 ??F)-36.8 ??C (98.2 ??F)] Heart Rate Heart Rate: 58 Heart Rate: [57-67] Blood Pressure BP: 118/71 BP: (107-130)/(51-71) Art Line BP BP (Arterial Line): -- MAP (NBP): [64 mmHg-88 mmHg] Respiratory Rate Resp: 20 Resp: [14-20] SpO2 SpO2: 93 % SpO2: [93 %-99 %] Oxygen Delivery Oxygen Therapy O2 Device: None (Room air) Intake/Output Summary (Last 24 hours) at 01/31/2022 0634 Last data filed at 01/31/2022 0600 Gross per 24 hour Intake 852 ml Output -- Net 852 ml Patient Vitals for the past 168 hrs: Weight 01/31/22 0000 67.4 kg (148 lb 9.4 oz) 01/30/22 0327 67 kg (147 lb 9.6 oz) 01/29/22 0600 67.1 kg (147 lb 14.9 oz) 01/28/22 1739 67.1 kg (148 lb) Admit wt: 67.13 kg Physical Exam: Gen: in bed, in NAD HEENT: anicteric, EOMI intact, CV: RRR, S1/S2, 3/6 systolic crescendo-decrescendo murmur heard throughout the precordium Resp: CTAB, no crackles/wheezes/ronchi, normal work of breathing Abd: normal bowel sounds, soft, non-tender to palpation, no rebound or guarding Ext: 2+ distal pulses, no pedal edema Neuro: no focal deficits noted, CN II-XII grossly intact, moves all extremities spontaneously Psych: cooperative. Skin: no rashes, lesions, or ulcerations noted Lines/Drains/Airways Lines: Peripheral IV Line - Single Lumen 01/28/22 1716 cephalic vein (lateral side of arm), right 20 gauge(Active) Indication/Daily Review of Necessity fluid therapy continuous 01/28/222099 Site Preparation/Maintenance dressing: dry and intact 01/28/222099 Securement catheter stabilization device, secured with 01/28/222099 Patency/Maintenance flushed without difficulty;infusing 01/28/222099 Phlebitis 0-->no symptoms 01/29/22 040 Infiltration 0-->no symptoms 01/29/22399 Site Signs/Symptoms no redness;no swelling;no pain;no warmth;no palpable cord;no drainage;no streakformation 01/28/222099 Peripheral IV Line - Single Lumen 01/28/22 2311 basilic vein (medial side of arm), left 18 gauge (Active) Phlebitis 0-->no symptoms 01/29/22 040 Infiltration 0-->no symptoms 01/29/22 0400 Labs: Recent Labs 01/31/22 0415 01/30/22 0345 01/29/22 0556 01/28/22 1756 WBC 5.6 7.0 7.5 7.3 HGB 13.3 14.0 15.2 15.4 HCT 38.7 41.0 44.0 44.9 PLATELET 215 246 266 272 MCV 81.0* 81.5* 79.9* 79.2* Recent Labs 01/31/22 0415 01/30/22 0345 01/29/22 0556 01/28/22 1756 NA 138 139 139 139 CL 106 106 105 106 CO2 21* K 4.3 4.1 4.0 4.0 MAGNESIUM 0.82 0.85 0.92 -- CALCIUM 9.6 9.4 9.9 10.0 BUN 23* 29* 14 13 CREATININE 0.92 0.93 0.78 0.65* Cardiac Enzymes Recent Labs 01/29/22 0556 01/29/22 0010 01/28/22 1756 TROPONINT 0.26* 0.37* 0.49* PROBNP -- -- 5,691* Microbiology: none Imaging: Bedside echocardiogram (by Dr. Sotelo) on 01/28/22 - LVEF 45 to 50% with apical and distal anteroseptal wall akinesis - RV function intact - Mild 01/29 TTE - LVEF of 60%, hypokinetic apex, PASP 34mmHg, aortic valve appears sclerotic with mild regurgitation Medications Scheduled Meds: ??? metoproloL tartrate 12.5 mg Oral Q8H ??? atorvastatin 80 mg Oral QPM ??? sodium chloride 0.9 % (flush) 5 mL Intravenous BID ??? aspirin 81 mg Oral Daily Continuous Infusions: ??? heparin (porcine) infusion 800 Units/hr (01/31/22 0600) PRN Meds:.influenza vaccine (65 YRS+)(PF), aspirin, fentaNYL (PF), midazolam (PF), nitroGLYcerin, verapamiL, heparin (porcine), heparin (porcine) infusion AND heparin (porcine), sodium chloride 0.9 % (flush), lidocaine, nitroGLYcerin Assessment & Plan: Shellie Lyon is a 71 y.o. female w/ PMH of HTN and osteoarthritis who presented to [facility] with chestpain with c/f NSTEMI s/p C which showed significant distal left main disease requiring bypass surgery on HD# 3. Cardiovascular #NSTEMI There is concern for plaque rupture [place] vs. stress cardiomyopathy based on intermittent chest pain and EKG with anterolateral changes. Trop T is elevated to 0.49. LHC showed significant distal left main disease requiring bypass surgery. Dx: - Bedside echocardiogram by Dr. Sotelo showed a LVEF of 45 to 50% with apical and distal anteroseptal WMAs. - TTE on 01/29 showed LVEF of 60%, hypokinetic apex, PASP 34mmHg, aortic valve appears sclerotic with mild regurgitation - Trop I 3433 --> 5846 - Trop T 0.49 --> 0.37 --> 0.26 - proBNP: 5,691 - LHC showed significant distal left main disease, she will be referred to CT surgery for bypass - Risk stratification: -- TSH: pending -- Hba1c: 5.8 -- Lipid Panel: Chol 245, HDL 55, LDL 164 (high risk) Tx: - Loaded with aspirin 324 mg x1 and plavix 300 mg x1 on 01/28 - Restarted hep gtt - Continue aspirin 81 mg qd - Continue atorvastatin 80mg qhs - Discontinued plavix - Cardiac surgery likely 02/01; completed pre-op labs requested by cardiac surgery - Trend troponins/EKGs #HTN - Will hold home amlodipine 5mg and losartan 25mg qd - Continue metoprolol 12.5mg q8h - Nitroglycerin PRN for chest pain #Routine - Diet: Cardiac diet - Activity goal for today: Active ROM -Thromboprophylaxis: heparin gtt - Ulcer prophylaxis: not indicated - Bowel regimen: Last Bowel Movement: 01/29/22 - Code Status: Attempt Cardiopulmonary Resuscitation - Inpatient - Dispo: will need bypass surgery for left main disease Amy Meredith MD Internal Medicine, PGY-1 Cardiology, M1-S1 #3011 01/31/22 6:34 AM Cardiology Staff Addendum ?? Shellie Lyon??is a 71 y.o.??female??whom I saw today with Dr. Meredith. The assessment and plan were formulated in discussion with me. ?? In brief, patient referred for early invasive management of non-STEMI, found to have a distal left main disease. ??Preserved global LVEF with apical akinesis, mild mixed aortic valve disease. ??Currently chest pain-free, resting comfortably without complaints. ??For cardiac surgery , tomorrow, with Dr. Eugene, delayed due to Plavix load on day of admission. ?? Avril Lyman MD, CORI, FACC, FACP, FASE Cardiovascular Medicine * Prerna Lino RN - 01/30/2022 11:16 AM EDT I have met with the patient to: ?? discuss discharge planning needs. ?? provide the [facility], Office of Care Management letter from the Diagnostic Technician pertaining to rehabreferrals. ?? provide a letter describing our affiliations within the [facility] and educate about their right to choose where referrals are sent. ?? provide a list of Home Health Agencies / Durable Medical Equipment vendors which serve their preferred geographic area. ?? provided patient with [facility] Star Quality Rating handout. They have requested referrals to: [facility]. [address] [place] [address] PHONE: [phone] FAX: [phone] Note routed to a [employer] who will communicate referrals to facilities and provide any required information. Patient reported to this CM that she has a composting toilet at home be her home is build on [address].She does not live off the grid. She mentioned concerns about monitoring her urine/stool for any bleeding at home due to the toilet and was advised she could be provided with a hat to take home to monitor for this. * Avril Lyman MD - 01/30/2022 7:49 AM EDT Images from the original note were not included. Cardiology ICU Progress Note Patient info: Name: Shellie Lyon : 1950 PCP: Kerri Pearce APRN PCP phone number: [phone] Date of Admission: 01/28/2022 ( Hospital Day 2 days ) Attending:Avril Lyman MD ID: Shellie Lyon is a 71 y.o. female w/ PMH of HTN (on losartan and amlodipine) and OA who presented to [facility] with chest pain on Hospital Day2. 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 heparin (porcine) infusion 800 Units/hr (01/30/22 0618) Objective: Vitals Last value Range last 24 hrs Temperature Temp: 36.8 ??C (98.2 ??F) Temp: [36.6 ??C (97.9 ??F)-37 ??C (98.6 ??F)] Heart Rate Heart Rate: 60 Heart Rate: [56-71] Blood Pressure BP: 107/66 BP: (88-119)/(45-77) Art Line BP BP (Arterial Line): -- MAP (NBP): [61 mmHg-88 mmHg] Respiratory Rate Resp: 14 Resp: [14-16] SpO2 SpO2: 99 % SpO2: [95 %-99 %] Oxygen Delivery Oxygen Therapy O2 Device: None (Room air) Intake/Output Summary (Last 24 hours) at 01/30/2022 1548 Last data filed at 01/30/2022 0300 Gross per 24 hour Intake 226.53 ml Output 0 ml Net 226.53 ml Patient Vitals for the past 168 hrs: Weight 01/30/22 0327 67 kg (147 lb 9.6 oz) 01/29/22 0600 67.1 kg (147 lb 14.9 oz) 01/28/22 1739 67.1 kg (148 lb) Admit wt: 67.13 kg Physical Exam: Gen: in bed, in NAD HEENT: anicteric, EOMI intact, CV: RRR, S1/S2, 3/6 systolic crescendo-decrescendo murmur heard throughout the precordium Resp: CTAB, no crackles/wheezes/ronchi, normal work of breathing Abd: normal bowel sounds, soft, non-tender to palpation, no rebound or guarding Ext: 2+ distal pulses, no pedal edema Neuro: no focal deficits noted, CN II-XII grossly intact, moves all extremities spontaneously Psych: cooperative. Skin: no rashes, lesions, or ulcerations noted Lines/Drains/Airways Lines: Peripheral IV Line - Single Lumen 01/28/22 1716 cephalic vein (lateral side of arm), right 20 gauge(Active) Indication/Daily Review of Necessity fluid therapy continuous 01/28/222099 Site Preparation/Maintenance dressing: dry and intact 01/28/222099 Securement catheter stabilization device, secured with 01/28/222099 Patency/Maintenance flushed without difficulty;infusing 01/28/22 2100 Phlebitis 0-->no symptoms 01/29/22 040 Infiltration 0-->no symptoms 01/29/22 0400 Site Signs/Symptoms no redness;no swelling;no pain;no warmth;no palpable cord;no drainage;no streakformation 01/28/222099 Peripheral IV Line - Single Lumen 01/28/22 2311 basilic vein (medial side of arm), left 18 gauge (Active) Phlebitis 0-->no symptoms 01/29/22 040 Infiltration 0-->no symptoms 01/29/22 0400 Labs: Recent Labs 01/30/22 0345 01/29/22 0556 01/28/22 1756 WBC 7.0 7.5 7.3 HGB 14.0 15.2 15.4 HCT 41.0 44.0 44.9 PLATELET 246 266 272 MCV 81.5* 79.9* 79.2* Recent Labs 01/30/22 0345 01/29/22 0556 01/28/22 1756 NA 139 139 139 CL 106 105 106 CO2 22 23 21* K 4.1 4.0 4.0 MAGNESIUM 0.85 0.92 -- CALCIUM 9.4 9.9 10.0 BUN 29* 14 13 CREATININE 0.93 0.78 0.65* Cardiac Enzymes Recent Labs 01/29/22 0556 01/29/22 0010 01/28/22 1756 TROPONINT 0.26* 0.37* 0.49* PROBNP -- -- ,691* Microbiology: none Imaging: Bedside echocardiogram (by Dr. Sotelo) on 01/28/22 - LVEF 45 to 50% with apical and distal anteroseptal wall akinesis - RV function intact - Mild Medications Scheduled Meds: ??? metoproloL tartrate 12.5 mg Oral Q8H ??? atorvastatin 80 mg Oral QPM ??? sodium chloride 0.9 % (flush) 5 mL Intravenous BID ??? aspirin 81 mg Oral Daily Continuous Infusions: ??? heparin (porcine) infusion 800 Units/hr (01/30/22 0618) PRN Meds:.influenza vaccine (65 YRS+)(PF), aspirin, fentaNYL (PF), midazolam (PF), nitroGLYcerin, verapamiL, heparin (porcine), heparin (porcine) infusion AND heparin (porcine), sodium chloride 0.9 % (flush), lidocaine, nitroGLYcerin Assessment & Plan: Shellie Lyon is a 71 y.o. female w/ PMH of HTN and osteoarthritis who presented to [facility] with chestpain with c/f NSTEMI on HD# 2. Cardiovascular #NSTEMI There is concern for plaque rupture [place] vs. stress cardiomyopathy based on intermittent chest pain and EKG with anterolateral changes. Trop T is elevated to 0.49. LHC deferred to am. 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 Dx: - Bedside echocardiogram by Dr. Sotelo showed a LVEF of 45 to 50% with apical and distal anteroseptal WMAs. - TTE on 01/29 showed LVEF of 60%, hypokinetic apex, PASP 34mmHg, aortic valve appears sclerotic with mild regurgitation - Trop I 3433 --> 5846 - Trop T 0.49 --> 0.37 --> 0.26 - proBNP: ,691 - LHC showed significant distal left main disease, she will be referred to CT surgery for bypass - Risk stratification: -- TSH: pending -- Hba1c: 5.8 -- Lipid Panel: Chol 245, HDL 55, LDL 164 (high risk) Tx: - Loaded with aspirin 324 mg x1 and plavix 300 mg x1 on 01/28 - Restarted hep gtt - Continue aspirin 81 mg Qday - Continue atorvastatin 80mg qhs - Discontinued plavix - Cardiac surgery likely 02/01; will need pre-op CXR, LFTs, UA, T&S, Coags - Trend troponins/EKGs #HTN - Will hold home amlodipine 5mg and losartan 25mg qd - Start metoprolol 12.5mg q6h - Nitroglycerin PRN for chest pain #Routine - Diet: Cardiac diet - Activity goal for today: Active ROM -Thromboprophylaxis: heparin gtt - Ulcer prophylaxis: not indicated - Bowel regimen: Last Bowel Movement: 01/29/22 - Code Status: Attempt Cardiopulmonary Resuscitation - Inpatient - Dispo: will need bypass surgery for left main disease Amy Meredith MD Internal Medicine, PGY-1 Cardiology, M1-S1 #3011 01/30/22 3:48 PM Cardiology Staff Addendum ?? Shellie Lyon is a 71 y.o. female whom I saw today with Dr. Meredith. The assessment and plan were formulated in discussion with me. ?? In brief, patient referred for early invasive management of non-STEMI, found to have a distal left main disease. Preserved global LVEF with apical akinesis, mild mixed aortic valve disease. Currentlychest pain-free, resting comfortably without complaints. For cardiac surgery . Patient received Plavix load 2 days ago. ?? Avril Lyman MD, CORI, FACC, FACP, FASE Cardiovascular Medicine * Vinny Slade - 01/29/2022 2:05 PM EDT Post Cardiac Catheterization Check Note Subjective: No chest pain, dyspnea, hand/arm pain. No rash. No weakness/numbness/tingling. No bleeding/swelling from access site. Objective: Blood pressure 109/84, pulse 61, temperature 36.6 ??C (97.9 ??F), temperature source Oral, resp. rate 14, height 162.6 cm (5' 4), weight 67.1 kg (147 lb 14.9 oz), SpO2 97 %. General: Lying in bed in NAD. Site: access site without hematoma or ecchymoses. dressing c/d/i. No bruit. Nontender. Extrem: no livedo reticularis, warm/symmetric, sensation intact/symmetric, symmetric 2+ radial pulses. A/P: s/p cath with benign-appearing right radial femoral access site and no issues Vinny Slade MD * Avril Lyman MD - 01/29/2022 5:38 AM EDT Images from the original note were not included. Cardiology ICU Progress Note Patient info: Name: Shellie Lyon : 1950 PCP: Kirit Garcia MD (Inactive) PCP phone number: [phone] Date of Admission: 01/28/2022 ( Hospital Day 1 day ) Attending:Avril Lyman MD ID: Shellie Lyon is a 71 y.o. female w/ PMH of HTN (on losartan and amlodipine) and OA who presented to [facility] with chest pain on Hospital Day1. 24 Hour Events/Subjective: Yesterday: EKG with evolving ST changes in anterolateral leads Overnight: ASHER This AM: taken to director of cardiac cath lab first thing in the morning, no chest pain, SOB, remained afebrile, BP systolic in 100-120s Vasoactive & Sedating Medications: Infusions: Continuous Infusions: ??? heparin (porcine) infusion 950 Units/hr (01/29/22 0600) Objective: Vitals Last value Range last 24 hrs Temperature Temp: 36.6 ??C (97.9 ??F) Temp: [36.6 ??C (97.9 ??F)-36.9 ??C (98.4 ??F)] Heart Rate Heart Rate: 61 Heart Rate: [54-79] Blood Pressure BP: 109/84 BP: (109-147)/(62-97) Art Line BP BP (Arterial Line): -- MAP (NBP): [71 mmHg-113 mmHg] Respiratory Rate Resp: 14 Resp: [13-18] SpO2 SpO2: 97 % SpO2: [95 %-99 %] Oxygen Delivery Oxygen Therapy O2 Device: None (Room air) Intake/Output Summary (Last 24 hours) at 01/29/2022 1323 Last data filed at 01/29/2022 1200 Gross per 24 hour Intake 10 ml Output 350 ml Net -340 ml Patient Vitals for the past 168 hrs: Weight 01/29/22 0600 67.1 kg (147 lb 14.9 oz) 01/28/22 1739 67.1 kg (148 lb) Admit wt: 67.13 kg Physical Exam: Gen: in bed, in NAD HEENT: anicteric, EOMI intact, CV: RRR, S1/S2, 3/6 systolic crescendo-decrescendo murmur heard throughout the precordium Resp: CTAB, no crackles/wheezes/ronchi, normal work of breathing Abd: normal bowel sounds, soft, non-tender to palpation, no rebound or guarding Ext: 2+ distal pulses, no pedal edema Neuro: no focal deficits noted, CN II-XII grossly intact, moves all extremities spontaneously Psych: cooperative. Skin: no rashes, lesions, or ulcerations noted Lines/Drains/Airways Lines: Peripheral IV Line - Single Lumen 01/28/22 1716 cephalic vein (lateral side of arm), right 20 gauge(Active) Indication/Daily Review of Necessity fluid therapy continuous 01/28/222099 Site Preparation/Maintenance dressing: dry and intact 01/28/222099 Securement catheter stabilization device, secured with 01/28/222099 Patency/Maintenance flushed without difficulty;infusing 01/28/222099 Phlebitis 0-->no symptoms 01/29/22399 Infiltration 0-->no symptoms 01/29/22399 Site Signs/Symptoms no redness;no swelling;no pain;no warmth;no palpable cord;no drainage;no streakformation 01/28/222099 Peripheral IV Line - Single Lumen 01/28/22 2311 basilic vein (medial side of arm), left 18 gauge (Active) Phlebitis 0-->no symptoms 01/29/22 0400 Infiltration 0-->no symptoms 01/29/22 0400 Labs: Recent Labs 01/29/22 0556 01/28/22 1756 WBC 7.5 7.3 HGB 15.2 15.4 HCT 44.0 44.9 PLATELET 266 272 MCV 79.9* 79.2* Recent Labs 01/29/22 0556 01/28/22 1756 NA 139 139 CL 105 106 CO2 23 21* K 4.0 4.0 MAGNESIUM 0.92 -- CALCIUM 9.9 10.0 BUN 14 13 CREATININE 0.78 0.65* Cardiac Enzymes Recent Labs 01/29/22 0556 01/29/22 0010 01/28/22 1756 TROPONINT 0.26* 0.37* 0.49* PROBNP -- -- 5,691* Microbiology: none Imaging: Bedside echocardiogram (by Dr. Sotelo) on 01/28/22 - LVEF 45 to 50% with apical and distal anteroseptal wall akinesis - RV function intact - Mild Medications Scheduled Meds: ??? metoproloL tartrate 12.5 mg Oral Q8H ??? atorvastatin 80 mg Oral QPM ??? sodium chloride 0.9 % (flush) 5 mL Intravenous BID ??? aspirin 81 mg Oral Daily Continuous Infusions: ??? heparin (porcine) infusion 950 Units/hr (01/29/22 0600) PRN Meds:.influenza vaccine (65 YRS+)(PF), aspirin, fentaNYL (PF), midazolam (PF), nitroGLYcerin, verapamiL, heparin (porcine), heparin (porcine) infusion AND heparin (porcine), sodium chloride 0.9 % (flush), lidocaine, nitroGLYcerin Assessment & Plan: Shellie Lyon is a 71 y.o. female w/ PMH of HTN and osteoarthritis who presented to [facility] with chestpain with c/f NSTEMI on HD# 1. Neuro #Not intubated or sedated -- No active issues Cardiovascular #NSTEMI There is concern for plaque rupture [place] vs. Stress cardiomyopathy based on intermittent chest pain and EKG. There are evolving anterolateral ST changes that are concerning. Trop T is elevated to 0.49.She is, however, completely pain-free since this morning and is not on nitroglycerin. Following discussion with on-call interventionalist on-call and given her completely pain-free presentation and hemodynamic stability, LHC deferred to am. LHC showed significant distal left main disease requiring bypass surgery. Dx: - Bedside echocardiogram by Dr. Sotelo showed a LVEF of 45 to 50% with apical and distal anteroseptal WMAs. - Trop I 3433 --> 5846 - Trop T 0.49 --> 0.37 --> 0.26 - proBNP: 5,691 - LHC showed significant distal left main disease, she will be referred to CT surgery for bypass - TTE on 01/29 showed LVEF of 60%, hypokinetic apex, PASP 34mmHg, aortic valve appears sclerotic with mild regurgitation - Risk stratification: -- TSH: pending --Hba1c: 5.8 -- Lipid Panel: Chol 245, HDL 55, LDL 164 (high risk) Tx: - Loaded with aspirin 324 mg x1 and plavix 300 mg x1 on 01/28 - Restart hep gtt after cath check @ 1400 - Trend troponins/EKGs - Continue aspirin 81 mg Qday - Discontinue plavix - Start atorvastatin 80mg qhs - Consult to CT surgery, f/u recs #HTN - Will hold home amlodipine 5mg and losartan 25mg qd - Start metoprolol 12.5mg q6h - Nitroglycerin PRN for chest pain Pulmonary #SHANEKA Renal/Fluid/Electrolytes #SHANEKA Gastrointestinal/Metabolic/Nutrition #SHANEKA Hematology #SHANEKA Infection #SHANEKA #Routine - Diet: Cardiac diet -Activity goal for today: Active ROM -Sedation/Analgesia: none -Thromboprophylaxis: None heparin gtt if post cath check is normal -Hyperoxia: titrate to lowest possible support to target SpO2 > 92% -Ulcer prophylaxis: not indicated -Glycemic control: per ICU protocol -Bowel regimen: Last Bowel Movement: 01/29/22 -Indwelling devices: none -Code Status: Attempt Cardiopulmonary Resuscitation - Inpatient Family: Dispo: will need bypass surgery for left main disease Amy Meredith MD Internal Medicine, PGY-1 Cardiology, M1-S1 #3011 01/29/22 1:23 PM Cardiology Staff Addendum Shellie Lyon is a 71 y.o. female whom I saw today with Dr. Meredith. I have personally interviewed and examined the patient and reviewed appropriate data, including labs, ECGs, and other diagnostic studies. I agree with the principal findings documented above, with additions and exceptions as below. The assessment and plan were formulated in discussion with me. In brief, patient referred for early invasive management of non-STEMI, found to have a distal left main disease. Preserved global LVEF with apical akinesis, mild mixed aortic valve disease. Currentlychest pain-free, resting comfortably without complaints. For cardiac surgery evaluation today. Patient received Plavix load yesterday morning. Case discussed with Dr. Eugene and Dr. Cedillo. Avril Lyman MD, CORI, FACC, FACP, FASE Cardiovascular Medicine * Tre Monsalve MD - 01/29/2022 5:31 AM EDT Cardiology Brief Note The patient's case was reviewed with on-call interventional attending Dr. Grayson upon patient arrival on night of 01/28. The patient's symptoms started the night of 01/27 and symptoms resolved the morning of 01/28 at OSH ED. The ECG showed subtle ST segment abnormalities in the anterolateral leads and troponin was drastically elevating. She arrived to [facility] at 7pm and was chest pain free and very comfortable. I performed a bedside echocardiogram that showed the anteroapex and lateral apex was akinetic, preserved LV EF, mild AI. Decision was made to schedule cardiac cath for the following morning as this was not believed to be a STEMI given her lack of chest pain for over 12 hours, the now downtre nding troponin, the lack of evolving ST segment elevation and lack of Q wave formation. She was moved to the cardiac ICU for close monitoring. Throughout the night, she had no further episode of chest pain and was very comfortable, hemodynamically stable, no ventricular arrhythmias, no heart failure symptoms. Troponin-T had downtrended from 0.49 to 0.37. A repeat ECG now showed new deep broad T wave inversions in the anterolateral leads. This is believed to represent the apical infarct seen on echocardiogram on arrival and was re- demonstrated again on bedside echo. Plan for cardiac catherization first thing in the morning, director of cardiac cath lab is aware. Tre Monsalve MD Oil Filters Inspector * Nancie Almanzar RN - 01/28/2022 7:45 PM EDT Report received from day RN. Patient A&OX4 MAKEDA FCX4, denies any SOB to CP at the time. Patientcontinues on heparin drip. ECG done with no change from previous. Discussed with Dr. Sotelo about planof care, and ordered to transfer to [facility]. Patient transferred and report given to KYM El. Patient had all belongings and none left in the room. given new room number and he left for the night. He would like to be called when director of cardiac cath lab has a scheduled time. documented in this encounter H&P Notes * Avril Lyman MD - 01/28/2022 8:34 PM EDT CARDIOLOGY ADMISSION H&P Patient Name: Shellie Lyon Service: Cardiology S1 Team Responsible Attending: Avril Lyman MD PCP: Kirit Garcia MD (Inactive) PCP phone #: [phone] ID/Chief Complaint: Chest pain History of Present Illness: Ms. Lyon is a 71F with a prior history of HTN who presented to [facility] with chest pain. She notes that yesterday morning, she was at her daughter's house cleaning the floor when she notedthat she had an episode of L-sided, pressure-like, substernal chest pain that did not radiate. She noted that she had never had pain like this before. She went to the car and with rest, her pain subsided. Today, she got up and went to grab laundry from the second story of her home. At the top of the stairwell, she had a recurrence of the pressure-like chest pain that improved with rest. She immediately called her who then called an ambulance that took her to [facility]. She denies any prior cardiac history or chest pain in the past. She only has a history of HTN, for which she takes losartan and amlodipine. She is not a known diabetic and notes that she has borderline elevated cholesterol. She is a never smoker. OSH labs prior to transfer: Cardiac enzymes: Trop I 3433 --> 5846 Other labs: Hgb 14.7 Plt 242 ?? Cr 0.9 Allergies: No Known Allergies Medical history - HTN, osteoarthritis Social history - to her , Gold. Previously worked as an X-Ray tech until 2014. She is a never smoker, no EtOH or drugs. Family history - Father due to coronary disease in his 60s. Vitals: Last value Range last 24 hrs Temperature Temp: 36.9 ??C (98.4 ??F) Temp: [36.9 ??C (98.4 ??F)] Heart Rate Heart Rate: 67 Heart Rate: [67-72] Blood Pressure BP: 147/85 BP: (110-147)/(85-97) Respiratory Rate Resp: 16 Resp: [16-18] SpO2 SpO2: 98 % SpO2: [98 %] Examination: Gen: Older female in NAD, A&Ox3 HEENT: MMM, no JVD at 30 degrees CV: RRR, S1/S2, 3/6 systolic crescendo-decrescendo murmur heard throughout the precordium Lungs: CTAB no wrr Abd: Soft, non-tender Extrem: Warm, non-edematous Laboratory: CBC: Recent Labs 01/28/22 1756 WBC 7.3 HGB 15.4 PLATELET 272 Chemistry: Recent Labs 01/28/22 1756 NA 139 K 4.0 CL 106 CO2 21* BUN 13 CREATININE 0.65* GLUCOSE 117 Recent Labs 01/28/22 1756 CALCIUM 10.0 Cardiac enzymes: Recent Labs 01/28/22 1756 TROPONINT 0.49* Diagnostic Studies: Bedside echocardiogram (by myself) on 01/28/22 - LVEF 45 to 50% with apical and distal anteroseptal wall akinesis - RV function intact - Mild ASSESSMENT: Ms. Lyon is a 71F with a prior history of HTN who presented to [facility] with chest pain. PLAN: #NSTEMI - Based on presentation and EKG, concern for plaque rupture [place]. A stress cardiomyopathy is certainly also possible. There are evolving anterolateral ST changes that are concerning. Trop T is elevatedto 0.49. She is, however, completely pain-free since this morning and is not on nitroglycerin. - Following discussion with our interventionalist on-call and given her completely pain-free presentation and hemodynamic stability, we have opted to cath her in the AM. However, with any clinical changes, we certainly can opt to cath her sooner. - Bedside echocardiogram by myself showed a LVEF of 45 to 50% with apical and distal anteroseptal WMAs. - Continue hep gtt. Loaded with aspirin 324 mg x1 and plavix 300 mg x1 this AM. - Trend troponins/EKGs - Continue aspirin 81 mg Qday and plavix 75 mg Qday - Echo in the AM - Follow up A1c and lipid panel #HTN - Will hold home anti-hypertensives (amlodipine 5 mg and losartan 25 mg Qday) at this time. - Start metoprolol 12.5 mg q6h - Nitro PRN # Others DVT- Hep gtt GI- none Activity- bedrest Nutrition- NPO Cardiology Staff Addendum Shellie Lyon is a 71 y.o. female. I have reviewed appropriate data, including labs, ECGs, and other diagnostic studies. I agree with the principal findings documented above. In brief, patient presents with NSTE-ACS, ECG with dramatic AL TWIs, initial OSH troponin uptrending, but now downtrending, now chest pain free. Has LAD culprit based on TTE performed overnight. Appropriate medical therapiesinitiated. For early invasive management as first case this morning after review by interventional cardiology. Avril Lyman MD, CORI, FACC, FACP, FASE Cardiovascular Medicine documented in this encounter Miscellaneous Notes * Care Management Discharge - Prerna Lino RN - 02/05/2022 9:17 AM EDT CARE MANAGEMENT FINAL DISCHARGE NOTE Chart reviewed, care reviewed with primary team and at interdisciplinary rounds. Patient is medically ready for discharge to home. Needs for Transition of Care: Per discharge summary. Plan for discharge is: Home w/ Services Outpatient Agency/Support Group Needs: Homecare agency Home Health Services: Registered Nurse, Physical Therapy, Occupational Therapy, Anticoagulation monitoring, Wound care Agency Referrals & Follow-up Care: Contact information for follow-up Home Health & Hospice, [place] [id number] [place] [address] Plan for [facility]NA start of care is tomorrow with care team notified. Transportation: family or friend will provide Per nursing, patient to discharge lounge to wait for ride to pick-up at approximately 10 AM. Wheelchair van/Ambulance? No Functional status prior to admission: Independent Home Environment: Others in the home: spouse. Current Living Arrangements: home/apartment/condo. Accessibility Concerns:Cristal lives with her in a 2 story home with a bedroom on the 1st floor that she can stay in. She has 3 steps to enter her home. Current Functional Ability: Assistive Person DME used at home: none DME Needed at Discharge: None Patient is insured through: Primary Insurance: [employer] [facility] [place] MEDICARE Payor: [facility] [place] MEDICARE / Plan: [facility] / Product Type: *No Product type* / Secondary Insurance: N/A Prescription Coverage: Yes This plan was formulated with input from patient, (please identify family/friend involved if applicable) and team. All are in agreement with plan. * Care Management - Prerna Lino RN - 02/01/2022 3:44 PM EDT OFFICE OF CARE MANAGEMENT PROGRESS NOTE LOS: Hospital Day 4 days Chart reviewed, care reviewed with primary team and at interdisciplinary rounds. Patient continues to meet inpatient level of care related to: NSTEMI. Per IDR, patient to OR today for CABG. Decision Maker: Self Functional status prior to admission: Independent Home Environment: Others in the home: spouse. Current Living Arrangements: home/apartment/condo. Accessibility Concerns: Cristal lives with her in a 2 story home with a bedroom on the 1st floor that she can stay in. She has 3 steps to enter her home. Current Functional Ability: Assistive Person DME used at home: none DME Needed at Discharge: None Patient is insured through: Primary Insurance: [employer] [place] MEDICARE Payor: [employer] [place] MEDICARE / Plan: [place] [employer] / Product Type: *No Product type* / Secondary Insurance: N/A Last Physical Therapy Recommendation: with Last Occupational Therapy Recommendation: with Plan for discharge is: Home w/ Services Outpatient Agency/Support Group Needs: Homecare agency Home Health Services: Registered Nurse, Physical Therapy, Occupational Therapy, Anticoagulation monitoring, Wound care Agency Referrals: Not Applicable - [facility] following patient. Transportation: family or friend will provide Barriers to discharge: Denies needs/concerns at this time ICU Needs: ICU specific devices / therapies, mechanically ventilated, vasoactive medications, Q1 hour interventions Plan going forward: Care Management will continue to follow and assist with discharge planning and coordination of care as indicated. 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%, small coronaries Procedure(s) (LRB): ENDOSCOPIC HARVEST VEIN(S) FOR CABG (WRVU 0.31) (N/A) @CABG, USING ARTERIAL GRAFT;SINGLE ARTERIAL GRAFT (WRVU 33.75) (N/A) @CABG, VENOUS & ARTERIAL GRAFT;SINGLE VEIN GRAFT (WRVU 3.61) (N/A) CABG x 2 US->LAD SVG-> OM2 Endo vein from RLE Anesthesia: General / Morse Findings: LM ASCAD, 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%, small coronaries Estimated Blood Loss: Cell Saver Specimens removed during surgery: None Fluids: Intraprocedure Crystalloid Total Intake Sodium Chloride 0.9% 900.00 mL Cell Saver Volume 632 mL Total Intake 1532 mL Output Urine Output 80 mL Total Output 80 mL Net Net Volume 1452 mL PRBCs: none (See Anesthesia Record/Report for Other Blood Products) Urine Output: 80 mL Drains: Mediastinal and Pleural Disposition: CVCC Condition: doing well without problems Attestation: Case Date: 02/01/2022 I was present and I participated during the entire procedure (does not need to include opening and closing). HONG EUGENE MD 02/01/2022 * Op Note - Hong Eugene MD - 02/01/2022 8:22 AM EDT [facility] Operative Note Patient Name: Shellie Lyon : [id number] MR#: [id number] Case Date: 02/01/2022 Surgeon: Surgeon(s) and Role: * Hong Eugene MD - Primary * Alexandre Jamison PA - Physician Film Loader * Joan Fuller PA - Physician Film Loader ?? Preoperative diagnosis: NSTEMI, LM ASCAD ?? Postoperative diagnosis: LM ASCAD, 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%, small coronaries ?? Procedure(s) (LRB): ENDOSCOPIC HARVEST VEIN(S) FOR CABG (WRVU 0.31) (N/A) @CABG, USING ARTERIAL GRAFT;SINGLE ARTERIAL GRAFT (WRVU 33.75) (N/A) @CABG, VENOUS & ARTERIAL GRAFT;SINGLE VEIN GRAFT (WRVU 3.61) (N/A) ?? CABG x 2 SU->LAD SVG-> OM2 ?? Endo vein from RLE ?? Anesthesia: General / Morse ?? Findings: LM ASCAD, 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%, small coronaries ? Estimated Blood Loss: Cell Saver ? Specimens removed during surgery: None Fluids: Intraprocedure Crystalloid Total Intake Sodium Chloride 0.9% 900.00 mL Cell Saver Volume 632 mL Total Intake 1532 mL Output Urine Output 80 mL Total Output 80 mL Net Net Volume 1452 mL ?? PRBCs: none (See Anesthesia Record/Report for Other Blood Products) Urine Output: 80 mL ?? Drains: Mediastinal and Pleural ?? Disposition: CVCC ?? Procedure Description: The patient was brought to the operating room and placed on the operating table in supine position.Following the induction of a general anesthetic by endotracheal technique and the placement of appropriate monitoring lines she was prepped and draped using a sterile prep. Simultaneous incisions were made in her midsternal region as well as in the lower extremity. The incision in the lower extremity was utilized to obtain pieces of the greater saphenous vein using a combination of open and endoscopic techniques. The vein was harvested prepared for anastomosis and set aside. The lower extremitywounds were then closed using a layered absorbable suture closure. The wound in the midsternum was carried down through the sternum which was divided with a saw. The left hemisternum was then elevated with a mammary artery retractor and the mammary artery was dissected from the endothoracic fascia using Bovie electrocautery taking significant branches with hemoclips. The distal cut end of the US had excellent flow, it was wrapped in a verapamil soaked gauze and set aside. The mammary artery retractor was then replaced with a standard sternal retractor. The pericardium was opened. She was heparinized and cannulated for bypass. She was brought on bypass. The aorta was crossclamped. The heart was arrested with cold hyperkalemic blood cardioplegia. Additional doses of cardioplegia were given throughout the cross-clamp interval as indicated by any significant rise in myocardial septal temperature, or the return of any cardiac electrical activity. The vein graft to the OM was performed first using a 4 mm arteriotomy in a running 7-0 Prolene suture. The proximal anastomosis was then completed with a 4 mm aortic punch and running 6-0 Prolene suture. While the patient was being rewarmed on bypass the end of the US was anastomosed to the side of the mid LAD using a running 8-0 Prolenesuture and a 4 mm arteriotomy. The atraumatic clip on the US pedicle was removed at the completion of this anastomosis and the heart promptly resuscitated indicating good flow through the US. Thecross- clamp was then removed. She was electrically defibrillated and fully rewarmed on bypass. Epicardial and right atrial pacing wires were positioned. Once rewarmed on bypass she was frombypass without significant difficulty. The above echo findings are noted. Protamine sulfate was administered. She was decannulated. Mediastinal and pleural drainage catheters were positioned. Hemostasis was secured. The sternum was reapproximated with surgical wire. Soft tissues anterior to the sternum were reapproximated using a layered absorbable suture closure. Sterile dressings were applied. She was taken to the cardiothoracic intensive care unit in hemodynamically stable condition. Attestation: Case Date: 02/01/2022 I was present and I participated during the entire procedure (does not need to include opening and closing). HONG EUGENE MD 02/06/2022 * Consult Note - Hong Eugene MD - 01/29/2022 1:39 PM EDT Cardiac Surgery Consultation Note Shellie Lyon is seen at the request of Cardiology for the evaluation of Lmain CAD. HPI: Shellie Lyon is a 71 y.o. female with PMH of HTN, OA who has been admitted to hospital for NSTEMI.Cath 01/29 revealed Lmain ds 60%. Echo ef 60% hypokinetic apex. Cr 0.78. She was loaded on plavix 01/28. She is chest pain free. Denies chest pain, dyspnea, orthopnea, PND, lightheadedness, syncope, palpitations, cough, edema, nausea, vomiting, diaphoresis, weight gain ROS Problem List: Patient Active Problem List Diagnosis ??? NSTEMI (non-ST elevated myocardial infarction) ??? Inflamed seborrheic keratosis Past Medical History: No past medical history on file. Denies: stroke, thyroid disease, COPD, diabetes, cancer, coagulopathy, hepatic or renal dysfunction Past Surgical History: No past surgical history on file. Denies previous chest surgery, abdominal surgery, vein, or other vascular surgery Social History: Social History Tobacco Use ??? Smoking status: Never Smoker ??? Smokeless tobacco: Never Used Substance Use Topics ??? Alcohol use: Not Currently ??? Drug use: Not Currently Social History Social History Narrative ??? Not on file Work - retired [employer] Family - lives with Smoking - never ETOH - 3 drinks a month Illicit drug use - denies Synagogue - denies Family History: No family history on file. Meds Prior to Admission: No medications prior to admission. Current Meds: Scheduled Meds: ??? metoproloL tartrate 12.5 mg Oral Q8H ??? atorvastatin 80 mg Oral QPM ??? sodium chloride 0.9 % (flush) 5 mL Intravenous BID ??? aspirin 81 mg Oral Daily Continuous Infusions: ??? heparin (porcine) infusion 950 Units/hr (01/29/22 0600) PRN Meds:.influenza vaccine (65 YRS+)(PF), aspirin, fentaNYL (PF), midazolam (PF), nitroGLYcerin, verapamiL, heparin (porcine), heparin (porcine) infusion AND heparin (porcine), sodium chloride 0.9 % (flush), lidocaine, nitroGLYcerin Allergies: Allergies Allergen Reactions ??? Adhesive Rash Physical Exam: BP 109/84 (BP Location (NBP): Right arm, Patient Position: Sitting) Pulse 61 Temp 36.6 ??C (97.9 ??F) (Oral) Resp 14 Ht 162.6 cm (5' 4) Wt 67.1 kg (147 lb 14.9 oz) SpO2 97% BMI 25.39 kg/m?? General: Sitting in chair. NAD. Appears stated age. Neuro: Awake and alert. CN II-XII intact. Moves all extremities with grossly normal strength. Heart: RRR, S1/S2. no murmurs. Lungs: CTA. no wheezes, crackles, rhonchi. Abdomen: Soft, NT/ND. Normoactive bowel sounds. Extremities: Warm, well perfused, no clubbing, cyanosis, or edema. No varicosities. Diagnostics: Lab Results Component Value Date WBC 7.5 01/29/2022 RBC 5.51 (H) 01/29/2022 HGB 15.2 01/29/2022 HCT 44.0 01/29/2022 PLATELET 266 01/29/2022 No results for input(s): INR in the last 168 hours. Lab Results Component Value Date NA 139 01/29/2022 K 4.0 01/29/2022 CL 105 01/29/2022 CO2 23 01/29/2022 BUN 14 01/29/2022 CREATININE 0.78 01/29/2022 CATH: Conclusions: * Significant stenosis of the left main TTE: Interpretation Summary 1. The left ventricle is normal in chamber size. Global systolic function is normal with LVEF of 60% by Wan's biplane. The apex appears hypokinetic. 2. The right ventricle is normal in size and global systolic function. PASP is estimated to be 34 mmHg. 3. The aortic valve appears sclerotic. There is no evidence for significant stenosis. There is mild regurgitation. 4. There is no prior study available for comparison. See remainder of report for complete findings. ?? Assessment and Plan: 71 y.o. female with PMH of HTN, OA who has been admitted to hospital for NSTEMI. Cath 01/29 revealed Lmain ds 60%. Echo ef 60% hypokinetic apex. Cr 0.78. She was loaded on plavix 01/28. She is chest pain free. -Pre-op BB, ASA, Statin -No further Plavix. -Hold JOCELYN/ARB the day before surgery -CXR, LFTs, UA, T&S, Coags -Surgical candidacy, timing, and/or further recommendations will be determined by the Attending Surgeon, Dr. Eugene As above, patient personally interviewed, all imaging studies personally reviewed. Ms. Lyon is a 71-year-old woman with a chest pain syndrome who ruled in for an NSTEMI and was found to have distalleft main disease. The plan at this point is for open revascularization on the pending any further unforeseen abnormalities in her preadmission work-up. This will give time for her clopidogrel load to dissipate. Hong Eugene MD [phone] Signed: MECHE BERNAL MORGAN 01/29/2022 * Initial Assessments - Quynh Vogel RN - 01/29/2022 12:17 PM EDT Office of Care Management Initial Assessment Quynh Vogel RN reviewed record and discussed patient with Care Team. Source of Information: Team, bedside nurse, medical record, and Patient Introduced self/reviewed role; services accepted. Patient was sitting in bed at this time. 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 She stated that she watches her grandchildren ages 7, 4, and 18 months. Reason for Hospitalization: chest pa Covid Vaccination Status: 1st, 2nd & booster (moderna X4) Last COVID test: Past medical History: No past medical history on file. Hospitalizations Within the Past 30 Days: no previous admission in last 30 days Current Decision-Making Capacity: Self If AD's have not been completed the following surrogate would be surrogate decision maker per [place] surrogate decision making law. (Only good for 180 days) Any patient receiving care in [place] must abide by [place] law. The hierarchy for surrogate decision making is: (a) Patient???s spouse, or civil union partner or common law spouse unless there is a divorce proceeding, separation agreement, or restraining order limiting that person???s relationship with the patient. (b) Any adult son or daughter of the patient. (c) Either parent of the patient. (d) Any adult brother or sister of the patient. (e) Any adult grandchild of the patient. (f) Any grandparent of the patient. (g) Any adult aunt, uncle, niece, or nephew of the patient. (h) A close friend of the patient. (i) The agent with financial power of finance attorney or a conservator appointed in accordance with [place] 464-A. (j) The guardian of the patient???s estate. Advance Care Planning: Attempt Cardiopulmonary Resuscitation - Inpatient <no information> -Advanced Directive: No, declines Current Coping/Education/Information Needs: adonis Current Functional Ability: Assistive Person Functional Status Prior to Admission: Independent Prior ADLs & IADLs: Independent with all ADLs & IADLs Home Environment: Others in the home: spouse. Current Living Arrangements: home/apartment/condo. Accessibility Concerns:Cristal lives with her in a 2 story home with a bedroom on the 1st floor that she can stay in. She has 3 steps to enter her home. Resource / Environmental Concerns: Resource/Environmental Concerns: none Current DME: none Home Address confirmed as: [address] [place] [id number] Social & Family Supports: All names listed below confirmed with patient as current and correct Extended Emergency Contact Information Primary Emergency Contact: Gold Lyon Mobile Relation: Spouse Secondary Emergency Contact: Tanna Bryant Mobile Relation: Child Current Care Provided by: self Provides Primary Care For: no one Caregiver if needed: child(tomas), adult Quality of Family relationships: helpful, involved, supportive Community Resources being provided currently: none Behavioral Health History: history of anxiety and takes nothing for it Substance Use/Abuse listed: Social History Tobacco Use Smoking Status Never Smoker Smokeless Tobacco Never Used In the past year have you used an illegal drug or used a prescription medication for non-medical reasons?: No DAST Score: 0 0 No problems reported 1-2 Low level 3-5 Moderate level 6-8 Substantial level 9- 10 Severe level In the past year have you had 4 or more drinks a day containing alcohol?: No 0 to 7 points: Low risk 8 to 15 points: Medium risk 16 to 19 points: High risk 20 to 40 points: Addiction likely Other Pertinent/Service Specific Information: patient is asking about sternal precautions for when she is discharged. Health/Prescription Coverage: Primary Insurance: N/A [facility] [employer] [id number] Payor: / Secondary Insurance: N/A ; Prescription Coverage: Yes Preferred Pharmacy: [id number] - [place], [place] - [address] [facility] [address] [facility] [address] [facility] [id number] Status: Patient is a : No Primary Care Provider: Kirit Garcia MD (inactive) [phone] Patient/Caregiver Goals of Treatment: return home when medically able to discharge Potential Needs for Transition of Care: none Agency Referrals: Not Applicable Transportation: no concerns Transportation Anticipated: family or friend will provide Concerns to be Addressed: denies needs/concerns at this time Assessment: Patient is admitted to Cardiology service for chest pain Plan: Patient will have a cardiac cath and plan for open heart surgery. A member of the Care Management team will continue to monitor progress, follow for continuity of care and assist with transition of care planning. Quynh RAMIREZ, RN CM Phone: [phone] Pager: [phone] * Plan of Care - Jermaine Sotelo MD - 01/28/2022 5:59 PM EDT Images from the original note were not included. Shellie Lyon is a 71 y.o. female referred for cardiac catheterization by Dr. Lyman for a high-risk NSTEMI. 71F with history of HTN and no prior coronary disease who presents with chest pain, SOB and dizziness. She has had symptoms for several days, that have been off / on. She had symptoms again this morning that prompted her to go to her local ED at [facility]. At [facility], her initial EKG was grossly within normal but her second EKG at 1:16 PM shows evolving anterolateral ST elevations with inferior depressions that are concerning for ischemia. She was not called a STEMI alert at that time. On arrival here at [facility], her initial EKG 5:57 PM showed borderline anterolateral ST elevations. She is pending a LHC. She is currently pain-free and hemodynamically stable. She has been loaded with aspirin/plavix 300mg (at 11:17 AM on 01/28/22) + heparin bolus + gtt. 2+ bilateral radial arteries. Hgb 14.7 Plt 242 Cr 0.9 Trop I [id number] --> [id number] A/P 71 y.o. female here for cardiac catheterization for a high-risk NSTEMI. Will proceed with C. - proceed as planned - consent signed - Loaded with aspirin 324 mg + plavix 300 mg today at 11:17 AM. On a hep gtt. - FULL code -12-Lead ECG reviewed ASA: 4: Patient with severe systemic disease that is a constant threat to life Mallampati: III: only the base of the uvula can be seen Jermaine Sotelo MD General Cardiology 01/28/22 5:59 PM [id number] documented in this encounter Plan of Treatment Scheduled Referrals Name Type Priority Associated Diagnoses Orde r Schedule Referral to Home Health Outpatient Referral Routine S/P CABG x 2 Ordered: 02/05/2022 documented as of this encounter Procedures Procedure Name Priority Date/Time Associated Diagnosis Comments HC POTASSIUM Routine 02/05/2022 3:50 AM EDT HEMOGRAM Routine 02/04/2022 5:37 AM EDT DIFFERENTIAL, AUTOMATED Routine 02/05/20 5:37 AM EDT HC CBC,PLT & AUTO DIFF Routine 5:37 AM EDT BASIC METABOLIC PANEL Routine 02/04/2022 5:37 AM EDT XR CHEST PA AND LATERAL Routine 02/05/20 5:11 AM EDT HC POTASSIUM Routine 02/03/2022 5:58 AM EDT POCT GLUCOSE Routine 02/02/2022 11:41 AM EDT POCT GLUCOSE Routine 02/02/2022 7:49 AM EDT HC TROPONIN T STAT 02/02/2022 1:35 AM EDT HEMOGRAM Routine 02/02/2022 1:35 AM EDT DIFFERENTIAL, AUTOMATED Routine 02/03/20 1:35 AM EDT HC CBC,PLT & AUTO DIFF Routine 09/30/202 2 1:35 AM EDT BASIC METABOLIC PANEL Routine 02/02/2022 1:35 AM EDT POCT GLUCOSE Routine 02/01/2022 11:55 PM EDT POCT GLUCOSE Routine 02/01/2022 8:39 PM EDT EXTUBATE Routine 02/01/2022 4:51 PM EDT BLOOD GAS ARTERIAL POC Routine 4:40 PM EDT HC HEMOGLOBIN, BLOOD Routine 02/01/2022 4:35 PM EDT HC POTASSIUM Routine 02/01/2022 4:35 PM EDT XR CHEST ONE VIEW STAT 02/01/2022 1:5 0 PM EDT BLOOD GAS ARTERIAL POC Routine 1:34 PM EDT EKG 12-LEAD STAT 02/01/2022 1:31 PM EDT S/P CABG x 2 HC HEMOGRAM STAT 02/01/2022 10:50 AM EDT HC PARTIAL THROMBOPLASTIN TIME STAT 02/01/2022 10:50 AM EDT HC PROTHROMBIN TIME STAT 02/01/2022 1 0:50 AM EDT HC FIBRINOGEN TITER STAT 02/01/2022 1 0:50 AM EDT BLOOD GAS ARTERIAL POC Routine 10:47 AM EDT BLOOD GAS ARTERIAL POC Routine 10:28 AM EDT BLOOD GAS ARTERIAL POC Routine 9:57 AM EDT HC HEMOGLOBIN, BLOOD Routine 02/01/2022 9:55 AM EDT PREPARE PLATELETS, APHERESIS STAT 02/01/2022 9:55 AM EDT HC FIBRINOGEN TITER Routine 02/01/2022 9 :55 AM EDT HC PLATELET COUNT Routine 02/01/2022 9:5 5 AM EDT BLOOD GAS ARTERIAL POC Routine 9:31 AM EDT BLOOD GAS VENOUS POC Routine 02/01/2022 9:31 AM EDT BLOOD GAS ARTERIAL POC Routine 8:16 AM EDT Cabg, Artery-Vein, Single ([id number]) 02/01/2022 7:29 AM EDT 2 vessel dz Cabg, Arterial, Single ([id number]) 02/01/2022 7:29 AM EDT 2 vessel dz Endoscopy W/Video-Asst Vein [place], Cabg ([id number]) 02/01/2022 7:29 AM EDT 2 vessel dz PREPARE RBC STAT 02/01/2022 7:05 AM EDT HC UNFRACTIONATED HEPARIN (HEP UFH) Routine 02/01/2022 4:40 AM EDT HEMOGRAM Routine 02/01/2022 4:40 AM EDT DIFFERENTIAL, AUTOMATED Routine 02/02/20 4:40 AM EDT HC VENIPUNCTURE Routine 02/01/2022 4:40 AM EDT HC MAGNESIUM, SERUM Routine 02/01/2022 4 :40 AM EDT BASIC METABOLIC PANEL Routine 02/01/2022 4:40 AM EDT IMPLANTABLE DEVICES SCAN 02/01/2022 12:00 AM EDT XR CHEST PA AND LATERAL Routine 02/01/20 10:40 AM EDT TYPE AND SCREEN VALIDITY Routine 01/31/2022 4:15 AM EDT TSH CASCADE Routine 01/31/2022 4:15 AM EDT ABORH RECHECK STATUS Routine 01/31/2022 4:15 AM EDT HC VENIPUNCTURE Routine 01/31/2022 4:15 AM EDT HEMOGRAM Routine 01/31/2022 4:15 AM EDT DIFFERENTIAL, AUTOMATED Routine 02/01/20 4:15 AM EDT ABO/RH TYPING Routine 01/31/2022 4:15 AM EDT HC PARTIAL THROMBOPLASTIN TIME Routine 01/31/2022 4:15 AM EDT HC PROTHROMBIN TIME Routine 01/31/2022 4 :15 AM EDT HC CBC,PLT & AUTO DIFF Routine 4:15 AM EDT ANTIBODY SCREEN Routine 01/31/2022 4:15 AM EDT HC ANTIBODY DETECTION,CAPTURE-R Routine 01/31/2022 4:15 AM EDT HC MAGNESIUM, SERUM Routine 01/31/2022 4 :15 AM EDT HEPATIC FUNCTION PANEL Routine 4:15 AM EDT BASIC METABOLIC PANEL Routine 01/31/2022 4:15 AM EDT URINALYSIS WITH REFLEX CULTURE Routine 01/31/2022 12:35 AM EDT HC UNFRACTIONATED HEPARIN (HEP UFH) Routine 01/30/2022 3:45 AM EDT HEMOGRAM Routine 01/30/2022 3:45 AM EDT DIFFERENTIAL, AUTOMATED Routine 01/31/20 3:45 AM EDT HC CBC,PLT & AUTO DIFF Routine 3:45 AM EDT HC MAGNESIUM, SERUM Routine 01/30/2022 3 :45 AM EDT BASIC METABOLIC PANEL Routine 01/30/2022 3:45 AM EDT HC VENIPUNCTURE Routine 01/29/2022 9:57 PM EDT CARDIAC CATHETERIZATION Routine 01/30/20 2:43 PM EDT ECHO COMPLETE Routine 01/29/2022 8:22 AM EDT Non-ST elevation myocardial infarction (NSTEMI) HC UNFRACTIONATED HEPARIN (HEP UFH) Routine 01/29/2022 5:56 AM EDT HEMOGRAM Routine 01/29/2022 5:56 AM EDT DIFFERENTIAL, AUTOMATED Routine 01/30/20 5:56 AM EDT HC CBC,PLT & AUTO DIFF Routine 5:56 AM EDT HC TROPONIN T Routine 01/29/2022 5:56 AM EDT HC MAGNESIUM, SERUM Routine 01/29/2022 5 :56 AM EDT BASIC METABOLIC PANEL Routine 01/29/2022 5:56 AM EDT HC UNFRACTIONATED HEPARIN (HEP UFH) Routine 01/29/2022 12:10 AM EDT HC TROPONIN T Routine 01/29/2022 12:10 AM EDT HC LDL CHOLESTEROL, DIRECT Routine 01/29/2022 12:10 AM EDT TYPE AND SCREEN VALIDITY Routine 01/28/2022 6:03 PM EDT ABORH RECHECK STATUS Routine 01/28/2022 6:03 PM EDT ABO/RH TYPING Routine 01/28/2022 6:03 PM EDT ANTIBODY SCREEN Routine 01/28/2022 6:03 PM EDT HC VENIPUNCTURE Routine 01/28/2022 6:03 PM EDT HEPARIN (UNFRACTIONATED) LEVEL STAT 01/28/2022 5:59 PM EDT HEMOGRAM STAT 01/28/2022 5:56 PM EDT DIFFERENTIAL, AUTOMATED STAT 01/29/20 5:56 PM EDT HC CBC,PLT & AUTO DIFF STAT 5:56 PM EDT HC TROPONIN T STAT 01/28/2022 5:56 PM EDT HC PROBNP STAT 01/28/2022 5:56 PM EDT HDL/CHOL PROFILE STAT 01/28/2022 5:56 PM EDT HEMOGLOBIN A1C STAT 01/28/2022 5:56 PM EDT HC VENIPUNCTURE STAT 01/28/2022 5:56 PM EDT EKG 12-LEAD Routine 01/28/2022 5:47 PM EDT Non-ST elevation myocardial infarction (NSTEMI) documented in this encounter Results * Potassium (02/05/2022 3:50 AM EDT) [facility] Potassium 4.4 3.5 - 5.0 mmol/L [facility] Comment: Please note: ??Patients with WBC >100,000 may have falsely elevated Potassium levels. ??For accurate Potassium quantification in these patients send serum separator tube (gold top) for subsequent determinations. ??Contact the Clinical Chemistry Laboratory if there are any questions. Blood 02/05/2022 3:50 AM EDT 02/05/2022 3:56 AM EDT Narrative Resulting Agency Comment Spec In Lab Hong Eugene MD CHEMISTRY ORDERABLE S [facility] [place] [address] * (ABNORMAL) Differential, Automated (02/04/2022 5:37 AM EDT) Neutrophil % 63.7 % [facility] Neutrophil Absolute 5.80 1.70 - 6.10 x10(3)/mc L [facility] Lymph % 27.1 % [facility] Lymphocytes Abs 2.5 0.9 - 3.2 x10(3)/mc L [facility] Monocyte % 7.3 % [facility] Monocyte Abs 0.7 0.3 - 0.9 x10(3)/mc L [facility] Eos % 1.0 % [facility] Eosinophils Abs 0.1 0.0 - 0.4 x10(3)/mc L [facility] Basophil % 0.2 % [facility] Baso Absolute 0.0 0.0 - 0.1 x10(3)/mc L [facility] Immature Gran % 0.70 % [facility] Comment: Immature granulocytes(IG's)percentage and absolute count will include metamyelocytes, myelocytes, and promyelocytes. Blood smears from CBCs yielding IG's will be scanned manually for concordance. If this scan disagrees with the automated IG or if promyelocytes are noted, a manual differential will be performed. Immature Gran Absolute 0.06(H) 0.00 - 0.04 x10(3)/mc L [facility] Blood 02/04/2022 5:37 AM EDT 02/04/2022 5:45 AM EDT Narrative Resulting Agency Comment Spec In Lab Kendall VALLEJO HEMATOLOGY ORDERABLE S [facility] [place] [address] * (ABNORMAL) Hemogram (02/04/2022 5:37 AM EDT) White Blood Cell 9.1 4.0 - 9.5 x10(3)/mc L [facility] Red Blood Cell 3.88(L) 4.00 - 5.21 x10(6)/mc L [facility] Hemoglobin 10.9(L) 11.7 - 15.5 g/dL [facility] Hematocrit 32.4(L) 35.7 - 45.8 % [facility] Mean Cell Volume 83.5 82.6 - 94.4 [facility] Mean Cell Hemoglobin 28.1 27.1 - 32.0 pg [facility] Mean Cell Hemoglobin Concentration 33.6 31.7 - 35.0 g/dL [facility] Platelet 208 145 - 357 x10(3)/mc L [facility] RDW Standard Deviation 42.5 37.0 - 46.0 [facility] RDW coefficient of variation 13.9 11.5 - 14.1 % [facility] Mean Platelet Volume 10.8 7.6 - 12.9 [facility] NRBC% auto 0.0 % [facility] NRBC Absolute 0.000 0.000 - 0.000 x10(3)/mc L [facility] Blood 02/04/2022 5:37 AM EDT 02/04/2022 5:45 AM EDT Narrative Resulting Agency Comment Spec In Lab Kendall VALLEJO HEMATOLOGY ORDERABLE S [facility] [place] [address] * (ABNORMAL) Basic Metabolic Panel (non-fasting) (02/04/2022 5:37 AM EDT) Glucose 115 65 - 199 mg/dL [facility] Comment:Diabetes: >=200 mg/d L plus symptoms Blood Urea Nitrogen 12 8 - 18 mg/dL [facility] Creatinine 0.60(L) 0.70 - 1.20 mg/dL [facility] Sodium 141 135 - 145 mmol/L [facility] Potassium 3.9 3.5 - 5.0 mmol/L [facility] Comment: Please note: ??Patients with WBC >100,000 may have falsely elevated Potassium levels. ??For accurate Potassium quantification in these patients send serum separator tube (gold top) for subsequent determinations. ??Contact the Clinical Chemistry Laboratory if there are any questions. Chloride 106 98 - 107 mmol/L [facility] Carbon Dioxide 26 22 - 31 mmol/L [facility] Anion Gap 9 5 - 15 mmol/L [facility] Calcium 9.0 8.5 - 10.5 mg/dL [facility] Comment:result rechecked-sf Est Glomerular Filtration Rate 97 >=60 mL/min/1. 73 m?? [facility] Comment: This patient's estimated GFR [...] Resulting Agency Comment Spec In Lab Hong Eugene MD CHEMISTRY ORDERABLE S [facility] [place] [address] * XR Chest PA & Lateral (Generic) (02/04/2022 5:11 AM EDT) Anatomical Region Laterality Modality Chest N/A Digital Radiogra phy Impressions 02/04/2022 4:44 PM EDT 1. ??Interval removal of support equipment. No visualized pneumothorax. 2. ??Bilateral, left greater than right, small pleural effusions and basilar atelectasis. Thank you for letting us participate in the care of this patient. ??If you are a health care provider and have any questions regarding this report, please contact the number below. ??For patients who have questions please contact the health director of career services that requested your imaging first. ? Narrative 02/04/2022 4:44 PM EDT EXAMINATION: XR CHEST PA AND LATERAL (GENERIC) CLINICAL HISTORY: s/p AVR Per review the patient's EMR, patient is status post CABG x2 on 02/01/2022 TECHNIQUE: PA and lateral views of the chest COMPARISON: Portable AP supine chest radiograph 02/01/2022 at 1349 hours FINDINGS: Redemonstrated intact median sternotomy wires and mediastinal clips consistent with history of coronary artery bypass grafting. There has been interval removal of the endotracheal tube, right IJ PA catheter, enteric tube, midline and left-sided chest tubes. No visualized pneumothorax. Small bilateral pleural effusions with bibasilar, left greater than right, atelectasis. Stable cardiomediastinal silhouette. No pulmonary edema. Procedure Note Maliha Bhat MD - 02/04/2022 EXAMINATION: XR CHEST PA AND LATERAL (GENERIC) CLINICAL HISTORY: s/p AVR Per review the patient's EMR, patient is status post CABG x2 on02/01/2022 TECHNIQUE: PA and lateral views of the chest COMPARISON: Portable AP supine chest radiograph 02/01/2022 at 1349 hours FINDINGS: Redemonstrated intact median sternotomy wires and mediastinal clipsconsistent with history of coronary artery bypass grafting. There has been intervalremoval of the endotracheal tube, right IJ PA catheter, enteric tube, midlineand left-sided chest tubes. No visualized pneumothorax. Small bilateralpleural effusions with bibasilar, left greater than right, atelectasis. Stable cardiomediastinal silhouette. No pulmonary edema. IMPRESSION 1. Interval removal of support equipment. No visualized pneumothorax. 2. Bilateral, left greater than right, small pleural effusions andbasilar atelectasis. Thank you for letting us participate in the care of this patient. If youare a health care provider and have any questions regarding this report,please contact the number below. For patients who have questions please contactthe health director of career services that requested your imaging first. Hong Eugene MD IMG DX ORDERABLES * Potassium (02/03/2022 5:58 AM EDT) [facility] Signature Potassium 3.8 3.5 - 5.0 mmol/L [facility] Comment: Please note: ??Patients with WBC >100,000 may have falsely elevated Potassium levels. ??For accurate Potassium quantification in these patients send serum separator tube (gold top) for subsequent determinations. ??Contact the Clinical Chemistry Laboratory if there are any questions. Blood 02/03/2022 5:58 AM EDT 02/03/2022 6:01 AM EDT Narrative Resulting Agency Comment Spec In Lab Hong Eugene MD CHEMISTRY ORDERABLE S Performing Organization Address City/[facility]/ZIP Co de Phone Number [facility] [place] [address] * POCT Glucose (02/02/2022 11:41 AM EDT) Glucose, POC 157 65 - 199 mg/dL [facility] Comment: Supplemental ranges: <140 mg/dL before meals <180 mg/dL all other times of the day Blood 02/02/2022 11:4 1 AM EDT 02/02/2022 11:41 AM EDT Hong Eugene MD POINT OF CARE TEST ORDERABLES Performing Organization Address [facility] Co de Phone Number [facility] [place] [address] * POCT Glucose (02/02/2022 7:49 AM EDT) Glucose, POC 161 65 - 199 mg/dL [facility] Comment: Supplemental ranges: <140 mg/dL before meals <180 mg/dL all other times of the day Blood 02/02/2022 7:49 AM EDT 02/02/2022 7:49 AM EDT Hong Eugene MD POINT OF CARE TEST ORDERABLES Performing Organization Address City/[facility]/ZIP Co de Phone Number [facility] [place] [address] * (ABNORMAL) Differential, Automated (02/02/2022 1:35 AM EDT) Neutrophil % 83.9 % [facility] Neutrophil Absolute 7.38(H) 1.70 - 6.10 x10(3)/mc L [facility] Lymph % 10.7 % [facility] Lymphocytes Abs 0.9 0.9 - 3.2 x10(3)/mc L [facility] Monocyte % 5.0 % [facility] Monocyte Abs 0.4 0.3 - 0.9 x10(3)/[facility] Eos % 0.0 % [facility] Eosinophils Abs 0.0 0.0 - 0.4 x10(3)/[facility] Basophil % 0.1 % [facility] Baso Absolute 0.0 0.0 - 0.1 x10(3)/[facility] Immature Gran % 0.30 % [facility] Comment: Immature granulocytes(IG's)percentage and absolute count will include metamyelocytes, myelocytes, and promyelocytes. Blood smears from CBCs yielding IG's will be scanned manually for concordance. If this scan disagrees with the automated IG or if promyelocytes are noted, a manual differential will be performed. Immature Gran Absolute 0.03 0.00 - 0.04 x10(3)/[facility] Blood 02/02/2022 1:35 AM EDT 02/02/2022 1:47 AM EDT Narrative Resulting Agency Comment Spec In Lab Joan VALLEJO HEMATOLOGY AUDREY DOBBS [facility] [place] [address] * (ABNORMAL) Hemogram (02/02/2022 1:35 AM EDT) White Blood Cell 8.8 4.0 - 9.5 x10(3)/[facility] Red Blood Cell 3.21(L) 4.00 - 5.21 x10(6)/[facility] Hemoglobin 8.9(L) 11.7 - 15.5 g/dL [facility] Hematocrit 26.2(L) 35.7 - 45.8 % [facility] Mean Cell Volume 81.6(L) 82.6 - 94.4 fL [facility] Mean Cell Hemoglobin 27.7 27.1 - 32.0 pg [facility] Mean Cell Hemoglobin Concentration 34.0 31.7 - 35.0 g/dL [facility] Platelet 127(L) 145 - 357 x10(3)/mc L [facility] RDW Standard Deviation 40.6 37.0 - 46.0 fL [facility] RDW coefficient of variation 13.5 11.5 - 14.1 % [facility] Mean Platelet Volume 11.1 7.6 - 12.9 fL [facility] NRBC% auto 0.0 % [facility] NRBC Absolute 0.000 0.000 - 0.000 x10(3)/mc L [facility] Blood 02/02/2022 1:35 AM EDT 02/02/2022 1:47 AM EDT Narrative Resulting Agency Comment Spec In Lab Joan VALLEJO HEMATOLOGY AUDREY DOBBS [facility] [place] [id number] * (ABNORMAL) Troponin (02/02/2022 1:35 AM EDT) Troponin-T 0.37(H) 0.00 - 0.00 ng/mL [facility] Comment: The 99th percentile for Troponin T is less than 0.01 ng/mL, any detectable cTnT concentration using this assay should be considered elevated. According to the third universal definition of myocardial infarction the following criteria with a clinical presentation consistent with acute myocardial ischemia meets the diagnosis for a myocardial infarction ([place]). Detection of a rise and/or fall of cTnT, with at least one value greater than the 99th percentile (> or = 0.01) and with at least one of the following ?? Symptoms of ischemia ?? New or presumed new significant [id number] wave (ST-T) changes or new left bundle branch block (LBBB) ?? Development of pathologic Q waves in the ECG ?? Imaging evidence of new loss of viable myocardium or new regional wall motion abnormality ?? Identification of an intracoronary thrombus by angiography or autopsy Samples for cTnT testing should be obtained serially upon first assessment and again 3 to 6 hours later. If the clinical suspicion is high and previous samples have been negative an additional sample may be indicated. Reference: Third [place] Definition of Myocardial Infarction. Journal of the [place] [employer] 2012;60:1581-98 Troponin-T, High Sensitivity 454(Criti katerina) <=14 ng/L [facility] Comment: This patient's troponin T concentration was determined using the [place] 5th Generation troponin T assay. The 99th percentile for Troponin T for this test is 14 ng/L for females, and 22 ng/L for males. According to the fourth universal definition of myocardial infarction, the term acute myocardial infarction should be used when there is acute myocardial injury with clinical evidence of acute myocardial ischemia and with detection of a rise and/or fall of cardiac troponin values with at least one value above the 99th percentile and at least one of the following: - Symptoms of myocardial ischemia; - New ischemic ECG changes; - Development of pathological Q waves; - Imaging evidence of new loss of viable myocardium or new regional wall motion abnormality in a pattern consistent with an ischemic etiology; - Identification of a coronary thrombus by angiography or autopsy (not for type 2 or 3 MIs) Serial measurement of troponin and the change in troponin concentration over time (delta) is crucial for the diagnosis of acute myocardial infarction. Guidance on the interpretation of the new 5th Generation Troponin T values and the delta troponin value can be found in the [facility] Laboratory Test Catalog Troponin - [facility] Test Catalog Reference: Fourth [place] Definition of Myocardial Infarction. Journal of the [place] [employer] 2018;72:9177-8871 Blood 02/02/2022 1:35 AM EDT 02/02/2022 1:47 AM EDT Narrative Resulting Agency Comment Spec In Lab Hong Eugene MD CHEMISTRY ORDERABLE S [facility] [place] [address] * (ABNORMAL) Basic Metabolic Panel (non-fasting) (02/02/2022 1:35 AM EDT) Glucose 172 65 - 199 mg/dL [facility] Comment:Diabetes: >=200 mg/d L plus symptoms Blood Urea Nitrogen 17 8 - 18 mg/dL [facility] Creatinine 0.66(L) 0.70 - 1.20 mg/dL [facility] Sodium 140 135 - 145 mmol/L [facility] Potassium 4.4 3.5 - 5.0 mmol/L [facility] Comment: Please note: ??Patients with WBC >100,000 may have falsely elevated Potassium levels. ??For accurate Potassium quantification in these patients send serum separator tube (gold top) for subsequent determinations. ??Contact the Clinical Chemistry Laboratory if there are any questions. Chloride 110(H) 98 - 107 mmol/L [facility] Carbon Dioxide 22 22 - 31 mmol/L [facility] Anion Gap 8 5 - 15 mmol/L [facility] Calcium 8.0(L) 8.5 - 10.5 mg/dL [facility] Comment:result rechecked-KS Est Glomerular Filtration Rate 95 >=60 mL/min/1. 73 m?? [facility] Comment: This patient's estimated GFR [...] and symptoms in addition to eGFR. Blood 02/02/2022 1:35 AM EDT 02/02/2022 1:47 AM EDT Narrative Resulting Agency Comment Spec In Lab Avril Lyman MD CHEMISTRY ORDERABLES [facility] [place] [address] * POCT Glucose (02/01/2022 11:55 PM EDT) Glucose, POC 157 65 - 199 mg/dL [facility] Comment: Supplemental ranges: <140 mg/dL before meals <180 mg/dL all other times of the day Blood 02/01/2022 11:5 5 PM EDT 02/01/2022 11:55 PM EDT Hong Eugene MD POINT OF CARE TEST ORDERABLES Performing Organization Address City/[facility] Co de Phone Number [facility] [place] [address] * POCT Glucose (02/01/2022 8:39 PM EDT) Glucose, POC 150 65 - 199 mg/dL [facility] Comment: Supplemental ranges: <140 mg/dL before meals <180 mg/dL all other times of the day Blood 02/01/2022 8:39 PM EDT 02/01/2022 8:39 PM EDT Hong Eugene MD POINT OF CARE TEST ORDERABLES Performing Organization Address [facility] de Phone Number [facility] [place] [address] * (ABNORMAL) BLOOD GAS 2 ARTERIAL (02/01/2022 4:40 PM EDT) pH, Arterial 7.32(L) 7.35 - 7.45 [facility] PCO2, Arterial 44 35 - 45 mmHg [facility] PO2, Arterial 98 85 - 104 mmHg [facility] Bicarbonate, Arterial 22.3 20.0 - 26.0 mmol/L [facility] Base Excess, Arterial -3.7(L) -3.0 - 3.0 mmol/L [facility] Hgb Blood Gas 11.3(L) 11.7 - 15.5 g/dL [facility] Oxyhemoglobin, Arterial 95.5 94.0 - 97.0 % [facility] Carboxyhemoglob in, Arterial 0.3 % [facility] Comment: Nonsmokers: 0.5-1.5% COHB Smokers: Variable, but usually less than 10% Toxic: 20-30% COHB Lethal: Greater than 60% COHB Methemoglobin, Arterial 0.8 <=1.5 % [facility] Na Whole Blood 137 135 - 145 mmol/L [facility] K Whole Blood 4.2 3.5 - 5.0 mmol/L [facility] Comment: Please note: Patients with WBC >100,000 may have falsely elevated Potassium levels. Contact the Clinical Chemistry Laboratory if there are any questions. ICa Whole Blood 1.23 1.15 - 1.33 mmol/L [facility] Comment: Note: ??Total bilirubin higher than 20 mg/dL may lead to falsely low ionized calcium. CL Whole Blood 108(H) 98 - 107 mmol/L [facility] Gluc Whole Bld 163 65 - 199 mg/dL [facility] Comment:Diabetes: >=200 mg/d L plus symptoms. Lactate WB 0.8 0.5 - 2.2 mmol/L [facility] FIO2 Art 40 % [facility] PF Ratio Art 245 [facility] Blood 02/01/2022 4:40 PM EDT 02/01/2022 4:40 PM EDT Hong Eugeen MD POINT OF CARE TEST ORDERABLES [facility] [place] [address] * (ABNORMAL) Hemoglobin (02/01/2022 4:35 PM EDT) Hemoglobin 10.2(L) 11.7 - 15.5 g/dL [facility] Blood 02/01/2022 4:35 PM EDT 02/01/2022 4:50 PM EDT Narrative Resulting Agency Comment Spec In Lab Avril Lyman MD HEMATOLOGY ORDERABLE S Performing Organization Address [facility] Co de Phone Number [facility] [place] [address] * Potassium (02/01/2022 4:35 PM EDT) Potassium 4.2 3.5 - 5.0 mmol/L [facility] Comment: Please note: ??Patients with WBC >100,000 may have falsely elevated Potassium levels. ??For accurate Potassium quantification in these patients send serum separator tube (gold top) for subsequent determinations. ??Contact the Clinical Chemistry Laboratory if there are any questions. Blood 02/01/2022 4:35 PM EDT 02/01/2022 4:50 PM EDT Narrative Resulting Agency Comment Spec In Lab Avril Lyman MD CHEMISTRY ORDERABLES Performing Organization Address [facility] de Phone Number [facility] [place] [address] * XR Chest One View (02/01/2022 1:50 PM EDT) Anatomical Region Laterality Modality Chest N/A Digital Radiogra phy Impressions 02/01/2022 2:44 PM EDT 1. ??Tubes and lines as above. 2. ??Trace left pleural effusion. No pneumothorax. 3. ??Mild left basilar atelectasis. I have personally reviewed the image(s) and the resident's interpretation and agree with the findings, Precious Christine MD at 02/01/2022 2:44 PM Thank you for letting us participate in the care of this patient. ??If you are a health care provider and have any questions regarding this report, please contact the number below. ??For patients who have questions please contact the health director of career services that requested your imaging first. ? Electronically signed by: Precious Christine MD, [facility] ([phone]), at 02/01/2022 2:44 PM Narrative 02/01/2022 2:44 PM EDT EXAMINATION: XR CHEST ONE VIEW CLINICAL HISTORY: s/p CABGx2 TECHNIQUE: 1 view of the chest AP COMPARISON: 01/31/2022 FINDINGS: Interval placement of sternotomy wires, multiple surgical clips overlying the mediastinum, right internal jugular pulmonary artery catheter with tip projecting in the right pulmonary artery, endotracheal tube projects by 2 cm above the ashley, pleural catheter projecting to the left lung apex with enteric tube projecting below the diaphragm, and mediastinal drain. Multiple overlying external cardiac monitoring leads. Mild decrease in lung volumes bilaterally. Unchanged heart size. Pulmonary vasculature and evon are accentuated by low lung volumes. Bibasilar streaky opacity worse on the left than right consistent with atelectasis. Slight blunting of the left costophrenic angle and sharp right costophrenic angle. No pneumothorax. No interval osseous changes. Procedure Note Precious Prieto MD - 02/01/2022 EXAMINATION: XR CHEST ONE VIEW CLINICAL HISTORY: s/p CABGx2 TECHNIQUE: 1 view of the chest AP COMPARISON: 01/31/2022 FINDINGS: Interval placement of sternotomy wires, multiple surgical clips overlyingthe mediastinum, right internal jugular pulmonary artery catheter with tip projecting in the right pulmonary artery, endotracheal tube projects by 2cm above the ashley, pleural catheter projecting to the left lung apex withenteric tube projecting below the diaphragm, and mediastinal drain. Multipleoverlying external cardiac monitoring leads. Mild decrease in lung volumes bilaterally. Unchanged heart size.Pulmonary vasculature and evon are accentuated by low lung volumes. Bibasilarstreaky opacity worse on the left than right consistent with atelectasis. Slight blunting of the left costophrenic angle and sharp right costophrenicangle. No pneumothorax. No interval osseous changes. IMPRESSION 1. Tubes and lines as above. 2. Trace left pleural effusion. No pneumothorax. 3. Mild left basilar atelectasis. I have personally reviewed the image(s) and the resident's interpretationand agree with the findings, Precious Christine MD at 02/01/2022 2:44PM Thank you for letting us participate in the care of this patient. If youare a health care provider and have any questions regarding this report,please contact the number below. For patients who have questions please contactthe health director of career services that requested your imaging first. Electronically signed by: Precious Christine MD, [facility] ([phone]), at 02/01/2022 2:44 PM Avril Lyman MD IMG DX ORDERABLES * (ABNORMAL) BLOOD GAS 2 ARTERIAL (02/01/2022 1:34 PM EDT) pH, Arterial 7.42 7.35 - 7.45 [facility] PCO2, Arterial 32(L) 35 - 45 mmHg [facility] PO2, Arterial 284(H) 85 - 104 mmHg [facility] Bicarbonate, Arterial 20.4 20.0 - 26.0 mmol/L [facility] Base Excess, Arterial -4.1(L) -3.0 - 3.0 mmol/L [facility] Hgb Blood Gas 11.7 11.7 - 15.5 g/dL [facility] Oxyhemoglobin, Arterial 97.9(H) 94.0 - 97.0 % [facility] Carboxyhemoglob in, Arterial 0.3 % [facility] Comment: Nonsmokers: 0.5-1.5% COHB Smokers: Variable, but usually less than 10% Toxic: 20-30% COHB Lethal: Greater than 60% COHB Methemoglobin, Arterial 0.7 <=1.5 % [facility] Na Whole Blood 136 135 - 145 mmol/L [facility] K Whole Blood 4.0 3.5 - 5.0 mmol/L [facility] Comment: Please note: Patients with WBC >100,000 may have falsely elevated Potassium levels. Contact the Clinical Chemistry Laboratory if there are any questions. ICa Whole Blood 1.24 1.15 - 1.33 mmol/L [facility] Comment: Note: ??Total bilirubin higher than 20 mg/dL may lead to falsely low ionized calcium. CL Whole Blood 110(H) 98 - 107 mmol/L [facility] Gluc Whole Bld 114 65 - 199 mg/dL [facility] Comment:Diabetes: >=200 mg/d L plus symptoms. Lactate WB 0.7 0.5 - 2.2 mmol/L [facility] FIO2 Art 100 % [facility] PF Ratio Art 284 [facility] Blood 02/01/2022 1:34 PM EDT 02/01/2022 1:34 PM EDT Hong Eugene MD POINT OF CARE TEST ORDERABLES Performing Organization Address City/[facility]/ZIP Co de Phone Number [facility] [place] [address] * EKG 12 Lead (02/01/2022 1:31 PM EDT) Ventricular rate 69 BPM MUSE SYSTEM Atrial Rate 69 BPM MUSE SYSTEM P-R Interval 190 ms MUSE SYSTEM QRS Duration 78 ms MUSE SYSTEM Q-T Interval 434 ms MUSE SYSTEM QTC Calculated (Bezet) 465 ms MUSE SYSTEM Calculated P [place] 55 degrees MUSE SYSTEM Calculated R [place] 60 degrees MUSE SYSTEM Calculated T [place] 46 degrees MUSE SYSTEM INTERPRETATION Normal sinus rhythm ST elevation consider anterolateral injury or acute infarct Abnormal ECG When compared with ECG of 29-JAN-2022 09:13, ST elevation in V6 now present T wave inversion less evident in Lateral leads Confirmed by MD Garcia Gregory A. ([id number]) on 02/05/2022 3:24:49 PM MUSE SYSTEM 02/01/2022 1:31 PM EDT 02/05/2022 3:24 PM EDT Avril Lyman MD ECG ORDERABLES MUSE SYSTEM * (ABNORMAL) Fibrinogen (02/01/2022 10:50 AM EDT) Fibrinogen 163(L) 200 - 393 mg/dL [facility] Comment: OR Result called by ?? FINDTM OR Results read back by: ? Ember Viera at 2022-02-01 11:09:03 A fibrinogen level >100 mg/dL is adequate for hemostasis in most patients without underlying bleeding disorders. Blood 02/01/2022 10:5 0 AM EDT 02/01/2022 10:55 AM EDT Narrative Resulting Agency Comment Spec In Lab Ebenezer Morse MD HEMATOLOGY ORDERABLE S Performing Organization Address [facility] de Phone Number [facility] [place] [address] * APTT (02/01/2022 10:50 AM EDT) Partial Thromboplastin Time 29 25 - 37 sec [facility] Comment: OR Result called by ?? FINDTM OR Results read back by: ? Ember Virea at 2022-02-01 11:09:03 The PTT is NOT appropriate for heparin monitoring. Use the Anti-Xa level for heparin monitoring (HEP UFH) or LMWH monitoring (HEP LMW). A PTT less than 37 seconds generally indicates adequate hemostasis. Blood 02/01/2022 10:5 0 AM EDT 02/01/2022 10:55 AM EDT Narrative Resulting Agency Comment Spec In Lab Ebenezer Morse MD HEMATOLOGY ORDERABLE S Performing Organization Address [facility] Co de Phone Number [facility] [place] [address] * (ABNORMAL) Prothrombin Time (02/01/2022 10:50 AM EDT) Prothrombin Time 15.3(H) 9.4 - 12.5 sec [facility] Comment: OR Result called by ?? FINDTM OR Results read back by: ? Ember Viera at 2022-02-01 11:09:03 International Normalization Ratio 1.3 [facility] Comment: OR Result called by ?? FINDTM OR Results read back by: ? Ember Viera at 2022-02-01 11:09:03 An INR <2.0 indicates adequate procoagulant activity for hemostasis in most patients without underlying bleeding disorders, though the INR may not adequately reflect hemostatic capacity in patients with liver disease and synthetic impairment. The recommended target INR range for therapeutic anticoagulation is 2.0 ? 3.0 for most applications, though lower and higher ranges may be appropriate depending on clinical circumstances. Blood 02/01/2022 10:5 0 AM EDT 02/01/2022 10:55 AM EDT Narrative Resulting Agency Comment Spec In Lab Ebenezer Morse MD HEMATOLOGY ORDERABLE S [facility] [place] [address] * (ABNORMAL) Hemogram (02/01/2022 10:50 AM EDT) White Blood Cell 7.2 4.0 - 9.5 x10(3)/mc L [facility] Red Blood Cell 2.86(L) 4.00 - 5.21 x10(6)/mc L [facility] Hemoglobin 8.0(L) 11.7 - 15.5 g/dL [facility] Hematocrit 23.9(L) 35.7 - 45.8 % [facility] Comment: This result has been called to EMBER VIERA by Chava Lee on 02 01 2022 at 1104, and has been read back. Mean Cell Volume 83.6 82.6 - 94.4 fL [facility] Mean Cell Hemoglobin 28.0 27.1 - 32.0 pg [facility] Mean Cell Hemoglobin Concentration 33.5 31.7 - 35.0 g/dL [facility] Platelet 122(L) 145 - 357 x10(3)/mc L [facility] RDW Standard Deviation 41.1 37.0 - 46.0 fL [facility] RDW coefficient of variation 13.3 11.5 - 14.1 % [facility] Mean Platelet Volume 10.3 7.6 - 12.9 fL [facility] NRBC% auto 0.0 % [facility] NRBC Absolute 0.000 0.000 - 0.000 x10(3)/mc L [facility] Blood 02/01/2022 10:5 0 AM EDT 02/01/2022 10:55 AM EDT Narrative Resulting Agency Comment Spec In Lab Ebenezer Morse MD HEMATOLOGY ORDERABLE S Performing Organization Address City/State/[facility] Co de Phone Number [facility] [place] [address] * (ABNORMAL) BLOOD GAS 2 ARTERIAL (02/01/2022 10:47 AM EDT) pH, Arterial 7.38 7.35 - 7.45 [facility] PCO2, Arterial 43 35 - 45 mmHg [facility] PO2, Arterial 358(H) 85 - 104 mmHg [facility] Bicarbonate, Arterial 24.5 20.0 - 26.0 mmol/L [facility] Base Excess, Arterial -0.7 -3.0 - 3.0 mmol/L [facility] Hgb Blood Gas 8.7(L) 11.7 - 15.5 g/dL [facility] Oxyhemoglobin, Arterial 99.0(H) 94.0 - 97.0 % [facility] Carboxyhemoglob in, Arterial 0.2 % [facility] Comment: Nonsmokers: 0.5-1.5% COHB Smokers: Variable, but usually less than 10% Toxic: 20-30% COHB Lethal: Greater than 60% COHB Methemoglobin, Arterial 0.3 <=1.5 % [facility] Na Whole Blood 136 135 - 145 mmol/L [facility] K Whole Blood 4.4 3.5 - 5.0 mmol/L [facility] Comment: Please note: Patients with WBC >100,000 may have falsely elevated Potassium levels. Contact the Clinical Chemistry Laboratory if there are any questions. ICa Whole Blood 1.24 1.15 - 1.33 mmol/L [facility] Comment: Note: ??Total bilirubin higher than 20 mg/dL may lead to falsely low ionized calcium. CL Whole Blood 110(H) 98 - 107 mmol/L [facility] Gluc Whole Bld 162 65 - 199 mg/dL [facility] Comment:Diabetes: >=200 mg/d L plus symptoms. Lactate WB 1.6 0.5 - 2.2 mmol/L [facility] Blood 02/01/2022 10:4 7 AM EDT 02/01/2022 10:47 AM EDT Avril Lyman MD POINT OF CARE TEST O RDERABLES [facility] [place] [address] * (ABNORMAL) BLOOD GAS 2 ARTERIAL (02/01/2022 10:28 AM EDT) pH, Arterial 7.30(L) 7.35 - 7.45 [facility] PCO2, Arterial 54(H) 35 - 45 mmHg [facility] PO2, Arterial 335(H) 85 - 104 mmHg [facility] Bicarbonate, Arterial 26.0 20.0 - 26.0 mmol/L [facility] Base Excess, Arterial -0.3 -3.0 - 3.0 mmol/L [facility] Hgb Blood Gas 8.7(L) 11.7 - 15.5 g/dL [facility] Oxyhemoglobin, Arterial 99.1(H) 94.0 - 97.0 % [facility] Carboxyhemoglob in, Arterial 0.1 % [facility] Comment: Nonsmokers: 0.5-1.5% COHB Smokers: Variable, but usually less than 10% Toxic: 20-30% COHB Lethal: Greater than 60% COHB Methemoglobin, Arterial 0.3 <=1.5 % [facility] Na Whole Blood 133(L) 135 - 145 mmol/L [facility] K Whole Blood 5.0 3.5 - 5.0 mmol/L [facility] Comment: Please note: Patients with WBC >100,000 may have falsely elevated Potassium levels. Contact the Clinical Chemistry Laboratory if there are any questions. ICa Whole Blood 1.52(H) 1.15 - 1.33 mmol/L [facility] Comment: Note: ??Total bilirubin higher than 20 mg/dL may lead to falsely low ionized calcium. CL Whole Blood 107 98 - 107 mmol/L [facility] Gluc Whole Bld 196 65 - 199 mg/dL [facility] Comment:Diabetes: >=200 mg/d L plus symptoms. Lactate WB 1.2 0.5 - 2.2 mmol/L [facility] Blood 02/01/2022 10:2 8 AM EDT 02/01/2022 10:28 AM EDT Avril Lyman MD POINT OF CARE TEST O RDERABLES Performing Organization Address City/State/[facility] Co de Phone Number [facility] [place] [address] * (ABNORMAL) BLOOD GAS 2 ARTERIAL (02/01/2022 9:57 AM EDT) pH, Arterial 7.35 7.35 - 7.45 [facility] PCO2, Arterial 43 35 - 45 mmHg [facility] PO2, Arterial 403(H) 85 - 104 mmHg [facility] Bicarbonate, Arterial 23.3 20.0 - 26.0 mmol/L [facility] Base Excess, Arterial -2.3 -3.0 - 3.0 mmol/L [facility] Hgb Blood Gas 8.7(L) 11.7 - 15.5 g/dL [facility] Oxyhemoglobin, Arterial 98.9(H) 94.0 - 97.0 % [facility] Carboxyhemoglob in, Arterial 0.4 % [facility] Comment: Nonsmokers: 0.5-1.5% COHB Smokers: Variable, but usually less than 10% Toxic: 20-30% COHB Lethal: Greater than 60% COHB Methemoglobin, Arterial 0.3 <=1.5 % [facility] Na Whole Blood 130(L) 135 - 145 mmol/L [facility] K Whole Blood 5.9(H) 3.5 - 5.0 mmol/L [facility] Comment: Please note: Patients with WBC >100,000 may have falsely elevated Potassium levels. Contact the Clinical Chemistry Laboratory if there are any questions. ICa Whole Blood 0.97(L) 1.15 - 1.33 mmol/L [facility] Comment: Note: ??Total bilirubin higher than 20 mg/dL may lead to falsely low ionized calcium. CL Whole Blood 106 98 - 107 mmol/L [facility] Gluc Whole Bld 251(H) 65 - 199 mg/dL [facility] Comment:Diabetes: >=200 mg/d L plus symptoms. Lactate WB 0.8 0.5 - 2.2 mmol/L [facility] Blood 02/01/2022 9:57 AM EDT 02/01/2022 9:57 AM EDT Avril Lyman MD POINT OF CARE TEST O RDERABLES [facility] [place] [address] * Prepare Platelets, Apheresis (02/01/2022 9:55 AM EDT) Dispensed? Yes [facility] Blood 02/01/2022 9:55 AM EDT 02/01/2022 9:54 AM EDT Hong Eugene MD BLOOD BANK PRODUCT ORDERABLES [facility] [place] [address] * Platelet count (02/01/2022 9:55 AM EDT) Platelet 191 145 - 357 x10(3)/mc L [facility] Immature Plt % 3.7 0.0 - 7.4 % [facility] Comment: Limitation of the Immature Platelet Fraction (IPF)-May be less reliable when the platelet count is less than 09g913/uL due to statistical imprecision. The IPF value provides an assessment of the Bone Marrow production status. ??It is useful in differentiating Thrombocytopenia caused by platelet destruction/consumption versus decreased production. It also helps to determine the imminent release of platelets and can be therefore a helpful parameter in Chemotherapy and Bone marrow transplant patients. ELEVATED IPF value: ?? When the bone marrow is in a state of over production such as when increased destruction and consumption are the underlying issue. ?? When the marrow is recovering post chemotherapy or bone marrow transplant. LOW to NORMAL IPF value: ?? When the bone marrow in not responding and is in a decreased state of production. References: [employer] The Clinical Value of the Immature Platelet Fraction (IPF) in Cell Recovery Document Number [id number] 10/2010 [employer] The Role of the Immature Platelet Fraction (IPF) in the Differential Diagnosis of Thrombocytopenia, Document [id number] [id number] Blood 02/01/2022 9:55 AM EDT 02/01/2022 10:04 AM EDT Narrative Resulting Agency Comment Spec In Lab Avril Lyman MD HEMATOLOGY ORDERABLE S Performing Organization Address City/[facility]/ZIP Co de Phone Number [facility] [place] [address] * (ABNORMAL) Hemoglobin and Hematocrit, blood (02/01/2022 9:55 AM EDT) Hemoglobin 7.9(L) 11.7 - 15.5 g/dL [facility] Comment: This result has been called to BENITEZ CAGLE by Geovany Crespo on 02 01 2022 at 1012, and has been read back. Hematocrit 24.1(L) 35.7 - 45.8 % [facility] Comment: This result has been called to BENITEZ CAGLE by Geovany Crespo on 02 01 2022 at 1012, and has been read back. Blood 02/01/2022 9:55 AM EDT 02/01/2022 10:04 AM EDT Narrative Resulting Agency Comment Spec In Lab Avril Lyman MD HEMATOLOGY ORDERABLE S Performing Organization Address [facility] Co de Phone Number [facility] [place] [address] * (ABNORMAL) Fibrinogen (02/01/2022 9:55 AM EDT) Fibrinogen 154(L) 200 - 393 mg/dL [facility] Comment: OR Result called by ?? FINDTM OR Results read back by: ? Samira Cagle at 2022-02-01 10:27:30 A fibrinogen level >100 mg/dL is adequate for hemostasis in most patients without underlying bleeding disorders. Blood 02/01/2022 9:55 AM EDT 02/01/2022 10:04 AM EDT Narrative Resulting Agency Comment Spec In Lab Avril Lyman MD HEMATOLOGY ORDERABLE S Performing Organization Address City/[facility] Co de Phone Number [facility] [place] [address] * (ABNORMAL) BLOOD GAS 2 VENOUS (02/01/2022 9:31 AM EDT) pH, Venous 7.28(Criti katerina) 7.32 - 7.42 [facility] Comment:Noted by instrument maker. PCO2, Venous 49 41 - 51 mmHg [facility] PO2, Venous 57(H) 25 - 40 mmHg [facility] Bicarbonate, Venous 22.2 mmol/L [facility] Base Excess, Venous -4.6 mmol/L [facility] Hgb Blood Gas 8.5(L) 11.7 - 15.5 g/dL [facility] Oxyhemoglobin, Venous 86.1 % [facility] Carboxyhemoglob in, Venous 0.6 % [facility] Comment: Nonsmokers: 0.5-1.5% COHB Smokers: Variable, but usually less than 10% Toxic: 20-30% COHB Lethal: Greater than 60% COHB Methemoglobin, Venous 0.3 <=1.5 % [facility] Na Whole Blood 130(L) 135 - 145 mmol/L [facility] K Whole Blood 5.2(H) 3.5 - 5.0 mmol/L [facility] Comment: Please note: Patients with WBC >100,000 may have falsely elevated Potassium levels. Contact the Clinical Chemistry Laboratory if there are any questions. ICa Whole Blood 0.92(Criti katerina) 1.15 - 1.33 mmol/L [facility] Comment: Noted by instrument maker. Note: ??Total bilirubin higher than 20 mg/dL may lead to falsely low ionized calcium. CL Whole Blood 105 98 - 107 mmol/L [facility] Gluc Whole Bld 227(H) 65 - 199 mg/dL [facility] Comment:Diabetes: >=200 mg/d L plus symptoms Lactate WB 0.7 0.5 - 2.2 mmol/L [facility] Blood Gas Source Venous [facility] Blood 02/01/2022 9:31 AM EDT 02/01/2022 9:31 AM EDT Avril Lyman MD POINT OF CARE TEST O OLGA LIDIA [facility] [place] [address] * (ABNORMAL) BLOOD GAS 2 ARTERIAL (02/01/2022 9:31 AM EDT) pH, Arterial 7.32(L) 7.35 - 7.45 [facility] PCO2, Arterial 42 35 - 45 mmHg [facility] LABORATORY PO2, Arterial 442(H) 85 - 104 mmHg [facility] Bicarbonate, Arterial 21.7 20.0 - 26.0 mmol/L [facility] Base Excess, Arterial -4.4(L) -3.0 - 3.0 mmol/L [facility] Hgb Blood Gas 8.7(L) 11.7 - 15.5 g/dL [facility] Oxyhemoglobin, Arterial 99.2(H) 94.0 - 97.0 % [facility] Carboxyhemoglob in, Arterial 0.1 % [facility] Comment: Nonsmokers: 0.5-1.5% COHB Smokers: Variable, but usually less than 10% Toxic: 20-30% COHB Lethal: Greater than 60% COHB Methemoglobin, Arterial 0.3 <=1.5 % [facility] Na Whole Blood 130(L) 135 - 145 mmol/L [facility] K Whole Blood 5.2(H) 3.5 - 5.0 mmol/L [facility] Comment: Please note: Patients with WBC >100,000 may have falsely elevated Potassium levels. Contact the Clinical Chemistry Laboratory if there are any questions. ICa Whole Blood 0.93(L) 1.15 - 1.33 mmol/L [facility] Comment: Note: ??Total bilirubin higher than 20 mg/dL may lead to falsely low ionized calcium. CL Whole Blood 103 98 - 107 mmol/L [facility] Gluc Whole Bld 216(H) 65 - 199 mg/dL [facility] Comment:Diabetes: >=200 mg/d L plus symptoms. Lactate WB 0.7 0.5 - 2.2 mmol/L [facility] Blood 02/01/2022 9:31 AM EDT 02/01/2022 9:31 AM EDT Avril Lyman MD POINT OF CARE TEST O RDERABLES [facility] [place] [address] * (ABNORMAL) BLOOD GAS 2 ARTERIAL (02/01/2022 8:16 AM EDT) pH, Arterial 7.47(H) 7.35 - 7.45 [facility] PCO2, Arterial 29(L) 35 - 45 mmHg [facility] PO2, Arterial 255(H) 85 - 104 mmHg [facility] Bicarbonate, Arterial 20.6 20.0 - 26.0 mmol/L [facility] Base Excess, Arterial -3.1(L) -3.0 - 3.0 mmol/L [facility] Hgb Blood Gas 12.3 11.7 - 15.5 g/dL [facility] Oxyhemoglobin, Arterial 98.7(H) 94.0 - 97.0 % [facility] Carboxyhemoglob in, Arterial 0.3 % [facility] Comment: Nonsmokers: 0.5-1.5% COHB Smokers: Variable, but usually less than 10% Toxic: 20-30% COHB Lethal: Greater than 60% COHB Methemoglobin, Arterial 0.3 <=1.5 % [facility] Na Whole Blood 138 135 - 145 mmol/L [facility] K Whole Blood 3.8 3.5 - 5.0 mmol/L [facility] Comment: Please note: Patients with WBC >100,000 may have falsely elevated Potassium levels. Contact the Clinical Chemistry Laboratory if there are any questions. ICa Whole Blood 1.17 1.15 - 1.33 mmol/L [facility] Comment: Note: ??Total bilirubin higher than 20 mg/dL may lead to falsely low ionized calcium. CL Whole Blood 111(H) 98 - 107 mmol/L [facility] Gluc Whole Bld 110 65 - 199 mg/dL [facility] Comment:Diabetes: >=200 mg/d L plus symptoms. Lactate WB 1.2 0.5 - 2.2 mmol/L [facility] Blood 02/01/2022 8:16 AM EDT 02/01/2022 8:16 AM EDT Avril Lyman MD POINT OF CARE TEST O RDERABLES Performing Organization Address [facility]/ZIP Co de Phone Number [facility] [place] [address] * Prepare RBC (02/01/2022 7:05 AM EDT) Dispensed? Yes [facility] Blood 02/01/2022 7:05 AM EDT 02/01/2022 7:01 AM EDT Narrative Resulting Agency Comment Spec In Lab Hong Eugene MD BLOOD BANK PRODUCT ORDERABLES Performing Organization Address [facility] Co de Phone Number [facility] [place] [address] * Heparin (unfractionated) Level (02/01/2022 4:40 AM EDT) UF Heparin 0.42 IU/mL [facility] Comment: Specimen drawn more than one hour prior to testing. Results may not be reliable for heparin monitoring. Result may be falsely low. Heparin (anti-Xa) levels should be determined in a plasma sample that has been drawn 6 hours after a dose change to approximate steady-state for continuous heparin infusions. Indication specific Heparin (anti-Xa) levels based on order set selection: Acute DVT or PE treatment: 0.3 ? 0.7 IU/mL Thrombosis Prevention (eg. atrial fibrillation, jefferson-procedural bridging, mechanical valves): 0.3 ? 0.7 IU/mL Acute Coronary Syndrome: 0.3 ? 0.7 IU/mL Stroke Indications: 0.3 ? 0.5 IU/mL Ultra-low intensity (select indications in cardiac surgery): 0.1 ? 0.3 IU/mL Blood 02/01/2022 4:40 AM EDT 02/01/2022 5:29 AM EDT Narrative Resulting Agency Comment Spec In Lab Belinda Ibrahim MORGAN HEMATOLOGY ORDERABLE S [facility] [place] [address] * Differential, Automated (02/01/2022 4:40 AM EDT) Neutrophil % 48.9 % [facility] Neutrophil Absolute 2.67 1.70 - 6.10 x10(3)/[facility] Lymph % 39.9 % [facility] Lymphocytes Abs 2.2 0.9 - 3.2 x10(3)/[facility] Monocyte % 8.6 % [facility] Monocyte Abs 0.5 0.3 - 0.9 x10(3)/[facility] Eos % 2.0 % [facility] Eosinophils Abs 0.1 0.0 - 0.4 x10(3)/[facility] Basophil % 0.2 % [facility] Baso Absolute 0.0 0.0 - 0.1 x10(3)/[facility] Immature Gran % 0.40 % [facility] Comment: Immature granulocytes(IG's)percentage and absolute count will include metamyelocytes, myelocytes, and promyelocytes. Blood smears from CBCs yielding IG's will be scanned manually for concordance. If this scan disagrees with the automated IG or if promyelocytes are noted, a manual differential will be performed. Immature Gran Absolute 0.02 0.00 - 0.04 x10(3)/[facility] Blood 02/01/2022 4:40 AM EDT 02/01/2022 5:29 AM EDT Narrative Resulting Agency Comment Spec In Lab Jermaine Sotelo MD HEMATOLOGY ORDERABLE S [facility] [place] [address] * (ABNORMAL) Hemogram (02/01/2022 4:40 AM EDT) White Blood Cell 5.5 4.0 - 9.5 x10(3)/mc L [facility] Red Blood Cell 4.65 4.00 - 5.21 x10(6)/mc L [facility] Hemoglobin 12.9 11.7 - 15.5 g/dL [facility] Hematocrit 38.3 35.7 - 45.8 % [facility] Mean Cell Volume 82.4(L) 82.6 - 94.4 fL [facility] Mean Cell Hemoglobin 27.7 27.1 - 32.0 pg [facility] Mean Cell Hemoglobin Concentration 33.7 31.7 - 35.0 g/dL [facility] Platelet 219 145 - 357 x10(3)/mc L [facility] RDW Standard Deviation 39.8 37.0 - 46.0 fL [facility] RDW coefficient of variation 13.3 11.5 - 14.1 % [facility] Mean Platelet Volume 10.5 7.6 - 12.9 fL [facility] NRBC% auto 0.0 % [facility] NRBC Absolute 0.000 0.000 - 0.000 x10(3)/mc L [facility] Blood 02/01/2022 4:40 AM EDT 02/01/2022 5:29 AM EDT Narrative Resulting Agency Comment Spec In Lab Jermaine Sotelo MD HEMATOLOGY ORDERABLE S [facility] [place] [address] * Magnesium (02/01/2022 4:40 AM EDT) Magnesium 0.81 0.69 - 1.07 mmol/L [facility] Blood 02/01/2022 4:40 AM EDT 02/01/2022 5:29 AM EDT Narrative Resulting Agency Comment Spec In Lab Avril Lyman MD CHEMISTRY ORDERABLES [facility] [place] [address] * (ABNORMAL) Basic Metabolic Panel (non-fasting) (02/01/2022 4:40 AM EDT) Glucose 112 65 - 199 mg/dL [facility] Comment:Diabetes: >=200 mg/d L plus symptoms Blood Urea Nitrogen 21(H) 8 - 18 mg/dL [facility] Creatinine 0.73 0.70 - 1.20 mg/dL [facility] Sodium 139 135 - 145 mmol/L [facility] Potassium 4.8 3.5 - 5.0 mmol/L [facility] Comment: Please note: ??Patients with WBC >100,000 may have falsely elevated Potassium levels. ??For accurate Potassium quantification in these patients send serum separator tube (gold top) for subsequent determinations. ??Contact the Clinical Chemistry Laboratory if there are any questions. Chloride 105 98 - 107 mmol/L [facility] Carbon Dioxide 27 22 - 31 mmol/L [facility] Anion Gap 7 5 - 15 mmol/L [facility] Calcium 9.7 8.5 - 10.5 mg/dL [facility] Est Glomerular Filtration Rate 89 >=60 mL/min/1. 73 m?? [facility] Comment: This patient's estimated GFR [...] and symptoms in addition to eGFR. Blood 02/01/2022 4:40 AM EDT 02/01/2022 5:29 AM EDT Narrative Resulting Agency Comment Spec In Lab Avril Lyman MD CHEMISTRY ORDERABLES [facility] [place] [address] * SCAN DOC: IMPLANTABLE DEVICES (02/01/2022 12:00 AM EDT) Narrative 02/01/2022 12:00 AM EDT Ordered by an unspecified provider. Scanning Provider MEDIA MGR SCAN EXT O RDR/RSLT * XR Chest PA & Lateral (Generic) (01/31/2022 10:40 AM EDT) Anatomical Region Laterality Modality Chest N/A Digital Radiogra phy Impressions 01/31/2022 12:10 PM EDT No acute cardiopulmonary process. I have personally reviewed the image(s) and the resident's interpretation and agree with the findings, Precious Christine MD at 01/31/2022 12:10 PM Thank you for letting us participate in the care of this patient. ??If you are a health care provider and have any questions regarding this report, please contact the number below. ??For patients who have questions please contact the health director of career services that requested your imaging first. ? Narrative 01/31/2022 12:10 PM EDT EXAMINATION: XR CHEST PA AND LATERAL (GENERIC) CLINICAL HISTORY: Pre-Op evaluation TECHNIQUE: PA and lateral views of the chest COMPARISON: None FINDINGS: Lungs are clear without focal consolidation. No pneumothorax or pleural effusion. Cardiomediastinal silhouette, evon, pulmonary vascular markings are within normal limits. No acute osseous abnormality. Procedure Note Precious Prieto MD - 01/31/2022 EXAMINATION: XR CHEST PA AND LATERAL (GENERIC) CLINICAL HISTORY: Pre-Op evaluation TECHNIQUE: PA and lateral views of the chest COMPARISON: None FINDINGS: Lungs are clear without focal consolidation. No pneumothorax or pleural effusion. Cardiomediastinal silhouette, evon, pulmonary vascular markingsare within normal limits. No acute osseous abnormality. IMPRESSION No acute cardiopulmonary process. I have personally reviewed the image(s) and the resident's interpretationand agree with the findings, Precious Christine MD at 01/31/2022 12:10PM Thank you for letting us participate in the care of this patient. If youare a health care provider and have any questions regarding this report,please contact the number below. For patients who have questions please contactthe health director of career services that requested your imaging first. Electronically signed by: Precious Christine MD[facility] ([phone]), at 01/31/2022 12:10 PM Avril Lyman MD IMG DX ORDERABLES * [facility] [place] (01/31/2022 4:15 AM EDT) Thyroid Stimulating Hormone 3.23 0.27 - 4.20 mcIU/mL [facility] Comment: Reference Interval (mcIU/mL): Females: ??First Trimester: 0.23-3.88 ??Second Trimester: 0.22-3.90 ??Third Trimester: 0.44-4.66 Blood Venous Draw / Unknown 01/31/2022 4:15 AM EDT 01/31/2022 4:33 AM EDT Narrative Resulting Agency Comment Spec In Lab Amy Meredith MD CHEMISTRY ORDERABLES Performing Organization Address [facility]/ZIP Co de Phone Number [facility] [place] [address] * Type and Screen Validity (01/31/2022 4:15 AM EDT) T&S only valid at [facility] Comment:This Type and Screen result is only valid at the [facility] Blood 01/31/2022 4:15 AM EDT 01/31/2022 4:33 AM EDT Narrative Resulting Agency Comment Spec In Lab Vinny Slade MD BLOOD BANK LAB ORDER USHA Performing Organization Address City/[facility]/ZIP Co de Phone Number [facility] [place] [address] * ABORH Recheck Status (01/31/2022 4:15 AM EDT) ABORH Type Recheck Completed [facility] Blood 01/31/2022 4:15 AM EDT 01/31/2022 4:33 AM EDT Narrative Resulting Agency Comment Spec In Lab Vinny Slade MD BLOOD BANK LAB ORDER USHA Performing Organization Address City/[facility]/ZIP Co de Phone Number [facility] [place] [address] * Antibody screen (01/31/2022 4:15 AM EDT) Ab Screen Interp Negative [facility] Expires at [id number] on: 02/03/2022 [facility] Blood 01/31/2022 4:15 AM EDT 01/31/2022 4:33 AM EDT Narrative Resulting Agency Comment Spec In Lab Vinny Slade MD BLOOD BANK LAB ORDER USHA [facility] [place] [address] * ABO/Rh Typing (01/31/2022 4:15 AM EDT) ABORH Type O Pos [facility] Blood 01/31/2022 4:15 AM EDT 01/31/2022 4:33 AM EDT Narrative Resulting Agency Comment Spec In Lab Vinny Slade MD BLOOD BANK LAB ORDER USHA Performing Organization Address City/[facility]/ZIP Co de Phone Number [facility] [place] [address] * Differential, Automated (01/31/2022 4:15 AM EDT) Neutrophil % 44.7 % [facility] Neutrophil Absolute 2.50 1.70 - 6.10 x10(3)/[facility] Lymph % 45.2 % [facility] Lymphocytes Abs 2.5 0.9 - 3.2 x10(3)/[facility] Monocyte % 8.2 % [facility] Monocyte Abs 0.5 0.3 - 0.9 x10(3)/[facility] Eos % 1.3 % [facility] Eosinophils Abs 0.1 0.0 - 0.4 x10(3)/[facility] Basophil % 0.4 % [facility] Baso Absolute 0.0 0.0 - 0.1 x10(3)/[facility] Immature Gran % 0.20 % [facility] Comment: Immature granulocytes(IG's)percentage and absolute count will include metamyelocytes, myelocytes, and promyelocytes. Blood smears from CBCs yielding IG's will be scanned manually for concordance. If this scan disagrees with the automated IG or if promyelocytes are noted, a manual differential will be performed. Immature Gran Absolute 0.01 0.00 - 0.04 x10(3)/mcL [facility] Blood 01/31/2022 4:15 AM EDT 01/31/2022 4:30 AM EDT Narrative Resulting Agency Comment Spec In Lab Jermaine Sotelo MD HEMATOLOGY ORDERABLE S [facility] [place] [address] * (ABNORMAL) Hemogram (01/31/2022 4:15 AM EDT) White Blood Cell 5.6 4.0 - 9.5 x10(3)/mc L [facility] Red Blood Cell 4.78 4.00 - 5.21 x10(6)/mc L [facility] Hemoglobin 13.3 11.7 - 15.5 g/dL [facility] Hematocrit 38.7 35.7 - 45.8 % [facility] Mean Cell Volume 81.0(L) 82.6 - 94.4 fL [facility] Mean Cell Hemoglobin 27.8 27.1 - 32.0 pg [facility] Mean Cell Hemoglobin Concentration 34.4 31.7 - 35.0 g/dL [facility] Platelet 215 145 - 357 x10(3)/mc L [facility] RDW Standard Deviation 39.1 37.0 - 46.0 [facility] RDW coefficient of variation 13.3 11.5 - 14.1 % [facility] Mean Platelet Volume 10.3 7.6 - 12.9 fL [facility] NRBC% auto 0.0 % [facility] NRBC Absolute 0.000 0.000 - 0.000 x10(3)/mc L [facility] Blood 01/31/2022 4:15 AM EDT 01/31/2022 4:30 AM EDT Narrative Resulting Agency Comment Spec In Lab Jermaine Sotelo MD HEMATOLOGY ORDERABLE S [facility] [place] [address] * Magnesium (01/31/2022 4:15 AM EDT) Pathologist [facility] Magnesium 0.82 0.69 - 1.07 mmol/L [facility] Blood 01/31/2022 4:15 AM EDT 01/31/2022 4:30 AM EDT Narrative Resulting Agency Comment Spec In Lab Avril Lyman MD CHEMISTRY ORDERABLES Performing Organization Address [facility] Co de Phone Number [facility] [place] [address] * (ABNORMAL) Basic Metabolic Panel (non-fasting) (01/31/2022 4:15 AM EDT) Pathologist [facility] Glucose 106 65 - 199 mg/dL [facility] Comment:Diabetes: >=200 mg/d L plus symptoms Blood Urea Nitrogen 23(H) 8 - 18 mg/dL [facility] Creatinine 0.92 0.70 - 1.20 mg/dL [facility] Sodium 138 135 - 145 mmol/L [facility] Potassium 4.3 3.5 - 5.0 mmol/L [facility] Comment: Please note: ??Patients with WBC >100,000 may have falsely elevated Potassium levels. ??For accurate Potassium quantification in these patients send serum separator tube (gold top) for subsequent determinations. ??Contact the Clinical Chemistry Laboratory if there are any questions. Chloride 106 98 - 107 mmol/L [facility] Carbon Dioxide 25 22 - 31 mmol/L [facility] Anion Gap 7 5 - 15 mmol/L [facility] Calcium 9.6 8.5 - 10.5 mg/dL [facility] Est Glomerular Filtration Rate 67 >=60 mL/min/1. 73 m?? [facility] Comment: This patient's estimated GFR [...] and symptoms in addition to eGFR. Blood 01/31/2022 4:15 AM EDT 01/31/2022 4:30 AM EDT Narrative Resulting Agency Comment Spec In Lab Avril Lyman MD CHEMISTRY ORDERABLES Performing Organization Address [facility] Co de Phone Number [facility] [place] [address] * Heparin (unfractionated) Level (01/31/2022 4:15 AM EDT) UF Heparin 0.48 IU/mL [facility] Comment: Heparin (anti-Xa) levels should be determined in a plasma sample that has been drawn 6 hours after a dose change to approximate steady-state for continuous heparin infusions. Indication specific Heparin (anti-Xa) levels based on order set selection: Acute DVT or PE treatment: 0.3 ? 0.7 IU/mL Thrombosis Prevention (eg. atrial fibrillation, jefferson-procedural bridging, mechanical valves): 0.3 ? 0.7 IU/mL Acute Coronary Syndrome: 0.3 ? 0.7 IU/mL Stroke Indications: 0.3 ? 0.5 IU/mL Ultra-low intensity (select indications in cardiac surgery): 0.1 ? 0.3 IU/mL Blood 01/31/2022 4:15 AM EDT 01/31/2022 4:30 AM EDT Narrative Resulting Agency Comment Spec In Lab Belinda Ibrahim APRN HEMATOLOGY ORDERABLE S Performing Organization Address City/[facility]/ZIP Co de Phone Number [facility] [place] [address] * (ABNORMAL) APTT (01/31/2022 4:15 AM EDT) Partial Thromboplastin Time 71(H) 25 - 37 sec [facility] Comment: The PTT is NOT appropriate for heparin monitoring. Use the Anti-Xa level for heparin monitoring (HEP UFH) or LMWH monitoring (HEP LMW). A PTT less than 37 seconds generally indicates adequate hemostasis. Blood 01/31/2022 4:15 AM EDT 01/31/2022 4:30 AM EDT Narrative Resulting Agency Comment Spec In Lab Avril Lyman MD HEMATOLOGY ORDERABLE S Performing Organization Address [facility] Co de Phone Number [facility] [place] [address] * Prothrombin Time (01/31/2022 4:15 AM EDT) Prothrombin Time 10.7 9.4 - 12.5 sec [facility] International Normalization Ratio 0.9 [facility] Comment: An INR <2.0 indicates adequate procoagulant activity for hemostasis in most patients without underlying bleeding disorders, though the INR may not adequately reflect hemostatic capacity in patients with liver disease and synthetic impairment. The recommended target INR range for therapeutic anticoagulation is 2.0 ? 3.0 for most applications, though lower and higher ranges may be appropriate depending on clinical circumstances. Blood 01/31/2022 4:15 AM EDT 01/31/2022 4:30 AM EDT Narrative Resulting Agency Comment Spec In Lab Avril Lyman MD HEMATOLOGY ORDERABLE S Performing Organization Address [facility] Co de Phone Number [facility] [place] [address] * Hepatic Function Panel (01/31/2022 4:15 AM EDT) Protein, Total 6.5 6.1 - 8.0 g/dL [facility] Albumin 3.8 3.2 - 5.2 g/dL [facility] Aspartate Aminotransferase 25 0 - 30 unit/L [facility] Alanine Aminotransferase 22 0 - 30 unit/L [facility] Alkaline Phosphatase 86 35 - 105 unit/L [facility] Bilirubin, Total 0.3 0.2 - 1.3 mg/dL [facility] Bilirubin, Direct 0.1 0.0 - 0.3 mg/dL [facility] Blood 01/31/2022 4:15 AM EDT 01/31/2022 4:30 AM EDT Narrative Resulting Agency Comment Spec In Lab Avril Lyman MD CHEMISTRY ORDERABLES [facility] [place] [address] * Urinalysis with reflex Culture (01/31/2022 12:35 AM EDT) Glucose, Urine Dipstick Negative Negative mg/dL [facility] Protein, Urine Dipstick Negative Negative mg/dL [facility] Bilirubin, Urine Dipstick Negative Negative mg/dL [facility] Comment: Clinical correlation required for positive Urine Bilirubin results as false positive may occur with some drugs and drug related products. If a false positive is suspected a serum total bilirubin should be considered if clinically indicated. Urobilinogen, Urine Dipstick Normal Normal mg/dL [facility] pH, Urn (dipstick) 5.5 5.0 - 8.0 [facility] Blood, Urine Dipstick Negative Negative mg/dL [facility] Ketone, Urine Dipstick Negative Negative mg/dL [facility] Nitrite, Urine Dipstick Negative Negative [facility] Leukocytes, Urine Dipstick Negative Negative [facility] Appearance, Urine Dipstick Clear Clear [facility] Specific [place] Urine Automated 1.016 1.005 - 1.030 [facility] Color, Urine Dipstick Yellow Yellow [facility] [facility] Reflex to Culture No [facility] Clean Catch Urine 01/31/2022 12:35 AM EDT 01/31/2022 12:47 AM EDT Narrative Resulting Agency Comment Spec In Lab Avril Lyman MD URINE ORDERABLES [facility] [place] [address] * (ABNORMAL) Differential, Automated (01/30/2022 3:45 AM EDT) Neutrophil % 41.5 % [facility] Neutrophil Absolute 2.89 1.70 - 6.10 x10(3)/mc L [facility] Lymph % 48.0 % [facility] Lymphocytes Abs 3.3(H) 0.9 - 3.2 x10(3)/mc L [facility] Monocyte % 8.5 % [facility] Monocyte Abs 0.6 0.3 - 0.9 x10(3)/mc L [facility] Eos % 1.6 % [facility] Eosinophils Abs 0.1 0.0 - 0.4 x10(3)/mc L [facility] Basophil % 0.3 % [facility] Baso Absolute 0.0 0.0 - 0.1 x10(3)/mc L [facility] Immature Gran % 0.10 % [facility] Comment: Immature granulocytes(IG's)percentage and absolute count will include metamyelocytes, myelocytes, and promyelocytes. Blood smears from CBCs yielding IG's will be scanned manually for concordance. If this scan disagrees with the automated IG or if promyelocytes are noted, a manual differential will be performed. Immature Gran Absolute 0.01 0.00 - 0.04 x10(3)/mc L [facility] Blood 01/30/2022 3:45 AM EDT 01/30/2022 5:34 AM EDT Narrative Resulting Agency Comment Spec In Lab Jermaine Sotelo MD HEMATOLOGY ORDERABLE S [facility] [place] [address] * (ABNORMAL) Hemogram (01/30/2022 3:45 AM EDT) White Blood Cell 7.0 4.0 - 9.5 x10(3)/mc L [facility] Red Blood Cell 5.03 4.00 - 5.21 x10(6)/mc L [facility] Hemoglobin 14.0 11.7 - 15.5 g/dL [facility] Hematocrit 41.0 35.7 - 45.8 % [facility] Mean Cell Volume 81.5(L) 82.6 - 94.4 fL [facility] Mean Cell Hemoglobin 27.8 27.1 - 32.0 pg [facility] Mean Cell Hemoglobin Concentration 34.1 31.7 - 35.0 g/dL [facility] Platelet 246 145 - 357 x10(3)/mc L [facility] RDW Standard Deviation 39.6 37.0 - 46.0 fL [facility] RDW coefficient of variation 13.2 11.5 - 14.1 % [facility] Mean Platelet Volume 10.5 7.6 - 12.9 fL [facility] NRBC% auto 0.0 % [facility] NRBC Absolute 0.000 0.000 - 0.000 x10(3)/mc L [facility] Blood 01/30/2022 3:45 AM EDT 01/30/2022 5:34 AM EDT Narrative Resulting Agency Comment Spec In Lab Jermaine Sotelo MD HEMATOLOGY ORDERABLE S [facility] [place] [address] * Magnesium (01/30/2022 3:45 AM EDT) Magnesium 0.85 0.69 - 1.07 mmol/L [facility] Blood 01/30/2022 3:45 AM EDT 01/30/2022 5:34 AM EDT Narrative Resulting Agency Comment Spec In Lab Avril Lyman MD CHEMISTRY ORDERABLES [facility] [place] [address] * (ABNORMAL) Basic Metabolic Panel (non-fasting) (01/30/2022 3:45 AM EDT) Glucose Not Perf 65 - 199 [facility] Comment: Sample improperly processed prior to receipt. Diabetes: >=200 mg/dL plus symptoms Blood Urea Nitrogen 29(H) 8 - 18 mg/dL [facility] Comment:result rechecked-bm Creatinine 0.93 0.70 - 1.20 mg/dL [facility] Sodium 139 135 - 145 mmol/L [facility] Potassium 4.1 3.5 - 5.0 mmol/L [facility] Comment: Please note: ??Patients with WBC >100,000 may have falsely elevated Potassium levels. ??For accurate Potassium quantification in these patients send serum separator tube (gold top) for subsequent determinations. ??Contact the Clinical Chemistry Laboratory if there are any questions. Chloride 106 98 - 107 mmol/L [facility] Carbon Dioxide 22 22 - 31 mmol/L [facility] Anion Gap 11 5 - 15 mmol/L [facility] Calcium 9.4 8.5 - 10.5 mg/dL [facility] Est Glomerular Filtration Rate 67 >=60 mL/min/1. 73 m?? [facility] Comment: This patient's estimated GFR [...] and symptoms in addition to eGFR. Blood 01/30/2022 3:45 AM EDT 01/30/2022 5:34 AM EDT Narrative Resulting Agency Comment Spec In Lab Avril Lyman MD CHEMISTRY ORDERABLES Performing Organization Address [facility] Co de Phone Number [facility] [place] [address] * Heparin (unfractionated) Level (01/30/2022 3:45 AM EDT) UF Heparin 0.39 IU/mL [facility] Comment: Specimen drawn more than one hour prior to testing. Results may not be reliable for heparin monitoring. Result may be falsely low. Heparin (anti-Xa) levels should be determined in a plasma sample that has been drawn 6 hours after a dose change to approximate steady-state for continuous heparin infusions. Indication specific Heparin (anti-Xa) levels based on order set selection: Acute DVT or PE treatment: 0.3 ? 0.7 IU/mL Thrombosis Prevention (eg. atrial fibrillation, jefferson-procedural bridging, mechanical valves): 0.3 ? 0.7 IU/mL Acute Coronary Syndrome: 0.3 ? 0.7 IU/mL Stroke Indications: 0.3 ? 0.5 IU/mL Ultra-low intensity (select indications in cardiac surgery): 0.1 ? 0.3 IU/mL Blood 01/30/2022 3:45 AM EDT 01/30/2022 5:34 AM EDT Narrative Resulting Agency Comment Spec In Lab Belinda Ibrahim APRN HEMATOLOGY ORDERABLE S Performing Organization Address City/[facility]/ZIP Co de Phone Number [facility] [place] [address] * Heparin (unfractionated) Level (01/29/2022 9:57 PM EDT) UF Heparin 0.31 IU/mL [facility] Comment: Heparin (anti-Xa) levels should be determined in a plasma sample that has been drawn 6 hours after a dose change to approximate steady-state for continuous heparin infusions. Indication specific Heparin (anti-Xa) levels based on order set selection: Acute DVT or PE treatment: 0.3 ? 0.7 IU/mL Thrombosis Prevention (eg. atrial fibrillation, jefferson-procedural bridging, mechanical valves): 0.3 ? 0.7 IU/mL Acute Coronary Syndrome: 0.3 ? 0.7 IU/mL Stroke Indications: 0.3 ? 0.5 IU/mL Ultra-low intensity (select indications in cardiac surgery): 0.1 ? 0.3 IU/mL Blood 01/29/2022 9:57 PM EDT 01/29/2022 10:00 PM EDT Narrative Resulting Agency Comment Spec In Lab Belinda Ibrahim APRN HEMATOLOGY ORDERABLE S [facility] [place] [address] * CARDIAC CATHETERIZATION (01/29/2022 2:43 PM EDT) Anatomical Region Laterality Modality Other Narrative 01/29/2022 12:09 PM EDT ?[facility] ? Cardiac Catheterization/Intervention Report ? Patient Name: Shellie Lyon. ? Procedure Date: 01/29/2022 ? A #: [id number] ? Primary Physician: Chandana Cedillo ? Case #: [id number] ? File Name: [id number] ? Catheterization Order Number: [id number] ? [facility] ? Final Report [place], [place] ? Patient Name: ? Shellie H. Guayama ? ID#: ?[id number] ? : ?1950 ? Procedure Date: ? January 29, 2022 ? Case #: ? [id number] ? Room: ? 5 ? Case Physician: ? Chandana Cedillo M.D. ? Start: ?08:22 ?Fellow: ? Levi Tenorio D.O. ?Admission: ??01/28/2022 ? Referring Physician: ??Clint Gu M.D. ? Procedures: ?* Coronary Angiography ?* Left Heart Catheterization ? History ?Shellie Lyon is a 71 year old woman. She has hypertension and a family ?history of coronary artery disease. The patient's smoking status is ?Never. She has untreated hypercholesterolemia. The patient is also status ?post a recent non-ST elevation myocardial infarction. Prior to the ?initiation of this procedure, the patient was designated as ASA Class II. ?The CSHA clinical frailty scale is 4: Vulnerable. ? Diagnostic Tests: ?Prior Coronary Angiography: ? LV ejection fraction within 6 months is 60%. ?Electrocardiography: ? EKG was assessed by ECG. EKG was Abnormal. EKG showed ST Deviation ? >= 0.5 mm. ?Medications Prior to Procedure: ? Aspirin, Beta Sreekanth and Statin. ? Indications for Diagnostic Cath: ?The priority of the diagnostic procedure was Urgent. The indication for ?the director of cardiac cath lab visit is ACS greater than 24 hrs. Chest pain symptom ?assessment was: Typical Angina. ? Technique: ?A 6 SLFr sheath was inserted in the right radial artery utilizing the ?Seldinger technique. The left coronary artery was injected utilizing a ?5Fr TIG 4.0 catheter. A 5Fr TIG 4.0 catheter was used to inject the right ?coronary artery. Left ventricular pressure was performed utilizing a 5Fr ?TIG 4.0 catheter. 3,000 units of heparin were administered. A total of ?100cc of Iso-Daniela were opened, 55cc of Iso-Daniela were administered and 45cc ?of Iso-Daniela were wasted. Radiation: Fluoro time was 8.3 minutes, dose area ?product was 13,200 mGYcm2 and air kerma was 213 mGY. See the case log for ?additional details. ?The patient received the following medications prior to and during the ?procedure: ? Unfractionated Heparin and Clopidogrel. ? Hemodynamics: ?Left Heart Pressures ? Resting: ? Syst Diast ? EDP ?a ?v ? m ?Ao 86 ?44 ?58 ?LV 128 ? 10 ? Coronary Angiography: ?Dominance: Right ?Left Main ? There was a 60% single discrete stenosis of the distal segment of ? the left main artery. ??The left main was large. ?Left Anterior Descending ? There was mild diffuse (<=25% stenosis) disease of the entire vessel ? segment of the left anterior descending artery (LAD). ??The LAD was ? moderate in size. ?Left Circumflex ? There was mild diffuse (<=25% stenosis) disease of the entire vessel ? segment of the left circumflex artery (LCX). ??The LCX was moderate ? in size. ?Right Coronary Artery ? There was mild diffuse (<=25% stenosis) disease of the entire vessel ? segment of the right coronary artery (RCA). ??The RCA was moderate in ? size. ? Vascular Access: ?Vascular Access Management: ? Mechanical Compression of the right radial artery access site was ? performed. ? Conclusions: ?* Significant stenosis of the left main ? Complications/Events: ?The patient had no complications during these procedures. ? Comments: ?Patient found to have significant distal left main disease that dampened ?on catheter engagement. Discussed intracoronary imaging with inpatient ?cardiology team, however we agreed that the risks outweighed benefits and ?that the clinical picture fit with LM ACS. WIll refer for bypass surgery. ?The attending physician was present for the entire procedure. ?Dr. Chandana Cedillo M.D. was present during the moderate sedation ?intraservice time as documented by the sedation nurse. ??Case time = 00:32. ?Dr. Chandana Cedillo M.D. performed the coronary angiography and left ?heart catheterization. ? Chandana Cedillo M.D. ? Electronically Signed by: Chandana Cedillo M.D. ? Report Finalized: 01/29/2022 ??12:03 ? Report Last Ammended: 01/30/2022 ??13:37 ? Chandana Cedillo MD CARDIAC CATH ORDERAB LES * ECHO COMPLETE (01/29/2022 8:22 AM EDT) EF 60 HEARTLAB SYSTEM Anatomical Region Laterality Modality Cardiac Other 01/29/2022 7:25 AM EDT Narrative 01/29/2022 8:52 AM EDT ? Echocardiogram Report Name: SHELLIE LYON ?Study Date: 01/29/2022 07:25 AMBP: 147/75 mmHg ? Patient Location: CA^CA05^A : 1950 ? Height: 163 cm ? Account: [id number] Age: 71 yrs ? Weight: 67 kg Gender: Female ?BSA: 1.7 m2 Ordering Physician: AVRIL LYMAN Referring Physician: CLINT GU Performed By: GUILHERME Severino Reason For Study: NSTEMI Exam Location: [facility]. Interpretation Summary 1. The left ventricle is normal in chamber size. Global systolic function is normal with LVEF of 60% by Wan's biplane. The apex appears hypokinetic. 2. The right ventricle is normal in size and global systolic function. PASP is estimated to be 34 mmHg. 3. The aortic valve appears sclerotic. There is no evidence for significant stenosis. There is mild regurgitation. 4. There is no prior study available for comparison. See remainder of report for complete findings. Procedure Complete-29703. Satisfactory quality. There is normal sinus rhythm. Left Ventricle Left ventricle is of normal size. Moderately increased thickness of the basal septum with no obstruction to LV outflow. There is no ventricular septal defect. There is a mid cavitary gradient of 5mmHg. The estimated peak gradient across the LV outflow tract is 14 mmHg with Valsalva. Left ventricular systolic function is normal. The left ventricular ejection fraction is 60% by Wan's biplane. There are segmental wall motion abnormalities. Right Ventricle The right ventricle is of normal size. Right ventricular systolic function is normal. Left Atrium The left atrium is normal. There is no evidence for a patent foramen ovale. Right Atrium The right atrium is normal. Aortic Valve The aortic valve is probably trileaflet. There is aortic valve sclerosis without stenosis. There is mild aortic regurgitation. Mitral Valve Mild thickening of the mitral leaflets. There is no systolic anterior motion of the mitral valve. There is no mitral stenosis. There is trace mitral regurgitation. Tricuspid Valve The tricuspid valve is structurally normal. There is no tricuspid stenosis. There is mild tricuspid regurgitation. Pulmonic Valve The pulmonic valve is not well visualized. There is no valvular pulmonic stenosis. There is trace pulmonic valve regurgitation. Great Arteries The aortic root is of normal size. No abnormalities are identified. The ascending aorta is not well visualized. The pulmonary artery is not well visualized. Venous Inferior vena cava is normal in size. Inferior vena cava collapse greater than 50% with respiration. Pericardium/Pleural There is no pericardial effusion. A pericardial fat pad is present. Hemodynamics The peak right ventricular systolic pressure is 34 mmHg. The estimated right atrial pressure is 3mmHg. Left ventricular diastolic function is abnormal. There is Grade I LV diastolic dysfunction (abnormal relaxation with normal left ventricular filling pressure). Ejection Fraction ?2D Measurements ? Volumes LV Biplane EF: 60.4 % ? IVSd: 0.93 cm ?LA Volume Index: ?LVIDd: 4.6 cm ?LVIDs: 1.6 cm ?26.7 ml/m2 ?LVPWd: 0.61 cm ? EDV Biplane: 60.2 ml ? EDV Biplane Index: 34.9 ?LV mass(C)d: 114.2 grams ? ESV Biplane: 23.8 ml ?LV mass(C)dI: 66.3 grams/m2 ?ESV Biplane Index: 13.8 ?Ao root diam: 3.0 cm ? SV(LVOT): 134.8 ml ?Ao root diam index: 1.7 ?LV Stroke Volume: ?LVOT diam: 1.9 cm ?134.7 ml ?TAPSE_phl: 2.1 cm ? SI(LVOT): 78.2 ml/m2 Doppler TR max cali: 277.0 cm/sec RVSP(TR): 33.7 mmHg LV V1 VTI: 48.3 cm LVOT max Velocity: 205.6 cm/sec Ao V2 VTI: 54.8 cm Ao Max: 230.9 cm/sec Ao valve max: 21.3 mmHg Ao valve mean: 12.8 mmHg MV E max cali: 64.5 cm/sec MV A max cali: 104.8 cm/sec MV E/A: 0.62 MV dec time: 0.17 sec Lat Peak E' Cali: 5.6 cm/sec E/ e' (lat): 11.6 Med Peak E' Cali: 3.2 cm/sec E/e' (med): 20.0 E/e' Average: 15.8 GIOVANI(I,D): 2.5 cm2 Dimensionless index Aov: 0.88 AI P1/2t: 723.4 msec I ?WMSI = 1.25 ? % Normal = 75 ?Segments ??Size X - Cannot ?? 1 - Normal ?? 2 - ? 3 - Akinetic 4 - ?1-2 ? small Interpret ? Hypokinetic ?Dyskinetic ?? 3-5 ? moderate 5 - ? 6-14 ?large Aneurysmal ?15-16 ?? diffuse Procedure Note Stephany Newsome MD - 01/29/2022 Echocardiogram Report Name: SHELLIE LYON Study Date: 207:25 AMBP: 147/75 mmHg Patient Location:LA^CA05^A : 1950 Height: 163 cm Account: [id number] Age: 71 yrs Weight: 67 kg Gender: Female BSA: 1.7 m2 Ordering Physician: AVRIL LYMAN Referring Physician: CLINT GU Performed By: GUILHERME Severino Reason For Study: NSTEMI Exam Location: [facility]. Interpretation Summary 1. The left ventricle is normal in chamber size. Global systolic functionis normal with LVEF of 60% by Wan's biplane. The apex appearshypokinetic. 2. The right ventricle is normal in size and global systolic function.PASP is estimated to be 34 mmHg. 3. The aortic valve appears sclerotic. There is no evidence forsignificant stenosis. There is mild regurgitation. 4. There is no prior study available for comparison. See remainder ofreport for complete findings. Procedure Complete-[id number]. Satisfactory quality. There is normal sinus rhythm. Left Ventricle Left ventricle is of normal size. Moderately increased thickness of thebasal septum with no obstruction to LV outflow. There is no ventricular septaldefect. There is a mid cavitary gradient of 5mmHg. The estimated peak gradientacross the LV outflow tract is 14 mmHg with Valsalva. Left ventricular systolicfunction is normal. The left ventricular ejection fraction is 60% by Wan'sbiplane. There are segmental wall motion abnormalities. Right Ventricle The right ventricle is of normal size. Right ventricular systolic functionis normal. Left Atrium The left atrium is normal. There is no evidence for a patent foramenovale. Right Atrium The right atrium is normal. Aortic Valve The aortic valve is probably trileaflet. There is aortic valve sclerosiswithout stenosis. There is mild aortic regurgitation. Mitral Valve Mild thickening of the mitral leaflets. There is no systolic anteriormotion of the mitral valve. There is no mitral stenosis. There is trace mitral regurgitation. Tricuspid Valve The tricuspid valve is structurally normal. There is no tricuspidstenosis. There is mild tricuspid regurgitation. Pulmonic Valve The pulmonic valve is not well visualized. There is no valvular pulmonicstenosis. There is trace pulmonic valve regurgitation. Great Arteries The aortic root is of normal size. No abnormalities are identified. Theascending aorta is not well visualized. The pulmonary artery is not wellvisualized. Venous Inferior vena cava is normal in size. Inferior vena cava collapse greaterthan 50% with respiration. Pericardium/Pleural There is no pericardial effusion. A pericardial fat pad is present. Hemodynamics The peak right ventricular systolic pressure is 34 mmHg. The estimatedright atrial pressure is 3mmHg. Left ventricular diastolic function is abnormal.There is Grade I LV diastolic dysfunction (abnormal relaxation with normalleft ventricular filling pressure). Ejection Fraction 2D Measurements Volumes LV Biplane EF: 60.4 % IVSd: 0.93 cm LA VolumeIndex: LVIDd: 4.6 cm LVIDs: 1.6 cm 26.7 ml/m2 LVPWd: 0.61 cm EDV Biplane: 60.2ml EDV BiplaneIndex: 34.9 LV mass(C)d: 114.2 grams ESV Biplane: 23.8ml LV mass(C)dI: 66.3 grams/m2 ESV BiplaneIndex: 13.8 Ao root diam: 3.0 cm SV(LVOT): 134.8ml Ao root diam index: 1.7 LV StrokeVolume: LVOT diam: 1.9 cm 134.7 ml TAPSE_phl: 2.1 cm SI(LVOT): 78.2ml/m2 Doppler TR max cali: 277.0 cm/sec RVSP(TR): 33.7 mmHg LV V1 VTI: 48.3 cm LVOT max Velocity: 205.6 cm/sec Ao V2 VTI: 54.8 cm Ao Max: 230.9 cm/sec Ao valve max: 21.3 mmHg Ao valve mean: 12.8 mmHg MV E max cali: 64.5 cm/sec MV A max cali: 104.8 cm/sec MV E/A: 0.62 MV dec time: 0.17 sec Lat Peak E' Cali: 5.6 cm/sec E/ e' (lat): 11.6 Med Peak E' Cali: 3.2 cm/sec E/e' (med): 20.0 E/e' Average: 15.8 GIOVANI(I,D): 2.5 cm2 Dimensionless index Aov: 0.88 AI P1/2t: 723.4 msec I WMSI = 1.25 % Normal = 75 SegmentsSize X - Cannot 1 - Normal 2 - 3 - Akinetic 4 - 1-2small Interpret Hypokinetic Dyskinetic 3-5moderate 5 - 6-14large Aneurysmal 15-16diffuse Avril Lyman MD ECHO ORDERABLES * Differential, Automated (01/29/2022 5:56 AM EDT) Neutrophil % 51.9 % [facility] Neutrophil Absolute 3.90 1.70 - 6.10 x10(3)/[facility] Lymph % 39.5 % [facility] Lymphocytes Abs 3.0 0.9 - 3.2 x10(3)/[facility] Monocyte % 7.5 % [facility] Monocyte Abs 0.6 0.3 - 0.9 x10(3)/[facility] Eos % 0.7 % [facility] Eosinophils Abs 0.0 0.0 - 0.4 x10(3)/[facility] Basophil % 0.3 % [facility] Baso Absolute 0.0 0.0 - 0.1 x10(3)/[facility] Immature Gran % 0.10 % [facility] Comment: Immature granulocytes(IG's)percentage and absolute count will include metamyelocytes, myelocytes, and promyelocytes. Blood smears from CBCs yielding IG's will be scanned manually for concordance. If this scan disagrees with the automated IG or if promyelocytes are noted, a manual differential will be performed. Immature Gran Absolute 0.01 0.00 - 0.04 x10(3)/[facility] Blood 01/29/2022 5:56 AM EDT 01/29/2022 6:07 AM EDT Narrative Resulting Agency Comment Spec In Lab Belinda Anton King MORGAN HEMATOLOGY ORDERABLE S [facility] [place] [address] * (ABNORMAL) Hemogram (01/29/2022 5:56 AM EDT) White Blood Cell 7.5 4.0 - 9.5 x10(3)/mc L [facility] Red Blood Cell 5.51(H) 4.00 - 5.21 x10(6)/mc L [facility] Hemoglobin 15.2 11.7 - 15.5 g/dL [facility] Hematocrit 44.0 35.7 - 45.8 % [facility] Mean Cell Volume 79.9(L) 82.6 - 94.4 fL [facility] Mean Cell Hemoglobin 27.6 27.1 - 32.0 pg [facility] Mean Cell Hemoglobin Concentration 34.5 31.7 - 35.0 g/dL [facility] Platelet 266 145 - 357 x10(3)/mc L [facility] RDW Standard Deviation 37.2 37.0 - 46.0 [facility] RDW coefficient of variation 13.0 11.5 - 14.1 % [facility] Mean Platelet Volume 10.4 7.6 - 12.9 fL [facility] NRBC% auto 0.0 % [facility] NRBC Absolute 0.000 0.000 - 0.000 x10(3)/mc L [facility] Blood 01/29/2022 5:56 AM EDT 01/29/2022 6:07 AM EDT Narrative Resulting Agency Comment Spec In Lab Belinda Anton King MORGAN HEMATOLOGY ORDERABLE S Performing Organization Address City/State/[facility] Co de Phone Number [facility] [place] [address] * Heparin (unfractionated) Level (01/29/2022 5:56 AM EDT) Pathologist [facility] UF Heparin 0.65 IU/mL [facility] Comment: Heparin (anti-Xa) levels should be determined in a plasma sample that has been drawn 6 hours after a dose change to approximate steady-state for continuous heparin infusions. Indication specific Heparin (anti-Xa) levels based on order set selection: Acute DVT or PE treatment: 0.3 ? 0.7 IU/mL Thrombosis Prevention (eg. atrial fibrillation, jefferson-procedural bridging, mechanical valves): 0.3 ? 0.7 IU/mL Acute Coronary Syndrome: 0.3 ? 0.7 IU/mL Stroke Indications: 0.3 ? 0.5 IU/mL Ultra-low intensity (select indications in cardiac surgery): 0.1 ? 0.3 IU/mL Blood 01/29/2022 5:56 AM EDT 01/29/2022 6:07 AM EDT Narrative Resulting Agency Comment Spec In Lab Belinda J King MORGAN HEMATOLOGY ORDERABLE S Performing Organization Address [facility]/ZIP Co de Phone Number [facility] [place] [address] * (ABNORMAL) Troponin (01/29/2022 5:56 AM EDT) [facility] Troponin-T 0.26(H) 0.00 - 0.00 ng/mL [facility] Comment: The 99th percentile for Troponin T is less than 0.01 ng/mL, any detectable cTnT concentration using this assay should be considered elevated. According to the third universal definition of myocardial infarction the following criteria with a clinical presentation consistent with acute myocardial ischemia meets the diagnosis for a myocardial infarction ([place]). Detection of a rise and/or fall of cTnT, with at least one value greater than the 99th percentile (> or = 0.01) and with at least one of the following ?? Symptoms of ischemia ?? New or presumed new significant JB-sqfqest-P wave (ST-T) changes or new left bundle branch block (LBBB) ?? Development of pathologic Q waves in the ECG ?? Imaging evidence of new loss of viable myocardium or new regional wall motion abnormality ?? Identification of an intracoronary thrombus by angiography or autopsy Samples for cTnT testing should be obtained serially upon first assessment and again 3 to 6 hours later. If the clinical suspicion is high and previous samples have been negative an additional sample may be indicated. Reference: [place] Definition of Myocardial Infarction. Journal of the [place] [employer] 2012;60:1581-98 Blood 01/29/2022 5:56 AM EDT 01/29/2022 6:07 AM EDT Narrative Resulting Agency Comment Spec In Lab Avril Lyman MD CHEMISTRY ORDERABLES Performing Organization Address [facility]/ZIP Co de Phone Number [facility] [place] [address] * Magnesium (01/29/2022 5:56 AM EDT) Magnesium 0.92 0.69 - 1.07 mmol/L [facility] Blood 01/29/2022 5:56 AM EDT 01/29/2022 6:07 AM EDT Narrative Resulting Agency Comment Spec In Lab Avril Lyman MD CHEMISTRY ORDERABLES Performing Organization Address [facility] Co de Phone Number [facility] [place] [address] * Basic Metabolic Panel (non-fasting) (01/29/2022 5:56 AM EDT) Glucose 98 65 - 199 mg/dL [facility] Comment:Diabetes: >=200 mg/d L plus symptoms Blood Urea Nitrogen 14 8 - 18 mg/dL [facility] Creatinine 0.78 0.70 - 1.20 mg/dL [facility] Sodium 139 135 - 145 mmol/L [facility] Potassium 4.0 3.5 - 5.0 mmol/L [facility] Comment: Please note: ??Patients with WBC >100,000 may have falsely elevated Potassium levels. ??For accurate Potassium quantification in these patients send serum separator tube (gold top) for subsequent determinations. ??Contact the Clinical Chemistry Laboratory if there are any questions. Chloride 105 98 - 107 mmol/L [facility] Carbon Dioxide 23 22 - 31 mmol/L [facility] Anion Gap 11 5 - 15 mmol/L [facility] Calcium 9.9 8.5 - 10.5 mg/dL [facility] Est Glomerular Filtration Rate 82 >=60 mL/min/1. 73 m?? [facility] Comment: This patient's estimated GFR [...] and symptoms in addition to eGFR. Blood 01/29/2022 5:56 AM EDT 01/29/2022 6:07 AM EDT Narrative Resulting Agency Comment Spec In Lab Avril Lyman MD CHEMISTRY ORDERABLES [facility] [place] [address] * (ABNORMAL) Troponin (01/29/2022 12:10 AM EDT) Troponin-T 0.37(H) 0.00 - 0.00 ng/mL [facility] Comment: The 99th percentile for Troponin T is less than 0.01 ng/mL, any detectable cTnT concentration using this assay should be considered elevated. According to the third universal definition of myocardial infarction the following criteria with a clinical presentation consistent with acute myocardial ischemia meets the diagnosis for a myocardial infarction ([place]). Detection of a rise and/or fall of cTnT, with at least one value greater than the 99th percentile (> or = 0.01) and with at least one of the following ?? Symptoms of ischemia ?? New or presumed new significant FQ-rfsxghs-H wave (ST-T) changes or new left bundle branch block (LBBB) ?? Development of pathologic Q waves in the ECG ?? Imaging evidence of new loss of viable myocardium or new regional wall motion abnormality ?? Identification of an intracoronary thrombus by angiography or autopsy Samples for cTnT testing should be obtained serially upon first assessment and again 3 to 6 hours later. If the clinical suspicion is high and previous samples have been negative an additional sample may be indicated. Reference: [place] Definition of Myocardial Infarction. Journal of the [place] [employer] 2012;60:1581-98 Blood 01/29/2022 12:1 0 AM EDT 01/29/2022 12:16 AM EDT Narrative Resulting Agency Comment Spec In Lab Avril Lyman MD CHEMISTRY ORDERABLES Performing Organization Address [facility]/ZIP Co de Phone Number [facility] [place] [address] * LDL Cholesterol, Direct (01/29/2022 12:10 AM EDT) Pathologist [facility] LDL Cholesterol, Direct 164 mg/dL [facility] Comment: Lowest Risk: <100 mg/dL Lower Risk: 100-129 mg/dL Borderline High Risk: 130-159 mg/dL High Risk: 160-189 mg/dL Very High Risk: >gd=045 mg/dL Blood 01/29/2022 12:1 0 AM EDT 01/29/2022 12:16 AM EDT Narrative Resulting Agency Comment Spec In Lab Avril Lyman MD CHEMISTRY ORDERABLES Performing Organization Address City/[facility]/ZIP Co de Phone Number [facility] [place] [address] * Heparin (unfractionated) Level (01/29/2022 12:10 AM EDT) UF Heparin 0.29 IU/mL [facility] Comment: Heparin (anti-Xa) levels should be determined in a plasma sample that has been drawn 6 hours after a dose change to approximate steady-state for continuous heparin infusions. Indication specific Heparin (anti-Xa) levels based on order set selection: Acute DVT or PE treatment: 0.3 ? 0.7 IU/mL Thrombosis Prevention (eg. atrial fibrillation, jefferson-procedural bridging, mechanical valves): 0.3 ? 0.7 IU/mL Acute Coronary Syndrome: 0.3 ? 0.7 IU/mL Stroke Indications: 0.3 ? 0.5 IU/mL Ultra-low intensity (select indications in cardiac surgery): 0.1 ? 0.3 IU/mL Blood 01/29/2022 12:1 0 AM EDT 01/29/2022 12:16 AM EDT Narrative Resulting Agency Comment Spec In Lab Avril Lyman MD HEMATOLOGY ORDERABLE S Performing Organization Address City/[facility]/ZIP Co de Phone Number [facility] [place] [address] * Type and Screen Validity (01/28/2022 6:03 PM EDT) T&S only valid at [facility] Comment:This Type and Screen result is only valid at the [facility] Blood 01/28/2022 6:03 PM EDT 01/28/2022 6:18 PM EDT Narrative Resulting Agency Comment Spec In Lab Jermaine Sotelo MD BLOOD BANK LAB ORDER USHA [facility] [place] [address] * ABORH Recheck Status (01/28/2022 6:03 PM EDT) ABORH Recheck Order Order Placed [facility] ABORH Type Recheck Complete [facility] Blood 01/28/2022 6:03 PM EDT 01/28/2022 6:18 PM EDT Narrative Resulting Agency Comment Spec In Lab Jermaine Sotelo MD BLOOD BANK LAB ORDER USHA [facility] [place] [address] * Antibody screen (01/28/2022 6:03 PM EDT) Ab Screen Interp Negative [facility] Expires at [id number] on: 01/31/2022 [facility] Blood 01/28/2022 6:03 PM EDT 01/28/2022 6:18 PM EDT Narrative Resulting Agency Comment Spec In Lab Jermaine Sotelo MD BLOOD BANK LAB ORDER USHA [facility] [place] [address] * ABO/Rh Typing (01/28/2022 6:03 PM EDT) ABORH Type O Pos [facility] Blood 01/28/2022 6:03 PM EDT 01/28/2022 6:18 PM EDT Narrative Resulting Agency Comment Spec In Lab Jermaine Sotelo MD BLOOD BANK LAB ORDER USHA Performing Organization Address City/[facility]/ZIP Co de Phone Number [facility] [place] [address] * Heparin (unfractionated) Level (01/28/2022 5:59 PM EDT) UF Heparin 0.52 IU/mL [facility] Comment: Heparin (anti-Xa) levels should be determined in a plasma sample that has been drawn 6 hours after a dose change to approximate steady-state for continuous heparin infusions. Indication specific Heparin (anti-Xa) levels based on order set selection: Acute DVT or PE treatment: 0.3 ? 0.7 IU/mL Thrombosis Prevention (eg. atrial fibrillation, jefferson-procedural bridging, mechanical valves): 0.3 ? 0.7 IU/mL Acute Coronary Syndrome: 0.3 ? 0.7 IU/mL Stroke Indications: 0.3 ? 0.5 IU/mL Ultra-low intensity (select indications in cardiac surgery): 0.1 ? 0.3 IU/mL Blood Venous Draw / Unknown 01/28/2022 5:59 PM EDT 01/28/2022 6:05 PM EDT Narrative Resulting Agency Comment Spec In Lab Belinda Anton King MORGAN HEMATOLOGY ORDERABLE S [facility] [place] [address] * HDL/Cholesterol Profile (01/28/2022 5:56 PM EDT) Cholesterol, Total 245 mg/dL [facility] Comment: Lower Risk: <200 mg/dL Average Risk: 200-239 mg/dL Higher Risk: >bm=041 mg/dL HDL Cholesterol 55 mg/dL [facility] Comment: Males: ?? Higher Risk: <40 mg/dL Females: ?? Higher Risk: <50 mg/dL Cholesterol/HDL Ratio 4.5 ratio [facility] Chol/HDL Interpretation See Note [facility] Comment: Lipid management should be guided by a patient? s ASCVD risk, goals and preferences. ACC/AHA Guidelines recommend high intensity statin if clinical ASCVD or LDL greater than or equal to 190 mg/dL. [email or web address]/BPW-XKS-Sulaxprrn Measure LDL if Total Cholesterol minus HDL Cholesterol is greater than 220 mg/dL. Adults aged 40-75 with LDL 70-189 mg/dL should have their 10 year ASCVD risk estimated with the ACC/AHA ASCVD risk collision estimator http://tools.acc.org/HGKEM-Tbar-Gcbvpsymg/ Statin should be discussed if risk greater than or equal to 7.5% in non-diabetics. With diabetes, moderate intensity statin is recommended if risk less than 7.5%, high intensity if risk greater than or equal to 7.5%. Annual lipid monitoring on statins is not necessary. Lifestyle modification is a critical component of ASCVD risk reduction. Blood Venous Draw / Unknown 01/28/2022 5:56 PM EDT 01/28/2022 6:07 PM EDT Narrative Resulting Agency Comment Spec In Lab Jermaine Sotelo MD CHEMISTRY ORDERABLES [facility] [place] [address] * (ABNORMAL) Hemoglobin A1c (01/28/2022 5:56 PM EDT) Hemoglobin A1c 5.8(H) 4.3 - 5.6 % [facility] Comment: Reference Range: 4.3 - 5.6% 5.7 - 6.4% - Increased Risk of Developing Diabetes Mellitus >= 6.5% - Consistent with diagnosis of Diabetes Mellitus In the absence of hyperglycemia (i.e. plasma glucose > 200 mg/dL) or classic symptoms of hyperglycemia a repeat measurement of HbA1c should be performed on a separate sample to confirm the diagnosis. Diagnosis and Classification of Diabetes Mellitus, Diabetes Care 2013; 36: Suppl. 1, S67-74 Estimated Average Glucose 118 mg/dL [facility] Comment: eAG equivalents for HbA1c percentages: HbA1c(%) ?eAG(mg/dL) 6.0 ?126 6.5 ?140 7.0 ?154 7.5 ?169 8.0 ?183 8.5 ?197 9.0 ?212 9.5 ?226 10.0 ? 240 Limitations: The eAG calculation has not been validated on women, individuals below 18 years old and above 70 years old, and individuals with hemoglobinopathies. Additional resources are available on the ADA website. Edgar Mistryenen J, Deng R, et al. ??Translating the A1C assay into estimated average glucose values. ??Diabetes Care 2008:31(8):1047-2022. Blood Venous Draw / Unknown 01/28/2022 5:56 PM EDT 01/28/2022 8:41 PM EDT Narrative Resulting Agency Comment Spec In Lab Jermaine Sotelo MD CHEMISTRY ORDERABLES [facility] [place] [address] * Differential, Automated (01/28/2022 5:56 PM EDT) Neutrophil % 56.7 % [facility] Neutrophil Absolute 4.15 1.70 - 6.10 x10(3)/[facility] Lymph % 36.4 % [facility] Lymphocytes Abs 2.7 0.9 - 3.2 x10(3)/[facility] Monocyte % 6.0 % [facility] Monocyte Abs 0.4 0.3 - 0.9 x10(3)/[facility] Eos % 0.3 % [facility] Eosinophils Abs 0.0 0.0 - 0.4 x10(3)/[facility] Basophil % 0.3 % [facility] Baso Absolute 0.0 0.0 - 0.1 x10(3)/[facility] Immature Gran % 0.30 % [facility] Comment: Immature granulocytes(IG's)percentage and absolute count will include metamyelocytes, myelocytes, and promyelocytes. Blood smears from CBCs yielding IG's will be scanned manually for concordance. If this scan disagrees with the automated IG or if promyelocytes are noted, a manual differential will be performed. Immature Gran Absolute 0.02 0.00 - 0.04 x10(3)/[facility] Blood 01/28/2022 5:56 PM EDT 01/28/2022 6:05 PM EDT Narrative Resulting Agency Comment Spec In Lab Belinda Ibrahim MORGAN HEMATOLOGY ORDERABLE S [facility] [place] [address] * (ABNORMAL) Hemogram (01/28/2022 5:56 PM EDT) White Blood Cell 7.3 4.0 - 9.5 x10(3)/ L [facility] Red Blood Cell 5.67(H) 4.00 - 5.21 x10(6)/mc L [facility] Hemoglobin 15.4 11.7 - 15.5 g/dL [facility] Hematocrit 44.9 35.7 - 45.8 % [facility] Mean Cell Volume 79.2(L) 82.6 - 94.4 [facility] Mean Cell Hemoglobin 27.2 27.1 - 32.0 pg [facility] Mean Cell Hemoglobin Concentration 34.3 31.7 - 35.0 g/dL [facility] Platelet 272 145 - 357 x10(3)/ L [facility] RDW Standard Deviation 36.3(L) 37.0 - 46.0 [facility] RDW coefficient of variation 12.9 11.5 - 14.1 % [facility] Mean Platelet Volume 10.4 7.6 - 12.9 [facility] NRBC% auto 0.0 % [facility] NRBC Absolute 0.000 0.000 - 0.000 x10(3)/[facility] LAB[facility] Blood 01/28/2022 5:56 PM EDT 01/28/2022 6:05 PM EDT Narrative Resulting Agency Comment Spec In Lab Belinda Ibrahim MORGAN HEMATOLOGY ORDERABLE S [facility] [place] [address] * (ABNORMAL) Troponin (01/28/2022 5:56 PM EDT) Troponin-T 0.49(H) 0.00 - 0.00 ng/mL [facility] Comment: The 99th percentile for Troponin T is less than 0.01 ng/mL, any detectable cTnT concentration using this assay should be considered elevated. According to the third universal definition of myocardial infarction the following criteria with a clinical presentation consistent with acute myocardial ischemia meets the diagnosis for a myocardial infarction ([place]). Detection of a rise and/or fall of cTnT, with at least one value greater than the 99th percentile (> or = 0.01) and with at least one of the following ?? Symptoms of ischemia ?? New or presumed new significant QZ-otdhxss-J wave (ST-T) changes or new left bundle branch block (LBBB) ?? Development of pathologic Q waves in the ECG ?? Imaging evidence of new loss of viable myocardium or new regional wall motion abnormality ?? Identification of an intracoronary thrombus by angiography or autopsy Samples for cTnT testing should be obtained serially upon first assessment and again 3 to 6 hours later. If the clinical suspicion is high and previous samples have been negative an additional sample may be indicated. Reference: [place] Definition of Myocardial Infarction. Journal of the [place] [employer] 2012;60:1581-98 Blood 01/28/2022 5:56 PM EDT 01/28/2022 6:05 PM EDT Narrative Resulting Agency Comment Spec In Lab Belinda Ibrahim APRN CHEMISTRY ORDERABLES [facility] [place] [address] * (ABNORMAL) pro-Brain Natriuretic Peptide (01/28/2022 5:56 PM EDT) NT-proBNP 5,691(H) <=124 pg/mL [facility] Blood 01/28/2022 5:56 PM EDT 01/28/2022 6:05 PM EDT Narrative Resulting Agency Comment Spec In Lab Belinda Ibrahim MORGAN CHEMISTRY ORDERABLES [facility] [place] [address] * (ABNORMAL) Basic Metabolic Panel (non-fasting) (01/28/2022 5:56 PM EDT) Glucose 117 65 - 199 mg/dL [facility] Comment:Diabetes: >=200 mg/d L plus symptoms Blood Urea Nitrogen 13 8 - 18 mg/dL [facility] Creatinine 0.65(L) 0.70 - 1.20 mg/dL [facility] Sodium 139 135 - 145 mmol/L [facility] Potassium 4.0 3.5 - 5.0 mmol/L [facility] Comment: Please note: ??Patients with WBC >100,000 may have falsely elevated Potassium levels. ??For accurate Potassium quantification in these patients send serum separator tube (gold top) for subsequent determinations. ??Contact the Clinical Chemistry Laboratory if there are any questions. Chloride 106 98 - 107 mmol/L [facility] Carbon Dioxide 21(L) 22 - 31 mmol/L [facility] Anion Gap 12 5 - 15 mmol/L [facility] Calcium 10.0 8.5 - 10.5 mg/dL [facility] Est Glomerular Filtration Rate 95 >=60 mL/min/1. 73 m?? [facility] Comment: This patient's estimated GFR [...] and symptoms in addition to eGFR. Blood 01/28/2022 5:56 PM EDT 01/28/2022 6:05 PM EDT Narrative Resulting Agency Comment Spec In Lab Belinda Ibrahim APRN CHEMISTRY ORDERABLES [facility] [place] [address] * EKG 12 Lead (01/28/2022 5:47 PM EDT) Ventricular rate 70 BPM MUSE SYSTEM Atrial Rate 70 BPM MUSE SYSTEM P-R Interval 142 ms MUSE SYSTEM QRS Duration 72 ms MUSE SYSTEM Q-T Interval 414 ms MUSE SYSTEM QTC Calculated (Bezet) 447 ms MUSE SYSTEM Calculated P [place] 52 degrees MUSE SYSTEM Calculated R [place] 40 degrees MUSE SYSTEM Calculated T [place] 49 degrees MUSE SYSTEM INTERPRETATION Normal sinus rhythm ST elevation consider lateral injury or acute infarct ACUTE [place] / STEMI Abnormal ECG No previous ECGs available Confirmed by Quinn Garcia ([id number]) on 01/31/2022 8:19:26 AM MUSE SYSTEM 01/28/2022 5:47 PM EDT 01/31/2022 8:19 AM EDT Belinda Ibrahim APRN ECG ORDERABLES MUSE SYSTEM documented in this encounter Visit Diagnoses Not on filedocumented in this encounter Admitting Diagnoses Diagnosis NSTEMI (non-ST elevated myocardial infarction) Acute myocardial infarction, subendocardial infarction, episode of care unspecified documented in this encounter Administered Medications Inactive Administered Medications - up to 3 most recent administrations Medication Order MAR Action Action Date Dose Rate Site acetaminophen (Tylenol) tablet 1,000 mg 1,000 mg, Oral, EVERY 6 HOURS SCHEDULED, First dose on Sat02/02/22 at 1200, Until Discontinued, For pain when taking by mouth. Maximum dose of acetaminophen is 4000 mg from all sources in 24 hours. When ordered for pain, acetaminophen should be given even when other ordered pain medications are indicated., Routine Given 02/05/2022 5:33 AM EDT 1,000 mg Given 02/04/2022 11:01 PM EDT 1,000 mg Given 02/04/2022 5:36 PM EDT 1,000 mg albumin (human) 5% 250 mL intravenous solution CONTINUOUS PRN, Starting on Candace 02/01/22 at 0959, Until Candace 02/01/22 at 1315, Intra-Operative (Intra-Procedure), Routine New Bag 02/01/2022 9:59 A M EDT 12.5 g aspirin chewable tablet 81 mg 81 mg, Oral, DAILY, First dose on Candace 02/01/22 at 1415, Until Discontinued, Start on Post-Op Day 0, please give within 6 hours upon arrival to Unit. If unable to take PO, may give [place], Routine Given 02/05/2022 8:13 AM EDT 81 mg Given 02/04/2022 8:07 AM EDT 81 mg Given 02/03/2022 8:09 AM EDT 81 mg aspirin suppository 300 mg 300 mg, Rectal, DAILY, First dose on Candace 02/01/22 at 1415, Until Discontinued, Start on Post-Op Day 0, please give within 6 hours upon arrival to Unit. Give [place] if unable to take PO, Routine Given 02/01/2022 1:47 PM EDT 300 mg atorvastatin (Lipitor) tablet 80 mg 80 mg, Oral, EVERY EVENING, First dose on 01/29/22 at 1415, Until Discontinued, Routine Given 02/04/2022 5:36 PM EDT 80 mg Given 02/03/2022 5:22 PM EDT 80 mg Given 02/02/2022 5:44 PM EDT 80 mg calcium chloride 10% (100 mg/mL) injection ONCE PRN, Starting on Candace 02/01/22 at 1018, Until Candace 02/01/22 at 1507, Intra-Operative (Intra-Procedure), Routine Given 02/01/2022 10:18 AM EDT 1 g cardioplegic solution (Plegisol) induction solution CONTINUOUS PRN, Starting on Candace 02/01/22 at 0927, Until Candace 02/01/22 at 1315, Intra-Operative (Intra-Procedure) New Bag 02/01/2022 9:27 AM EDT 201 mLs cardioplegic solution no.20 (Maintenance 4:1) solution CONTINUOUS PRN, Starting on Candace 02/01/22 at 1020, Until Candace 02/01/22 at 1315, Intra-Operative (Intra-Procedure) New Bag 02/01/2022 10:20 AM EDT 178 mLs electrolyte replacement solution (pH 7.4) (Normosol-R, Plasmalyte-A) infusion CONTINUOUS PRN, Starting on Candace 02/01/22 at 0756, Until Sat02/01/22 at 1315, Intra-Operative (Intra-Procedure) New Bag 02/01/2022 7:56 AM EDT 2 L furosemide (Lasix) tablet 20 mg 20 mg, Oral, DAILY, First dose on Sat02/02/22 at 1115, Until Discontinued, Routine Given 02/05/2022 8:13 AM EDT 20 mg Given 02/04/2022 8:10 AM EDT 20 mg Given 02/03/2022 8:09 AM EDT 20 mg guaiFENesin ER (Mucinex) tablet 600 mg 600 mg, Oral, EVERY 12 HOURS, First dose on Sat02/04/22 at 1045, Until Discontinued, DO NOT CRUSH OR OPEN, Routine Given 02/04/2022 11:01 PM EDT 600 mg Given 02/04/2022 10:25 AM EDT 600 mg heparin (porcine) (1,000 units/mL) injection ONCE PRN, Starting on Sat01/29/22 at 0827, Until Candace 02/01/22 at 1315, Cath (Intra-Procedure), Routine Given 02/01/2022 8:51 AM EDT 25,000 Units Given 02/01/2022 7:57 AM EDT 5,000 Units Given 01/29/2022 8:27 AM EDT 3,000 Units lidocaine (pf) (Xylocaine) (20 mg/mL) 2% injection syringe ONCE PRN, Starting on Candace 02/01/22 at 1019, Until Candace 02/01/22 at 1507, Intra-Operative (Intra-Procedure), Routine Given 02/01/2022 10:19 AM EDT 200 mg losartan (Cozaar) tablet 25 mg 25 mg, Oral, DAILY, First dose on Sat02/02/22 at 1115, Until Discontinued, Routine Given 02/05/2022 8:17 AM EDT 25 mg Given 02/04/2022 8:07 AM EDT 25 mg Given 02/03/2022 8:09 AM EDT 25 mg magnesium hydroxide (Milk of Magnesia) (240 mg/mL) oral liquid 10 mL 10 mL, Oral, DAILY, First dose on 02/03/22 at 0900, Until Discontinued, Post-op day 2. Do not use with renal insufficiency., Routine Given 02/03/2022 8:09 AM EDT 10 mLs magnesium sulfate (4 mEq/mL) (50 %) injection ONCE PRN, Starting on Candace 02/01/22 at 1018, Until Candace 02/01/22 at 1507, Intra-Operative (Intra-Procedure), Routine Given 02/01/2022 10:18 AM EDT 2 g mannitoL (Osmitrol) 20 % infusion CONTINUOUS PRN, Starting on Candace 02/01/22 at 0926, Until Candace 02/01/22 at 1315, Intra-Operative (Intra-Procedure) New Bag 02/01/2022 9:26 AM EDT 30 g metoproloL tartrate (Lopressor) tablet 25 mg 25 mg, Oral, EVERY 12 HOURS SCHEDULED (2 times per day), First dose on Sat02/02/22 at 1100, Until Discontinued, Routine Given 02/05/2022 8:17 AM EDT 25 mg Given 02/04/2022 8:12 PM EDT 25 mg Given 02/04/2022 8:07 AM EDT 25 mg ondansetron (pf) (Zofran) (2 mg/mL) injection 4 mg 4 mg, Intravenous, EVERY 8 HOURS PRN, Starting on Candace 02/01/22 at 1315, Until Sat02/05/22 at 1119, Nausea Given 02/02/2022 9:30 AM EDT 4 mg pantoprazole (Protonix) injection 40 mg 40 mg, Intravenous, DAILY, First dose on Candace 02/01/22 at 1415, Until Discontinued, Reconstitute with 10 mL of normal saline to a concentration of 4 mg/mL and infuse slowly over 2 minutes. , Routine Given 02/02/2022 8:06 AM EDT 40 mg Given 02/01/2022 1:49 PM EDT 40 mg pantoprazole EC (Protonix) tablet 40 mg 40 mg, Oral, DAILY, First dose on Candace 02/01/22 at 1415, Until Discontinued, DO NOT CRUSH OR OPEN If unable to take PO, may give IV Given 02/05/2022 8:17 AM EDT 40 mg Given 02/04/2022 8:07 AM EDT 40 mg Given 02/03/2022 8:09 AM EDT 40 mg senna-docusate (Pericolace) 8.6-50 mg per tablet 2 tablet 2 tablet, Oral, DAILY, First dose on Sat02/02/22 at 2100, Until Discontinued, Post-op day 1, Routine Given 02/04/2022 8:12 PM EDT 2 tablets Given 02/02/2022 8:17 PM EDT 2 tablets sodium bicarbonate 8.4 % (1 meq/ml) IV solution ONCE PRN, Starting on Candace 02/01/22 at 0944, Until Candace 02/01/22 at 1507, Intra-Operative (Intra-Procedure), Routine Given 02/01/2022 10:00 AM EDT 25 mEq Given 02/01/2022 9:44 AM EDT 25 mEq sodium chloride 0.9 % (flush) (BD PosiFlush Normal Saline 0.9) flush 5 mL 5 mL, Intravenous, EVERY 8 HOURS, First dose on Sat02/02/22 at 1715, Until Discontinued, Routine Given 02/05/2022 8:16 AM EDT 5 mLs Given 02/04/2022 11:01 PM EDT 5 mLs Given 02/04/2022 1:15 AM EDT 5 mLs vancomycin (Vancocin) injection ONCE PRN, Starting on Candace 02/01/22 at 0839, Until Candace 02/01/22 at 1507, Intra-Operative (Intra-Procedure), Routine Given 02/01/2022 8:39 AM EDT 1 g 19- Surgical Site verapamiL (Isoptin) (2.5 mg/mL) injection ONCE PRN, Starting on Candace 02/01/22 at 0839, Until Candace 02/01/22 at 1507, Administer over 2 Minutes, Intra-Operative (Intra-Procedure) Given 02/01/2022 8:39 AM EDT 5 mg 19- Surgical Site documented in this encounter Active and Recently Administered Medications Times are shown in EDT. Scheduled Medication Order 02/03/2022 02/04/2022 02/05/2022 acetaminophen (Tylenol) tablet 1,000 mg(Linked Group 1) 1,000 mg, Oral, EVERY 6 HOURS SCHEDULED, First dose on Sat02/02/22 at 1200, Until Discontinued, For pain when taking by mouth. Maximum dose of acetaminophen is 4000 mg from all sources in 24 hours. When ordered for pain, acetaminophen should be given even when other ordered pain medications are indicated., Routine 0000 (Given - Provider: Sophia Lanier RN)0600 (Given - Provider: Sophia Lanier RN)1118 (Given - Provider: Shayla Thornton RN)1722 (Given - Provider: Shayla Thornton, KYM) 0000 (Given - Provider: Viviana Bonner, KYM)0600 (Given - Provider: Viviana Bonner, KYM)1220 (Given - Provider: Kirby Dexter, KYM)1736 (Given - Provider: Kirby Dexter, KYM)2301 (Given - Provider: Jeni Benoit, KYM) 0533 (Given - Provider: Jeni Benoit RN) aspirin chewable tablet 81 mg(Linked Group 2) 81 mg, Oral, DAILY, First dose on Sat02/01/22 at 1415, Until Discontinued, Start on Post-Op Day 0, please give within 6 hours upon arrival to Unit. If unable to take PO, may give [place], Routine 0809 (Given - Provider: Shayla Thornton RN) 0807 (Given - Provider: Kirby Dexter, KYM) 0813 (Given - Provider: Bry Portillo, KYM) aspirin suppository 300 mg(Linked Group 2) 300 mg, Rectal, DAILY, First dose on Sat02/01/22 at 1415, Until Discontinued, Start on Post-Op Day 0, please give within 6 hours upon arrival to Unit. Give [place] if unable to take PO, Routine 0809 (See Alternative - Provider: Shayla Thornton RN) 0807 (See Alternative - Provider: Kirby Dexter, KYM) 0813 (See Alternative - Provider: Bry Portillo, KYM) atorvastatin (Lipitor) tablet 80 mg 80 mg, Oral, EVERY EVENING, First dose on Sat01/29/22 at 1415, Until Discontinued, Routine 1722 (Given - Provider: Shayla Thornton RN) 1736 (Given - Provider: Kirby Dexter RN) furosemide (Lasix) tablet 20 mg 20 mg, Oral, DAILY, First dose on Sat02/02/22 at 1115, Until Discontinued, Routine 0809 (Given - Provider: Shayla Thornton RN) 0810 (Given - Provider: Kirby Dexter RN) 0813 (Given - Provider: Bry Portillo, KYM) guaiFENesin ER (Mucinex) tablet 600 mg 600 mg, Oral, EVERY 12 HOURS, First dose on Sat02/04/22 at 1045, Until Discontinued, DO NOT CRUSH OR OPEN, Routine 1025 (Given - Provider: Kirby Dexter RN)2301 (Given - Provider: Jeni Benoit RN) losartan (Cozaar) tablet 25 mg 25 mg, Oral, DAILY, First dose on Sat02/02/22 at 1115, Until Discontinued, Routine 08 (Given - Provider: Shayla Thornton RN) 08 (Given - Provider: Kirby Dexter RN) 08 (Given - Provider: Bry Portillo, KYM) magnesium hydroxide (Milk of Magnesia) (240 mg/mL) oral liquid 10 mL 10 mL, Oral, DAILY, First dose on Sat02/03/22 at 0900, Until Discontinued, Post-op day 2. Do not use with renal insufficiency., Routine 0809 (Given - Provider: Shayla Thornton RN) 0900 (Hold - Provider: Kirby Dexter RN - Reason: Contraindicated) 0900 (Hold - Provider: Bry Portillo RN - Reason: Patient/family refused) metoproloL tartrate (Lopressor) tablet 25 mg 25 mg, Oral, EVERY 12 HOURS SCHEDULED (2 times per day), First dose on Sat02/02/22 at 1100, Until Discontinued, Routine 08 (Given - Provider: Shayla Thornton RN)2038 (Given - Provider: Viviana Bonner RN) 08 (Given - Provider: Kirby Dexter RN)2011 (Given - Provider: Jeni Benoit RN) 0817 (Given - Provider: Bry Portillo RN) pantoprazole (Protonix) injection 40 mg(Linked Group 3) 40 mg, Intravenous, DAILY, First dose on Candace 02/01/22 at 1415, Until Discontinued, Reconstitute with 10 mL of normal saline to a concentration of 4 mg/mL and infuse slowly over 2 minutes. , Routine 0809 (See Alternative - Provider: Shayla Thornton RN) 0807 (See Alternative - Provider: Kirby Dexter RN) 0817 (See Alternative - Provider: Bry Portillo RN) pantoprazole EC (Protonix) tablet 40 mg(Linked Group 3) 40 mg, Oral, DAILY, First dose on Candace 02/01/22 at 1415, Until Discontinued, DO NOT CRUSH OR OPEN If unable to take PO, may give IV 0809 (Given - Provider: Shayla Thornton RN) 0807 (Given - Provider: Kirby Dexter RN) 0817 (Given - Provider: Bry Portillo RN) potassium chloride ER (K-Dur/Klor-Con) tablet 20 mEq (COMPLETED) 20 mEq, Oral, ONCE, 1 dose, On 02/03/22 at 0745, Routine 0809 (Given - Provider: Shayla Thornton RN) potassium chloride ER (K-Dur/Klor-Con) tablet 20 mEq (COMPLETED) 20 mEq, Oral, ONCE, 1 dose, On 02/04/22 at 1830, Routine 1741 (Given - Provider: Kirby Dexter RN) senna-docusate (Pericolace) 8.6-50 mg per tablet 2 tablet 2 tablet, Oral, DAILY, First dose on Sat02/02/22 at 2100, Until Discontinued, Post-op day 1, Routine 2100 (Not Given - Provider: Viviana Bonner RN - Reason: Patient/family refused) 2011 (Given - Provider: Jeni Benoit RN) sodium chloride 0.9 % (flush) (BD PosiFlush Normal Saline 0.9) flush 5 mL 5 mL, Intravenous, EVERY 8 HOURS, First dose on Sat02/02/22 at 1715, Until Discontinued, Routine 0115 (Not Given - Provider: Sophia Lanier RN - Reason: Patient/family refused)0915 (Given - Provider: Shayla Thornton, RN)1715 (Given - Provider: Shayla Thornton, RN) 0115 (Given - Provider: Viviana Bonner, KYM)0915 (Hold - Provider: Kirby Dexter, KYM - Reason: Medication Discontinued)1715 (Not Given - Provider: Kirby Dexter, RN - Reason: Contraindicated)2301 (Given - Provider: Jeni Benoit, KYM) 0816 (Given - Provider: Bry Portillo RN) PRN Medication Order 02/03/2022 02/04/2022 02/05/2022 bisacodyL (Dulcolax) suppository 10 mg 10 mg, Rectal, DAILY PRN, Starting on 02/04/22 at 0000, Until Sat02/05/22 at 1119, Constipation, Starting post-op day 3., Routine ondansetron (pf) (Zofran) (2 mg/mL) injection 4 mg 4 mg, Intravenous, EVERY 8 HOURS PRN, Starting on Candace 02/01/22 at 1315, Until Sat02/05/22 at 1119, Nausea oxyCODONE (Roxicodone) tablet 5-10 mg 5-10 mg, Oral, EVERY 4 HOURS PRN, Starting on Candace 02/01/22 at 1315, Until Sat02/05/22 at 1119, Pain, - When tolerating oral medications. - Initial dose 5 mg. - If pain control not adequate in 60 minutes, give additional 5 mg., Routine Linked Groups Order Group 1: acetaminophen (Ofirmev) (1000 mg/100 mL) infusion 1,000 mg (COMPLETED) 1,000 mg, Intravenous, at 400 mL/hr, Administer over 15 Minutes, EVERY 6 HOURS SCHEDULED, 4 doses, First dose on Candace 02/01/22 at 1415, Last dose on Sat02/02/22 at 0600, Maximum dose of acetaminophen is 4000 mg from all sources in 24 hours. When ordered for pain, acetaminophen should be given even when other ordered pain medications are indicated., Routine, Is ketorolac (Toradol) IV contraindicated? Yes, Can this patient tolerate oral medications or suppositories? No Followed by acetaminophen (Tylenol) tablet 1,000 mgJump to med 1,000 mg, Oral, EVERY 6 HOURS SCHEDULED, First dose on Sat02/02/22 at 1200, Until Discontinued, For pain when taking by mouth. Maximum dose of acetaminophen is 4000 mg from all sources in 24 hours. When ordered for pain, acetaminophen should be given even when other ordered pain medications are indicated., Routine Group 2: aspirin chewable tablet 81 mgJump to med 81 mg, Oral, DAILY, First dose on Candace 02/01/22 at 1415, Until Discontinued, Start on Post-Op Day 0, please give within 6 hours upon arrival to Unit. If unable to take PO, may give [place], Routine Or aspirin suppository 300 mgJump to med 300 mg, Rectal, DAILY, First dose on Candace 02/01/22 at 1415, Until Discontinued, Start on Post-Op Day 0, please give within 6 hours upon arrival to Unit. Give [place] if unable to take PO, Routine Group 3: pantoprazole EC (Protonix) tablet 40 mgJump to med 40 mg, Oral, DAILY, First dose on Candace 02/01/22 at 1415, Until Discontinued, DO NOT CRUSH OR OPEN If unable to take PO, may give IV Or pantoprazole (Protonix) injection 40 mgJump to med 40 mg, Intravenous, DAILY, First dose on Candace 02/01/22 at 1415, Until Discontinued, Reconstitute with 10 mL of normal saline to a concentration of 4 mg/mL and infuse slowly over 2 minutes. , Routine documented in this encounter Care Teams District G[facility]er Relationship Specialty Start Date End Date Kerri Pearce APRN [place] [id number] PCP - General Family Medicine 01/04/22 documented as of this encounter
--- OUTSIDE RECORDS SUMMARY | 2024-05-25 11:22 | XMS_ITS | Encounter Summary ---
Author Organization [facility] [place] [address] Care Team Providers Care Visual C Developer Name Role Phone Kerri Pearce APRN Primary Care Provider [phone] Reason for Referral * Home Health Care (Routine) - Closed Specialty Diagnoses / Procedures Referred By Karli crockett Referred To Contact Diagnoses S/P CABG x 2 Avril Lyman MD [facility] [place] [address] Referral ID Status Reason Start Date Expiration Date V isits Requested Visits Authorized [id number] Closed Consult, Test & Treat 02/05/2022 08/04/2022 999 999 Reason for Visit * Auth/Cert Specialty Diagnoses / Procedures Referred By Karli crockett Referred To Contact Diagnoses NSTEMI (non-ST elevated myocardial infarction) Chest Pain Procedures EMERGENCY IPI Avril Lyman MD [facility] [place] [address] [facility] Referral ID Status Reason Start Date Expiration Date Visits Re quested Visits Authorized [id number] 1 1 Encounter Details Date Type Department Care Team (Latest Contact Info) Description 01/28/2022 5:04 PM EDT - 02/05/2022 9:17 AM EDT Hospital Encounter [place] [address] Lee Ann Kirkpatrick MD [facility] [place] [address] Avril Lyman MD [facility] [place] [address] Hong Eugene MD [facility] CARDIOTHORACIC [place] [address] Non-ST elevation myocardial infarction (NSTEMI); NSTEMI (non-ST elevated myocardial infarction); S/P CABG x 2 Discharge Disposition: Home with VNA Social History Tobacco Use Types Packs/Day Years [...] Sign Reading Time Taken Comments Blood Pressure 147/73 02/05/2022 8:14 AM EDT Pulse 91 02/05/2022 6:00 AM EDT Temperature 37.2 ??C (99 ??F) 02/04/2022 8:00 PM EDT Respiratory Rate 25 02/05/2022 6:00 AM EDT Oxygen Saturation 95% 02/05/2022 6:00 AM EDT Inhaled Oxygen Concentration - - Weight 70.1 kg (154 lb 8.7 oz) 02/05/2022 4:13 A M EDT Height 162.6 cm (5' 4) 01/28/2022 5:39 PM EDT Body Mass Index 26.53 01/28/2022 5:39 PM EDT documented in this encounter Discharge Summaries * Meche Bernal, MORGAN - 02/05/2022 8:04 AM EDT Inpatient - Discharge Summary Patient Name: Shellie Lyon Patient Age: 71 y.o. Birthdate: 1950 Language: Maldivian Race: White Ethnicity: Not nor Admit Date: [...] office will schedule an appointment with your Service Liaison Representative, Near home, in 2 weeks. ??? Our office will schedule an appointment with your Cardiac Surgeon, Dr. Hong Eugene, in 4weeks with chest x-ray, EKG before your appointment. Inpatient Provider Contact Information: [facility] Section of Cardiac Surgery [facility] [address] FAX [phone] Discharge Diagnoses (Hospital Problems) Primary Diagnoses: NSTEMI [...] 33.75) performed by Hong Eugene MD at [facility] MAIN OR ??? PRO CABG, ARTERY-VEIN, SINGLE N/A 02/01/2022 @CABG, VENOUS & ARTERIAL GRAFT;SINGLE VEIN GRAFT (WRVU 3.61) performed by Hong Eugene MD at [facility] MAIN OR ??? PRO ENDOSCOPY W/VIDEO-ASST VEIN HARVEST, CABG N/A 02/01/2022 ENDOSCOPIC HARVEST VEIN(S) FOR CABG (WRVU 0.31) performed by Hong Eugene MD at [facility] MAIN OR Prior To Admission Medications No [...] s/p CABGx2 Shellie Lyon was admitted to [facility] on 01/28/2022 via the Cardiology Service. [...] Hong Eugene and/or the Cardiac Surgery Physician Genetic Technologist Team may be reached at . Weight: [...] Dr. Hong Eugene. You may use a [place] Track or treadmill but avoid any pulling [...] friends, go to a movie, go to congregational, etc. Heavy activities: No hunting, skiing, jogging, snow shoveling, snowmobiling, lawn mowing, swimming,golf or tennis until after your return appointment with the surgeon. Do not ride motorcycles, ATSurfEasy'stractors or horses. Avoid the use of a [...] should resume a low fat, low cholesterol, [place] Heart Association Diet. Driving: No driving until [...] office will schedule an appointment with your Service Liaison Representative in 2 weeks. ??? Our office will schedule an appointment with your Cardiac Surgeon, Dr. Hong Eugene, in 4weeks with chest x-ray, EKG before your appointment. Cardiac Rehabilitation: You will be contacted Future Appointments and Orders Future Appointments and Orders Future Appointments Provider Department Dept Phone 03/15/2022 12:45 PM [facility] DX ROOM 2 XRay at [facility] Arrive at: [facility] [phone] Please go to [facility] ([place] Location). 03/15/2022 1:40 PM Hong Eugene MD Cardiac Surgery at [facility] Arrive at: [facility] [phone] Future Orders Complete By Expires Referral to Home Health [REF34 Custom] As directed Process Instructions: If no progress note charted, please enter Clinical details in comments. Scheduling Instructions: Comments: Please evaluate Shellie Lyon for admission to Home Health. [address] [facility] [address] (home) Date of : 1950 Inpatient DOCUMENTATION FOR VNA SERVICES (INCLUDING THOSE PATIENTS WITH MEDICARE COVERAGE REQUIRINGHOME VNA SERVICES AND/OR HOSPICE SERVICES) PATIENT'S LOCATION: Shellie Da Silva[address] [place] [phone] (home) Cell: No relevant phone numbers on file. Customer Sales Advisor's Name: Self In discussion with the attending physician, it is certified that this patient is under their care and that they, or a Nurse Practitioner,Clinical Nurse specialist or Physician Genetic Technologist who is working directly with them, had [...] for managing ADL's. HOME HEALTH CARE AGENCY: [facility] [address] [facility] [address] PHONE: [phone] FAX: [phone] Start of care: 24 to 48 hours [...] this patient's PCP: Kirit Garcia MD (Inactive) [address] [facility] [address] All VNA agencies which cover the area of patient's residence have been reviewed, either verbally shaista writing, and patient/family have chosen the home health care agency noted Questions: Disciplines Requested: Nursing Physical Therapy Occupational Therapy Arrangements for VNA/home care: As above. VN RN OR PCP TO PLEASE REMOVE CHEST TUBE SUTURES ON OR AFTER 02/11/22 Signed: MECHE BERNAL APRN [facility] Section of Cardiac Surgery [facility] [address] FAX [phone] Date: 02/05/2022 CC: MORGAN Joseph Tara J [address] [place] [address] [place] [address] documented in this encounter Discharge Instructions * [...] Hong Eugene and/or the Cardiac Surgery Physician Genetic Technologist Team may be reached at . Weight: [...] Dr. Hong Eugene. You may use a [place] Track or treadmill but avoid any pulling [...] friends, go to a movie, go to congregational, etc. Heavy activities: No hunting, skiing, jogging, snow shoveling, snowmobiling, lawn mowing, swimming,golf or tennis until after your return appointment with the surgeon. Do not ride motorcycles, ATSurfEasy'stractors or horses. Avoid the use of a [...] should resume a low fat, low cholesterol, [place] Heart Association Diet. Driving: No driving until [...] office will schedule an appointment with your Service Liaison Representative in 2 weeks. Our office will schedule [...] questions answered. PIV d/c'd. [facility] * Kirby Dexter, RN - 02/04/2022 4:34 PM EDT Pt [...] MAKING: Neuro: Pain controlled on oral regimen.? CV:??Cozaar, BB, lasix. Intra-op MISBAH notable for preserved [...] hernández I/O last 3 completed shifts: In: 1862.3 [P.O.:650; I.V.:1212.3] Out: 1999 [Urine:1595; Other:405] A&P [...] UOP, replete lytes as appropriate, K 3.8, isabel hernández Heme: ASA ID: Periop abx x [...] 33.75) performed by Hong Eugene MD at [facility] MAIN OR ??? PRO CABG, ARTERY-VEIN, SINGLE N/A 02/01/2022 @CABG, VENOUS & ARTERIAL GRAFT;SINGLE VEIN GRAFT (WRVU 3.61) performed by Hong Eugene MD at [facility] MAIN OR ??? PRO ENDOSCOPY W/VIDEO-ASST VEIN HARVEST, CABG N/A 02/01/2022 ENDOSCOPIC HARVEST VEIN(S) FOR CABG (WRVU 0.31) performed by Hong Eugene MD at [facility] MAIN OR Active Non-Hospital Problems Diagnosis ??? Inflamed seborrheic keratosis Social History: Home set-up: Lives with Bill & dog in multi-level home Bathroom: Full [...] Standing Dynamic / Gait: fair, no overt quiecb-dg-igqmmbj observed but struggled to don mask in [...] recliner at home) 3. Pt. to perform ywu-vc-zjkog transfers with modified independence using LRAD vs [...] outlinedin this evaluation. Time IN / OUT: 0816-8237 Total Minutes, Physical Therapy: 38 Nara Lopez DPT Pager: [phone] Physical Therapy Inpatient Rehabilitation Department * Kendall [...] Castanon RN - 02/02/2022 12:38 AM EDT 2214- Attempted to sit pt at side of bed. Upon going from lying to sitting position pt reported feeling dizzy. BP went from 140systolic when lying to 50 systolic at beside. Pt was immediately sat back down, Nitro was shut off, Levo was turned on. Pt recovered quickly and did not loose consciousness. Levo weaned back off- informed and 1 unit of albumin infused. [...] of 700 NS). Norepinephrine turned on briefly. Ewiiaapaayp rhythm returned within a couple of minutes, [...] PCP: Kerri Pearce APRN PCP phone number: [phone] Date of Admission: 01/28/2022 ( Hospital Day 3 days ) Attending:Avril Lyman MD ID: Shellie Lyon is a 71 y.o. female w/ PMH of HTN (on losartan and amlodipine) and OA who presented to [facility] with chest pain on Hospital Day3. 24 [...] left 18 gauge (Active) Phlebitis 0-->no symptoms 01/29/22399 Infiltration 0-->no symptoms 01/29/22399 Labs: Recent Labs 01/31/225 01/30/22 0345 01/29/22 0556 01/28/22 1756 WBC 5.6 7.0 7.5 7.3 HGB 13.3 14.0 15.2 15.4 HCT 38.7 41.0 44.0 44.9 PLATELET 215 246 266 272 MCV 81.0* 81.5* 79.9* 79.2* Recent Labs 01/31/22 0415 01/30/22 0345 01/29/22 0556 01/28/22 1756 NA 138 139 139 139 CL 106 106 105 106 CO2 25 22 23 21* K 4.3 4.1 4.0 4.0 MAGNESIUM [...] of HTN and osteoarthritis who presented to [facility] with chestpain with c/f NSTEMI s/p LHC which showed significant distal left main disease requiring bypass surgery on HD# 3. Cardiovascular #NSTEMI There is concern for plaque rupture NC vs. stress cardiomyopathy based on intermittent chest [...] discuss discharge planning needs. ?? provide the [facility], Office of Care Management letter from the Tile Presser pertaining to rehabreferrals. ?? provide a letter describing our affiliations within the [facility] and educate about their right to choose where referrals are sent. ?? provide a list of Home Health Agencies / Durable Medical Equipment vendors which serve their preferred geographic area. ?? provided patient with [facility] Star Quality Rating handout. They have requested referrals to: [facility] [address] [place] [address] PHONE: [phone] FAX: [phone] Note routed to a Surface Grinder Tender who will communicate referrals to facilities and provide any required information. Patient reported to this CM that she has a composting toilet at home be her home is build on [place].She does not live off the grid. She [...] PCP: Kerri Pearce APRN PCP phone number: [phone] Date of Admission: 01/28/2022 ( Hospital Day 2 days ) Attending:Avril Lyman MD ID: Shellie Lyon is a 71 y.o. female w/ PMH of HTN (on losartan and amlodipine) and OA who presented to [facility] with chest pain on Hospital Day2. 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 Cardiovascular #NSTEMI There is concern for plaque rupture NC vs. stress cardiomyopathy based on intermittent chest [...] Kirit Garcia MD (Inactive) PCP phone number: [phone] Date of Admission: 01/28/2022 ( Hospital Day 1 day ) Attending:Avril Lyman MD ID: Shellie Lyon is a 71 y.o. female w/ PMH of HTN (on losartan and amlodipine) and OA who presented to [facility] with chest pain on Hospital Day1. 24 Hour Events/Subjective: Yesterday: EKG with evolving ST changes in anterolateral leads Overnight: ASHER This AM: taken to [facility] first thing in the morning, no chest [...] of HTN and osteoarthritis who presented to [facility] with chestpain with c/f NSTEMI on HD# 1. Neuro #Not intubated or sedated -- No active issues Cardiovascular #NSTEMI There is concern for plaque rupture NC vs. Stress cardiomyopathy based on intermittent chest pain and EKG. There are evolving anterolateral ST changes that are concerning. Trop T is elevated to 0.49.She is, however, completely pain-free since this morning and is not on nitroglycerin. Following discussion with on-call interventionalist on-call and given her completely pain-free presentation and hemodynamic stability, C deferred to am. LHC showed significant distal left main disease requiring bypass surgery. Dx: - Bedside echocardiogram by Dr. Sotelo showed a LVEF of 45 to 50% with apical and distal anteroseptal WMAs. - Trop I 3433 --> 5846 - Trop T 0.49 --> 0.37 --> 0.26 - proBNP: 5,691 - C showed significant distal left main disease, she [...] troponin was drastically elevating. She arrived to [facility] at 7pm and was chest pain free [...] cardiac catherization first thing in the morning, [facility] is aware. Tre Monsalve MD Steam Flattener * Nancie Almanzar RN - 01/28/2022 7:45 PM EDT Report received from ayla RN. Patient A&OX4 MAKEDA FCX4, denies any SOB to CP at the time. Patientcontinues on heparin drip. ECG done with no change from previous. Discussed with Dr. Sotelo about planof care, and ordered to transfer to [facility]. Patient transferred and report given to KYM El. Patient had all belongings and none left in the room. given new room number and he left for the night. He would like to be called when [facility] has a scheduled time. documented in this encounter H&P Notes * Avril Lyman MD - 01/28/2022 8:34 PM EDT CARDIOLOGY ADMISSION H&P Patient Name: Shellie Lyon Service: Cardiology S1 Team Responsible Attending: Avril Lyman MD PCP: Kirit Garcia MD (Inactive) PCP phone #: [phone] ID/Chief Complaint: Chest pain History of Present Illness: Ms. Lyon is a 71F with a prior history of HTN who presented to [facility] with chest pain. She notes that yesterday [...] called an ambulance that took her to [facility]. She denies any prior cardiac history or [...] Warm, non-edematous Laboratory: CBC: Recent Labs 01/28/22 175 WBC 7.3 HGB 15.4 PLATELET 272 Chemistry: Recent Labs 01/28/22 175 NA 139 K 4.0 CL 106 CO2 21* BUN 13 CREATININE 0.65* GLUCOSE 117 Recent Labs 01/28/221755 CALCIUM 10.0 Cardiac enzymes: Recent Labs 01/28/22 175 TROPONINT 0.49* Diagnostic Studies: Bedside echocardiogram (by myself) on 01/28/22 - LVEF 45 to 50% with apical and distal anteroseptal wall akinesis - RV function intact - Mild ASSESSMENT: Ms. Lyon is a 71F with a prior history of HTN who presented to [facility] with chest pain. PLAN: #NSTEMI - Based on presentation and EKG, concern for plaque rupture NC. A stress cardiomyopathy is certainly also possible. [...] information for follow-up Home [facility], [place] [address] [place] [address] Plan for VNA start of care is [...] None Patient is insured through: Primary Insurance: [employer] tag[place] MEDICARE Payor: [employer] [place] MEDICARE / Plan: [place] / Product Type: *No Product type* / [...] None Patient is insured through: Primary Insurance: [employer] [place] MEDICARE Payor: [employer] [place] MEDICARE / Plan: [place] / Product Type: *No Product type* / Secondary Insurance: N/A Last Physical Therapy Recommendation: with Last Occupational Therapy Recommendation: with Plan for discharge is: Home w/ Services Outpatient Agency/Support Group Needs: Homecare agency Home Health Services: Registered Nurse, Physical Therapy, Occupational Therapy, Anticoagulation monitoring, Wound care Agency Referrals: Not Applicable - [facility] following patient. Transportation: family or friend will [...] Operative Note Patient Name: Shellie Lyon : [id number] MR#: [id number] Case Date: 02/01/2022 Surgeon: Surgeon(s) and Role: * Hong Eugene MD - Primary * Alexandre Jamison PA - Physician Genetic Technologist * Joan Fuller PA - Physician Genetic Technologist Preoperative diagnosis: NSTEMI, LM ASCAD Postoperative diagnosis: [...] 80 mL Drains: Mediastinal and Pleural Disposition: [facility] Condition: doing well without problems Attestation: Case Date: 02/01/2022 I was present and I participated during the entire procedure (does not need to include opening and closing). HONG EUGENE MD 02/01/2022 * Op Note - Hong Eugene MD - 02/01/2022 8:22 AM EDT [facility] Operative Note Patient Name: Shellie Lyon : [id number] MR#: [id number] Case Date: 02/01/2022 Surgeon: Surgeon(s) and Role: * Hong Eugene MD - Primary * Alexandre Jamison PA - Physician Genetic Technologist * Joan Fuller PA - Physician Genetic Technologist ?? Preoperative diagnosis: NSTEMI, LM ASCAD ?? Postoperative diagnosis: LM ASCAD, 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%, small coronaries ?? Procedure(s) (LRB): ENDOSCOPIC HARVEST VEIN(S) FOR CABG (WRVU 0.31) (N/A) @CABG, USING ARTERIAL GRAFT;SINGLE ARTERIAL GRAFT (WRVU 33.75) (N/A) @CABG, VENOUS & ARTERIAL GRAFT;SINGLE VEIN GRAFT (WRVU 3.61) (N/A) ?? CABG x 2 US->LAD SVG-> OM2 ?? Endo vein from RLE [...] ??? Not on file Work - retired [email or web address] Family - lives with Smoking - never ETOH - 3 drinks a month Illicit drug use - denies Religion - denies Family History: No family history [...] clopidogrel load to dissipate. Hong Eugene MD [phone] Signed: MECHE BERNAL APRN 01/29/2022 * Initial Assessments - Quynh Vogel RN - 01/29/2022 12:17 PM EDT Office of Care Management Initial Assessment Quynh Vogel RN reviewed record and discussed patient with Care Team. Source of Information: Team, bedside nurse, medical record, and Patient Introduced self/reviewed role; services accepted. Patient was sitting in bed at this time. 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 [...] surrogate would be surrogate decision maker per [place] surrogate decision making law. (Only good for 180 days) Any patient receiving care in [place] must abide by [place] law. The hierarchy for surrogate decision making [...] (i) The agent with financial power of prosecuting attorney or a conservator appointed in accordance [...] Current DME: none Home Address confirmed as: [address] [place] [phone] Social & Family Supports: All names listed [...] is discharged. Health/Prescription Coverage: Primary Insurance: N/A [place] [employer] [id number] Payor: / Secondary Insurance: N/A ; Prescription Coverage: Yes Preferred Pharmacy: [id number] [place], [place] - [address] [place] [address] AT [facility] [address] [place], [place] [address] [address] Renick Status: Patient is a : No Primary Care Provider: Kirit Garcia MD (Jrxvyrrd) [phone] Patient/Caregiver Goals of Treatment: return home when [...] assist with transition of care planning. Quynh RAMIREZ RN CM Phone: [phone] Pager: [phone] * Plan of Care - Jermaine Sotelo [...] to go to her local ED at [facility]. At [facility], her initial EKG was grossly within normal but her second EKG at 1:16 PM shows evolving anterolateral ST elevations with inferior depressions that are concerning for ischemia. She was not called a STEMI alert at that time. On arrival here at [facility], her initial EKG 5:57 PM showed borderline [...] EDT HC CBC,PLT & AUTO DIFF Routine 1:35 AM EDT BASIC METABOLIC PANEL Routine [...] Routine 8:16 AM EDT Cabg, Artery-Vein, Single (22942) 02/01/2022 7:29 AM EDT 2 vessel dz Cabg, Arterial, Single (57345) 02/01/2022 7:29 AM EDT 2 vessel dz Endoscopy W/Video-Asst Vein [place], Cabg ([id number]) 02/01/2022 7:29 AM EDT 2 vessel dz [...] Results * Potassium (02/05/2022 3:50 AM EDT) Potassium 4.4 3.5 - 5.0 mmol/L [facility] Comment: Please note: ??Patients with WBC >100,000 may have falsely elevated Potassium levels. ??For accurate Potassium quantification in these patients send serum separator tube (gold top) for subsequent determinations. ??Contact the Clinical Chemistry Laboratory if there are any questions. Blood 02/05/2022 3:50 AM EDT 02/05/2022 3:56 AM EDT Narrative Resulting Agency Comment Spec In Lab Hong Eugene MD CHEMISTRY ORDERABLE S [facility] [place] [address] * (ABNORMAL) Differential, Automated (02/04/2022 5:37 AM EDT) Neutrophil % 63.7 % [facility] Neutrophil Absolute 5.80 1.70 - 6.10 x10(3)/mc L [facility] Lymph % 27.1 % [facility] Lymphocytes Abs 2.5 0.9 - 3.2 x10(3)/mc L [facility] Monocyte % 7.3 % [facility] Monocyte Abs 0.7 0.3 - 0.9 x10(3)/[facility]OR[facility] Eos % 1.0 % [facility] Eosinophils Abs 0.1 0.0 - 0.4 x10(3)/[facility] Basophil % 0.2 % [facility] Baso Absolute 0.0 0.0 - 0.1 x10(3)/[facility] Immature Gran % 0.70 % [facility] Comment: Immature granulocytes(IG's)percentage and absolute count will include metamyelocytes, myelocytes, and promyelocytes. Blood smears from CBCs yielding IG's will be scanned manually for concordance. If this scan disagrees with the automated IG or if promyelocytes are noted, a manual differential will be performed. Immature Gran Absolute 0.06(H) 0.00 - 0.04 x10(3)/[facility] Blood 02/04/2022 5:37 AM EDT 02/04/2022 5:45 AM EDT Narrative Resulting Agency Comment Spec In Lab Kendall VALLEJO HEMATOLOGY ORDERABLE S [facility] [place] [address] * (ABNORMAL) Hemogram (02/04/2022 5:37 AM EDT) White Blood Cell 9.1 4.0 - 9.5 x10(3)/[facility] Red Blood Cell 3.88(L) 4.00 - 5.21 x10(6)/[facility] Hemoglobin 10.9(L) 11.7 - 15.5 g/dL [facility] Hematocrit 32.4(L) 35.7 - 45.8 % [facility] Mean Cell Volume 83.5 82.6 - 94.4 fL [facility] Mean Cell Hemoglobin 28.1 27.1 - 32.0 pg [facility] Mean Cell Hemoglobin Concentration 33.6 31.7 - 35.0 g/dL [facility] Platelet 208 145 - 357 x10(3)/mc L [facility] RDW Standard Deviation 42.5 37.0 - 46.0 fL [facility] RDW coefficient of variation 13.9 11.5 - 14.1 % [facility] Mean Platelet Volume 10.8 7.6 - 12.9 fL [facility] [facility] NRBC% auto 0.0 % [facility] NRBC Absolute 0.000 0.000 - 0.000 x10(3)/mc L [facility] Blood 02/04/2022 5:37 AM EDT 02/04/2022 5:45 AM EDT Narrative Resulting Agency Comment Spec In Lab Kendall VALLEJO HEMATOLOGY ORDERABLE S [facility] [place] [address] * (ABNORMAL) Basic Metabolic Panel (non-fasting) (02/04/2022 5:37 AM EDT) Glucose 115 65 - 199 mg/dL [facility] Comment:Diabetes: >=200 mg/d L plus symptoms Blood Urea Nitrogen 12 8 - 18 mg/dL [facility] Creatinine 0.60(L) 0.70 - 1.20 mg/dL [facility] Sodium 141 135 - 145 mmol/L [facility] Potassium 3.9 3.5 - 5.0 mmol/L [facility] Comment: Please note: ??Patients with WBC >100,000 may have falsely elevated Potassium levels. ??For accurate Potassium quantification in these patients send serum separator tube (gold top) for subsequent determinations. ??Contact the Clinical Chemistry Laboratory if there are any questions. Chloride 106 98 - 107 mmol/L [facility] Carbon Dioxide 26 22 - 31 mmol/L [facility] Anion Gap 9 5 - 15 mmol/L [facility] Calcium 9.0 8.5 - 10.5 mg/dL [facility] Comment:result rechecked-sf Est Glomerular Filtration Rate 97 >=60 mL/min/1. 73 m?? [facility] Comment: This patient's estimated GFR was [...] Lab Hong Eugene MD CHEMISTRY ORDERABLE S [facility] [place] [address] * XR Chest PA & Lateral (Generic) [...] who have questions please contact the health care program resident that requested your imaging first. ? Electronically signed by: Maliha Bhat MD, [facility] ([phone]), at 02/04/2022 4:44 PM Narrative 02/04/2022 4:44 PM EDT EXAMINATION: XR [...] patients who have questions please contactthe health care program resident that requested your imaging first. Electronically signed by: Maliha Bhat MD, [facility]([phone]), at 02/04/2022 4:44 PM Hong Eugene MD IMG DX ORDERABLES * Potassium (02/03/2022 5:58 AM EDT) Potassium 3.8 3.5 - 5.0 mmol/L [facility] Comment: Please note: ??Patients with WBC [...] MD CHEMISTRY ORDERABLE S Performing Organization Address City/[facility]/ZIP Co de Phone Number [facility] [place] [address] * POCT Glucose (02/02/2022 11:41 AM EDT) Glucose, POC 157 65 - 199 mg/dL [facility] Comment: Supplemental ranges: <140 mg/dL before meals <180 mg/dL all other times of the day Blood 02/02/2022 11:4 1 AM EDT 02/02/2022 11:41 AM EDT Hong Eugene MD POINT OF CARE TEST ORDERABLES [facility] [place] [address] * POCT Glucose (02/02/2022 7:49 AM EDT) Glucose, POC 161 65 - 199 mg/dL [facility] Comment: Supplemental ranges: <140 mg/dL before meals <180 mg/dL all other times of the day Blood 02/02/2022 7:49 AM EDT 02/02/2022 7:49 AM EDT Hong Eugene MD POINT OF CARE TEST ORDERABLES [facility] [place] [address] * (ABNORMAL) Differential, Automated (02/02/2022 1:35 AM EDT) Neutrophil % 83.9 % [facility] Neutrophil Absolute 7.38(H) 1.70 - 6.10 x10(3)/ L [facility] Lymph % 10.7 % [facility] Lymphocytes Abs 0.9 0.9 - 3.2 x10(3)/ L [facility] Monocyte % 5.0 % [facility] Monocyte Abs 0.4 0.3 - 0.9 x10(3)/ L [facility] Eos % 0.0 % [facility] Eosinophils Abs 0.0 0.0 - 0.4 x10(3)/[facility] Basophil % 0.1 % [facility] Baso Absolute 0.0 0.0 - 0.1 x10(3)/ L [facility] Immature Gran % 0.30 % [facility] Comment: Immature granulocytes(IG's)percentage and absolute count will include metamyelocytes, myelocytes, and promyelocytes. Blood smears from CBCs yielding IG's will be scanned manually for concordance. If this scan disagrees with the automated IG or if promyelocytes are noted, a manual differential will be performed. Immature Gran Absolute 0.03 0.00 - 0.04 x10(3)/mc L [facility] Blood 02/02/2022 1:35 AM EDT 02/02/2022 1:47 AM EDT Narrative Resulting Agency Comment Spec In Lab Joan VALLEJO HEMATOLOGY [place] DOBBS [facility] [place] [address] * (ABNORMAL) Hemogram (02/02/2022 1:35 AM EDT) White Blood Cell 8.8 4.0 - 9.5 x10(3)/mc L [facility] Red Blood Cell 3.21(L) 4.00 - 5.21 x10(6)/mc L [facility] Hemoglobin 8.9(L) 11.7 - 15.5 g/dL [facility] Hematocrit 26.2(L) 35.7 - 45.8 % [facility] Mean Cell Volume 81.6(L) 82.6 - 94.4 fL [facility] Mean Cell Hemoglobin 27.7 27.1 - 32.0 pg [facility] Mean Cell Hemoglobin Concentration 34.0 31.7 - 35.0 g/dL [facility] Platelet 127(L) 145 - 357 x10(3)/mc L [facility] RDW Standard Deviation 40.6 37.0 - 46.0 [facility] RDW coefficient of variation 13.5 11.5 - 14.1 % [facility] Mean Platelet Volume 11.1 7.6 - 12.9 [facility] NRBC% auto 0.0 % [facility] NRBC Absolute 0.000 0.000 - 0.000 x10(3)/mc L [facility] Blood 02/02/2022 1:35 AM EDT 02/02/2022 1:47 AM EDT Narrative Resulting Agency Comment Spec In Lab Joan VALLEJO HEMATOLOGY [place] DOBBS [facility] [place] [address] * (ABNORMAL) Troponin (02/02/2022 1:35 AM EDT) [facility] Signature Troponin-T 0.37(H) 0.00 - 0.00 ng/mL [facility] Comment: The 99th percentile for Troponin T is less than 0.01 ng/mL, any detectable cTnT concentration using this assay should be considered elevated. According to the third universal definition of myocardial infarction the following criteria with a clinical presentation consistent with acute myocardial ischemia meets the diagnosis for a myocardial infarction (NC). Detection of a rise and/or fall of cTnT, with at least one value greater than the 99th percentile (> or = 0.01) and with at least one of the following ?? Symptoms of ischemia ?? New or presumed new significant JJ-[id number] wave (ST-T) changes or new left bundle [...] additional sample may be indicated. Reference: Third [place] Definition of Myocardial Infarction. Journal of the [place] [employer] 2012;60:1581-98 Troponin-T, High Sensitivity 454(Criti katerina) <=14 ng/L [facility] Comment: This patient's troponin T concentration [...] troponin value can be found in the [facility] Laboratory Test Catalog Troponin - [facility] Laboratory Test Catalog Reference: Fourth [place] Definition of Myocardial Infarction. Journal of the [place] [employer] 2018;72:7500-4155 Blood 02/02/2022 1:35 AM EDT 02/02/2022 1:47 AM EDT Narrative Resulting Agency Comment Spec In Lab Hong Eugene MD CHEMISTRY ORDERABLE S [facility] [place] [address] * (ABNORMAL) Basic Metabolic Panel (non-fasting) (02/02/2022 1:35 AM EDT) Glucose 172 65 - 199 mg/dL [facility] Comment:Diabetes: >=200 mg/d L plus symptoms Blood Urea Nitrogen 17 8 - 18 mg/dL [facility] Creatinine 0.66(L) 0.70 - 1.20 mg/dL [facility] Sodium 140 135 - 145 mmol/L [facility] Potassium 4.4 3.5 - 5.0 mmol/L [facility] Comment: Please note: ??Patients with WBC >100,000 may have falsely elevated Potassium levels. ??For accurate Potassium quantification in these patients send serum separator tube (gold top) for subsequent determinations. ??Contact the Clinical Chemistry Laboratory if there are any questions. Chloride 110(H) 98 - 107 mmol/L [facility] Carbon Dioxide 22 22 - 31 mmol/L [facility] Anion Gap 8 5 - 15 mmol/L [facility] Calcium 8.0(L) 8.5 - 10.5 mg/dL [facility] Comment:result rechecked-KS Est Glomerular Filtration Rate 95 >=60 mL/min/1. 73 m?? [facility] Comment: This patient's estimated GFR was [...] Lyman MD CHEMISTRY ORDERABLES Performing Organization Address [facility]/ZIP Co de Phone Number [facility] [place] [address] * POCT Glucose (02/01/2022 11:55 PM EDT) Glucose, POC 157 65 - 199 mg/dL [facility] Comment: Supplemental ranges: <140 mg/dL before meals <180 mg/dL all other times of the day Blood 02/01/2022 11:5 5 PM EDT 02/01/2022 11:55 PM EDT Hong Eugene MD POINT OF CARE TEST ORDERABLES Performing Organization Address City/[facility]/ZIP Co de Phone Number [facility] [place] [address] * POCT Glucose (02/01/2022 8:39 PM EDT) Glucose, POC 150 65 - 199 mg/dL [facility] Comment: Supplemental ranges: <140 mg/dL before meals <180 mg/dL all other times of the day Blood 02/01/2022 8:39 PM EDT 02/01/2022 8:39 PM EDT Hong Eugene MD POINT OF CARE TEST ORDERABLES [facility] [place] [address] * (ABNORMAL) BLOOD GAS 2 ARTERIAL (02/01/2022 4:40 PM EDT) pH, Arterial 7.32(L) 7.35 - 7.45 [facility] PCO2, Arterial 44 35 - 45 mmHg [facility] PO2, Arterial 98 85 - 104 mmHg [facility] Bicarbonate, Arterial 22.3 20.0 - 26.0 mmol/L [facility] Base Excess, Arterial -3.7(L) -3.0 - 3.0 mmol/L [facility] Hgb Blood Gas 11.3(L) 11.7 - 15.5 g/dL [facility] Oxyhemoglobin, Arterial 95.5 94.0 - 97.0 % [facility] Carboxyhemoglob in, Arterial 0.3 % [facility] Comment: Nonsmokers: 0.5-1.5% COHB Smokers: Variable, but usually less than 10% Toxic: 20-30% COHB Lethal: Greater than 60% COHB Methemoglobin, Arterial 0.8 <=1.5 % [facility] Na Whole Blood 137 135 - 145 mmol/L [facility] K Whole Blood 4.2 3.5 - 5.0 mmol/L [facility] Comment: Please note: Patients with WBC >100,000 may have falsely elevated Potassium levels. Contact the Clinical Chemistry Laboratory if there are any questions. ICa Whole Blood 1.23 1.15 - 1.33 mmol/L [facility] Comment: Note: ??Total bilirubin higher than 20 mg/dL may lead to falsely low ionized calcium. CL Whole Blood 108(H) 98 - 107 mmol/L [facility] Gluc Whole Bld 163 65 - 199 mg/dL [facility] Comment:Diabetes: >=200 mg/d L plus symptoms. Lactate WB 0.8 0.5 - 2.2 mmol/L [facility] FIO2 Art 40 % [facility] PF Ratio Art 245 [facility] Blood 02/01/2022 4:40 PM EDT 02/01/2022 4:40 PM EDT Hong Eugene MD POINT OF CARE TEST ORDERABLES [facility] [place] [address] * (ABNORMAL) Hemoglobin (02/01/2022 4:35 PM EDT) Hemoglobin 10.2(L) 11.7 - 15.5 g/dL [facility] Blood 02/01/2022 4:35 PM EDT 02/01/2022 4:50 PM EDT Narrative Resulting Agency Comment Spec In Lab Avril Lyman MD HEMATOLOGY ORDERABLE S Performing Organization Address City/[facility]/ZIP Co de Phone Number [facility] [place] [address] * Potassium (02/01/2022 4:35 PM EDT) Potassium 4.2 3.5 - 5.0 mmol/L [facility] Comment: Please note: ??Patients with WBC >100,000 may have falsely elevated Potassium levels. ??For accurate Potassium quantification in these patients send serum separator tube (gold top) for subsequent determinations. ??Contact the Clinical Chemistry Laboratory if there are any questions. Blood 02/01/2022 4:35 PM EDT 02/01/2022 4:50 PM EDT Narrative Resulting Agency Comment Spec In Lab Avril Lyman MD CHEMISTRY ORDERABLES [facility] [place] [address] * XR Chest One View (02/01/2022 1:50 [...] who have questions please contact the health care program resident that requested your imaging first. ? Electronically signed by: Precious Christine MD, [facility] ([phone]), at 02/01/2022 2:44 PM Narrative 02/01/2022 2:44 [...] patients who have questions please contactthe health care program resident that requested your imaging first. Electronically signed by: Precious Christine MD, [facility] ([phone]), at 02/01/2022 2:44 PM Avril Lyman MD IMG DX ORDERABLES * (ABNORMAL) BLOOD GAS 2 ARTERIAL (02/01/2022 1:34 PM EDT) pH, Arterial 7.42 7.35 - 7.45 [facility] PCO2, Arterial 32(L) 35 - 45 mmHg [facility] PO2, Arterial 284(H) 85 - 104 mmHg [facility] Bicarbonate, Arterial 20.4 20.0 - 26.0 mmol/L [facility] Base Excess, Arterial -4.1(L) -3.0 - 3.0 mmol/L [facility] Hgb Blood Gas 11.7 11.7 - 15.5 g/dL [facility] Oxyhemoglobin, Arterial 97.9(H) 94.0 - 97.0 % [facility] Carboxyhemoglob in, Arterial 0.3 % [facility] Comment: Nonsmokers: 0.5-1.5% COHB Smokers: Variable, but usually less than 10% Toxic: 20-30% COHB Lethal: Greater than 60% COHB Methemoglobin, Arterial 0.7 <=1.5 % [facility] Na Whole Blood 136 135 - 145 mmol/L [facility] K Whole Blood 4.0 3.5 - 5.0 mmol/L [facility] Comment: Please note: Patients with WBC >100,000 may have falsely elevated Potassium levels. Contact the Clinical Chemistry Laboratory if there are any questions. ICa Whole Blood 1.24 1.15 - 1.33 mmol/L [facility] Comment: Note: ??Total bilirubin higher than 20 mg/dL may lead to falsely low ionized calcium. CL Whole Blood 110(H) 98 - 107 mmol/L [facility] Gluc Whole Bld 114 65 - 199 mg/dL [facility] Comment:Diabetes: >=200 mg/d L plus symptoms. Lactate WB 0.7 0.5 - 2.2 mmol/L [facility] FIO2 Art 100 % [facility] PF Ratio Art 284 [facility] Blood 02/01/2022 1:34 PM EDT 02/01/2022 1:34 PM EDT Hong Eugene MD POINT OF CARE TEST ORDERABLES [facility] [place] [address] * EKG 12 Lead (02/01/2022 1:31 PM EDT) Ventricular rate 69 BPM MUSE SYSTEM Atrial Rate 69 BPM MUSE SYSTEM P-R Interval 190 ms MUSE SYSTEM QRS Duration 78 ms MUSE SYSTEM Q-T Interval 434 ms MUSE SYSTEM QTC Calculated (Bezet) 465 ms MUSE SYSTEM Calculated P [place] 55 degrees MUSE SYSTEM Calculated R [place] 60 degrees MUSE SYSTEM Calculated T [place] 46 degrees MUSE SYSTEM INTERPRETATION Normal sinus rhythm ST elevation consider anterolateral injury or acute infarct Abnormal ECG When compared with ECG of 29-JAN-2022 09:13, ST elevation in V6 now present T wave inversion less evident in Lateral leads Confirmed by MD Radha, Philip Rutherford ([id number]) on 02/05/2022 3:24:49 PM MUSE SYSTEM 02/01/2022 1:31 PM EDT 02/05/2022 3:24 PM EDT Avril Lyman MD ECG ORDERABLES Performing Organization Address City/[facility]/ZIP Co de Phone Number MUSE SYSTEM * (ABNORMAL) Fibrinogen (02/01/2022 10:50 AM EDT) Pathologist [facility] [place] Fibrinogen 163(L) 200 - 393 mg/dL [facility] Comment: OR Result called by ?? FINDTM OR Results read back by: ? Ember Viera at 2022-02-01 11:09:03 A fibrinogen level >100 mg/dL is adequate for hemostasis in most patients without underlying bleeding disorders. Blood 02/01/2022 10:5 0 AM EDT 02/01/2022 10:55 AM EDT Narrative Resulting Agency Comment Spec In Lab Ebenezer Morse MD HEMATOLOGY ORDERABLE S Performing Organization Address City/[facility]/ZIP Co de Phone Number [facility] [place] [address] * APTT (02/01/2022 10:50 AM EDT) Partial Thromboplastin Time 29 25 - 37 sec [facility] Comment: OR Result called by ?? FINDTM OR Results read back by: ? Ember RodrigoPipo Viera at 2022-02-01 11:09:03 The PTT is NOT appropriate for heparin monitoring. Use the Anti-Xa level for heparin monitoring (HEP UFH) or LMWH monitoring (HEP LMW). A PTT less than 37 seconds generally indicates adequate hemostasis. Blood 02/01/2022 10:5 0 AM EDT 02/01/2022 10:55 AM EDT Narrative Resulting Agency Comment Spec In Lab Ebenezer Morse MD HEMATOLOGY ORDERABLE S Performing Organization Address [facility] Co de Phone Number [facility] [place] [address] * (ABNORMAL) Prothrombin Time (02/01/2022 10:50 AM EDT) [facility] Prothrombin Time 15.3(H) 9.4 - 12.5 sec [facility] Comment: OR Result called by ?? FINDTM OR Results read back by: ? Ember Viera at 2022-02-01 11:09:03 International Normalization Ratio 1.3 [facility] Comment: OR Result called by ?? [...] MD HEMATOLOGY ORDERABLE S Performing Organization Address [facility]/ZIP Co de Phone Number [facility] [place] [address] * (ABNORMAL) Hemogram (02/01/2022 10:50 AM EDT) White Blood Cell 7.2 4.0 - 9.5 x10(3)/mc L [facility] Red Blood Cell 2.86(L) 4.00 - 5.21 x10(6)/mc L [facility] Hemoglobin 8.0(L) 11.7 - 15.5 g/dL [facility] Hematocrit 23.9(L) 35.7 - 45.8 % [facility] Comment: This result has been called to EMBER VIERA by Chava Lee on 02 01 2022 at 1104, and has been read back. Mean Cell Volume 83.6 82.6 - 94.4 fL [facility] Mean Cell Hemoglobin 28.0 27.1 - 32.0 pg [facility] Mean Cell Hemoglobin Concentration 33.5 31.7 - 35.0 g/dL [facility] Platelet 122(L) 145 - 357 x10(3)/mc L [facility] RDW Standard Deviation 41.1 37.0 - 46.0 fL [facility] RDW coefficient of variation 13.3 11.5 - 14.1 % [facility] Mean Platelet Volume 10.3 7.6 - 12.9 fL [facility] NRBC% auto 0.0 % [facility] NRBC Absolute 0.000 0.000 - 0.000 x10(3)/mc L [facility] Blood 02/01/2022 10:5 0 AM EDT 02/01/2022 10:55 AM EDT Narrative Resulting Agency Comment Spec In Lab Ebenezer Morse MD HEMATOLOGY ORDERABLE S [facility] [place] [address] * (ABNORMAL) BLOOD GAS 2 ARTERIAL (02/01/2022 10:47 AM EDT) Pathologist [facility] [place] pH, Arterial 7.38 7.35 - 7.45 [facility] PCO2, Arterial 43 35 - 45 mmHg [facility] PO2, Arterial 358(H) 85 - 104 mmHg [facility] Bicarbonate, Arterial 24.5 20.0 - 26.0 mmol/L [facility] Base Excess, Arterial -0.7 -3.0 - 3.0 mmol/L [facility] Hgb Blood Gas 8.7(L) 11.7 - 15.5 g/dL [facility] Oxyhemoglobin, Arterial 99.0(H) 94.0 - 97.0 % [facility] Carboxyhemoglob in, Arterial 0.2 % [facility] Comment: Nonsmokers: 0.5-1.5% COHB Smokers: Variable, but usually less than 10% Toxic: 20-30% COHB Lethal: Greater than 60% COHB Methemoglobin, Arterial 0.3 <=1.5 % [facility] Na Whole Blood 136 135 - 145 mmol/L [facility] K Whole Blood 4.4 3.5 - 5.0 mmol/L [facility] Comment: Please note: Patients with WBC >100,000 may have falsely elevated Potassium levels. Contact the Clinical Chemistry Laboratory if there are any questions. ICa Whole Blood 1.24 1.15 - 1.33 mmol/L [facility] Comment: Note: ??Total bilirubin higher than 20 mg/dL may lead to falsely low ionized calcium. CL Whole Blood 110(H) 98 - 107 mmol/L [facility] Gluc Whole Bld 162 65 - 199 mg/dL [facility] Comment:Diabetes: >=200 mg/d L plus symptoms. Lactate WB 1.6 0.5 - 2.2 mmol/L [facility] Blood 02/01/2022 10:4 7 AM EDT 02/01/2022 10:47 AM EDT Avril Lyman MD POINT OF CARE TEST O RDERABLES [facility] [place] [address] * (ABNORMAL) BLOOD GAS 2 ARTERIAL (02/01/2022 10:28 AM EDT) pH, Arterial 7.30(L) 7.35 - 7.45 [facility] PCO2, Arterial 54(H) 35 - 45 mmHg [facility] PO2, Arterial 335(H) 85 - 104 mmHg [facility] Bicarbonate, Arterial 26.0 20.0 - 26.0 mmol/L [facility] Base Excess, Arterial -0.3 -3.0 - 3.0 mmol/L [facility] Hgb Blood Gas 8.7(L) 11.7 - 15.5 g/dL [facility] Oxyhemoglobin, Arterial 99.1(H) 94.0 - 97.0 % [facility] Carboxyhemoglob in, Arterial 0.1 % [facility] Comment: Nonsmokers: 0.5-1.5% COHB Smokers: Variable, but usually less than 10% Toxic: 20-30% COHB Lethal: Greater than 60% COHB Methemoglobin, Arterial 0.3 <=1.5 % [facility] Na Whole Blood 133(L) 135 - 145 mmol/L [facility] K Whole Blood 5.0 3.5 - 5.0 mmol/L [facility] Comment: Please note: Patients with WBC >100,000 may have falsely elevated Potassium levels. Contact the Clinical Chemistry Laboratory if there are any questions. ICa Whole Blood 1.52(H) 1.15 - 1.33 mmol/L [facility] Comment: Note: ??Total bilirubin higher than 20 mg/dL may lead to falsely low ionized calcium. CL Whole Blood 107 98 - 107 mmol/L [facility] Gluc Whole Bld 196 65 - 199 mg/dL [facility] Comment:Diabetes: >=200 mg/d L plus symptoms. Lactate WB 1.2 0.5 - 2.2 mmol/L [facility] Blood 02/01/2022 10:2 8 AM EDT 02/01/2022 10:28 AM EDT Avril Lyman MD POINT OF CARE TEST O RDERABLES [facility] [place] [address] * (ABNORMAL) BLOOD GAS 2 ARTERIAL (02/01/2022 9:57 AM EDT) pH, Arterial 7.35 7.35 - 7.45 [facility] PCO2, Arterial 43 35 - 45 mmHg [facility] PO2, Arterial 403(H) 85 - 104 mmHg [facility] Bicarbonate, Arterial 23.3 20.0 - 26.0 mmol/L [facility] Base Excess, Arterial -2.3 -3.0 - 3.0 mmol/L [facility] Hgb Blood Gas 8.7(L) 11.7 - 15.5 g/dL [facility] Oxyhemoglobin, Arterial 98.9(H) 94.0 - 97.0 % [facility] Carboxyhemoglob in, Arterial 0.4 % [facility] Comment: Nonsmokers: 0.5-1.5% COHB Smokers: Variable, but usually less than 10% Toxic: 20-30% COHB Lethal: Greater than 60% COHB Methemoglobin, Arterial 0.3 <=1.5 % [facility] Na Whole Blood 130(L) 135 - 145 mmol/L [facility] K Whole Blood 5.9(H) 3.5 - 5.0 mmol/L [facility] Comment: Please note: Patients with WBC >100,000 may have falsely elevated Potassium levels. Contact the Clinical Chemistry Laboratory if there are any questions. ICa Whole Blood 0.97(L) 1.15 - 1.33 mmol/L [facility] Comment: Note: ??Total bilirubin higher than 20 mg/dL may lead to falsely low ionized calcium. CL Whole Blood 106 98 - 107 mmol/L [facility] Gluc Whole Bld 251(H) 65 - 199 mg/dL [facility] Comment:Diabetes: >=200 mg/d L plus symptoms. Lactate WB 0.8 0.5 - 2.2 mmol/L [facility] Blood 02/01/2022 9:57 AM EDT 02/01/2022 9:57 AM EDT Avril Lyman MD POINT OF CARE TEST O RDERABLES Performing Organization Address [facility] de Phone Number [facility] [place] [address] * Prepare Platelets, Apheresis (02/01/2022 9:55 AM EDT) Dispensed? Yes [facility] Blood 02/01/2022 9:55 AM EDT 02/01/2022 9:54 AM EDT Hong Eugene MD BLOOD BANK PRODUCT ORDERABLES Performing Organization Address [facility] de Phone Number [facility] [place] [address] * Platelet count (02/01/2022 9:55 AM EDT) Platelet 191 145 - 357 x10(3)/mc L [facility] Immature Plt % 3.7 0.0 - 7.4 % [facility] Comment: Limitation of the Immature Platelet Fraction (IPF)-May be less reliable when the platelet count is less than [id number]/uL due to statistical imprecision. The IPF value [...] in a decreased state of production. References: [employer] The Clinical Value of the Immature Platelet Fraction (IPF) in Cell Recovery Document Number 10-1143 10/2010 [employer] The Role of the Immature Platelet Fraction (IPF) in the Differential Diagnosis of Thrombocytopenia, Document [id number] V05 P009/16 Blood 02/01/2022 9:55 AM EDT 02/01/2022 10:04 AM EDT Narrative Resulting Agency Comment Spec In Lab Avril Lyman MD HEMATOLOGY ORDERABLE S Performing Organization Address [facility] Co de Phone Number [facility] [place] [address] * (ABNORMAL) Hemoglobin and Hematocrit, blood (02/01/2022 9:55 AM EDT) Hemoglobin 7.9(L) 11.7 - 15.5 g/dL [facility] Comment: This result has been called to BENITEZ CAGLE by Geovany Crespo on 02 01 2022 at 1012, and has been read back. Hematocrit 24.1(L) 35.7 - 45.8 % [facility] Comment: This result has been called to BENITEZ CAGLE by Geovany Crespo on 02 01 2022 at 1012, and has been read back. Blood 02/01/2022 9:55 AM EDT 02/01/2022 10:04 AM EDT Narrative Resulting Agency Comment Spec In Lab Avril Lyman MD HEMATOLOGY ORDERABLE S Performing Organization Address City/[facility]/ZIP Co de Phone Number [facility] [place] [address] * (ABNORMAL) Fibrinogen (02/01/2022 9:55 AM EDT) Fibrinogen 154(L) 200 - 393 mg/dL [facility] Comment: OR Result called by ?? FINDTM OR Results read back by: ? Samira Cagle at 2022-02-01 10:27:30 A fibrinogen level >100 mg/dL is adequate for hemostasis in most patients without underlying bleeding disorders. Blood 02/01/2022 9:55 AM EDT 02/01/2022 10:04 AM EDT Narrative Resulting Agency Comment Spec In Lab Avril Lyman MD HEMATOLOGY ORDERABLE S [facility] [place] [address] * (ABNORMAL) BLOOD GAS 2 VENOUS (02/01/2022 9:31 AM EDT) pH, Venous 7.28(Criti katerina) 7.32 - 7.42 [facility] Comment:Noted by instrument/control technician. PCO2, Venous 49 41 - 51 mmHg [facility] PO2, Venous 57(H) 25 - 40 mmHg [facility] Bicarbonate, Venous 22.2 mmol/L [facility] Base Excess, Venous -4.6 mmol/L [facility] Hgb Blood Gas 8.5(L) 11.7 - 15.5 g/dL [facility] Oxyhemoglobin, Venous 86.1 % [facility] Carboxyhemoglob in, Venous 0.6 % [facility] Comment: Nonsmokers: 0.5-1.5% COHB Smokers: Variable, but usually less than 10% Toxic: 20-30% COHB Lethal: Greater than 60% COHB Methemoglobin, Venous 0.3 <=1.5 % [facility] Na Whole Blood 130(L) 135 - 145 mmol/L [facility] K Whole Blood 5.2(H) 3.5 - 5.0 mmol/L [facility] Comment: Please note: Patients with WBC >100,000 may have falsely elevated Potassium levels. Contact the Clinical Chemistry Laboratory if there are any questions. ICa Whole Blood 0.92(Criti katerina) 1.15 - 1.33 mmol/L [facility] Comment: Noted by instrument/control technician. Note: ??Total bilirubin higher than 20 mg/dL may lead to falsely low ionized calcium. CL Whole Blood 105 98 - 107 mmol/L [facility] Gluc Whole Bld 227(H) 65 - 199 mg/dL [facility] Comment:Diabetes: >=200 mg/d L plus symptoms Lactate WB 0.7 0.5 - 2.2 mmol/L [facility] Blood Gas Source Venous [facility] Blood 02/01/2022 9:31 AM EDT 02/01/2022 9:31 AM EDT Avril Lyman MD POINT OF CARE TEST O RDERABLES Performing Organization Address City/State/[facility] Co de Phone Number [facility] [place] [address] * (ABNORMAL) BLOOD GAS 2 ARTERIAL (02/01/2022 9:31 AM EDT) pH, Arterial 7.32(L) 7.35 - 7.45 [facility] PCO2, Arterial 42 35 - 45 mmHg [facility] PO2, Arterial 442(H) 85 - 104 mmHg [facility] Bicarbonate, Arterial 21.7 20.0 - 26.0 mmol/L [facility] Base Excess, Arterial -4.4(L) -3.0 - 3.0 mmol/L [facility] Hgb Blood Gas 8.7(L) 11.7 - 15.5 g/dL [facility] Oxyhemoglobin, Arterial 99.2(H) 94.0 - 97.0 % [facility] Carboxyhemoglob in, Arterial 0.1 % [facility] Comment: Nonsmokers: 0.5-1.5% COHB Smokers: Variable, but usually less than 10% Toxic: 20-30% COHB Lethal: Greater than 60% COHB Methemoglobin, Arterial 0.3 <=1.5 % [facility] Na Whole Blood 130(L) 135 - 145 mmol/L [facility] K Whole Blood 5.2(H) 3.5 - 5.0 mmol/L [facility] Comment: Please note: Patients with WBC >100,000 may have falsely elevated Potassium levels. Contact the Clinical Chemistry Laboratory if there are any questions. ICa Whole Blood 0.93(L) 1.15 - 1.33 mmol/L [facility] Comment: Note: ??Total bilirubin higher than 20 mg/dL may lead to falsely low ionized calcium. CL Whole Blood 103 98 - 107 mmol/L [facility] Gluc Whole Bld 216(H) 65 - 199 mg/dL [facility] Comment:Diabetes: >=200 mg/d L plus symptoms. Lactate WB 0.7 0.5 - 2.2 mmol/L [facility] Blood 02/01/2022 9:31 AM EDT 02/01/2022 9:31 AM EDT Avril Lyman MD POINT OF CARE TEST O RDERABLES [facility] [place] [address] * (ABNORMAL) BLOOD GAS 2 ARTERIAL (02/01/2022 8:16 AM EDT) pH, Arterial 7.47(H) 7.35 - 7.45 [facility] PCO2, Arterial 29(L) 35 - 45 mmHg [facility] PO2, Arterial 255(H) 85 - 104 mmHg [facility] Bicarbonate, Arterial 20.6 20.0 - 26.0 mmol/L [facility] Base Excess, Arterial -3.1(L) -3.0 - 3.0 mmol/L [facility] Hgb Blood Gas 12.3 11.7 - 15.5 g/dL [facility] Oxyhemoglobin, Arterial 98.7(H) 94.0 - 97.0 % [facility] Carboxyhemoglob in, Arterial 0.3 % [facility] Comment: Nonsmokers: 0.5-1.5% COHB Smokers: Variable, but usually less than 10% Toxic: 20-30% COHB Lethal: Greater than 60% COHB Methemoglobin, Arterial 0.3 <=1.5 % [facility] Na Whole Blood 138 135 - 145 mmol/L [facility] K Whole Blood 3.8 3.5 - 5.0 mmol/L [facility] Comment: Please note: Patients with WBC >100,000 may have falsely elevated Potassium levels. Contact the Clinical Chemistry Laboratory if there are any questions. ICa Whole Blood 1.17 1.15 - 1.33 mmol/L [facility] Comment: Note: ??Total bilirubin higher than 20 mg/dL may lead to falsely low ionized calcium. CL Whole Blood 111(H) 98 - 107 mmol/L [facility] Gluc Whole Bld 110 65 - 199 mg/dL [facility] Comment:Diabetes: >=200 mg/d L plus symptoms. Lactate WB 1.2 0.5 - 2.2 mmol/L [facility] Blood 02/01/2022 8:16 AM EDT 02/01/2022 8:16 AM EDT Avril Lyman MD POINT OF CARE TEST O RDERABLES [facility] [place] [address] * Prepare RBC (02/01/2022 7:05 AM EDT) Dispensed? Yes [facility] Blood 02/01/2022 7:05 AM EDT 02/01/2022 7:01 AM EDT Narrative Resulting Agency Comment Spec In Lab Hong Eugene MD BLOOD BANK PRODUCT ORDERABLES Performing Organization Address [facility]/ZIP Co de Phone Number [facility] [place] [address] * Heparin (unfractionated) Level (02/01/2022 4:40 AM EDT) [facility] UF Heparin 0.42 IU/mL [facility] Comment: Specimen drawn more than [...] APRN HEMATOLOGY ORDERABLE S Performing Organization Address City/[facility]/ZIP Co de Phone Number [facility] [place] [address] * Differential, Automated (02/01/2022 4:40 AM EDT) [facility] Neutrophil % 48.9 % [facility] Neutrophil Absolute 2.67 1.70 - 6.10 x10(3)/[facility] Lymph % 39.9 % [facility] Lymphocytes Abs 2.2 0.9 - 3.2 x10(3)/[facility] Monocyte % 8.6 % [facility] Monocyte Abs 0.5 0.3 - 0.9 x10(3)/[facility] Eos % 2.0 % [facility] Eosinophils Abs 0.1 0.0 - 0.4 x10(3)/[facility] Basophil % 0.2 % [facility] Baso Absolute 0.0 0.0 - 0.1 x10(3)/[facility] Immature Gran % 0.40 % [facility] Comment: Immature granulocytes(IG's)percentage and absolute count will include metamyelocytes, myelocytes, and promyelocytes. Blood smears from CBCs yielding IG's will be scanned manually for concordance. If this scan disagrees with the automated IG or if promyelocytes are noted, a manual differential will be performed. Immature Gran Absolute 0.02 0.00 - 0.04 x10(3)/[facility] Blood 02/01/2022 4:40 AM EDT 02/01/2022 5:29 AM EDT Narrative Resulting Agency Comment Spec In Lab Jermaine Sotelo MD HEMATOLOGY ORDERABLE S [facility] [place] [address] * (ABNORMAL) Hemogram (02/01/2022 4:40 AM EDT) White Blood Cell 5.5 4.0 - 9.5 x10(3)/mc L [facility] Red Blood Cell 4.65 4.00 - 5.21 x10(6)/mc L [facility] Hemoglobin 12.9 11.7 - 15.5 g/dL [facility] Hematocrit 38.3 35.7 - 45.8 % [facility] Mean Cell Volume 82.4(L) 82.6 - 94.4 fL [facility] Mean Cell Hemoglobin 27.7 27.1 - 32.0 pg [facility] Mean Cell Hemoglobin Concentration 33.7 31.7 - 35.0 g/dL [facility] Platelet 219 145 - 357 x10(3)/mc L [facility] RDW Standard Deviation 39.8 37.0 - 46.0 [facility] RDW coefficient of variation 13.3 11.5 - 14.1 % [facility] Mean Platelet Volume 10.5 7.6 - 12.9 [facility] NRBC% auto 0.0 % [facility] NRBC Absolute 0.000 0.000 - 0.000 x10(3)/mc L [facility] Blood 02/01/2022 4:40 AM EDT 02/01/2022 5:29 AM EDT Narrative Resulting Agency Comment Spec In Lab Jermaine Sotelo MD HEMATOLOGY ORDERABLE S Performing Organization Address [facility] Co de Phone Number [facility] [place] [address] * Magnesium (02/01/2022 4:40 AM EDT) Magnesium 0.81 0.69 - 1.07 mmol/L [facility] Blood 02/01/2022 4:40 AM EDT 02/01/2022 5:29 AM EDT Narrative Resulting Agency Comment Spec In Lab Avril Lyman MD CHEMISTRY ORDERABLES Performing Organization Address [facility] Co de Phone Number [facility] [place] [address] * (ABNORMAL) Basic Metabolic Panel (non-fasting) (02/01/2022 4:40 AM EDT) Glucose 112 65 - 199 mg/dL [facility] Comment:Diabetes: >=200 mg/d L plus symptoms Blood Urea Nitrogen 21(H) 8 - 18 mg/dL [facility] Creatinine 0.73 0.70 - 1.20 mg/dL [facility] Sodium 139 135 - 145 mmol/L [facility] Potassium 4.8 3.5 - 5.0 mmol/L [facility] Comment: Please note: ??Patients with WBC >100,000 may have falsely elevated Potassium levels. ??For accurate Potassium quantification in these patients send serum separator tube (gold top) for subsequent determinations. ??Contact the Clinical Chemistry Laboratory if there are any questions. Chloride 105 98 - 107 mmol/L [facility] Carbon Dioxide 27 22 - 31 mmol/L [facility] Anion Gap 7 5 - 15 mmol/L [facility] Calcium 9.7 8.5 - 10.5 mg/dL [facility] Est Glomerular Filtration Rate 89 >=60 mL/min/1. 73 m?? [facility] Comment: This patient's estimated GFR was [...] Lyman MD CHEMISTRY ORDERABLES Performing Organization Address City/State/[facility] Co de Phone Number [facility] [place] [address] * SCAN DOC: IMPLANTABLE DEVICES (02/01/2022 12:00 [...] who have questions please contact the health care program resident that requested your imaging first. ? Electronically signed by: Precious Christine MD, [facility] ([phone]), at 01/31/2022 12:10 PM Narrative 01/31/2022 12:10 PM EDT EXAMINATION: XR [...] patients who have questions please contactthe health care program resident that requested your imaging first. Electronically signed by: Precious Christine MD, [facility] ([phone]), at 01/31/2022 12:10 PM Avril Lyman MD IMG DX ORDERABLES * TSH [place] (01/31/2022 4:15 AM EDT) [facility] Thyroid Stimulating Hormone 3.23 0.27 - 4.20 mcIU/mL [facility] Comment: Reference Interval (mcIU/mL): Females: ??First Trimester: 0.23-3.88 ??Second Trimester: 0.22-3.90 ??Third Trimester: 0.44-4.66 Blood Venous Draw / Unknown 01/31/2022 4:15 AM EDT 01/31/2022 4:33 AM EDT Narrative Resulting Agency Comment Spec In Lab Amy Meredith MD CHEMISTRY ORDERABLES [facility] [place] [address] * Type and Screen Validity (01/31/2022 4:15 AM EDT) [facility] T&S only valid at [facility] Comment:This Type and Screen result is only valid at the [facility] Blood 01/31/2022 4:15 AM EDT 01/31/2022 4:33 AM EDT Narrative Resulting Agency Comment Spec In Lab Vinny Slade MD BLOOD BANK LAB ORDER USHA [facility] [place] [address] * AB[facility] Recheck Status (01/31/2022 4:15 AM EDT) [facility] Type Recheck Completed [facility] Blood 01/31/2022 4:15 AM EDT 01/31/2022 4:33 AM EDT Narrative Resulting Agency Comment Spec In Lab Vinny Slade MD BLOOD BANK LAB ORDER USHA [facility] [place] [address] * Antibody screen (01/31/2022 4:15 AM EDT) [facility] Ab Screen Interp Negative [facility] Expires at [id number] on: 02/03/2022 [facility] Blood 01/31/2022 4:15 AM EDT 01/31/2022 4:33 AM EDT Narrative Resulting Agency Comment Spec In Lab Vinny Slade MD BLOOD BANK LAB ORDER USHA [facility] [place] [address] * ABO/Rh Typing (01/31/2022 4:15 AM EDT) Pathologist [facility] ABORH Type O Pos [facility] Blood 01/31/2022 4:15 AM EDT 01/31/2022 4:33 AM EDT Narrative Resulting Agency Comment Spec In Lab Vinny Slade MD BLOOD BANK LAB ORDER USHA [facility] [place] [address] * Differential, Automated (01/31/2022 4:15 AM EDT) [facility] Neutrophil % 44.7 % [facility] Neutrophil Absolute 2.50 1.70 - 6.10 x10(3)/mcL [facility] Lymph % 45.2 % [facility] Lymphocytes Abs 2.5 0.9 - 3.2 x10(3)/[facility] Monocyte % 8.2 % [facility] Monocyte Abs 0.5 0.3 - 0.9 x10(3)/[facility] Eos % 1.3 % [facility] Eosinophils Abs 0.1 0.0 - 0.4 x10(3)/[facility] Basophil % 0.4 % [facility] Baso Absolute 0.0 0.0 - 0.1 x10(3)/[facility] Immature Gran % 0.20 % [facility] Comment: Immature granulocytes(IG's)percentage and absolute count will include metamyelocytes, myelocytes, and promyelocytes. Blood smears from CBCs yielding IG's will be scanned manually for concordance. If this scan disagrees with the automated IG or if promyelocytes are noted, a manual differential will be performed. Immature Gran Absolute 0.01 0.00 - 0.04 x10(3)/[facility] Blood 01/31/2022 4:15 AM EDT 01/31/2022 4:30 AM EDT Narrative Resulting Agency Comment Spec In Lab Jermaine Sotelo MD HEMATOLOGY ORDERABLE S Performing Organization Address City/State/[facility] Co de Phone Number [facility] [place] [address] * (ABNORMAL) Hemogram (01/31/2022 4:15 AM EDT) White Blood Cell 5.6 4.0 - 9.5 x10(3)/mc L [facility] Red Blood Cell 4.78 4.00 - 5.21 x10(6)/mc L [facility] Hemoglobin 13.3 11.7 - 15.5 g/dL [facility] Hematocrit 38.7 35.7 - 45.8 % [facility] Mean Cell Volume 81.0(L) 82.6 - 94.4 fL [facility] Mean Cell Hemoglobin 27.8 27.1 - 32.0 pg [facility] Mean Cell Hemoglobin Concentration 34.4 31.7 - 35.0 g/dL [facility] Platelet 215 145 - 357 x10(3)/mc L [facility] RDW Standard Deviation 39.1 37.0 - 46.0 [facility] RDW coefficient of variation 13.3 11.5 - 14.1 % [facility] Mean Platelet Volume 10.3 7.6 - 12.9 fL [facility] NRBC% auto 0.0 % [facility] NRBC Absolute 0.000 0.000 - 0.000 x10(3)/mc L [facility] Blood 01/31/2022 4:15 AM EDT 01/31/2022 4:30 AM EDT Narrative Resulting Agency Comment Spec In Lab Jermaine Sotelo MD HEMATOLOGY ORDERABLE S [facility] [place] [address] * Magnesium (01/31/2022 4:15 AM EDT) Magnesium 0.82 0.69 - 1.07 mmol/L [facility] Blood 01/31/2022 4:15 AM EDT 01/31/2022 4:30 AM EDT Narrative Resulting Agency Comment Spec In Lab Avril Lyman MD CHEMISTRY ORDERABLES [facility] [place] [address] * (ABNORMAL) Basic Metabolic Panel (non-fasting) (01/31/2022 4:15 AM EDT) Glucose 106 65 - 199 mg/dL [facility] Comment:Diabetes: >=200 mg/d L plus symptoms Blood Urea Nitrogen 23(H) 8 - 18 mg/dL [facility] Creatinine 0.92 0.70 - 1.20 mg/dL [facility] Sodium 138 135 - 145 mmol/L [facility] Potassium 4.3 3.5 - 5.0 mmol/L [facility] Comment: Please note: ??Patients with WBC >100,000 may have falsely elevated Potassium levels. ??For accurate Potassium quantification in these patients send serum separator tube (gold top) for subsequent determinations. ??Contact the Clinical Chemistry Laboratory if there are any questions. Chloride 106 98 - 107 mmol/L [facility] Carbon Dioxide 25 22 - 31 mmol/L [facility] Anion Gap 7 5 - 15 mmol/L [facility] Calcium 9.6 8.5 - 10.5 mg/dL [facility] Est Glomerular Filtration Rate 67 >=60 mL/min/1. 73 m?? [facility] Comment: This patient's estimated GFR was [...] In Lab Avril Lyman MD CHEMISTRY ORDERABLES [facility] [place] [address] * Heparin (unfractionated) Level (01/31/2022 4:15 AM EDT) UF Heparin 0.48 IU/mL [facility] Comment: Heparin (anti-Xa) levels should [...] APRN HEMATOLOGY ORDERABLE S Performing Organization Address City/[facility]/ZIP Co de Phone Number [facility] [place] [address] * (ABNORMAL) APTT (01/31/2022 4:15 AM EDT) Partial Thromboplastin Time 71(H) 25 - 37 sec [facility] Comment: The PTT is NOT appropriate for heparin monitoring. Use the Anti-Xa level for heparin monitoring (HEP UFH) or LMWH monitoring (HEP LMW). A PTT less than 37 seconds generally indicates adequate hemostasis. Blood 01/31/2022 4:15 AM EDT 01/31/2022 4:30 AM EDT Narrative Resulting Agency Comment Spec In Lab Avril Lyman MD HEMATOLOGY ORDERABLE S [facility] [place] [address] * Prothrombin Time (01/31/2022 4:15 AM EDT) Prothrombin Time 10.7 9.4 - 12.5 sec [facility] International Normalization Ratio 0.9 [facility] Comment: An INR <2.0 indicates adequate [...] MD HEMATOLOGY ORDERABLE S Performing Organization Address [facility] Co de Phone Number [facility] [place] [address] * Hepatic Function Panel (01/31/2022 4:15 AM EDT) Protein, Total 6.5 6.1 - 8.0 g/dL [facility] Albumin 3.8 3.2 - 5.2 g/dL [facility] Aspartate Aminotransferase 25 0 - 30 unit/L [facility] Alanine Aminotransferase 22 0 - 30 unit/L [facility] Alkaline Phosphatase 86 35 - 105 unit/L [facility] Bilirubin, Total 0.3 0.2 - 1.3 mg/dL [facility] Bilirubin, Direct 0.1 0.0 - 0.3 mg/dL [facility] Blood 01/31/2022 4:15 AM EDT 01/31/2022 4:30 AM EDT Narrative Resulting Agency Comment Spec In Lab Avril Lyman MD CHEMISTRY ORDERABLES Performing Organization Address [facility]/ZIP Co de Phone Number [facility] [place] [address] * Urinalysis with reflex Culture (01/31/2022 12:35 AM EDT) Glucose, Urine Dipstick Negative Negative mg/dL [facility] Protein, Urine Dipstick Negative Negative mg/dL [facility] Bilirubin, Urine Dipstick Negative Negative mg/dL [facility] Comment: Clinical correlation required for positive Urine Bilirubin results as false positive may occur with some drugs and drug related products. If a false positive is suspected a serum total bilirubin should be considered if clinically indicated. Urobilinogen, Urine Dipstick Normal Normal mg/dL [facility] pH, Urn (dipstick) 5.5 5.0 - 8.0 [facility] Blood, Urine Dipstick Negative Negative mg/dL [facility] Ketone, Urine Dipstick Negative Negative mg/dL [facility] Nitrite, Urine Dipstick Negative Negative [facility] Leukocytes, Urine Dipstick Negative Negative [facility] Appearance, Urine Dipstick Clear Clear [facility] Specific [place] Urine Automated 1.016 1.005 - 1.030 [facility] Color, Urine Dipstick Yellow Yellow [facility] Reflex to Culture No [facility] Clean Catch Urine 01/31/2022 12:35 AM EDT 01/31/2022 12:47 AM EDT Narrative Resulting Agency Comment Spec In Lab Avril Lyman MD URINE ORDERABLES [facility] [place] [address] * (ABNORMAL) Differential, Automated (01/30/2022 3:45 AM EDT) Neutrophil % 41.5 % [facility] Neutrophil Absolute 2.89 1.70 - 6.10 x10(3)/mc L [facility] Lymph % 48.0 % [facility] Lymphocytes Abs 3.3(H) 0.9 - 3.2 x10(3)/mc L [facility] Monocyte % 8.5 % [facility] Monocyte Abs 0.6 0.3 - 0.9 x10(3)/mc L [facility] Eos % 1.6 % [facility] Eosinophils Abs 0.1 0.0 - 0.4 x10(3)/ L [facility] Basophil % 0.3 % [facility] Baso Absolute 0.0 0.0 - 0.1 x10(3)/ L [facility] Immature Gran % 0.10 % [facility] Comment: Immature granulocytes(IG's)percentage and absolute count will include metamyelocytes, myelocytes, and promyelocytes. Blood smears from CBCs yielding IG's will be scanned manually for concordance. If this scan disagrees with the automated IG or if promyelocytes are noted, a manual differential will be performed. Immature Gran Absolute 0.01 0.00 - 0.04 x10(3)/[facility] Blood 01/30/2022 3:45 AM EDT 01/30/2022 5:34 AM EDT Narrative Resulting Agency Comment Spec In Lab Jermaine Sotelo MD HEMATOLOGY ORDERABLE S [facility] [place] [address] * (ABNORMAL) Hemogram (01/30/2022 3:45 AM EDT) White Blood Cell 7.0 4.0 - 9.5 x10(3)/mc L [facility] Red Blood Cell 5.03 4.00 - 5.21 x10(6)/mc L [facility] Hemoglobin 14.0 11.7 - 15.5 g/dL [facility] Hematocrit 41.0 35.7 - 45.8 % [facility] Mean Cell Volume 81.5(L) 82.6 - 94.4 fL [facility] Mean Cell Hemoglobin 27.8 27.1 - 32.0 pg [facility] Mean Cell Hemoglobin Concentration 34.1 31.7 - 35.0 g/dL [facility] Platelet 246 145 - 357 x10(3)/mc L [facility] RDW Standard Deviation 39.6 37.0 - 46.0 [facility] RDW coefficient of variation 13.2 11.5 - 14.1 % [facility] Mean Platelet Volume 10.5 7.6 - 12.9 [facility] NRBC% auto 0.0 % [facility] NRBC Absolute 0.000 0.000 - 0.000 x10(3)/mc L [facility] Blood 01/30/2022 3:45 AM EDT 01/30/2022 5:34 AM EDT Narrative Resulting Agency Comment Spec In Lab Jermaine Sotelo MD HEMATOLOGY ORDERABLE S Performing Organization Address City/[facility]/ZIP Co de Phone Number [facility] [place] [address] * Magnesium (01/30/2022 3:45 AM EDT) Magnesium 0.85 0.69 - 1.07 mmol/L [facility] Blood 01/30/2022 3:45 AM EDT 01/30/2022 5:34 AM EDT Narrative Resulting Agency Comment Spec In Lab Avril Lyman MD CHEMISTRY ORDERABLES Performing Organization Address City/[facility]/ZIP Co de Phone Number [facility] [place] [address] * (ABNORMAL) Basic Metabolic Panel (non-fasting) (01/30/2022 3:45 AM EDT) Glucose Not Perf 65 - 199 [facility] Comment: Sample improperly processed prior to receipt. Diabetes: >=200 mg/dL plus symptoms Blood Urea Nitrogen 29(H) 8 - 18 mg/dL [facility] Comment:result rechecked-bm Creatinine 0.93 0.70 - 1.20 mg/dL [facility] Sodium 139 135 - 145 mmol/L [facility] Potassium 4.1 3.5 - 5.0 mmol/L [facility] Comment: Please note: ??Patients with WBC >100,000 may have falsely elevated Potassium levels. ??For accurate Potassium quantification in these patients send serum separator tube (gold top) for subsequent determinations. ??Contact the Clinical Chemistry Laboratory if there are any questions. Chloride 106 98 - 107 mmol/L [facility] Carbon Dioxide 22 22 - 31 mmol/L [facility] Anion Gap 11 5 - 15 mmol/L [facility] Calcium 9.4 8.5 - 10.5 mg/dL [facility] Est Glomerular Filtration Rate 67 >=60 mL/min/1. 73 m?? [facility] Comment: This patient's estimated GFR was [...] In Lab Avril Lyman MD CHEMISTRY ORDERABLES [facility] [place] [address] * Heparin (unfractionated) Level (01/30/2022 3:45 AM EDT) UF Heparin 0.39 IU/mL [facility] Comment: Specimen drawn more than [...] APRN HEMATOLOGY ORDERABLE S Performing Organization Address [facility] Co de Phone Number [facility] [place] [address] * Heparin (unfractionated) Level (01/29/2022 9:57 PM EDT) UF Heparin 0.31 IU/mL [facility] Comment: Heparin (anti-Xa) levels should [...] APRN HEMATOLOGY ORDERABLE S Performing Organization Address City/[facility]/ZIP Co de Phone Number [facility] [place] [address] * CARDIAC CATHETERIZATION (01/29/2022 2:43 PM EDT) Anatomical Region Laterality Modality Other Narrative 01/29/2022 12:09 PM EDT ?[facility] ? Cardiac Catheterization/Intervention Report ? Patient Name: Shellie Lyon Julieta. ? Procedure Date: 01/29/2022 ? A #: [id number] ? Primary Physician: Chandana Cedillo ? Case #: [id number] ? File Name: [id number] ? Catheterization Order Number: [id number] ? [facility] ? Final Report [place], [place] ? Patient Name: ? Shellie Lyon ? ID#: ?[id number] ? : ?1950 ? Procedure Date: ? January 29, 2022 ? Case #: ? [id number] ? Room: ? 5 ? Case Physician: ? Chandana Cedillo MPipoD. ? Start: ?08:22 ?Fellow: ? Levi Tenorio, D.O. ?Admission: ??01/28/2022 ? Referring Physician: ??Clint [...] procedure was Urgent. The indication for ?the supervisor dental laboratory visit is ACS greater than 24 hrs. [...] 1950 ? Height: 163 cm ? Account: [id number] Age: 71 yrs ? Weight: 67 kg Gender: Female ?BSA: 1.7 m2 Ordering Physician: AVRIL LYMAN Referring Physician: CLINT GU Performed By: GUILHERME Severino Reason For Study: NSTEMI Exam Location: [facility]. Interpretation Summary 1. The left [...] remainder of report for complete findings. Procedure Complete-[id number]. Satisfactory quality. There is normal sinus rhythm. [...] Study Date: 207:25 AMBP: 147/75 mmHg Patient Location:OR^OR05^A : 1950 Height: 163 cm Account: [id number] Age: 71 yrs Weight: 67 kg Gender: Female BSA: 1.7 m2 Ordering Physician: AVRIL LYMAN Referring Physician: CLINT GU Performed By: GUILHERME Severino Reason For Study: NSTEMI Exam Location: [facility]. Interpretation Summary 1. The left [...] See remainder ofreport for complete findings. Procedure Complete-[id number]. Satisfactory quality. There is normal sinus rhythm. [...] 5:56 AM EDT) Neutrophil % 51.9 % [facility] Neutrophil Absolute 3.90 1.70 - 6.10 x10(3)/[facility] Lymph % 39.5 % [facility] Lymphocytes Abs 3.0 0.9 - 3.2 x10(3)/[facility] Monocyte % 7.5 % [facility] Monocyte Abs 0.6 0.3 - 0.9 x10(3)/[facility] Eos % 0.7 % [facility] Eosinophils Abs 0.0 0.0 - 0.4 x10(3)/[facility] Basophil % 0.3 % [facility] Baso Absolute 0.0 0.0 - 0.1 x10(3)/[facility] Immature Gran % 0.10 % [facility] Comment: Immature granulocytes(IG's)percentage and absolute count will include metamyelocytes, myelocytes, and promyelocytes. Blood smears from CBCs yielding IG's will be scanned manually for concordance. If this scan disagrees with the automated IG or if promyelocytes are noted, a manual differential will be performed. Immature Gran Absolute 0.01 0.00 - 0.04 x10(3)/[facility] Blood 01/29/2022 5:56 AM EDT 01/29/2022 6:07 AM EDT Narrative Resulting Agency Comment Spec In Lab Belinda Ibrahim APRN HEMATOLOGY ORDERABLE S [facility] [place] [address] * (ABNORMAL) Hemogram (01/29/2022 5:56 AM EDT) White Blood Cell 7.5 4.0 - 9.5 x10(3)/ L [facility] Red Blood Cell 5.51(H) 4.00 - 5.21 x10(6)/ L [facility] Hemoglobin 15.2 11.7 - 15.5 g/dL [facility] Hematocrit 44.0 35.7 - 45.8 % [facility] Mean Cell Volume 79.9(L) 82.6 - 94.4 fL [facility] Mean Cell Hemoglobin 27.6 27.1 - 32.0 pg [facility] Mean Cell Hemoglobin Concentration 34.5 31.7 - 35.0 g/dL [facility] Platelet 266 145 - 357 x10(3)/mc L [facility] RDW Standard Deviation 37.2 37.0 - 46.0 fL [facility] RDW coefficient of variation 13.0 11.5 - 14.1 % [facility] Mean Platelet Volume 10.4 7.6 - 12.9 fL [facility] NRBC% auto 0.0 % [facility] NRBC Absolute 0.000 0.000 - 0.000 x10(3)/mc L [facility] Blood 01/29/2022 5:56 AM EDT 01/29/2022 6:07 AM EDT Narrative Resulting Agency Comment Spec In Lab Belinda Ibrahim APRN HEMATOLOGY ORDERABLE S [facility] [place] [address] * Heparin (unfractionated) Level (01/29/2022 5:56 AM EDT) UF Heparin 0.65 IU/mL [facility] Comment: Heparin (anti-Xa) levels should [...] APRN HEMATOLOGY ORDERABLE S Performing Organization Address City/[facility]/ZIP Co de Phone Number [facility] [place] [address] * (ABNORMAL) Troponin (01/29/2022 5:56 AM EDT) Troponin-T 0.26(H) 0.00 - 0.00 ng/mL [facility] Comment: The 99th percentile for Troponin T is less than 0.01 ng/mL, any detectable cTnT concentration using this assay should be considered elevated. According to the third universal definition of myocardial infarction the following criteria with a clinical presentation consistent with acute myocardial ischemia meets the diagnosis for a myocardial infarction (NC). Detection of a rise and/or fall of cTnT, with at least one value greater than the 99th percentile (> or = 0.01) and with at least one of the following ?? Symptoms of ischemia ?? New or presumed new significant LG-zwasknm-G wave (ST-T) changes or new left bundle [...] additional sample may be indicated. Reference: Third Dwale Definition of Myocardial Infarction. Journal of the [employer] 2012;60:1581-98 Blood 01/29/2022 5:56 AM EDT 01/29/2022 6:07 AM EDT Narrative Resulting Agency Comment Spec In Lab Avril Lyman MD CHEMISTRY ORDERABLES Performing Organization Address City/[facility]/ZIP Co de Phone Number [facility] [place] [address] * Magnesium (01/29/2022 5:56 AM EDT) Magnesium 0.92 0.69 - 1.07 mmol/L [facility] Blood 01/29/2022 5:56 AM EDT 01/29/2022 6:07 AM EDT Narrative Resulting Agency Comment Spec In Lab Avril Lyman MD CHEMISTRY ORDERABLES [facility] [place] [address] * Basic Metabolic Panel (non-fasting) (01/29/2022 5:56 AM EDT) Glucose 98 65 - 199 mg/dL [facility] Comment:Diabetes: >=200 mg/d L plus symptoms Blood Urea Nitrogen 14 8 - 18 mg/dL [facility] Creatinine 0.78 0.70 - 1.20 mg/dL [facility] Sodium 139 135 - 145 mmol/L [facility] Potassium 4.0 3.5 - 5.0 mmol/L [facility] Comment: Please note: ??Patients with WBC >100,000 may have falsely elevated Potassium levels. ??For accurate Potassium quantification in these patients send serum separator tube (gold top) for subsequent determinations. ??Contact the Clinical Chemistry Laboratory if there are any questions. Chloride 105 98 - 107 mmol/L [facility] Carbon Dioxide 23 22 - 31 mmol/L [facility] Anion Gap 11 5 - 15 mmol/L [facility] Calcium 9.9 8.5 - 10.5 mg/dL [facility] Est Glomerular Filtration Rate 82 >=60 mL/min/1. 73 m?? [facility] Comment: This patient's estimated GFR was [...] Lyman MD CHEMISTRY ORDERABLES Performing Organization Address [facility] Co de Phone Number [facility] [place] [address] * (ABNORMAL) Troponin (01/29/2022 12:10 AM EDT) Troponin-T 0.37(H) 0.00 - 0.00 ng/mL [facility] Comment: The 99th percentile for Troponin T is less than 0.01 ng/mL, any detectable cTnT concentration using this assay should be considered elevated. According to the third universal definition of myocardial infarction the following criteria with a clinical presentation consistent with acute myocardial ischemia meets the diagnosis for a myocardial infarction (NC). Detection of a rise and/or fall of cTnT, with at least one value greater than the 99th percentile (> or = 0.01) and with at least one of the following ?? Symptoms of ischemia ?? New or presumed new significant BM-pgyimue-G wave (ST-T) changes or new left bundle [...] additional sample may be indicated. Reference: Third Dwale Definition of Myocardial Infarction. Journal of the [employer] 2012;60:1581-98 Blood 01/29/2022 12:1 0 AM EDT 01/29/2022 12:16 AM EDT Narrative Resulting Agency Comment Spec In Lab Avril Lyman MD CHEMISTRY ORDERABLES Performing Organization Address [facility] Co de Phone Number [facility] [place] [address] * LDL Cholesterol, Direct (01/29/2022 12:10 AM EDT) LDL Cholesterol, Direct 164 mg/dL [facility] Comment: Lowest Risk: <100 mg/dL Lower Risk: 100-129 mg/dL Borderline High Risk: 130-159 mg/dL High Risk: 160-189 mg/dL Very High Risk: >wl=400 mg/dL Blood 01/29/2022 12:1 0 AM EDT 01/29/2022 12:16 AM EDT Narrative Resulting Agency Comment Spec In Lab Avril Lyman MD CHEMISTRY ORDERABLES Performing Organization Address [facility] Co de Phone Number [facility] [place] [address] * Heparin (unfractionated) Level (01/29/2022 12:10 AM EDT) UF Heparin 0.29 IU/mL [facility] Comment: Heparin (anti-Xa) levels should [...] MD HEMATOLOGY ORDERABLE S Performing Organization Address City/[facility]/ZIP Co de Phone Number [facility] [place] [address] * Type and Screen Validity (01/28/2022 6:03 PM EDT) T&S only valid at [facility] Comment:This Type and Screen result is only valid at the [facility] Blood 01/28/2022 6:03 PM EDT 01/28/2022 6:18 PM EDT Narrative Resulting Agency Comment Spec In Lab Jermaine Sotelo MD BLOOD BANK LAB ORDER USHA [facility] [place] [address] * ABORH Recheck Status (01/28/2022 6:03 PM EDT) ABORH Recheck Order Order Placed [facility] ABORH Type Recheck Complete [facility] Blood 01/28/2022 6:03 PM EDT 01/28/2022 6:18 PM EDT Narrative Resulting Agency Comment Spec In Lab Jermaine Sotelo MD BLOOD BANK LAB ORDER USHA [facility] [place] [address] * Antibody screen (01/28/2022 6:03 PM EDT) Pathologist [facility] Ab Screen Interp Negative [facility] Expires at [id number] on: 01/31/2022 [facility] Blood 01/28/2022 6:03 PM EDT 01/28/2022 6:18 PM EDT Narrative Resulting Agency Comment Spec In Lab Jermaine Sotelo MD BLOOD BANK LAB ORDER USHA [facility] [place] [address] * ABO/Rh Typing (01/28/2022 6:03 PM EDT) ABORH Type O Pos [facility] Blood 01/28/2022 6:03 PM EDT 01/28/2022 6:18 PM EDT Narrative Resulting Agency Comment Spec In Lab Jermaine Sotelo MD BLOOD BANK LAB ORDER USHA Performing Organization Address City/[facility]/ZIP Co de Phone Number [facility] [place] [address] * Heparin (unfractionated) Level (01/28/2022 5:59 PM EDT) UF Heparin 0.52 IU/mL [facility] Comment: Heparin (anti-Xa) levels should [...] APRN HEMATOLOGY ORDERABLE S Performing Organization Address City/[facility]/ZIP Co de Phone Number [facility] [place] [address] * HDL/Cholesterol Profile (01/28/2022 5:56 PM EDT) Cholesterol, Total 245 mg/dL [facility] Comment: Lower Risk: <200 mg/dL Average Risk: 200-239 mg/dL Higher Risk: >vy=905 mg/dL HDL Cholesterol 55 mg/dL [facility] Comment: Males: ?? Higher Risk: <40 mg/dL Females: ?? Higher Risk: <50 mg/dL Cholesterol/HDL Ratio 4.5 ratio [facility] Chol/HDL Interpretation See Note [facility] Comment: Lipid management should be guided by a patient? s ASCVD risk, goals and preferences. ACC/AHA Guidelines recommend high intensity statin if clinical ASCVD or LDL greater than or equal to 190 mg/dL. http://Liquidnet.com/FRQ-JJU-Keqpsdmfp Measure LDL if Total Cholesterol minus HDL Cholesterol is greater than 220 mg/dL. Adults aged 40-75 with LDL 70-189 mg/dL should have their 10 year ASCVD risk estimated with the ACC/AHA ASCVD risk brick or block maker http://tools.acc.org/ZJTIR-Umlp-Ysccomkab/ Statin should be discussed if risk greater [...] In Lab Jermaine Sotelo MD CHEMISTRY ORDERABLES [facility] [place] [address] * (ABNORMAL) Hemoglobin A1c (01/28/2022 5:56 PM EDT) Hemoglobin A1c 5.8(H) 4.3 - 5.6 % [facility] Comment: Reference Range: 4.3 - 5.6% [...] Mellitus, Diabetes Care 2013; 36: Suppl. 1, S67-68 Estimated Average Glucose 118 mg/dL [facility] Comment: eAG equivalents for HbA1c percentages: HbA1c(%) ?eAG(mg/dL) 6.0 ?126 6.5 ?140 7.0 ?154 7.5 ?169 8.0 ?183 8.5 ?197 9.0 ?212 9.5 ?226 10.0 ? 240 Limitations: The eAG calculation has not been validated on women, individuals below 18 years old and above 70 years old, and individuals with hemoglobinopathies. Additional resources are available on the ADA website. Dustin LEMA, Ramon J, Deng R, et al. ??Translating the A1C assay into estimated average glucose values. ??Diabetes Care 2008:31(8):1094-1087. Blood Venous Draw / Unknown 01/28/2022 5:56 PM EDT 01/28/2022 8:41 PM EDT Narrative Resulting Agency Comment Spec In Lab Jermaine Sotelo MD CHEMISTRY ORDERABLES Performing Organization Address City/State/[facility] Co de Phone Number [facility] [place] [address] * Differential, Automated (01/28/2022 5:56 PM EDT) Neutrophil % 56.7 % [facility] Neutrophil Absolute 4.15 1.70 - 6.10 x10(3)/[facility] Lymph % 36.4 % [facility] Lymphocytes Abs 2.7 0.9 - 3.2 x10(3)/[facility] Monocyte % 6.0 % [facility] Monocyte Abs 0.4 0.3 - 0.9 x10(3)/[facility] Eos % 0.3 % [facility] Eosinophils Abs 0.0 0.0 - 0.4 x10(3)/[facility] Basophil % 0.3 % [facility] Baso Absolute 0.0 0.0 - 0.1 x10(3)/[facility] Immature Gran % 0.30 % [facility] Comment: Immature granulocytes(IG's)percentage and absolute count will include metamyelocytes, myelocytes, and promyelocytes. Blood smears from CBCs yielding IG's will be scanned manually for concordance. If this scan disagrees with the automated IG or if promyelocytes are noted, a manual differential will be performed. Immature Gran Absolute 0.02 0.00 - 0.04 x10(3)/[facility] Blood 01/28/2022 5:56 PM EDT 01/28/2022 6:05 PM EDT Narrative Resulting Agency Comment Spec In Lab Belinda Ibrahim APRN HEMATOLOGY ORDERABLE S [facility] [place] [address] * (ABNORMAL) Hemogram (01/28/2022 5:56 PM EDT) White Blood Cell 7.3 4.0 - 9.5 x10(3)/mc L [facility] Red Blood Cell 5.67(H) 4.00 - 5.21 x10(6)/mc L [facility] Hemoglobin 15.4 11.7 - 15.5 g/dL [facility] Hematocrit 44.9 35.7 - 45.8 % [facility] Mean Cell Volume 79.2(L) 82.6 - 94.4 fL [facility] Mean Cell Hemoglobin 27.2 27.1 - 32.0 pg [facility] Mean Cell Hemoglobin Concentration 34.3 31.7 - 35.0 g/dL [facility] Platelet 272 145 - 357 x10(3)/mc L [facility] RDW Standard Deviation 36.3(L) 37.0 - 46.0 fL [facility] RDW coefficient of variation 12.9 11.5 - 14.1 % [facility] Mean Platelet Volume 10.4 7.6 - 12.9 fL [facility] NRBC% auto 0.0 % [facility] NRBC Absolute 0.000 0.000 - 0.000 x10(3)/mc L [facility] Blood 01/28/2022 5:56 PM EDT 01/28/2022 6:05 PM EDT Narrative Resulting Agency Comment Spec In Lab Belinda Ibrahim APRN HEMATOLOGY ORDERABLE S Performing Organization Address City/State/[facility] Co de Phone Number [facility] [place] [address] * (ABNORMAL) Troponin (01/28/2022 5:56 PM EDT) Troponin-T 0.49(H) 0.00 - 0.00 ng/mL [facility] Comment: The 99th percentile for Troponin T is less than 0.01 ng/mL, any detectable cTnT concentration using this assay should be considered elevated. According to the third universal definition of myocardial infarction the following criteria with a clinical presentation consistent with acute myocardial ischemia meets the diagnosis for a myocardial infarction (NC). Detection of a rise and/or fall of cTnT, with at least one value greater than the 99th percentile (> or = 0.01) and with at least one of the following ?? Symptoms of ischemia ?? New or presumed new significant SS-uecnonm-M wave (ST-T) changes or new left bundle [...] additional sample may be indicated. Reference: Third Dwale Definition of Myocardial Infarction. Journal of the [place] [employer] 2012;60:1581-98 Blood 01/28/2022 5:56 PM EDT 01/28/2022 6:05 PM EDT Narrative Resulting Agency Comment Spec In Lab Belinda Anton RoundarchN CHEMISTRY ORDERABLES Performing Organization Address City/[facility]/ZIP Co de Phone Number [facility] [place] [address] * (ABNORMAL) pro-Brain Natriuretic Peptide (01/28/2022 5:56 PM EDT) NT-proBNP 5,691(H) <=124 pg/mL [facility] Blood 01/28/2022 5:56 PM EDT 01/28/2022 6:05 PM EDT Narrative Resulting Agency Comment Spec In Lab Belinda Anton RoundarchN CHEMISTRY ORDERABLES Performing Organization Address City/[facility]/ZIP Co de Phone Number [facility] [place] [address] * (ABNORMAL) Basic Metabolic Panel (non-fasting) (01/28/2022 5:56 PM EDT) Glucose 117 65 - 199 mg/dL [facility] Comment:Diabetes: >=200 mg/d L plus symptoms Blood Urea Nitrogen 13 8 - 18 mg/dL [facility] Creatinine 0.65(L) 0.70 - 1.20 mg/dL [facility] Sodium 139 135 - 145 mmol/L [facility] Potassium 4.0 3.5 - 5.0 mmol/L [facility] Comment: Please note: ??Patients with WBC >100,000 may have falsely elevated Potassium levels. ??For accurate Potassium quantification in these patients send serum separator tube (gold top) for subsequent determinations. ??Contact the Clinical Chemistry Laboratory if there are any questions. Chloride 106 98 - 107 mmol/L [facility] Carbon Dioxide 21(L) 22 - 31 mmol/L [facility] Anion Gap 12 5 - 15 mmol/L [facility] Calcium 10.0 8.5 - 10.5 mg/dL [facility] Est Glomerular Filtration Rate 95 >=60 mL/min/1. 73 m?? [facility] Comment: This patient's estimated GFR was [...] In Lab Belinda Ibrahim APRN CHEMISTRY ORDERABLES [facility] [place] [address] * EKG 12 Lead (01/28/2022 5:47 PM EDT) Ventricular rate 70 BPM MUSE SYSTEM Atrial Rate 70 BPM MUSE SYSTEM P-R Interval 142 ms MUSE SYSTEM QRS Duration 72 ms MUSE SYSTEM Q-T Interval 414 ms MUSE SYSTEM QTC Calculated (Bezet) 447 ms MUSE SYSTEM Calculated P [place] 52 degrees MUSE SYSTEM Calculated R [place] 40 degrees MUSE SYSTEM Calculated T [place] 49 degrees MUSE SYSTEM INTERPRETATION Normal sinus rhythm ST elevation consider lateral injury or acute infarct ACUTE NC / STEMI Abnormal ECG No previous ECGs available Confirmed by Quinn Garcia ([id number]) on 01/31/2022 8:19:26 AM MUSE SYSTEM 01/28/2022 5:47 PM EDT 01/31/2022 8:19 AM EDT Belinda Ibrahim MORGAN ECG ORDERABLES [facility] documented in this encounter Visit Diagnoses Diagnosis Non-ST elevation myocardial infarction (NSTEMI) Acute myocardial infarction, subendocardial infarction, episode of care unspecified NSTEMI (non-ST elevated myocardial infarction) Acute myocardial infarction, subendocardial infarction, episode of care unspecified S/P CABG x 2 Postsurgical aortocoronary bypass status NSTEMI (non-ST elevated myocardial infarction) Acute myocardial infarction, subendocardial infarction, episode of care unspecified documented in this encounter Admitting Diagnoses Diagnosis NSTEMI (non-ST elevated myocardial infarction) Acute myocardial infarction, subendocardial infarction, episode of care unspecified documented in this encounter Administered Medications Inactive Administered Medications - up to 3 most recent administrations Medication Order MAR Action Action Date Dose Rate Site acetaminophen (Ofirmev) (1000 mg/100 mL) infusion 1,000 mg 1,000 mg, Intravenous, at 400 mL/hr, Administer [...] patient tolerate oral medications or suppositories? No Given 02/02/2022 5:59 AM EDT 1,000 mg 400 mL/hr Given 02/02/2022 12:47 AM EDT 1,000 mg 400 mL/hr Given 02/01/2022 8:26 PM EDT 1,000 mg 400 mL/hr acetaminophen (Tylenol) tablet 1,000 mg 1,000 mg, [...] albumin (human) 5% 250 mL intravenous solution 12.5 g, Intravenous, EVERY 30 MIN PRN, 2 doses, Starting on Candace 02/01/22 at 1320, Until Sat02/01/22 at 2314, Other, For volume replacement to maintain cardiac index greater than or equal to 2.0 L/min/M2, 1 bottle (unit) = 12.5 grams / 250 mL (Total Dose = 12.5 grams = 1 bottle), Routine New Bag 02/01/2022 10:44 PM EDT 12.5 g New Bag 02/01/2022 2:30 PM EDT 12.5 g albumin (human) 5% 250 mL intravenous solution 12.5 g, Intravenous, EVERY 30 MIN PRN, 2 doses, Starting on Sat02/02/22 at 0352, Until Sat02/02/22 at 1620, Other, For volume replacement to maintain cardiac index greater than or equal to 2.0 L/min/M2, 1 bottle (unit) = 12.5 grams / 250 mL (Total Dose = 12.5 grams = 1 bottle), Routine New Bag 02/02/2022 4:54 AM EDT 12.5 g aspirin chewable tablet 81 mg 81 mg, Oral, DAILY, First dose on Sat01/29/22 at 0900, Until Discontinued, Routine Given 01/31/2022 8:34 AM EDT 81 mg Given 01/30/2022 8:55 AM EDT 81 mg aspirin chewable tablet 81 mg 81 mg, Oral, DAILY, First dose on Candace 02/01/22 at 1415, Until Discontinued, Start on Post-Op Day 0, please give within 6 hours upon arrival to Unit. If unable to take PO, may give NE, Routine Given 02/05/2022 8:13 AM EDT 81 mg Given 02/04/2022 8:07 AM EDT 81 mg Given 02/03/2022 8:09 AM EDT 81 mg aspirin suppository 300 mg 300 mg, Rectal, DAILY, First dose on Candace 02/01/22 at 1415, Until Discontinued, Start on Post-Op Day 0, please give within 6 hours upon arrival to Unit. Give NE if unable to take PO, Routine Given 02/01/2022 1:47 PM EDT 300 mg atorvastatin (Lipitor) tablet 80 mg 80 mg, Oral, EVERY EVENING, First dose on 01/29/22 at 1415, Until Discontinued, Routine Given 02/04/2022 5:36 PM EDT 80 mg Given 02/03/2022 5:22 PM EDT 80 mg Given 02/02/2022 5:44 PM EDT 80 mg chlorhexidine (Peridex) 0.12 % oral solution 15 mL 15 mL, Oral, EVERY 12 HOURS SCHEDULED (2 times per day), First dose on Candace 02/01/22 at 1415, Until Discontinued, [place] teeth, Routine Given 02/01/2022 1:47 PM EDT 15 mLs dexmedeTOMIDine (Precedex) (4 mcg/mL) in sodium chloride 0.9% 100 mL infusion 0-1.7 mcg/kg/hr ? 67.4 kg (0-28.645 mL/hr, rounded to 0-28.6 mL/hr), Intravenous, CONTINUOUS, Starting on Candace 02/01/22 at 1700, Until Sat02/02/22 at 1620, Titrate to sedation level of RASS Goal (-)1 to 0 . Start at 0.4 mcg/kg/hr, adjust by 0.4 mcg/kg/hr every 15 minutes. Once stable, reassess patient every 30 minutes. Rate not to exceed 1.7 mcg/kg/hr. Change rate only after assessing and documenting RASS. Reassess sedation scores within 30 minutes after every rate change. If under sedated, increase rate by 0.4 mcg/kg/hr. If over sedated, hold sedative until target RASS (-)1 to 0 achieved and then restart at 50% of previous rate. Call retail warehouse associate if goal not achieved at maximum rate. If SAT is ordered and if patient meets criteria for Spontaneous Awakening Trial, titrate per protocol., Routine, Please indicate the name & specialty of the Attending Provider who authorized the use of this medication: Rosie Rate/Dose Verify 02/01/2022 5:00 PM EDT 0.4 mcg/kg/hr 6.7 mL/hr New Bag 02/01/2022 4:03 PM EDT 0.4 mcg/kg/hr 6.7 mL/hr dexmedeTOMIDine (Precedex) 400 mcg/100 mL (4 mcg/mL) infusion 1 dose, Starting on Candace 02/01/22 at 1549, Until Sat02/01/22 at 1603, Guido Vela: cabinet override fentaNYL (PF) (50 mcg/mL) infusion syringe 50 mL 0-100 mcg/hr (0-2 mL/hr), Intravenous, CONTINUOUS, Starting on Sat02/01/22 at 1415, Until Sat02/02/22 at 1620, Titrate to patient comfort, pain scale 1-3. Start at 25 mcg/hr, adjust by 25 mcg/hr every 15 minutes. Dose not to exceed 100 mcg/hour., Routine Rate/Dose Change 02/01/2022 6:01 PM EDT 25 mcg/hr 0.5 mL/hr Rate/Dose Verify 02/01/2022 6:00 PM EDT 50 mcg/hr 1 mL/hr Rate/Dose Verify 02/01/2022 5:00 PM EDT 50 mcg/hr 1 mL/hr furosemide (Lasix) tablet 20 mg 20 mg, [...] 10:25 AM EDT 600 mg heparin (porcine) 25,000 unit/500 mL infusion 1 dose, Starting on Sat01/28/22 at 1706, Until Sat01/28/22 at 1752, [place]: cabinet override heparin (porcine) 50 units/mL in sodium chloride 0.45% 500 mL infusion 0-5,000 Units/hr (0-100 mL/hr), Intravenous, CONTINUOUS, Starting on Sat01/28/22 at 1845, Until Sat02/01/22 at 1315, Begin infusion at 800 units per hr (12 units/kg/hr). Maximum initial infusion rate is 1,000 units/hr. Infusion doses are rounded to the nearest 50 units. Target Heparin UFH Level (anti-Xa activity) = 0.3 - 0.7 international unit/mL Start adjustment schedule 6 hours after starting infusion. If Heparin UFH Level is: - Less than 0.1 international unit/mL: Administer PRN bolus and increase rate by 250 units per hr (4 units/kg/hr) - 0.1 - 0.19 international unit/mL: Administer PRN bolus and increase rate by 150 units per hr (2 units/kg/hr) - 0.2 - 0.29 international unit/mL: NO BOLUS and increase rate by 150 units per hr (2 units/kg/hr) - 0.3 - 0.7 international unit/mL: No change - 0.71 - 0.79 international unit/mL: NO BOLUS and decrease rate by 50 units per hr (1 units/kg/hr) - 0.8 - 0.99 international unit/mL: NO BOLUS and decrease rate by 150 units per hr (2 units/kg/hr) - Greater than or equal to 1.00 international unit/mL: Hold infusion for 60 minutes then decrease rate by 200 units per hour (3 units/kg/hr) Repeat Heparin UFH Level 6 hours after initiating heparin. Then 6 hours after each dose adjustment. When 2 consecutive Heparin UFH Level within target range of 0.3 - 0.7 international unit/mL, change Heparin UFH Level to once every 24 hours with A.M. labs while on heparin. RN to order required Heparin UFH Level - Per Protocol, Routine Rate/Dose Verify 02/01/2022 1:00 PM EDT 800 Units/hr 16 mL/hr New Bag 02/01/2022 2:19 AM EDT 800 Units/hr 16 mL/hr Rate/Dose Verify 01/31/2022 7:59 PM EDT 800 Units/hr 16 mL /hr hydrALAZINE (Apresoline) (20 mg/mL) injection 10 mg 10 mg, Intravenous, EVERY 1 HOUR PRN, Starting on Sat02/02/22 at 0549, Until Sat02/02/22 at 0632, High Blood Pressure, MAP > 80, Routine Given 02/02/2022 5:56 AM EDT 10 mg losartan (Cozaar) tablet 25 mg 25 [...] Given 02/03/2022 8:09 AM EDT 10 mLs metoprolol tartrate (Lopressor) tablet 12.5 mg 12.5 mg, Oral, EVERY 6 HOURS, First dose on 01/28/22 at 2145, Until Discontinued, Routine Given 01/28/2022 9:16 PM EDT 12.5 mg metoprolol tartrate (Lopressor) tablet 12.5 mg 12.5 mg, Oral, EVERY 8 HOURS, First dose (after last modification) on 01/29/22 at 0600, Until Discontinued, Hold for SBP <90 or HR< 55, Routine Given 02/01/2022 5:52 AM EDT 12.5 mg Given 01/31/2022 9:12 PM EDT 12.5 mg Given 01/31/2022 2:38 PM EDT 12.5 mg metoproloL tartrate (Lopressor) tablet 25 mg 25 mg, Oral, EVERY 12 HOURS SCHEDULED (2 times per day), First dose on Sat02/02/22 at 1100, Until Discontinued, Routine Given 02/05/2022 8:17 AM EDT 25 mg Given 02/04/2022 8:12 PM EDT 25 mg Given 02/04/2022 8:07 AM EDT 25 mg nitroGLYcerin (200 mcg/mL) in dextrose 5% 250 mL infusion 0-200 mcg/min (0-60 mL/hr), Intravenous, CONTINUOUS, Starting on Candace 02/01/22 at 1415, Until Sat02/02/22 at 1620, For hypertension. Titrate to keep MAP 65 to 75. Initiate at 25 mcg/min. Adjust by 25 mcg/min every 5 minutes. Dose not to exceed 200 mcg/minute., Routine Rate/Dose Verify 02/02/2022 10:00 AM EDT 50 mcg/min 15 mL/hr Rate/Dose Change 02/02/2022 9:30 AM EDT 50 mcg/min 15 mL/h r Rate/Dose Change 02/02/2022 9:15 AM EDT 25 mcg/min 7.5 mL/ hr NORepinephrine (Levophed) (16 mcg/mL) in dextrose 5% 250 mL infusion 0-30 mcg/min (0-112.5 mL/hr), Intravenous, CONTINUOUS, Starting on Candace 02/01/22 at 1415, Until Sat02/02/22 at 1620, Titrate to keep MAP greater than 65. Start at 2 mcg/minute and adjust by 2 mcg/min every 3 minutes. Dose not to exceed 30 mcg/minute. Begin if PHENYLephrine and/or vasopressin ineffective. Call pager # [phone] if initiated., Routine Rate/Dose Change 02/01/2022 2:15 PM EDT 0 mcg/min 0 mL/hr ondansetron (pf) (Zofran) (2 mg/mL) injection 4 [...] Given 02/03/2022 8:09 AM EDT 40 mg potassium chloride ER (K-Dur/Klor-Con) tablet 20 mEq 20 mEq, Oral, ONCE, 1 dose, On 02/03/22 at 0745, Routine Given 02/03/2022 8:09 AM EDT 20 mEq potassium chloride ER (K-Dur/Klor-Con) tablet 20 mEq 20 mEq, Oral, ONCE, 1 dose, On 02/04/22 at 1830, Routine Given 02/04/2022 5:41 PM EDT 20 mEq propofoL (Diprivan) (10 mg/mL) infusion 0-50 mcg/kg/min ? 67.4 kg (0-20.22 mL/hr, rounded to 0-20.2 mL/hr), Intravenous, CONTINUOUS, Starting on Candace 02/01/22 at 1415, Until Sat02/02/22 at 1620, Titrate to sedation level of RASS Goal (-) 1. Start at 10 mcg/kg/min, adjust rate by 5 mcg/kg/min every 3 minutes. Dose not to exceed 50 mcg/kg/minute. Discontinue upon extubation., Routine Rate/Dose Verify 02/01/2022 3:00 PM EDT 50 mcg/kg/min 20.2 mL/hr Rate/Dose Verify 02/01/2022 2:00 PM EDT 50 mcg/kg/min 20.2 mL/hr New Bag 02/01/2022 1:49 PM EDT 50 mcg/kg/min 20.2 mL/hr senna-docusate (Pericolace) 8.6-50 mg per tablet 2 tablet 2 tablet, Oral, DAILY, First dose on Sat02/02/22 at 2100, Until Discontinued, Post-op day 1, Routine Given 02/04/2022 8:12 PM EDT 2 tablets Given 02/02/2022 8:17 PM EDT 2 tablets sodium chloride 0.9 % (flush) (BD PosiFlush Normal Saline 0.9) flush 5 mL 5 mL, Intravenous, 2 TIMES DAILY, First dose on Sat01/28/22 at 2100, Until Discontinued, Routine Given 01/31/2022 9:12 PM EDT 5 mLs Given 01/31/2022 8:33 AM EDT 5 mLs Given 01/30/2022 8:32 PM EDT 5 mLs sodium chloride 0.9 % (flush) (BD PosiFlush Normal Saline 0.9) flush 5 mL 5 mL, Intravenous, EVERY 8 HOURS, First dose on Sat02/02/22 at 1715, Until Discontinued, Routine Given 02/05/2022 8:16 AM EDT 5 mLs Given 02/04/2022 11:01 PM EDT 5 mLs Given 02/04/2022 1:15 AM EDT 5 mLs sodium chloride 0.9% infusion 0-500 mL/hr, Intravenous, CONTINUOUS, Starting on Candace 02/01/22 at 1415, Until Sat02/02/22 at 1620, Bolus 250 mL every 5 minutes as needed for volume replacement to maintain cardiac index greater than or equal to 2.0 L/min/M2. Maximum volume 2 L. Call retail warehouse associate for additional fluid orders: pager #[phone]. Rate/Dose Verify 02/02/2022 4:00 PM EDT 1 mL/hr 1 mL/hr Rate/Dose Verify 02/02/2022 2:00 PM EDT 1 mL/hr 1 mL/hr Rate/Dose Verify 02/02/2022 12:00 PM EDT 1 mL/hr 1 mL/h r sodium chloride 0.9% infusion 10-30 mL/hr, Intravenous, DAILY PRN, Starting on Candace 02/01/22 at 1315, Until Sat02/02/22 at 1620, Side port TKO rate, per [facility] nursing protocol. Rate/Dose Verify 02/02/2022 4:00 PM EDT 30 mL/hr 30 mL/hr Rate/Dose Verify 02/02/2022 2:00 PM EDT 30 mL/hr 30 mL/h r Rate/Dose Verify 02/02/2022 12:00 PM EDT 30 mL/hr 30 mL/ hr sodium chloride 0.9% infusion 10-30 mL/hr, Intravenous, DAILY PRN, Starting on Candace 02/01/22 at 1315, Until Sat02/02/22 at 1620, Side port TKO rate, per [facility] nrusing protocol. Rate/Dose Verify 02/02/2022 4:00 PM EDT 30 mL/hr 30 mL/hr Rate/Dose Verify 02/02/2022 2:00 PM EDT 30 mL/hr 30 mL/h r Rate/Dose Verify 02/02/2022 12:00 PM EDT 30 mL/hr 30 mL/ hr vasopressin (Vasostrict) (0.2 units/mL) 100 mL infusion 0-0.1 Units/min (0-30 mL/hr), Intravenous, CONTINUOUS, Starting on Candace 02/01/22 at 1415, Until Sat02/02/22 at 1620, Titrate to keep MAP greater than 65. Start at 0.04 units/min and adjust rate by 0.005 units/min every 10 minutes. Dose not to exceed 0.1 units/minute. Begin if PHENYLephrine ineffective or continue if drip running on admission to unit. Continued Bag 02/01/2022 2:15 PM EDT 0.02 Units/min 6 mL/hr documented in this encounter Active and Recently [...] Shayla Thornton RN)1722 (Given - Provider: Shayla Thornton RN) 0000 (Given - Provider: Viviana Bonner RN)0600 (Given - Provider: Viviana Bonner RN)1220 (Given - Provider: Kirby Dexter, KYM)1736 (Given - Provider: Kirby Dexter, RN)2301 (Given - Provider: Jeni Benoit, KYM) 0533 (Given - Provider: Jeni Benoit, KYM) aspirin chewable tablet 81 mg(Linked Group 2) 81 mg, Oral, DAILY, First dose on Candace 02/01/22 at 1415, Until Discontinued, Start on Post-Op Day 0, please give within 6 hours upon arrival to Unit. If unable to take PO, may give NE, Routine 0809 (Given - Provider: Shayla Thornton RN) 0807 (Given - Provider: Kirby Dexter RN) 0813 (Given - Provider: Bry Portillo, KYM) aspirin suppository 300 mg(Linked Group 2) 300 mg, Rectal, DAILY, First dose on Candace 02/01/22 at 1415, Until Discontinued, Start on Post-Op Day 0, please give within 6 hours upon arrival to Unit. Give NE if unable to take PO, Routine 0809 (See Alternative - Provider: Shayla Thornton RN) 0807 (See Alternative - Provider: Kirby Dexter RN) 0813 (See Alternative - Provider: Bry Portillo, KYM) atorvastatin (Lipitor) tablet 80 mg 80 mg, Oral, EVERY EVENING, First dose on 01/29/22 at 1415, Until Discontinued, Routine 1722 (Given [...] Oral, EVERY 12 HOURS, First dose on 02/04/22 at 1045, Until Discontinued, DO NOT CRUSH OR OPEN, Routine 1025 (Given - Provider: Kirby Dexter RN)2301 (Given - Provider: Jeni Benoit RN) losartan (Cozaar) tablet 25 mg 25 mg, Oral, DAILY, First dose on 02/02/22 at 1115, Until Discontinued, Routine 0809 (Given - Provider: Shayla Thornton RN) 0807 (Given - Provider: Kirby Dexter RN) 0817 (Given - Provider: Bry Portillo, KYM) magnesium hydroxide (Milk of Magnesia) (240 mg/mL) oral liquid 10 mL 10 mL, Oral, DAILY, First dose on 02/03/22 at 0900, Until Discontinued, Post-op day 2. Do not use with renal insufficiency., Routine 0809 (Given - Provider: Shayla Thornton RN) 09 (Hold - Provider: Kirby Dexter, RN - Reason: Contraindicated) 09 (Hold - Provider: Bry Portillo RN - Reason: Patient/family refused) metoproloL tartrate (Lopressor) tablet 25 mg 25 mg, Oral, EVERY 12 HOURS SCHEDULED (2 times per day), First dose on Sat02/02/22 at 1100, Until Discontinued, Routine 08 (Given - Provider: Shayla Thornton RN)2038 (Given - Provider: Viviana Bonner RN) 806 (Given - Provider: Kirby Dexter, KYM)2011 (Given - Provider: Jeni Benoit RN) 08 (Given - Provider: Bry Portillo, KYM) pantoprazole (Protonix) injection 40 mg(Linked Group 3) 40 mg, Intravenous, DAILY, First dose on Candace 02/01/22 at 1415, Until Discontinued, Reconstitute with 10 mL of normal saline to a concentration of 4 mg/mL and infuse slowly over 2 minutes. , Routine 808 (See Alternative - Provider: hSayla Thornton RN) 08 (See Alternative - Provider: Kirby Dexter RN) 08 (See Alternative - Provider: Bry Portillo RN) pantoprazole EC (Protonix) tablet 40 mg(Linked Group 3) 40 mg, Oral, DAILY, First dose on Candace 02/01/22 at 1415, Until Discontinued, DO NOT CRUSH OR OPEN If unable to take PO, may give IV 08 (Given - Provider: Shayla Thornton RN) 08 (Given - Provider: Kirby Dexter RN) 08 (Given - Provider: Bry Portillo, KYM) potassium chloride ER (K-Dur/Klor-Con) tablet 20 mEq (COMPLETED) 20 mEq, Oral, ONCE, 1 dose, On 02/03/22 at 0745, Routine 0809 (Given - Provider: Shayla Thornton RN) potassium chloride ER (K-Dur/Klor-Con) tablet 20 mEq (COMPLETED) 20 mEq, Oral, ONCE, 1 dose, On 02/04/22 at 1830, Routine 1741 (Given - Provider: Kirby Dexter, KYM) senna-docusate (Pericolace) 8.6-50 mg per tablet 2 tablet 2 tablet, Oral, DAILY, First dose on Sat02/02/22 at 2100, Until Discontinued, Post-op day 1, Routine 2100 (Not Given - Provider: Viviana Bonner RN - Reason: Patient/family refused) 2011 (Given - Provider: Jeni Benoit, KYM) sodium chloride 0.9 % (flush) (BD PosiFlush Normal Saline 0.9) flush 5 mL 5 mL, Intravenous, EVERY 8 HOURS, First dose on Sat02/02/22 at 1715, Until Discontinued, Routine 0115 (Not Given - Provider: Sophia Lanier RN - Reason: Patient/family refused)0915 (Given - Provider: Shayla Thornton, KYM)1715 (Given - Provider: Shayla Thornton, KYM) 0115 (Given - Provider: Viviana Bonner RN)0915 (Hold - Provider: Kirby Dexter RN - Reason: Medication Discontinued)1715 (Not Given - Provider: Kirby Dexter RN - Reason: Contraindicated)2301 (Given - Provider: Jeni Benoit, KYM) 0816 (Given - Provider: Bry Portillo RN) PRN Medication Order 02/03/2022 02/04/2022 02/05/2022 bisacodyL (Dulcolax) suppository 10 mg 10 mg, Rectal, DAILY PRN, Starting on Sat02/04/22 at 0000, Until Sat02/05/22 at 1119, Constipation, Starting post-op day 3., Routine ondansetron (pf) (Zofran) (2 mg/mL) injection 4 mg 4 mg, Intravenous, EVERY 8 HOURS PRN, Starting on Candace 02/01/22 at 1315, Until 02/05/22 at 1119, Nausea oxyCODONE (Roxicodone) tablet 5-10 mg 5-10 mg, Oral, EVERY 4 HOURS PRN, Starting on Candace 02/01/22 at 1315, Until 02/05/22 at 1119, Pain, - When tolerating oral [...] If unable to take PO, may give NE, Routine Or aspirin suppository 300 mgJump to med 300 mg, Rectal, DAILY, First dose on Candace 02/01/22 at 1415, Until Discontinued, Start on Post-Op Day 0, please give within 6 hours upon arrival to Unit. Give NE if unable to take PO, Routine Group [...] Routine documented in this encounter Care Teams Visual C Developer Relationship Specialty Start Date End Date Kerri Pearce, SUPERVISOR INSPECTION DEPARTMENT [place] [address] PCP - General Family Medicine 01/04/22 documented as of this encounter
--- OUTSIDE RECORDS SUMMARY | 2024-05-25 11:23 | XMS_ITS | Encounter Summary ---
Author [place] [address] Care Team Providers Care Supervisor Money Room Name Role Phone RamsesKerri grant Carmen MORA Primary Care Provider [phone] Encounter Details Date Type Department Care Team (Late st Contact Info) Description 01/29/2022 Notes Only Cardiology at [address] [id number] Blanka Lopez V Social History Tobacco Use Types Packs/Day Years Used Date Smoking Tobacco: Never Smokeless Tobacco: Never Alcohol Use Standard Drinks/Week Comments Not Currently 0 (1 standard drink = 0.6 oz pur e alcohol) Sex and Gender Information Value Date Recorded Sex Assigned at Not on file Gender Identity Not on file Sexual Orientation Not on file documented as of this encounter Progress Notes * Blanka Lopez V - 01/29/2022 8:09 AM EDT Images from the original note were not included. Clinical Trial Protocol [id number] Post-Market Clinical Evaluation of the [employer] High-Frequency Optical Coherence Tomography (HF-OCT) Imaging System and Vis-Rx Micro-Imaging Catheter PI: Anthony Osuna MD Purpose: To collect information on the performance of the [employer] HF-OCT imaging system and Vis-Rx catheter Consent: I had the pleasure of meeting with subject Shellie Lyon to review the Vis-RX PME Trial. Following the determination this potential participant did not have any obvious evidence of clinical exclusionto the trial, the subject was provided with a written informed consent (version [facility] Exp ) and was given adequate time for review of the consent. The purpose, procedures, risks, potenti al benefits of the study, as well as alternatives to participation were reviewed and questions wereanswered. The subject denies participation in concurrent interventional drug or device trials. Shellie Lyon signed the informed consent agreeing to participate, providing all inclusion criteriaare satisfied and no exclusion criteria are met. They understand that consent for participation maybe withdrawn at any time without penalty and without harming their future medical care or losing any benefits to which they might be otherwise entitled. The subject was provided with a copy of the signed informed consent document. No study related activities were performed prior to completion of the consent process. Opportunity for questions was provided and all questions were answered to the satisfaction of the subject. Contact information for [facility] was provided. documented in this encounter Plan of Treatment Not on file documented as of this encounter Visit Diagnoses Not on filedocumented in this encounter Care Teams Supervisor Money Room Relationship Specialty Start Date End Date Kerri Pearce APRN Karlee [place] [address] PCP - General Family Medicine 01/04/22 documented as of this encounter
--- OUTSIDE RECORDS SUMMARY | 2024-05-25 11:23 | XMS_ITS | Encounter Summary ---
Author Organization [facility] [place] [address] Care Team Providers Care Supervisor Enrobing Name Role Phone Kirit Garcia MD Primary Care Provider Unavaila ble Reason for Visit * Reason Comments Skin Check Encounter Details Date Type Department Care Team (Late st Contact Info) Description 02/10/2013 3:30 PM EDT Office Visit Dermatology [address] [place] [address] Sigifredo Self MD [address], [place] [address] Inflamed seborrheic keratosis (Primary Dx) Social History Tobacco Use Types Packs/Day Years Used Date Smoking Tobacco: Never Sex and Gender Information Value Date Recorded Sex Assigned at Not on file Gender Identity Not on file Sexual Orientation Not on file documented as of this encounter Progress Notes * Sigifredo Self MD - 02/10/2013 4:21 PM EDT Problem is right mid back lesion. Shellie follows up after last being seen in 2008. She has an area that bled on her back and she would like to have this checked. Physical examination reveals an inflamed seborrheic keratosis that is underneath the right bra strap and is somewhat inflamed and irritated today. The bra strap is irritating this. Assessment and Plan: Irritated seborrheic keratosis, right upper back. a. After obtaining informed consent, site was anesthetized and removed with light C and D. b. Triple antibiotic ointment and Band-Aid placed. Wound care instructions and supplies given. Return to clinic p.r.n. for new lesions/concerns. documented in this encounter Plan of Treatment Not on file documented as of this encounter Visit Diagnoses Diagnosis Inflamed seborrheic keratosis- Primary documented in this encounter Care Teams Supervisor Enrobing Relationship Specialty Start Date End Date Kirit Garcia MD PCP - General 03/28/10 08/24/18 documented as of this encounter
--- OUTSIDE RECORDS SUMMARY | 2024-05-25 11:23 | XMS_ITS | Encounter Summary ---
Author Organization [facility] [place] [address] Care Team Providers Care Hand Singer Name Role Phone Ramses, Kerri Morales APRN Primary Care Provider [phone] Encounter Details Date Type Department Care Team (Late st Contact Info) Description 05/10/2008 Orders Only Dermatology at [facility] [address] [place] [address] Sigifredo Self MD [address] [facility] [facility], [place] [address] Social History Tobacco Use Types Packs/Day Years Used Date Smoking Tobacco: Never Assessed Sex and Gender Information Value Date Recorded Sex Assigned at Not on file Gender Identity Not on file Sexual Orientation Not on file documented as of this encounter Plan of Treatment Not on file documented as of this encounter Procedures Procedure Name Priority Date/Time Associated Diagnosis Comments SURGICAL PATHOLOGY REPORT Routine 05/10/2008 6:56 PM EST documented in this encounter Results * Surgical Pathology Report (05/10/2008 6:56 PM EST) Surgical Pathology Report [id number] ? Location: [facility] The signing pathologist has (i) examined the relevant preparation(s) for the specimen(s) and (ii) rendered or confirmed the diagnosis(es). . ?Pathology Surgical Pathology Final Report Clinical Information Specimen Submitted: A - Skin, (R) inner thigh shave: Clinical History: Fleshy papule Clinical Diagnosis: Hemangioma Report to: Sigifredo Self MD, III [facility] [place] [place], [place] ??[address] Gross Description Labeled/Fixativ e: ? Labeled with the patient's name, formalin. Qty/Size/Weight : ?Single shave, 0.5 cm, rubbery, yellow-han skin. Sections/Proces sing: ??Inked and bisected. ??(T1) andrez/EJR Microscopic Description Slides reviewed, microscopic description not recorded. Diagnosis Skin, (R) inner thigh shave: ?Seborrheic keratosis, irritated and inflamed. CR-0 05/12/08 JBB 05/12/08 Verified by: ? Som LOPEZ, Fatmata Morales ?Dermatopathol ogist ?(Electronic Signature) The attending pathologist whose signature appears on this report has reviewed all diagnostic slides and has edited the gross and/or microscopic portion of the report in rendering the final pathologic diagnosis. SKIP YANES 05/10/2008 6:56 PM EST Sigifredo Self MD PATHOLOGY/CYTOLOGY O RDERACAROL ANN SKIP YANES documented in this encounter Visit Diagnoses Not on filedocumented in this encounter Care Teams Hand Singer Relationship Specialty Start Date End Date Kerri Pearce APR[place] [place] [address] PCP - General Family Medicine 01/04/22 documented as of this encounter
--- OUTSIDE RECORDS SUMMARY | 2024-05-25 11:23 | XMS_ITS | Encounter Summary ---
[place] [address] Care Team Providers Care Programming Specialist Name Role Phone Kerri Pearce MORGAN Primary Care Provider [phone] Encounter Details Date Type Department Care Team (Late st Contact Info) Description 01/28/2022 Telephone Cardiology at [address] [id number] William Marquis MD Social History Tobacco Use Types Packs/Day Years [...] encounter Miscellaneous Notes * Telephone Encounter - William Marquis MD - 01/28/2022 11:17 AM EDT Images from the original note were not included. 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 Was helping daughter clean garage yesterday and exerting herself initially without issue. But afterwards, walking, lifting grandson, and had chest pain. Came into [facility] today waking up with chest pain Vital signs: 98.3-150/75-87-18-98% Afebrile. Normal O2. Troponin 3433 (hs < 60) BNP 2800 CXR normal D-dimer negative Lungs clear, no crackles. Gave full dose ASA 325. 300 plavix. Hep bolus and gtt. EKG Second Recommendations: NSTEMI likely type I There was some initial concern the second EKG with minimal ST elevations in lateral leads, that seem to have some evolution. Did not meet STEMI criteria. Per outside provider, chest pain free since coming into the hospital. We are able to transfer the patient today. Con ASA, plavix Cont hep gtt Echo Metop 12.5 tartrate bid Above recommendations/plans are based on my conversation with the referring provider. I have not personally interviewed or examined this patient. William Marquis MD [facility] Construction Checker, PGY-5 Pager #[phone] Can [employer] message me 7AM-4PM on week for non-urgent matters documented in this encounter Plan of Treatment Not on file documented as of this encounter Visit Diagnoses Not on filedocumented in this encounter Care Teams Programming Specialist Relationship Specialty Start Date End Date Kerri Pearce, LABORATORY GENETICIST [place] [address] PCP - General Family Medicine 01/04/22 documented as of this encounter
--- OUTSIDE RECORDS SUMMARY | 2024-05-25 11:23 | XMS_ITS | Encounter Summary ---
[place] [address] Care Team Providers Care Manager Privacy Name Role Phone Kerri Pearce APRN Primary Care Provider Encounter Details Date Type Department Care Team (Late st Contact Info) Description 01/28/2022 External [place] [address] Social History Tobacco Use Types Packs/Day Years [...] Procedure Name Priority Date/Time Associated Diagnosis Comments ECG SCAN Routine 01/28/2022 ECG SCAN Routine 01/28/2022 documented in this encounter Results * Scan Doc: ECG (01/28/2022) Historical Provider MD MEDIA MGR SCAN EX T ORDR/RSLT * Scan Doc: ECG (01/28/2022) Historical Provider MD MEDIA MGR SCAN EX T ORDR/RSLT documented in this encounter Visit Diagnoses Not on filedocumented in this encounter Care Teams Manager Privacy Relationship Specialty Start Date End Date Kerri Pearce, INTERIOR [place]IGN [place] [address] PCP - General Family Medicine 01/04/22 documented as of this encounter
--- OUTSIDE RECORDS SUMMARY | 2024-05-25 11:23 | XMS_ITS | Encounter Summary ---
Author Organization [facility] [place] [address] Care Team Providers Care Hand Glove Cleaner Name Role Phone Kerri Pearce APRN Primary Care Provider [phone] Encounter Details Date Type Department Care Team (Late st Contact Info) Description 01/29/2022 Orders Only Cardiac Surgery [facility] [place] [address] Meche Bernal APRN [facility] [place] [address] NSTEMI (non-ST elevated myocardial infarction) Social History Tobacco Use Types Packs/Day Years [...] Procedure Name Priority Date/Time Associated Diagnosis Comments ECHOCARDIOGRAM TRANSTHORACIC Routine 02/01/2022 7:56 AM EDT documented in this encounter Results * XR [...] who have questions please contact the health district manager primary care sales that requested your imaging first. ? Electronically signed by: Satinder Arauz MD, [facility] ([phone]), at 03/15/2022 2:00 PM Narrative 03/15/2022 2:00 [...] patients who have questions please contactthe health district manager primary care sales that requested your imaging first. Meche Bernal MANAGER IMAGE IMG DX ORDERABLES * Echocardiogram Transthoracic (02/01/2022 7:56 AM EDT) Anatomical Region Laterality Modality Cardiac Other 02/01/2022 7:56 AM EDT Narrative 02/01/2022 3:59 PM EDT ? Version: 1 Name: SHELLIE LYON ? Study Date: 02/01/2022, 7: 56 AM : 1950 (MM/DD/YYYY) Age: 71 Years Gender: Female Performed By: KRISHAN ? Conclusions MISBAH for a CABG. LVEF is 70% by Wan's and hyperdynamic. There is 1+/4+ AI, PI, MR, and TR. There was no change in the exam from pre-bypass. Procedure MISBAH - 44262. Left Ventricle Left ventricle is of normal size. Left ventricular systolic function is normal. There are no segmental wall motion abnormalities. Right Ventricle The right ventricle is of normal size. Left Atrium The left atrium is normal. There is no evidence for a patent foramen ovale. Right Atrium The right atrium is normal. Aortic Valve The aortic valve is structurally normal. There is no aortic stenosis. There is mild aortic regurgitation. Mitral Valve The mitral valve is structurally normal. There is no mitral stenosis. There is mild mitral regurgitation. Tricuspid Valve The tricuspid valve is structurally normal. There is no tricuspid stenosis. There is mild tricuspid regurgitation. Pulmonic Valve The pulmonic valve appears to be structurally normal. There is mild pulmonic valve regurgitation. Ejection Fraction ? 2D Measurements ? Volume ??s ? EDV(MOD-sp4): 44.4 ml ? Ao root diam: 2.5 cm ? ESV(MOD-sp4): 13.0 ml ? asc Aorta Diam: 3.5 cm ? LVOT diam: 1.69 cm Doppler ? 3D/Strain/ TomTec TR max cali: 208.5 cm/sec Ao V2 VTI: 46.1 cm Ao valve max: 13.8 mmHg Ao valve mean: 5.9 mmHg SV(LVOT): 62.4 ml MV E max cali: 74.1 cm/sec MV A max cali: 36.4 cm/sec MV E/A: 2.04 IGOVANI(I,D): 1.36 cm?? Dimensionless index Aov: 0.60 AI P1/2t: 993.4 msec MV mean P.04 mmHg I ?WMSI ??= ??1.00 ? % Normal ??= ?? 100% X - ?1 - ? 2 - ?3 - ?4 - ? 5 - ?Segments ? Size Cannot Interpret ??Normal ? Hypokinetic ?Akinetic ?Dyskinetic ?? Aneurysmal ? 1-2 ? small ? 3-5 ? moderate ? 6-14 ?large ? 15-16 ? diffuse Electronically signed by: Ebenezer Morse MD ?02/01/2022, 3: 59 PM Procedure Note Ebenezer Morse MD - 02/01/2022 Version: 1 Name: SHELLIE LYON Study Date: 02/01/2022,7: 56 AM : 1950 (MM/DD/YYYY) Age: 71 Years Gender: Female Performed By: KRISHAN Chao MISBAH for a CABG. LVEF is 70% by Wan's and hyperdynamic. There is 1+/4+AI, PI, MR, and TR. There was no change in the exam from pre-bypass. Procedure MISBAH - [id number]. Left Ventricle Left ventricle is of normal size. Left ventricular systolic function isnormal. There are no segmental wall motion abnormalities. Right Ventricle The right ventricle is of normal size. Left Atrium The left atrium is normal. There is no evidence for a patent foramenovale. Right Atrium The right atrium is normal. Aortic Valve The aortic valve is structurally normal. There is no aortic stenosis.There is mild aortic regurgitation. Mitral Valve The mitral valve is structurally normal. There is no mitral stenosis.There is mild mitral regurgitation. Tricuspid Valve The tricuspid valve is structurally normal. There is no tricuspidstenosis. There is mild tricuspid regurgitation. Pulmonic Valve The pulmonic valve appears to be structurally normal. There is mildpulmonic valve regurgitation. Ejection Fraction 2D Measurements Volume s EDV(MOD-sp4): 44.4 ml Ao root diam: 2.5 cm ESV(MOD-sp4): 13.0 ml asc Aorta Diam: 3.5cm LVOT diam: 1.69 cm Doppler 3D/Strain/ TomTec TR max cali: 208.5 cm/sec Ao V2 VTI: 46.1 cm Ao valve max: 13.8 mmHg Ao valve mean: 5.9 mmHg SV(LVOT): 62.4 ml MV E max cali: 74.1 cm/sec MV A max cali: 36.4 cm/sec MV E/A: 2.04 GIOVANI(I,D): 1.36 cm?? Dimensionless index Aov: 0.60 AI P1/2t: 993.4 msec MV mean P.04 mmHg I WMSI = 1.00 % Normal = 100% X - 1 - 2 - 3 - 4 - 5 - Segments Size Cannot Interpret Normal Hypokinetic AkineticDyskinetic Aneurysmal 1-2 small 3-5 moderate 6-14 large 15-16 diffuse Electronically signed by: Ebenezer Morse MD 02/01/2022, 3: 59 PM Unknown ECHO ORDERABLES documented in this encounter Visit Diagnoses Diagnosis NSTEMI (non-ST elevated myocardial infarction) Acute myocardial infarction, subendocardial infarction, episode of care unspecified NSTEMI (non-ST elevated myocardial infarction) Acute myocardial infarction, subendocardial infarction, episode of care unspecified documented in this encounter Care Teams Hand Glove Cleaner Relationship Specialty Start Date End Date Kerri Pearce, MORGAN [address] [place] [address] PCP - General Family Medicine 01/04/22 documented as of this encounter
--- OUTSIDE RECORDS SUMMARY | 2024-05-25 11:23 | XMS_ITS | Encounter Summary ---
Author Organization [facility] [place] [address] Care Team Providers Care Screen Printing Equipment Setter Name Role Phone Kerri Pearce Carmen MORA Primary Care Provider [phone] Reason for Visit * Auth/Cert Specialty Diagnoses / Procedures Referred By Karli crockett Referred To Contact Diagnoses NSTEMI (non-ST elevated myocardial infarction) Chest Pain Procedures EMERGENCY IPI Avril Lyman MD [facility] [place] [address] [place] [address] [facility] Referral ID Status Reason Start Date Expiration Date Visits Re quested Visits Authorized [id number] 1 1 Encounter Details Date Type Department Care Team (Late st Contact Info) Description 01/29/2022 7:30 AM EDT - 01/29/2022 8:30 AM EDT Surgery [place] [address] Chandana Cedillo MD [facility] [place] [address] CARDIAC CATHETERIZATION Social History Tobacco Use Types Packs/Day Years [...] Sign Reading Time Taken Comments Blood Pressure 125/76 01/29/2022 8:25 AM EDT Pulse 70 01/29/2022 8:25 AM EDT Temperature 36.9 ??C (98.4 ??F) 01/28/2022 5:13 PM ED T Respiratory Rate 15 01/29/2022 8:25 AM EDT Oxygen Saturation 99% 01/29/2022 8:25 AM EDT Inhaled Oxygen Concentration - - Weight 67.1 kg (147 lb 14.9 oz) 01/29/2022 6:00 AM EDT Height 162.6 cm (5' 4) 01/28/2022 5:39 PM EDT Body Mass Index 26.53 01/28/2022 5:39 PM EDT documented in this encounter Discharge Summaries * Meche Bernal APRN - 02/05/2022 8:04 AM EDT Inpatient - Discharge Summary Patient Name: Shellie Lyon Patient Age: 71 y.o. Birthdate: 1950 Language: [place] Islander Race: White Ethnicity: Not nor Admit Date: [...] office will schedule an appointment with your Tower Technician, Near home, in 2 weeks. ??? Our office will schedule an appointment with your Cardiac Surgeon, Dr. Hong Eugene, in 4weeks with chest x-ray, EKG before your appointment. Inpatient Provider Contact Information: [facility] Section of Cardiac Surgery [facility] [address] FAX [phone] Discharge Diagnoses (Hospital Problems) Primary Diagnoses: NSTEMI [...] 33.75) performed by Hong Eugene MD at [facility] MAIN OR ??? PRO CABG, ARTERY-VEIN, SINGLE N/A 02/01/2022 @CABG, VENOUS & ARTERIAL GRAFT;SINGLE VEIN GRAFT (WRVU 3.61) performed by Hong Eugene MD at [facility] MAIN OR ??? PRO ENDOSCOPY W/VIDEO-ASST VEIN HARVEST, CABG N/A 02/01/2022 ENDOSCOPIC HARVEST VEIN(S) FOR CABG (WRVU 0.31) performed by Hong Eugene MD at [facility] MAIN OR Prior To Admission Medications [...] s/p CABGx2 Shellie Lyon was admitted to [facility] on 01/28/2022 via the Cardiology Service. She [...] Hong Eugene and/or the Cardiac Surgery Physician Tie In Machine Operator Team may be reached at . Weight: [...] Dr. Hong Eugene. You may use a [place] Track or treadmill but avoid any pulling [...] friends, go to a movie, go to advent, etc. Heavy activities: No hunting, skiing, jogging, [...] should resume a low fat, low cholesterol, [place] Heart [employer] Diet. Driving: No driving until [...] office will schedule an appointment with your Tower Technician in 2 weeks. ??? Our office will schedule an appointment with your Cardiac Surgeon, Dr. Hong Eugene, in 4weeks with chest x-ray, EKG before your appointment. Cardiac Rehabilitation: You will be contacted Future Appointments and Orders Future Appointments and Orders Future Appointments Provider Department Dept Phone 03/15/2022 12:45 PM [facility] DX ROOM 2 XRay at [facility] Arrive at: [facility] [phone] Please go to [facility] ([place] Location). 03/15/2022 1:40 PM Hong Eugene MD Cardiac Surgery at [facility] Arrive at: [facility] [phone] Future Orders Complete By Expires Referral to Home Health [REF34 Custom] As directed Process Instructions: If no progress note charted, please enter Clinical details in comments. Scheduling Instructions: Comments: Please evaluate Shellie Lyon for admission to Home Health. [address] [facility] [address] (home) Date of : 1950 Inpatient DOCUMENTATION FOR VNA SERVICES (INCLUDING THOSE PATIENTS WITH MEDICARE COVERAGE REQUIRINGHOME VNA SERVICES AND/OR HOSPICE SERVICES) PATIENT'S LOCATION: Shellie Lyon [address] [facility] [address] (home) Cell: No relevant phone numbers on file. Guyline Operator's Name: Self In discussion with the attending physician, it is certified that this patient is under their care and that they, or a Nurse Practitioner,Clinical Nurse specialist or Physician Tie In Machine Operator who is working directly with them, had [...] for managing ADL's. HOME HEALTH CARE AGENCY: [facility] [address] [place] [address] PHONE: [phone] FAX: [phone] Start of care: 24 to 48 hours [...] patient's PCP: Kirit Garcia MD (Inactive) [address] [facility] [address] All VNA agencies which cover the area of patient's residence have been reviewed, either verbally shaista writing, and patient/family have chosen the home health care agency noted Questions: Disciplines Requested: Nursing Physical Therapy Occupational Therapy Arrangements for VNA/home care: As above. VN RN OR PCP TO PLEASE REMOVE CHEST TUBE SUTURES ON OR AFTER 02/11/22 Signed: MECHE BERNAL APRN [facility] Section of Cardiac Surgery [facility] [address] FAX [phone] Date: 02/05/2022 CC: MORGAN Joseph Tara J [address] [place] [address] [place] [address] documented in this encounter Discharge Instructions * [...] Hong Eugene and/or the Cardiac Surgery Physician Tie In Machine Operator Team may be reached at . Weight: [...] Dr. Hong Eugene. You may use a [place] Track or treadmill but avoid any pulling [...] friends, go to a movie, go to advent, etc. Heavy activities: No hunting, skiing, jogging, [...] should resume a low fat, low cholesterol, [place] Heart Association Diet. Driving: No driving until [...] office will schedule an appointment with your Tower Technician in 2 weeks. Our office will schedule [...] questions answered. PIV d/c'd. Pt to discharge [facility] wheelchair. * Kirby Dexter RN - 02/04/2022 [...] with attending surgeon on AM rounds MECHE BERNAL, MORGAN 02/03/2022 * Anthony Velez MD - 02/03/2022 [...] 33.75) performed by Hong Eugene MD at [facility] MAIN OR ??? PRO CABG, ARTERY-VEIN, SINGLE N/A 02/01/2022 @CABG, VENOUS & ARTERIAL GRAFT;SINGLE VEIN GRAFT (WRVU 3.61) performed by Hong Eugene MD at [facility] MAIN OR ??? PRO ENDOSCOPY W/VIDEO-ASST VEIN HARVEST, CABG N/A 02/01/2022 ENDOSCOPIC HARVEST VEIN(S) FOR CABG (WRVU 0.31) performed by Hong Eugene MD at [facility] MAIN OR Active Non-Hospital Problems Diagnosis [...] Standing Dynamic / Gait: fair, no overt wyxhcu-qq-imcaasy observed but struggled to don mask in [...] recliner at home) 3. Pt. to perform jjs-nw-mziru transfers with modified independence using LRAD vs [...] outlinedin this evaluation. Time IN / OUT: 0918-9087 Total Minutes, Physical Therapy: 38 Nara Lopez DPT Pager: [phone] Physical Therapy Inpatient Rehabilitation Department * Kendall [...] to afterload management possibly later today. Intra-op IMSBAH notable for preserved LVEF, mild AI/MR/TR. Resp: [...] of 700 NS). Norepinephrine turned on briefly. Kotlik rhythm returned within a couple of minutes, [...] PCP: Kerri Pearce APRN PCP phone number: [phone] Date of Admission: 01/28/2022 ( Hospital Day 3 days ) Attending:Avril Lyman MD ID: Shellie Lyon is a 71 y.o. female w/ PMH of HTN (on losartan and amlodipine) and OA who presented to [facility] with chest pain on Hospital Day3. [...] symptoms 01/29/22 040 Infiltration 0-->no symptoms 01/29/22 040 Site Signs/Symptoms no redness;no swelling;no pain;no warmth;no [...] of HTN and osteoarthritis who presented to [facility] with chestpain with c/f NSTEMI s/p LHC which showed significant distal left main disease requiring bypass surgery on HD# 3. Cardiovascular #NSTEMI There is concern for plaque rupture OR vs. stress cardiomyopathy based on intermittent chest [...] discuss discharge planning needs. ?? provide the [facility], Office of Care Management letter from the Press Operator [employer] pertaining to rehabreferrals. ?? provide a letter describing our affiliations within the [facility] and educate about their right to choose where referrals are sent. ?? provide a list of Home Health Agencies / Durable Medical Equipment vendors which serve their preferred geographic area. ?? provided patient with [facility] Star Quality Rating handout. They have requested referrals to: [facility] [address] [facility] [address] PHONE: [phone] FAX: [phone] Note routed to a Photogrammetric Stereo Compiler who will communicate referrals to facilities and provide any required information. Patient reported to this CM that she has a composting toilet at home be her home is build on [facility].She does not live off the grid. She [...] PCP: Kerri Pearce APRN PCP phone number: [phone] Date of Admission: 01/28/2022 ( Hospital Day 2 days ) Attending:Avril Lyman MD ID: Shellie Lyon is a 71 y.o. female w/ PMH of HTN (on losartan and amlodipine) and OA who presented to [facility] with chest pain on Hospital Day2. [...] Phlebitis 0-->no symptoms 01/29/22399 Infiltration 0-->no symptoms 01/29/22 0400 Labs: Recent Labs 01/30/22 0345 01/29/22 0556 01/28/22 175 WBC 7.0 7.5 7.3 HGB 14.0 15.2 [...] Recent Labs 01/29/22 0556 01/29/22 0010 01/28/22 175 TROPONINT 0.26* 0.37* 0.49* PROBNP -- -- [...] of HTN and osteoarthritis who presented to [facility] with chestpain with c/f NSTEMI on HD# 2. Cardiovascular #NSTEMI There is concern for plaque rupture OR vs. stress cardiomyopathy based on intermittent chest [...] Kirit Garcia MD (Inactive) PCP phone number: [phone] Date of Admission: 01/28/2022 ( Hospital Day 1 day ) Attending:Avril Lyman MD ID: Shellie Lyon is a 71 y.o. female w/ PMH of HTN (on losartan and amlodipine) and OA who presented to [facility] with chest pain on Hospital Day1. 24 Hour Events/Subjective: Yesterday: EKG with evolving ST changes in anterolateral leads Overnight: ASHER This AM: taken to animal laboratory helper first thing in the morning, no chest [...] of HTN and osteoarthritis who presented to [facility] with chestpain with c/f NSTEMI on HD# 1. Neuro #Not intubated or sedated -- No active issues Cardiovascular #NSTEMI There is concern for plaque rupture OR vs. Stress cardiomyopathy based on intermittent chest [...] troponin was drastically elevating. She arrived to [facility] at 7pm and was chest pain free [...] cardiac catherization first thing in the morning, animal laboratory helper is aware. Tre Monsalve MD Padding Machine Operator * Nancie Almanzar RN - 01/28/2022 7:45 PM EDT Report received from day RN. Patient A&OX4 MAKEDA FCX4, denies any SOB to at the time. Patientcontinues on heparin drip. ECG done with no change from previous. Discussed with Dr. Sotelo about planof care, and ordered to transfer to [facility]. Patient transferred and report given to KYM El. Patient had all belongings and none left in the room. given new room number and he left for the night. He would like to be called when animal laboratory helper has a scheduled time. documented in this encounter H&P Notes * Avril Lyman MD - 01/28/2022 8:34 PM EDT CARDIOLOGY ADMISSION H&P Patient Name: Shellie Lyon Service: Cardiology S1 Team Responsible Attending: Avril Lyman MD PCP: Kirit Garcia MD (Inactive) PCP phone #: [phone] ID/Chief Complaint: Chest pain History of Present Illness: Ms. Lyon is a 71F with a prior history of HTN who presented to [facility] with chest pain. She notes that [...] called an ambulance that took her to [facility]. She denies any prior cardiac history [...] her , Gold. 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 She is a never smoker, no EtOH [...] prior history of HTN who presented to [facility] with chest pain. PLAN: #NSTEMI - Based on presentation and EKG, concern for plaque rupture OR. A stress cardiomyopathy is certainly also possible. [...] bedrest Nutrition- NPO Cardiology Staff Addendum Shellie Lyno is a 71 y.o. female. I have [...] information for follow-up Home Health [facility] H[facility], [place] [address] [place] [address] Plan for VNA start of care is [...] None Patient is insured through: Primary Insurance: [employer] [facility] MGD MEDICARE [facility] / Plan: [facility] / Product Type: *No Product [...] None Patient is insured through: Primary Insurance: [employer] [place] MEDICARE Payor: [employer] [place] MEDICARE / Plan: [place] [employer] / Product Type: *No Product type* / Secondary Insurance: N/A Last Physical Therapy Recommendation: with Last Occupational Therapy Recommendation: with Plan for discharge is: Home w/ Services Outpatient Agency/Support Group Needs: Homecare agency Home Health Services: Registered Nurse, Physical Therapy, Occupational Therapy, Anticoagulation monitoring, Wound care Agency Referrals: Not Applicable - [facility] following patient. Transportation: family or friend [...] Operative Note Patient Name: Shellie Lyon : [id number] MR#: [id number] Case Date: 02/01/2022 Surgeon: Surgeon(s) and Role: * Hong Eugene MD - Primary * Alexandre Jamison PA - Physician Tie In Machine Operator * Joan Fuller PA - Physician Tie In Machine Operator Preoperative diagnosis: NSTEMI, LM ASCAD Postoperative diagnosis: [...] Eugene MD - 02/01/2022 8:22 AM EDT [facility] Operative Note Patient Name: Shellie Lyon : [id number] MR#: [id number] Case Date: 02/01/2022 Surgeon: Surgeon(s) and Role: * Hong Eugene MD - Primary * Alexandre Jamison PA - Physician Tie In Machine Operator * Joan Fuller PA - Physician Tie In Machine Operator ?? Preoperative diagnosis: NSTEMI, LM ASCAD ?? [...] ??? Not on file Work - retired anesthesia technician Family - lives with Smoking - never ETOH - 3 drinks a month Illicit drug use - denies Hoahaoism - denies Family History: No family history [...] clopidogrel load to dissipate. Hong Eugene MD [phone] Signed: MECHE BERNAL APRN 01/29/2022 * Initial [...] We spoke about her carrier as a [employer] and about her assisting her with plays. [...] surrogate would be surrogate decision maker per [place] surrogate decision making law. (Only good for 180 days) Any patient receiving care in [place] must abide by [place] law. The hierarchy for surrogate decision making [...] (i) The agent with financial power of sports attorney or a conservator appointed in accordance [...] Current DME: none Home Address confirmed as: [address] [place] [id number] Social & Family Supports: All names listed [...] is discharged. Health/Prescription Coverage: Primary Insurance: N/A [facility] [id number] Payor: / Secondary Insurance: N/A ; Prescription Coverage: Yes Preferred Pharmacy: [id number] [facility] [address] [address] Status: Patient is a : No Primary Care Provider: Kirit Garcia MD (inactive) [phone] Patient/Caregiver Goals of Treatment: return home when [...] transition of care planning. Quynh RAMIREZ, RN Phone: [phone] Pager: [phone] * Plan of Care - Jermaine Sotelo [...] to go to her local ED at [facility]. At [facility], her initial EKG was grossly within normal but her second EKG at 1:16 PM shows evolving anterolateral ST elevations with inferior depressions that are concerning for ischemia. She was not called a STEMI alert at that time. On arrival here at [facility], her initial EKG 5:57 PM showed borderline [...] GAS ARTERIAL POC Routine 8:16 AM EDT PREPARE RBC STAT 02/01/2022 7:05 AM EDT [...] Results * Potassium (02/05/2022 3:50 AM EDT) [facility] Potassium 4.4 3.5 - 5.0 mmol/L [facility] Comment: Please note: ??Patients [...] MD CHEMISTRY ORDERABLE S Performing Organization Address City/[facility]/ZIP Co de Phone Number [facility] [place] [address] * (ABNORMAL) Differential, Automated (02/04/2022 5:37 AM EDT) Neutrophil % 63.7 % [facility] Neutrophil Absolute 5.80 1.70 - 6.10 x10(3)/mc L [facility] Lymph % 27.1 % [facility] Lymphocytes Abs 2.5 0.9 - 3.2 x10(3)/mc L [facility] Monocyte % 7.3 % [facility] Monocyte Abs 0.7 0.3 - 0.9 x10(3)/mc L [facility] Eos % 1.0 % [facility] Eosinophils Abs 0.1 0.0 - 0.4 x10(3)/mc L [facility] Basophil % 0.2 % [facility] Baso Absolute 0.0 0.0 - 0.1 x10(3)/mc L [facility] Immature Gran % 0.70 % [facility] Comment: Immature granulocytes(IG's)percentage and absolute count will include metamyelocytes, myelocytes, and promyelocytes. Blood smears from CBCs yielding IG's will be scanned manually for concordance. If this scan disagrees with the automated IG or if promyelocytes are noted, a manual differential will be performed. Immature Gran Absolute 0.06(H) 0.00 - 0.04 x10(3)/mc L [facility] Blood 02/04/2022 5:37 AM EDT 02/04/2022 5:45 AM EDT Narrative Resulting Agency Comment Spec In Lab Kendall [facility]AT[facility] ORDERABLE S Performing Organization Address [facility]/ZIP Co de Phone Number [facility] [place] [address] * (ABNORMAL) Hemogram (02/04/2022 5:37 AM EDT) White Blood Cell 9.1 4.0 - 9.5 x10(3)/ L [facility] Red Blood Cell 3.88(L) 4.00 - 5.21 x10(6)/mc L [facility] Hemoglobin 10.9(L) 11.7 - 15.5 g/dL [facility] Hematocrit 32.4(L) 35.7 - 45.8 % [facility] Mean Cell Volume 83.5 82.6 - 94.4 fL [facility] Mean Cell Hemoglobin 28.1 27.1 - 32.0 pg [facility] Mean Cell Hemoglobin Concentration 33.6 31.7 - 35.0 g/dL [facility] Platelet 208 145 - 357 x10(3)/[facility] RDW Standard Deviation 42.5 37.0 - 46.0 [facility] RDW coefficient of variation 13.9 11.5 - 14.1 % [facility] Mean Platelet Volume 10.8 7.6 - 12.9 fL [facility] NRBC% auto 0.0 % [facility] NRBC Absolute 0.000 0.000 - 0.000 x10(3)/[facility] Blood 02/04/2022 5:37 AM EDT 02/04/2022 5:45 AM EDT Narrative Resulting Agency Comment Spec In Lab Kendall [facility]ATOLOG[facility] ORDERABLE S [facility] [place] [address] * (ABNORMAL) Basic Metabolic Panel (non-fasting) (02/04/2022 5:37 AM EDT) [facility] Glucose 115 65 - 199 mg/dL [facility] Comment:Diabetes: >=200 mg/d L plus symptoms Blood Urea Nitrogen 12 8 - 18 mg/dL [facility] Creatinine 0.60(L) 0.70 - 1.20 mg/dL [facility] Sodium 141 135 - 145 mmol/L [facility] Potassium 3.9 3.5 - 5.0 mmol/L [facility] Comment: Please note: ??Patients with WBC >100,000 may have falsely elevated Potassium levels. ??For accurate Potassium quantification in these patients send serum separator tube (gold top) for subsequent determinations. ??Contact the Clinical Chemistry Laboratory if there are any questions. Chloride 106 98 - 107 mmol/L [facility] Carbon Dioxide 26 22 - 31 mmol/L [facility] Anion Gap 9 5 - 15 mmol/L [facility] Calcium 9.0 8.5 - 10.5 mg/dL [facility] Comment:result rechecked-sf Est Glomerular Filtration Rate 97 >=60 mL/min/1. 73 m?? [facility] Comment: This patient's estimated [...] Lab Hong Eugene MD CHEMISTRY ORDERABLE S [facility] [place] [address] * XR Chest PA & Lateral (Generic) [...] who have questions please contact the health rn intensive care unit that requested your imaging first. ? Electronically signed by: Maliha Bhat MD, [facility] ([phone]), at 02/04/2022 4:44 PM Narrative 02/04/2022 4:44 [...] patients who have questions please contactthe health rn intensive care unit that requested your imaging first. Electronically signed by: Maliha Bhat MD, [facility]([phone]), at 02/04/2022 4:44 PM Hong Eugene MD IMG DX ORDERABLES * Potassium (02/03/2022 5:58 AM EDT) Potassium 3.8 3.5 - 5.0 mmol/L [facility] Comment: Please note: ??Patients [...] Lab Hong Eugene MD CHEMISTRY ORDERABLE S [facility] [place] [address] * POCT Glucose (02/02/2022 11:41 AM EDT) Glucose, POC 157 65 - 199 mg/dL [facility] Comment: Supplemental ranges: <140 mg/dL before meals <180 mg/dL all other times of the day Blood 02/02/2022 11:4 1 AM EDT 02/02/2022 11:41 AM EDT Hong Eugene MD POINT OF CARE TEST ORDERABLES Performing Organization Address City/[facility]/ZIP Co de Phone Number [facility] [place] [address] * POCT Glucose (02/02/2022 7:49 AM EDT) Pathologist [facility] Glucose, POC 161 65 - 199 mg/dL [facility] Comment: Supplemental ranges: <140 mg/dL before meals <180 mg/dL all other times of the day Blood 02/02/2022 7:49 AM EDT 02/02/2022 7:49 AM EDT Hong Eugene MD POINT OF CARE TEST ORDERABLES [facility] [place] [address] * (ABNORMAL) Differential, Automated (02/02/2022 1:35 AM EDT) [facility] Neutrophil % 83.9 % [facility] Neutrophil Absolute 7.38(H) 1.70 - 6.10 x10(3)/mc L [facility] Lymph % 10.7 % [facility] Lymphocytes Abs 0.9 0.9 - 3.2 x10(3)/mc L [facility] Monocyte % 5.0 % [facility] Monocyte Abs 0.4 0.3 - 0.9 x10(3)/mc L [facility] Eos % 0.0 % [facility] Eosinophils Abs 0.0 0.0 - 0.4 x10(3)/mc L [facility] Basophil % 0.1 % [facility] Baso Absolute 0.0 0.0 - 0.1 x10(3)/ L [facility] Immature Gran % 0.30 % [facility] Comment: Immature granulocytes(IG's)percentage and absolute count will include metamyelocytes, myelocytes, and promyelocytes. Blood smears from CBCs yielding IG's will be scanned manually for concordance. If this scan disagrees with the automated IG or if promyelocytes are noted, a manual differential will be performed. Immature Gran Absolute 0.03 0.00 - 0.04 x10(3)/ L [facility] Blood 02/02/2022 1:35 AM EDT 02/02/2022 1:47 AM EDT Narrative Resulting Agency Comment Spec In Lab Joan [facility]AT[facility] ORDE RINKU [facility] [place] [address] * (ABNORMAL) Hemogram (02/02/2022 1:35 AM EDT) White Blood Cell 8.8 4.0 - 9.5 x10(3)/[facility] LABORATORY Red Blood Cell 3.21(L) 4.00 - 5.21 x10(6)/mc L [facility] Hemoglobin 8.9(L) 11.7 - 15.5 g/dL [facility] Hematocrit 26.2(L) 35.7 - 45.8 % [facility] Mean Cell Volume 81.6(L) 82.6 - 94.4 fL [facility] Mean Cell Hemoglobin 27.7 27.1 - 32.0 pg [facility] Mean Cell Hemoglobin Concentration 34.0 31.7 - 35.0 g/dL [facility] Platelet 127(L) 145 - 357 x10(3)/ L [facility] RDW Standard Deviation 40.6 37.0 - 46.0 fL [facility] RDW coefficient of variation 13.5 11.5 - 14.1 % [facility] Mean Platelet Volume 11.1 7.6 - 12.9 fL [facility] NRBC% auto 0.0 % [facility] NRBC Absolute 0.000 0.000 - 0.000 x10(3)/mc L [facility] Blood 02/02/2022 1:35 AM EDT 02/02/2022 1:47 AM EDT Narrative Resulting Agency Comment Spec In Lab Joan VALLEJO HEMATOLOGY AUDREY DOBBS [facility] [place] [address] * (ABNORMAL) Troponin (02/02/2022 1:35 AM EDT) Troponin-T 0.37(H) 0.00 - 0.00 ng/mL [facility] Comment: The 99th percentile for Troponin T is less than 0.01 ng/mL, any detectable cTnT concentration using this assay should be considered elevated. According to the third universal definition of myocardial infarction the following criteria with a clinical presentation consistent with acute myocardial ischemia meets the diagnosis for a myocardial infarction (OR). Detection of a rise and/or fall of cTnT, with at least one value greater than the 99th percentile (> or = 0.01) and with at least one of the following ?? Symptoms of ischemia ?? New or presumed new significant PG-dcryytn-N wave (ST-T) changes or new left bundle [...] additional sample may be indicated. Reference: Third [place] Definition of Myocardial Infarction. Journal of the [place] [employer] 2012;60:1581-98 Troponin-T, High Sensitivity 454(Criti katerina) <=14 ng/L [facility] Comment: This patient's troponin [...] troponin value can be found in the [facility] Laboratory Test Catalog Troponin - [facility] Laboratory Test Catalog Reference: Fourth [place] Definition of Myocardial Infarction. Journal of the [place] [employer] 2018;72:0846-4557 Blood 02/02/2022 1:35 AM EDT 02/02/2022 1:47 AM EDT Narrative Resulting Agency Comment Spec In Lab Hong Eugene MD CHEMISTRY ORDERABLE S [facility] [place] [address] * (ABNORMAL) Basic Metabolic Panel (non-fasting) (02/02/2022 1:35 AM EDT) Glucose 172 65 - 199 mg/dL [facility] Comment:Diabetes: >=200 mg/d L plus symptoms Blood Urea Nitrogen 17 8 - 18 mg/dL [facility] Creatinine 0.66(L) 0.70 - 1.20 mg/dL [facility] Sodium 140 135 - 145 mmol/L [facility] Potassium 4.4 3.5 - 5.0 mmol/L [facility] Comment: Please note: ??Patients with WBC >100,000 may have falsely elevated Potassium levels. ??For accurate Potassium quantification in these patients send serum separator tube (gold top) for subsequent determinations. ??Contact the Clinical Chemistry Laboratory if there are any questions. Chloride 110(H) 98 - 107 mmol/L [facility] Carbon Dioxide 22 22 - 31 mmol/L [facility] Anion Gap 8 5 - 15 mmol/L [facility] Calcium 8.0(L) 8.5 - 10.5 mg/dL [facility] Comment:result rechecked-KS Est Glomerular Filtration Rate 95 >=60 mL/min/1. 73 m?? [facility] Comment: This patient's estimated [...] In Lab Avril Lyman MD CHEMISTRY ORDERABLES [facility] [place] [address] * POCT Glucose (02/01/2022 11:55 PM EDT) Glucose, POC 157 65 - 199 mg/dL [facility] Comment: Supplemental ranges: <140 mg/dL before meals <180 mg/dL all other times of the day Blood 02/01/2022 11:5 5 PM EDT 02/01/2022 11:55 PM EDT Hong Eugene MD POINT OF CARE TEST ORDERABLES [facility] [place] [address] * POCT Glucose (02/01/2022 8:39 PM EDT) [facility] Glucose, POC 150 65 - 199 mg/dL [facility] Comment: Supplemental ranges: <140 mg/dL before meals <180 mg/dL all other times of the day Blood 02/01/2022 8:39 PM EDT 02/01/2022 8:39 PM EDT Hong Eugene MD POINT OF CARE TEST ORDERABLES Performing Organization Address [facility] Co de Phone Number [facility] [place] [address] * (ABNORMAL) BLOOD GAS 2 ARTERIAL (02/01/2022 4:40 PM EDT) [facility] pH, Arterial 7.32(L) 7.35 - 7.45 [facility] PCO2, Arterial 44 35 - 45 mmHg [facility] PO2, Arterial 98 85 - 104 mmHg [facility] Bicarbonate, Arterial 22.3 20.0 - 26.0 mmol/L [facility] Base Excess, Arterial -3.7(L) -3.0 - 3.0 mmol/L [facility] Hgb Blood Gas 11.3(L) 11.7 - 15.5 g/dL [facility] Oxyhemoglobin, Arterial 95.5 94.0 - 97.0 % [facility] Carboxyhemoglob in, Arterial 0.3 % [facility] Comment: Nonsmokers: 0.5-1.5% COHB Smokers: Variable, but usually less than 10% Toxic: 20-30% COHB Lethal: Greater than 60% COHB Methemoglobin, Arterial 0.8 <=1.5 % [facility] Na Whole Blood 137 135 - 145 mmol/L [facility] K Whole Blood 4.2 3.5 - 5.0 mmol/L [facility] Comment: Please note: Patients with WBC >100,000 may have falsely elevated Potassium levels. Contact the Clinical Chemistry Laboratory if there are any questions. ICa Whole Blood 1.23 1.15 - 1.33 mmol/L [facility] Comment: Note: ??Total bilirubin higher than 20 mg/dL may lead to falsely low ionized calcium. CL Whole Blood 108(H) 98 - 107 mmol/L [facility] Gluc Whole Bld 163 65 - 199 mg/dL [facility] Comment:Diabetes: >=200 mg/d L plus symptoms. Lactate WB 0.8 0.5 - 2.2 mmol/L [facility] FIO2 Art 40 % [facility] PF Ratio Art 245 [facility] Blood 02/01/2022 4:40 PM EDT 02/01/2022 4:40 PM EDT Hong Eugene MD POINT OF CARE TEST ORDERABLES [facility] [place] [address] * (ABNORMAL) Hemoglobin (02/01/2022 4:35 PM EDT) Hemoglobin 10.2(L) 11.7 - 15.5 g/dL [facility] Blood 02/01/2022 4:35 PM EDT 02/01/2022 4:50 PM EDT Narrative Resulting Agency Comment Spec In Lab Avril Lyman MD HEMATOLOGY ORDERABLE S [facility] [place] [address] * Potassium (02/01/2022 4:35 PM EDT) Potassium 4.2 3.5 - 5.0 mmol/L [facility] Comment: Please note: ??Patients with WBC >100,000 may have falsely elevated Potassium levels. ??For accurate Potassium quantification in these patients send serum separator tube (gold top) for subsequent determinations. ??Contact the Clinical Chemistry Laboratory if there are any questions. Blood 02/01/2022 4:35 PM EDT 02/01/2022 4:50 PM EDT Narrative Resulting Agency Comment Spec In Lab Avril Lyman MD CHEMISTRY ORDERABLES [facility] [place] [address] * XR Chest One View (02/01/2022 1:50 [...] who have questions please contact the health rn intensive care unit that requested your imaging first. ? Electronically signed by: Precious Christine MD, [facility] ([phone]), at 02/01/2022 2:44 PM Narrative 02/01/2022 2:44 [...] patients who have questions please contactthe health rn intensive care unit that requested your imaging first. Avril Lyman MD IMG DX ORDERABLES * (ABNORMAL) BLOOD GAS 2 ARTERIAL (02/01/2022 1:34 PM EDT) pH, Arterial 7.42 7.35 - 7.45 [facility] PCO2, Arterial 32(L) 35 - 45 mmHg [facility] PO2, Arterial 284(H) 85 - 104 mmHg [facility] Bicarbonate, Arterial 20.4 20.0 - 26.0 mmol/L [facility] Base Excess, Arterial -4.1(L) -3.0 - 3.0 mmol/L [facility] Hgb Blood Gas 11.7 11.7 - 15.5 g/dL [facility] Oxyhemoglobin, Arterial 97.9(H) 94.0 - 97.0 % [facility] Carboxyhemoglob in, Arterial 0.3 % [facility] Comment: Nonsmokers: 0.5-1.5% COHB Smokers: Variable, but usually less than 10% Toxic: 20-30% COHB Lethal: Greater than 60% COHB Methemoglobin, Arterial 0.7 <=1.5 % [facility] Na Whole Blood 136 135 - 145 mmol/L [facility] K Whole Blood 4.0 3.5 - 5.0 mmol/L [facility] Comment: Please note: Patients with WBC >100,000 may have falsely elevated Potassium levels. Contact the Clinical Chemistry Laboratory if there are any questions. ICa Whole Blood 1.24 1.15 - 1.33 mmol/L [facility] Comment: Note: ??Total bilirubin higher than 20 mg/dL may lead to falsely low ionized calcium. CL Whole Blood 110(H) 98 - 107 mmol/L [facility] Gluc Whole Bld 114 65 - 199 mg/dL [facility] Comment:Diabetes: >=200 mg/d L plus symptoms. Lactate WB 0.7 0.5 - 2.2 mmol/L [facility] FIO2 Art 100 % [facility] PF Ratio Art 284 [facility] Blood 02/01/2022 1:34 PM EDT 02/01/2022 1:34 PM EDT Hong Eugene MD POINT OF CARE TEST ORDERABLES Performing Organization Address City/[facility]/ZIP Co de Phone Number [facility] [place] [id number] * EKG 12 Lead (02/01/2022 1:31 PM EDT) Ventricular rate 69 BPM MUSE SYSTEM Atrial Rate 69 BPM MUSE SYSTEM P-R Interval 190 ms MUSE SYSTEM QRS Duration 78 ms MUSE SYSTEM Q-T Interval 434 ms MUSE SYSTEM QTC Calculated (Bezet) 465 ms MUSE SYSTEM Calculated P [place] 55 degrees MUSE SYSTEM Calculated R [place] 60 degrees MUSE SYSTEM Calculated T [place] 46 degrees MUSE SYSTEM INTERPRETATION Normal sinus rhythm ST elevation consider anterolateral injury or acute infarct Abnormal ECG When compared with ECG of 29-JAN-2022 09:13, ST elevation in V6 now present T wave inversion less evident in Lateral leads Confirmed by MD Radha, Philip Rutherford ([id number]) on 02/05/2022 3:24:49 PM MUSE SYSTEM 02/01/2022 1:31 PM EDT 02/05/2022 3:24 PM EDT Avril Lyman MD ECG ORDERABLES Performing Organization Address City/[facility]/ZIP Co de Phone Number MUSE SYSTEM * (ABNORMAL) Fibrinogen (02/01/2022 10:50 AM EDT) Fibrinogen 163(L) 200 - 393 mg/dL [facility] Comment: OR Result called by ?? FINDTM OR Results read back by: ? Ember Viera at 2022-02-01 11:09:03 A fibrinogen level >100 mg/dL is adequate for hemostasis in most patients without underlying bleeding disorders. Blood 02/01/2022 10:5 0 AM EDT 02/01/2022 10:55 AM EDT Narrative Resulting Agency Comment Spec In Lab Ebenezer Morse MD HEMATOLOGY ORDERABLE S Performing Organization Address [facility] de Phone Number [facility] [place] [address] * APTT (02/01/2022 10:50 AM EDT) Partial Thromboplastin Time 29 25 - 37 sec [facility] Comment: OR Result called by ?? FINDTM OR Results read back by: ? Ember Viera at 2022-02-01 11:09:03 The PTT is NOT appropriate for heparin monitoring. Use the Anti-Xa level for heparin monitoring (HEP UFH) or LMWH monitoring (HEP LMW). A PTT less than 37 seconds generally indicates adequate hemostasis. Blood 02/01/2022 10:5 0 AM EDT 02/01/2022 10:55 AM EDT Narrative Resulting Agency Comment Spec In Lab Ebenezer Morse MD HEMATOLOGY ORDERABLE S Performing Organization Address [facility] Phone Number [facility] [place] [address] * (ABNORMAL) Prothrombin Time (02/01/2022 10:50 AM EDT) Prothrombin Time 15.3(H) 9.4 - 12.5 sec [facility] Comment: OR Result called by ?? FINDTM OR Results read back by: ? Ember Viera at 2022-02-01 11:09:03 International Normalization Ratio 1.3 [facility] Comment: OR Result called [...] Lab Ebenezer Morse MD HEMATOLOGY ORDERABLE S [facility] [place] [address] * (ABNORMAL) Hemogram (02/01/2022 10:50 AM EDT) White Blood Cell 7.2 4.0 - 9.5 x10(3)/mc L [facility] Red Blood Cell 2.86(L) 4.00 - 5.21 x10(6)/mc L [facility] Hemoglobin 8.0(L) 11.7 - 15.5 g/dL [facility] Hematocrit 23.9(L) 35.7 - 45.8 % [facility] Comment: This result has been called to EMBER VIERA by Chava Lee on 02 01 2022 at 1104, and has been read back. Mean Cell Volume 83.6 82.6 - 94.4 fL [facility] Mean Cell Hemoglobin 28.0 27.1 - 32.0 pg [facility] Mean Cell Hemoglobin Concentration 33.5 31.7 - 35.0 g/dL [facility] Platelet 122(L) 145 - 357 x10(3)/mc L [facility] RDW Standard Deviation 41.1 37.0 - 46.0 fL [facility] RDW coefficient of variation 13.3 11.5 - 14.1 % [facility] Mean Platelet Volume 10.3 7.6 - 12.9 fL [facility] NRBC% auto 0.0 % [facility] NRBC Absolute 0.000 0.000 - 0.000 x10(3)/mc L [facility] Blood 02/01/2022 10:5 0 AM EDT 02/01/2022 10:55 AM EDT Narrative Resulting Agency Comment Spec In Lab Ebenezer Morse MD HEMATOLOGY ORDERABLE S [facility] [place] [address] * (ABNORMAL) BLOOD GAS 2 ARTERIAL (02/01/2022 10:47 AM EDT) pH, Arterial 7.38 7.35 - 7.45 [facility] PCO2, Arterial 43 35 - 45 mmHg [facility] PO2, Arterial 358(H) 85 - 104 mmHg [facility] Bicarbonate, Arterial 24.5 20.0 - 26.0 mmol/L [facility] Base Excess, Arterial -0.7 -3.0 - 3.0 mmol/L [facility] Hgb Blood Gas 8.7(L) 11.7 - 15.5 g/dL [facility] Oxyhemoglobin, Arterial 99.0(H) 94.0 - 97.0 % [facility] Carboxyhemoglob in, Arterial 0.2 % [facility] Comment: Nonsmokers: 0.5-1.5% COHB Smokers: Variable, but usually less than 10% Toxic: 20-30% COHB Lethal: Greater than 60% COHB Methemoglobin, Arterial 0.3 <=1.5 % [facility] Na Whole Blood 136 135 - 145 mmol/L [facility] K Whole Blood 4.4 3.5 - 5.0 mmol/L [facility] Comment: Please note: Patients with WBC >100,000 may have falsely elevated Potassium levels. Contact the Clinical Chemistry Laboratory if there are any questions. ICa Whole Blood 1.24 1.15 - 1.33 mmol/L [facility] Comment: Note: ??Total bilirubin higher than 20 mg/dL may lead to falsely low ionized calcium. CL Whole Blood 110(H) 98 - 107 mmol/L [facility] Gluc Whole Bld 162 65 - 199 mg/dL [facility] Comment:Diabetes: >=200 mg/d L plus symptoms. Lactate WB 1.6 0.5 - 2.2 mmol/L [facility] Blood 02/01/2022 10:4 7 AM EDT 02/01/2022 10:47 AM EDT Avril Lyman MD POINT OF CARE TEST O RDERABLES [facility] [place] [address] * (ABNORMAL) BLOOD GAS 2 ARTERIAL (02/01/2022 10:28 AM EDT) pH, Arterial 7.30(L) 7.35 - 7.45 [facility] PCO2, Arterial 54(H) 35 - 45 mmHg [facility] PO2, Arterial 335(H) 85 - 104 mmHg [facility] Bicarbonate, Arterial 26.0 20.0 - 26.0 mmol/L [facility] Base Excess, Arterial -0.3 -3.0 - 3.0 mmol/L [facility] Hgb Blood Gas 8.7(L) 11.7 - 15.5 g/dL [facility] Oxyhemoglobin, Arterial 99.1(H) 94.0 - 97.0 % [facility] Carboxyhemoglob in, Arterial 0.1 % [facility] Comment: Nonsmokers: 0.5-1.5% COHB Smokers: Variable, but usually less than 10% Toxic: 20-30% COHB Lethal: Greater than 60% COHB Methemoglobin, Arterial 0.3 <=1.5 % [facility] Na Whole Blood 133(L) 135 - 145 mmol/L [facility] K Whole Blood 5.0 3.5 - 5.0 mmol/L [facility] Comment: Please note: Patients with WBC >100,000 may have falsely elevated Potassium levels. Contact the Clinical Chemistry Laboratory if there are any questions. ICa Whole Blood 1.52(H) 1.15 - 1.33 mmol/L [facility] Comment: Note: ??Total bilirubin higher than 20 mg/dL may lead to falsely low ionized calcium. CL Whole Blood 107 98 - 107 mmol/L [facility] Gluc Whole Bld 196 65 - 199 mg/dL [facility] Comment:Diabetes: >=200 mg/d L plus symptoms. Lactate WB 1.2 0.5 - 2.2 mmol/L [facility] Blood 02/01/2022 10:2 8 AM EDT 02/01/2022 10:28 AM EDT Avril Lyman MD POINT OF CARE TEST O RDERABLES [facility] [place] [address] * (ABNORMAL) BLOOD GAS 2 ARTERIAL (02/01/2022 9:57 AM EDT) pH, Arterial 7.35 7.35 - 7.45 [facility] PCO2, Arterial 43 35 - 45 mmHg [facility] PO2, Arterial 403(H) 85 - 104 mmHg [facility] Bicarbonate, Arterial 23.3 20.0 - 26.0 mmol/L [facility] Base Excess, Arterial -2.3 -3.0 - 3.0 mmol/L [facility] Hgb Blood Gas 8.7(L) 11.7 - 15.5 g/dL [facility] Oxyhemoglobin, Arterial 98.9(H) 94.0 - 97.0 % [facility] Carboxyhemoglob in, Arterial 0.4 % [facility] Comment: Nonsmokers: 0.5-1.5% COHB Smokers: Variable, but usually less than 10% Toxic: 20-30% COHB Lethal: Greater than 60% COHB Methemoglobin, Arterial 0.3 <=1.5 % [facility] Na Whole Blood 130(L) 135 - 145 mmol/L [facility] K Whole Blood 5.9(H) 3.5 - 5.0 mmol/L [facility] Comment: Please note: Patients with WBC >100,000 may have falsely elevated Potassium levels. Contact the Clinical Chemistry Laboratory if there are any questions. ICa Whole Blood 0.97(L) 1.15 - 1.33 mmol/L [facility] Comment: Note: ??Total bilirubin higher than 20 mg/dL may lead to falsely low ionized calcium. CL Whole Blood 106 98 - 107 mmol/L [facility] Gluc Whole Bld 251(H) 65 - 199 mg/dL [facility] Comment:Diabetes: >=200 mg/d L plus symptoms. Lactate WB 0.8 0.5 - 2.2 mmol/L [facility] Blood 02/01/2022 9:57 AM EDT 02/01/2022 9:57 AM EDT Avril Lyman MD POINT OF CARE TEST O RDERABLES Performing Organization Address City/[facility] Co de Phone Number [facility] [place] [address] * Prepare Platelets, Apheresis (02/01/2022 9:55 AM EDT) Dispensed? Yes [facility] Blood 02/01/2022 9:55 AM EDT 02/01/2022 9:54 AM EDT Hong Eugene MD BLOOD BANK PRODUCT ORDERABLES Performing Organization Address City/[facility]/ZIP Co de Phone Number [facility] [place] [address] * Platelet count (02/01/2022 9:55 AM EDT) Pathologist [facility] Platelet 191 145 - 357 x10(3)/mc L [facility] Immature Plt % 3.7 0.0 - 7.4 % [facility] Comment: Limitation of the Immature Platelet Fraction (IPF)-May be less reliable when the platelet count is less than 85y272/uL due to statistical imprecision. The IPF value [...] in a decreased state of production. References: [employer] The Clinical Value of the Immature Platelet Fraction (IPF) in Cell Recovery Document Number [id number] 10/2010 [employer] The Role of the Immature Platelet Fraction (IPF) in the Differential Diagnosis of Thrombocytopenia, Document [id number] [id number] Blood 02/01/2022 9:55 AM EDT 02/01/2022 10:04 AM EDT Narrative Resulting Agency Comment Spec In Lab Avril Lyman MD HEMATOLOGY ORDERABLE S [facility] [place] [address] * (ABNORMAL) Hemoglobin and Hematocrit, blood (02/01/2022 9:55 AM EDT) Pathologist [facility] Hemoglobin 7.9(L) 11.7 - 15.5 g/dL [facility] Comment: This result has been called to BENITEZ CAGLE by Geovany Crespo on 02 01 2022 at 1012, and has been read back. Hematocrit 24.1(L) 35.7 - 45.8 % [facility] Comment: This result has been called to BENITEZ CAGLE by Geovany Crespo on 02 01 2022 at 1012, and has been read back. Blood 02/01/2022 9:55 AM EDT 02/01/2022 10:04 AM EDT Narrative Resulting Agency Comment Spec In Lab Avril Lyman MD HEMATOLOGY ORDERABLE S Performing Organization Address [facility] Co de Phone Number [facility] [place] [address] * (ABNORMAL) Fibrinogen (02/01/2022 9:55 AM EDT) Fibrinogen 154(L) 200 - 393 mg/dL [facility] Comment: OR Result called by ?? FINDTM OR Results read back by: ? Samira Cagle at 2022-02-01 10:27:30 A fibrinogen level >100 mg/dL is adequate for hemostasis in most patients without underlying bleeding disorders. Blood 02/01/2022 9:55 AM EDT 02/01/2022 10:04 AM EDT Narrative Resulting Agency Comment Spec In Lab Avril Lyman MD HEMATOLOGY ORDERABLE S Performing Organization Address [facility] Co de Phone Number [facility] [place] [address] * (ABNORMAL) BLOOD GAS 2 VENOUS (02/01/2022 9:31 AM EDT) pH, Venous 7.28(Criti katerina) 7.32 - 7.42 [facility] Comment:Noted by assembler musical instruments. PCO2, Venous 49 41 - 51 mmHg [facility] PO2, Venous 57(H) 25 - 40 mmHg [facility] Bicarbonate, Venous 22.2 mmol/L [facility] Base Excess, Venous -4.6 mmol/L [facility] Hgb Blood Gas 8.5(L) 11.7 - 15.5 g/dL [facility] Oxyhemoglobin, Venous 86.1 % [facility] Carboxyhemoglob in, Venous 0.6 % [facility] Comment: Nonsmokers: 0.5-1.5% COHB Smokers: Variable, but usually less than 10% Toxic: 20-30% COHB Lethal: Greater than 60% COHB Methemoglobin, Venous 0.3 <=1.5 % [facility] Na Whole Blood 130(L) 135 - 145 mmol/L [facility] K Whole Blood 5.2(H) 3.5 - 5.0 mmol/L [facility] Comment: Please note: Patients with WBC >100,000 may have falsely elevated Potassium levels. Contact the Clinical Chemistry Laboratory if there are any questions. ICa Whole Blood 0.92(Criti katerina) 1.15 - 1.33 mmol/L [facility] Comment: Noted by assembler musical instruments. Note: ??Total bilirubin higher than 20 mg/dL may lead to falsely low ionized calcium. CL Whole Blood 105 98 - 107 mmol/L [facility] Gluc Whole Bld 227(H) 65 - 199 mg/dL [facility] Comment:Diabetes: >=200 mg/d L plus symptoms Lactate WB 0.7 0.5 - 2.2 mmol/L [facility] Blood Gas Source Venous [facility] Blood 02/01/2022 9:31 AM EDT 02/01/2022 9:31 AM EDT Avril Lyman MD POINT OF CARE TEST O RDERABLES [facility] [place] [address] * (ABNORMAL) BLOOD GAS 2 ARTERIAL (02/01/2022 9:31 AM EDT) pH, Arterial 7.32(L) 7.35 - 7.45 [facility] PCO2, Arterial 42 35 - 45 mmHg [facility] PO2, Arterial 442(H) 85 - 104 mmHg [facility] Bicarbonate, Arterial 21.7 20.0 - 26.0 mmol/L [facility] Base Excess, Arterial -4.4(L) -3.0 - 3.0 mmol/L [facility] Hgb Blood Gas 8.7(L) 11.7 - 15.5 g/dL [facility] Oxyhemoglobin, Arterial 99.2(H) 94.0 - 97.0 % [facility] Carboxyhemoglob in, Arterial 0.1 % [facility] Comment: Nonsmokers: 0.5-1.5% COHB Smokers: Variable, but usually less than 10% Toxic: 20-30% COHB Lethal: Greater than 60% COHB Methemoglobin, Arterial 0.3 <=1.5 % [facility] Na Whole Blood 130(L) 135 - 145 mmol/L [facility] K Whole Blood 5.2(H) 3.5 - 5.0 mmol/L [facility] Comment: Please note: Patients with WBC >100,000 may have falsely elevated Potassium levels. Contact the Clinical Chemistry Laboratory if there are any questions. ICa Whole Blood 0.93(L) 1.15 - 1.33 mmol/L [facility] Comment: Note: ??Total bilirubin higher than 20 mg/dL may lead to falsely low ionized calcium. CL Whole Blood 103 98 - 107 mmol/L [facility] Gluc Whole Bld 216(H) 65 - 199 mg/dL [facility] Comment:Diabetes: >=200 mg/d L plus symptoms. Lactate WB 0.7 0.5 - 2.2 mmol/L [facility] Blood 02/01/2022 9:31 AM EDT 02/01/2022 9:31 AM EDT Avril Lyman MD POINT OF CARE TEST O RDERABLES [facility] [place] [address] * (ABNORMAL) BLOOD GAS 2 ARTERIAL (02/01/2022 8:16 AM EDT) pH, Arterial 7.47(H) 7.35 - 7.45 [facility] PCO2, Arterial 29(L) 35 - 45 mmHg [facility] PO2, Arterial 255(H) 85 - 104 mmHg [facility] Bicarbonate, Arterial 20.6 20.0 - 26.0 mmol/L [facility] Base Excess, Arterial -3.1(L) -3.0 - 3.0 mmol/L [facility] Hgb Blood Gas 12.3 11.7 - 15.5 g/dL [facility] Oxyhemoglobin, Arterial 98.7(H) 94.0 - 97.0 % [facility] Carboxyhemoglob in, Arterial 0.3 % [facility] Comment: Nonsmokers: 0.5-1.5% COHB Smokers: Variable, but usually less than 10% Toxic: 20-30% COHB Lethal: Greater than 60% COHB Methemoglobin, Arterial 0.3 <=1.5 % [facility] Na Whole Blood 138 135 - 145 mmol/L [facility] K Whole Blood 3.8 3.5 - 5.0 mmol/L [facility] Comment: Please note: Patients with WBC >100,000 may have falsely elevated Potassium levels. Contact the Clinical Chemistry Laboratory if there are any questions. ICa Whole Blood 1.17 1.15 - 1.33 mmol/L [facility] Comment: Note: ??Total bilirubin higher than 20 mg/dL may lead to falsely low ionized calcium. CL Whole Blood 111(H) 98 - 107 mmol/L [facility] Gluc Whole Bld 110 65 - 199 mg/dL [facility] Comment:Diabetes: >=200 mg/d L plus symptoms. Lactate WB 1.2 0.5 - 2.2 mmol/L [facility] Blood 02/01/2022 8:16 AM EDT 02/01/2022 8:16 AM EDT Avril Lyman MD POINT OF CARE TEST O RDERABLES Performing Organization Address [facility] Co de Phone Number [facility] [place] [address] * Prepare RBC (02/01/2022 7:05 AM EDT) Pathologist [facility] Dispensed? Yes [facility] Blood 02/01/2022 7:05 AM EDT 02/01/2022 7:01 AM EDT Narrative Resulting Agency Comment Spec In Lab Hong Eugene MD BLOOD BANK PRODUCT ORDERABLES Performing Organization Address [facility] de Phone Number [facility] [place] [address] * Heparin (unfractionated) Level (02/01/2022 4:40 AM EDT) [facility] UF Heparin 0.42 IU/mL [facility] Comment: Specimen drawn more than [...] APRN HEMATOLOGY ORDERABLE S Performing Organization Address [facility]/State/ZIP Co de Phone Number [facility] [place] [address] * Differential, Automated (02/01/2022 4:40 AM EDT) Pathologist [facility] Neutrophil % 48.9 % [facility] Neutrophil Absolute 2.67 1.70 - 6.10 x10(3)/[facility] Lymph % 39.9 % [facility] Lymphocytes Abs 2.2 0.9 - 3.2 x10(3)/[facility] Monocyte % 8.6 % [facility] Monocyte Abs 0.5 0.3 - 0.9 x10(3)/[facility] Eos % 2.0 % [facility] Eosinophils Abs 0.1 0.0 - 0.4 x10(3)/[facility] Basophil % 0.2 % [facility] Baso Absolute 0.0 0.0 - 0.1 x10(3)/[facility] Immature Gran % 0.40 % [facility] Comment: Immature granulocytes(IG's)percentage and absolute count will include metamyelocytes, myelocytes, and promyelocytes. Blood smears from CBCs yielding IG's will be scanned manually for concordance. If this scan disagrees with the automated IG or if promyelocytes are noted, a manual differential will be performed. Immature Gran Absolute 0.02 0.00 - 0.04 x10(3)/[facility] Blood 02/01/2022 4:40 AM EDT 02/01/2022 5:29 AM EDT Narrative Resulting Agency Comment Spec In Lab Jermaine Sotelo MD [place] [address] * (ABNORMAL) Hemogram (02/01/2022 4:40 AM EDT) [facility] White Blood Cell 5.5 4.0 - 9.5 x10(3)/ L [facility] Red Blood Cell 4.65 4.00 - 5.21 x10(6)/ L [facility] Hemoglobin 12.9 11.7 - 15.5 g/dL [facility] Hematocrit 38.3 35.7 - 45.8 % [facility] Mean Cell Volume 82.4(L) 82.6 - 94.4 fL [facility] Mean Cell Hemoglobin 27.7 27.1 - 32.0 pg [facility] Mean Cell Hemoglobin Concentration 33.7 31.7 - 35.0 g/dL [facility] Platelet 219 145 - 357 x10(3)/[facility] RDW Standard Deviation 39.8 37.0 - 46.0 [facility] RDW coefficient of variation 13.3 11.5 - 14.1 % [facility] Mean Platelet Volume 10.5 7.6 - 12.9 [facility] NRBC% auto 0.0 % [facility] NRBC Absolute 0.000 0.000 - 0.000 x10(3)/[facility] Blood 02/01/2022 4:40 AM EDT 02/01/2022 5:29 AM EDT Narrative Resulting Agency Comment Spec In Lab Jermaine Sotelo MD HEMATOLOGY ORDERABLE S [facility] [place] [address] * Magnesium (02/01/2022 4:40 AM EDT) Magnesium 0.81 0.69 - 1.07 mmol/L [facility] Blood 02/01/2022 4:40 AM EDT 02/01/2022 5:29 AM EDT Narrative Resulting Agency Comment Spec In Lab Avril Lyman MD CHEMISTRY ORDERABLES [facility] [place] [address] * (ABNORMAL) Basic Metabolic Panel (non-fasting) (02/01/2022 4:40 AM EDT) Glucose 112 65 - 199 mg/dL [facility] Comment:Diabetes: >=200 mg/d L plus symptoms Blood Urea Nitrogen 21(H) 8 - 18 mg/dL [facility] Creatinine 0.73 0.70 - 1.20 mg/dL [facility] Sodium 139 135 - 145 mmol/L [facility] Potassium 4.8 3.5 - 5.0 mmol/L [facility] Comment: Please note: ??Patients with WBC >100,000 may have falsely elevated Potassium levels. ??For accurate Potassium quantification in these patients send serum separator tube (gold top) for subsequent determinations. ??Contact the Clinical Chemistry Laboratory if there are any questions. Chloride 105 98 - 107 mmol/L [facility] Carbon Dioxide 27 22 - 31 mmol/L [facility] Anion Gap 7 5 - 15 mmol/L [facility] Calcium 9.7 8.5 - 10.5 mg/dL [facility] Est Glomerular Filtration Rate 89 >=60 mL/min/1. 73 m?? [facility] Comment: This patient's estimated [...] In Lab Avril Lyman MD CHEMISTRY ORDERABLES [facility] [place] [address] * SCAN DOC: IMPLANTABLE DEVICES (02/01/2022 12:00 [...] who have questions please contact the health rn intensive care unit that requested your imaging first. ? Narrative [...] patients who have questions please contactthe health rn intensive care unit that requested your imaging first. Avril Lyman MD IMG DX ORDERABLES * TSH [place] (01/31/2022 4:15 AM EDT) Thyroid Stimulating Hormone 3.23 0.27 - 4.20 mcIU/mL [facility] Comment: Reference Interval (mcIU/mL): Females: ??First Trimester: 0.23-3.88 ??Second Trimester: 0.22-3.90 ??Third Trimester: 0.44-4.66 Blood Venous Draw / Unknown 01/31/2022 4:15 AM EDT 01/31/2022 4:33 AM EDT Narrative Resulting Agency Comment Spec In Lab Amy Meredith MD CHEMISTRY ORDERABLES [facility] [place] [address] * Type and Screen Validity (01/31/2022 4:15 AM EDT) T&S only valid at [facility] Comment:This Type and Screen result is only valid at the [facility] Blood 01/31/2022 4:15 AM EDT 01/31/2022 4:33 AM EDT Narrative Resulting Agency Comment Spec In Lab Vinny Slade MD BLOOD BANK LAB ORDER USHA [facility] [place] [address] * ABORH Recheck Status (01/31/2022 4:15 AM EDT) ABORH Type Recheck Completed [facility] Blood 01/31/2022 4:15 AM EDT 01/31/2022 4:33 AM EDT Narrative Resulting Agency Comment Spec In Lab Vinny Slade MD BLOOD BANK LAB ORDER USHA [facility] [place] [address] * Antibody screen (01/31/2022 4:15 AM EDT) Ab Screen Interp Negative [facility] Expires at [id number] on: 02/03/2022 [facility] Blood 01/31/2022 4:15 AM EDT 01/31/2022 4:33 AM EDT Narrative Resulting Agency Comment Spec In Lab Vinny Slade MD BLOOD BANK LAB ORDER USHA [facility] [place] [address] * ABO/Rh Typing (01/31/2022 4:15 AM EDT) ABORH Type O Pos [facility] Blood 01/31/2022 4:15 AM EDT 01/31/2022 4:33 AM EDT Narrative Resulting Agency Comment Spec In Lab Vinny Slade MD BLOOD BANK LAB ORDER USHA [facility] [place] [address] * Differential, Automated (01/31/2022 4:15 AM EDT) Neutrophil % 44.7 % [facility] Neutrophil Absolute 2.50 1.70 - 6.10 x10(3)/[facility] Lymph % 45.2 % [facility] Lymphocytes Abs 2.5 0.9 - 3.2 x10(3)/[facility] Monocyte % 8.2 % [facility] Monocyte Abs 0.5 0.3 - 0.9 x10(3)/[facility] Eos % 1.3 % [facility] Eosinophils Abs 0.1 0.0 - 0.4 x10(3)/[facility] Basophil % 0.4 % [facility] Baso Absolute 0.0 0.0 - 0.1 x10(3)/[facility] Immature Gran % 0.20 % [facility] Comment: Immature granulocytes(IG's)percentage and absolute count will include metamyelocytes, myelocytes, and promyelocytes. Blood smears from CBCs yielding IG's will be scanned manually for concordance. If this scan disagrees with the automated IG or if promyelocytes are noted, a manual differential will be performed. Immature Gran Absolute 0.01 0.00 - 0.04 x10(3)/[facility] Blood 01/31/2022 4:15 AM EDT 01/31/2022 4:30 AM EDT Narrative Resulting Agency Comment Spec In Lab Jermaine Sotelo MD HEMATOLOGY ORDERABLE S [facility] [place] [address] * (ABNORMAL) Hemogram (01/31/2022 4:15 AM EDT) White Blood Cell 5.6 4.0 - 9.5 x10(3)/ L [facility] Red Blood Cell 4.78 4.00 - 5.21 x10(6)/[facility] Hemoglobin 13.3 11.7 - 15.5 g/dL [facility] Hematocrit 38.7 35.7 - 45.8 % [facility] Mean Cell Volume 81.0(L) 82.6 - 94.4 fL [facility] Mean Cell Hemoglobin 27.8 27.1 - 32.0 pg [facility] Mean Cell Hemoglobin Concentration 34.4 31.7 - 35.0 g/dL [facility] Platelet 215 145 - 357 x10(3)/[facility] RDW Standard Deviation 39.1 37.0 - 46.0 [facility] RDW coefficient of variation 13.3 11.5 - 14.1 % [facility] Mean Platelet Volume 10.3 7.6 - 12.9 fL [facility] NRBC% auto 0.0 % [facility] NRBC Absolute 0.000 0.000 - 0.000 x10(3)/ L [facility] Blood 01/31/2022 4:15 AM EDT 01/31/2022 4:30 AM EDT Narrative Resulting Agency Comment Spec In Lab Jermaine Sotelo MD HEMATOLOGY ORDERABLE S [facility] [place] [address] * Magnesium (01/31/2022 4:15 AM EDT) Pathologist [facility] Magnesium 0.82 0.69 - 1.07 mmol/L [facility] Blood 01/31/2022 4:15 AM EDT 01/31/2022 4:30 AM EDT Narrative Resulting Agency Comment Spec In Lab Avril Lyman MD CHEMISTRY ORDERABLES [facility] [place] [address] * (ABNORMAL) Basic Metabolic Panel (non-fasting) (01/31/2022 4:15 AM EDT) Glucose 106 65 - 199 mg/dL [facility] Comment:Diabetes: >=200 mg/d L plus symptoms Blood Urea Nitrogen 23(H) 8 - 18 mg/dL [facility] Creatinine 0.92 0.70 - 1.20 mg/dL [facility] Sodium 138 135 - 145 mmol/L [facility] Potassium 4.3 3.5 - 5.0 mmol/L [facility] Comment: Please note: ??Patients with WBC >100,000 may have falsely elevated Potassium levels. ??For accurate Potassium quantification in these patients send serum separator tube (gold top) for subsequent determinations. ??Contact the Clinical Chemistry Laboratory if there are any questions. Chloride 106 98 - 107 mmol/L [facility] Carbon Dioxide 25 22 - 31 mmol/L [facility] Anion Gap 7 5 - 15 mmol/L [facility] Calcium 9.6 8.5 - 10.5 mg/dL [facility] Est Glomerular Filtration Rate 67 >=60 mL/min/1. 73 m?? [facility] Comment: This patient's estimated [...] Lyman MD CHEMISTRY ORDERABLES Performing Organization Address [facility]/ZIP Co de Phone Number [facility] [place] [address] * Heparin (unfractionated) Level (01/31/2022 4:15 AM EDT) UF Heparin 0.48 IU/mL [facility] Comment: Heparin (anti-Xa) levels should [...] APRN HEMATOLOGY ORDERABLE S Performing Organization Address [facility]/ZIP Co de Phone Number [facility] [place] [address] * (ABNORMAL) APTT (01/31/2022 4:15 AM EDT) Partial Thromboplastin Time 71(H) 25 - 37 sec [facility] Comment: The PTT is NOT appropriate for heparin monitoring. Use the Anti-Xa level for heparin monitoring (HEP UFH) or LMWH monitoring (HEP LMW). A PTT less than 37 seconds generally indicates adequate hemostasis. Blood 01/31/2022 4:15 AM EDT 01/31/2022 4:30 AM EDT Narrative Resulting Agency Comment Spec In Lab Avril Lyman MD HEMATOLOGY ORDERABLE S Performing Organization Address [facility] de Phone Number [facility] [place] [address] * Prothrombin Time (01/31/2022 4:15 AM EDT) Prothrombin Time 10.7 9.4 - 12.5 sec [facility] International Normalization Ratio 0.9 [facility] Comment: An INR <2.0 [...] MD HEMATOLOGY ORDERABLE S Performing Organization Address [facility] de Phone Number [facility] [place] [address] * Hepatic Function Panel (01/31/2022 4:15 AM EDT) Protein, Total 6.5 6.1 - 8.0 g/dL [facility] Albumin 3.8 3.2 - 5.2 g/dL [facility] Aspartate Aminotransferase 25 0 - 30 unit/L [facility] Alanine Aminotransferase 22 0 - 30 unit/L [facility] Alkaline Phosphatase 86 35 - 105 unit/L [facility] Bilirubin, Total 0.3 0.2 - 1.3 mg/dL [facility] Bilirubin, Direct 0.1 0.0 - 0.3 mg/dL [facility] Blood 01/31/2022 4:15 AM EDT 01/31/2022 4:30 AM EDT Narrative Resulting Agency Comment Spec In Lab Avril Lyman MD CHEMISTRY ORDERABLES Performing Organization Address City/[facility]/[place] [address] * Urinalysis with reflex Culture (01/31/2022 12:35 AM EDT) Glucose, Urine Dipstick Negative Negative mg/dL [facility] Protein, Urine Dipstick Negative Negative mg/dL [facility] Bilirubin, Urine Dipstick Negative Negative mg/dL [facility] Comment: Clinical correlation required for positive Urine Bilirubin results as false positive may occur with some drugs and drug related products. If a false positive is suspected a serum total bilirubin should be considered if clinically indicated. Urobilinogen, Urine Dipstick Normal Normal mg/dL [facility] pH, Urn (dipstick) 5.5 5.0 - 8.0 [facility] Blood, Urine Dipstick Negative Negative mg/dL [facility] Ketone, Urine Dipstick Negative Negative mg/dL [facility] Nitrite, Urine Dipstick Negative Negative [facility] Leukocytes, Urine Dipstick Negative Negative [facility] Appearance, Urine Dipstick Clear Clear [facility] Specific [place] Urine Automated 1.016 1.005 - 1.030 [facility] Color, Urine Dipstick Yellow Yellow [facility] Reflex to Culture No [facility] Clean Catch Urine 01/31/2022 12:35 AM EDT 01/31/2022 12:47 AM EDT Narrative Resulting Agency Comment Spec In Lab Avril Lyman MD URINE ORDERABLES Performing Organization Address City/[facility]/[place] [address] * (ABNORMAL) Differential, Automated (01/30/2022 3:45 AM EDT) Pathologist [facility] Neutrophil % 41.5 % [facility] Neutrophil Absolute 2.89 1.70 - 6.10 x10(3)/mc L [facility] Lymph % 48.0 % [facility] Lymphocytes Abs 3.3(H) 0.9 - 3.2 x10(3)/mc L [facility] Monocyte % 8.5 % [facility] Monocyte Abs 0.6 0.3 - 0.9 x10(3)/ L [facility] Eos % 1.6 % [facility] Eosinophils Abs 0.1 0.0 - 0.4 x10(3)/ L [facility] Basophil % 0.3 % [facility] Baso Absolute 0.0 0.0 - 0.1 x10(3)/ L [facility] Immature Gran % 0.10 % [facility] Comment: Immature granulocytes(IG's)percentage and absolute count will include metamyelocytes, myelocytes, and promyelocytes. Blood smears from CBCs yielding IG's will be scanned manually for concordance. If this scan disagrees with the automated IG or if promyelocytes are noted, a manual differential will be performed. Immature Gran Absolute 0.01 0.00 - 0.04 x10(3)/ L [facility] Blood 01/30/2022 3:45 AM EDT 01/30/2022 5:34 AM EDT Narrative Resulting Agency Comment Spec In Lab Jermaine Sotelo MD HEMATOLOGY ORDERABLE S [facility] [place] [address] * (ABNORMAL) Hemogram (01/30/2022 3:45 AM EDT) [facility] White Blood Cell 7.0 4.0 - 9.5 x10(3)/[facility] Red Blood Cell 5.03 4.00 - 5.21 x10(6)/[facility] Hemoglobin 14.0 11.7 - 15.5 g/dL [facility] Hematocrit 41.0 35.7 - 45.8 % [facility] Mean Cell Volume 81.5(L) 82.6 - 94.4 fL [facility] Mean Cell Hemoglobin 27.8 27.1 - 32.0 pg [facility] Mean Cell Hemoglobin Concentration 34.1 31.7 - 35.0 g/dL [facility] Platelet 246 145 - 357 x10(3)/[facility] RDW Standard Deviation 39.6 37.0 - 46.0 [facility] RDW coefficient of variation 13.2 11.5 - 14.1 % [facility] Mean Platelet Volume 10.5 7.6 - 12.9 [facility] NRBC% auto 0.0 % [facility] NRBC Absolute 0.000 0.000 - 0.000 x10(3)/[facility] Blood 01/30/2022 3:45 AM EDT 01/30/2022 5:34 AM EDT Narrative Resulting Agency Comment Spec In Lab Jermaine Sotelo MD HEMATOLOGY ORDERABLE S [facility] [place] [address] * Magnesium (01/30/2022 3:45 AM EDT) Magnesium 0.85 0.69 - 1.07 mmol/L [facility] Blood 01/30/2022 3:45 AM EDT 01/30/2022 5:34 AM EDT Narrative Resulting Agency Comment Spec In Lab Avril Lyman MD CHEMISTRY ORDERABLES [facility] [place] [address] * (ABNORMAL) Basic Metabolic Panel (non-fasting) (01/30/2022 3:45 AM EDT) Glucose Not Perf 65 - 199 [facility] Comment: Sample improperly processed prior to receipt. Diabetes: >=200 mg/dL plus symptoms Blood Urea Nitrogen 29(H) 8 - 18 mg/dL [facility] Comment:result rechecked-bm Creatinine 0.93 0.70 - 1.20 mg/dL [facility] LABORATORY Sodium 139 135 - 145 mmol/L [facility] Potassium 4.1 3.5 - 5.0 mmol/L [facility] Comment: Please note: ??Patients with WBC >100,000 may have falsely elevated Potassium levels. ??For accurate Potassium quantification in these patients send serum separator tube (gold top) for subsequent determinations. ??Contact the Clinical Chemistry Laboratory if there are any questions. Chloride 106 98 - 107 mmol/L [facility] Carbon Dioxide 22 22 - 31 mmol/L [facility] Anion Gap 11 5 - 15 mmol/L [facility] Calcium 9.4 8.5 - 10.5 mg/dL [facility] Est Glomerular Filtration Rate 67 >=60 mL/min/1. 73 m?? [facility] Comment: This patient's estimated [...] Lyman MD CHEMISTRY ORDERABLES Performing Organization Address [facility] Co de Phone Number [facility] [place] [address] * Heparin (unfractionated) Level (01/30/2022 3:45 AM EDT) UF Heparin 0.39 IU/mL [facility] Comment: Specimen drawn more than [...] APRN HEMATOLOGY ORDERABLE S Performing Organization Address [facility]/ZIP Co de Phone Number [facility] [place] [address] * Heparin (unfractionated) Level (01/29/2022 9:57 PM EDT) UF Heparin 0.31 IU/mL [facility] Comment: Heparin (anti-Xa) levels should [...] APRN HEMATOLOGY ORDERABLE S Performing Organization Address [facility] Co de Phone Number [facility] [place] [address] * CARDIAC CATHETERIZATION (01/29/2022 2:43 PM EDT) Anatomical Region Laterality Modality Other Narrative 01/29/2022 12:09 PM EDT ?[facility] ? Cardiac Catheterization/Intervention Report ? Patient Name: Shellie Lyon. ? Procedure Date: 01/29/2022 ? A #: [id number] ? Primary Physician: Chandana Cedillo ? Case #: [id number] ? File Name: [id number] ? Catheterization Order Number: [id number] ? [facility] ? Final Report [place], [place] ? Patient Name: ? Shellie H. Caswell ? ID#: ?[id number] ? : ?1950 ? Procedure Date: ? January 29, 2022 ? Case #: ? [id number] ? Room: ? 5 ? Case Physician: ? Chandana S Nugyen, M.D. ? Start: ?08:22 ?Fellow: ? Levi [...] was designated as ASA Class II. ?The [facility] clinical frailty scale is 4: Vulnerable. ? [...] procedure was Urgent. The indication for ?the animal laboratory helper visit is ACS greater than 24 hrs. [...] of Iso-Daniela were administered and 45cc ?of Iso-Danilea were wasted. Radiation: Fluoro time was 8.3 [...] angiography and left ?heart catheterization. ? Chandana Gonzalezstein, M.D. ? Electronically Signed by: Chandana Gonzalezstein, M.D. ? Report Finalized: 01/29/2022 ??12:03 ? [...] 1950 ? Height: 163 cm ? Account: [id number] Age: 71 yrs ? Weight: 67 kg Gender: Female ?BSA: 1.7 m2 Ordering Physician: AVRIL LYMAN Referring Physician: CLINT GU Performed By: GUILHERME Severino Reason For Study: NSTEMI Exam Location: [facility]. Interpretation Summary 1. The left ventricle is [...] remainder of report for complete findings. Procedure Complete-52125. Satisfactory quality. There is normal sinus rhythm. [...] Study Date: 207:25 AMBP: 147/75 mmHg Patient Location:[place] [address]^A : 1950 Height: 163 cm Account: [id number] Age: 71 yrs Weight: 67 kg Gender: Female BSA: 1.7 m2 Ordering Physician: AVRIL LYMAN Referring Physician: CLINT GU Performed By: GUILHERME Severino Reason For Study: NSTEMI Exam Location: [facility]. Interpretation Summary 1. The left ventricle is [...] See remainder ofreport for complete findings. Procedure Complete-23776. Satisfactory quality. There is normal sinus rhythm. [...] 5:56 AM EDT) Neutrophil % 51.9 % [facility] Neutrophil Absolute 3.90 1.70 - 6.10 x10(3)/[facility] Lymph % 39.5 % [facility] Lymphocytes Abs 3.0 0.9 - 3.2 x10(3)/[facility] Monocyte % 7.5 % [facility] Monocyte Abs 0.6 0.3 - 0.9 x10(3)/[facility] Eos % 0.7 % [facility] Eosinophils Abs 0.0 0.0 - 0.4 x10(3)/[facility] Basophil % 0.3 % [facility] Baso Absolute 0.0 0.0 - 0.1 x10(3)/[facility] Immature Gran % 0.10 % [facility] Comment: Immature granulocytes(IG's)percentage and absolute count will include metamyelocytes, myelocytes, and promyelocytes. Blood smears from CBCs yielding IG's will be scanned manually for concordance. If this scan disagrees with the automated IG or if promyelocytes are noted, a manual differential will be performed. Immature Gran Absolute 0.01 0.00 - 0.04 x10(3)/[facility] Blood 01/29/2022 5:56 AM EDT 01/29/2022 6:07 AM EDT Narrative Resulting Agency Comment Spec In Lab Belinda Ibrahim APRN HEMATOLOGY ORDERABLE S [facility] [place] [address] * (ABNORMAL) Hemogram (01/29/2022 5:56 AM EDT) White Blood Cell 7.5 4.0 - 9.5 x10(3)/ L [facility] Red Blood Cell 5.51(H) 4.00 - 5.21 x10(6)/mc L [facility] Hemoglobin 15.2 11.7 - 15.5 g/dL [facility] Hematocrit 44.0 35.7 - 45.8 % [facility] Mean Cell Volume 79.9(L) 82.6 - 94.4 fL [facility] Mean Cell Hemoglobin 27.6 27.1 - 32.0 pg [facility] Mean Cell Hemoglobin Concentration 34.5 31.7 - 35.0 g/dL [facility] Platelet 266 145 - 357 x10(3)/[facility]ATORY RDW Standard Deviation 37.2 37.0 - 46.0 [facility] LAB[facility]ATORY RDW coefficient of variation 13.0 11.5 - 14.1 % [facility] Mean Platelet Volume 10.4 7.6 - 12.9 fL [facility] NRBC% auto 0.0 % [facility] NRBC Absolute 0.000 0.000 - 0.000 x10(3)/[facility] Blood 01/29/2022 5:56 AM EDT 01/29/2022 6:07 AM EDT Narrative Resulting Agency Comment Spec In Lab Belinda Ibrahim APRN HEMATOLOGY ORDERABLE S [facility] [place] [address] * Heparin (unfractionated) Level (01/29/2022 5:56 AM EDT) UF Heparin 0.65 IU/mL [facility] Comment: Heparin (anti-Xa) levels should [...] Lab Belinda Ibrahim APRN HEMATOLOGY ORDERABLE S [facility] [place] [address] * (ABNORMAL) Troponin (01/29/2022 5:56 AM EDT) Troponin-T 0.26(H) 0.00 - 0.00 ng/mL [facility] Comment: The 99th percentile for Troponin T is less than 0.01 ng/mL, any detectable cTnT concentration using this assay should be considered elevated. According to the third universal definition of myocardial infarction the following criteria with a clinical presentation consistent with acute myocardial ischemia meets the diagnosis for a myocardial infarction (OR). Detection of a rise and/or fall of cTnT, with at least one value greater than the 99th percentile (> or = 0.01) and with at least one of the following ?? Symptoms of ischemia ?? New or presumed new significant CQ-ijzjheo-J wave (ST-T) changes or new left bundle [...] additional sample may be indicated. Reference: Third [place] Definition of Myocardial Infarction. Journal of the [place] [employer] 2012;60:1581-98 Blood 01/29/2022 5:56 AM EDT 01/29/2022 6:07 AM EDT Narrative Resulting Agency Comment Spec In Lab Avril Lyman MD CHEMISTRY ORDERABLES Performing Organization Address [facility] Co de Phone Number [facility] [place] [address] * Magnesium (01/29/2022 5:56 AM EDT) Magnesium 0.92 0.69 - 1.07 mmol/L [facility] Blood 01/29/2022 5:56 AM EDT 01/29/2022 6:07 AM EDT Narrative Resulting Agency Comment Spec In Lab Avril Lyman MD CHEMISTRY ORDERABLES Performing Organization Address [facility] de Phone Number [facility] [place] [address] * Basic Metabolic Panel (non-fasting) (01/29/2022 5:56 AM EDT) Glucose 98 65 - 199 mg/dL [facility] Comment:Diabetes: >=200 mg/d L plus symptoms Blood Urea Nitrogen 14 8 - 18 mg/dL [facility] Creatinine 0.78 0.70 - 1.20 mg/dL [facility] Sodium 139 135 - 145 mmol/L [facility] Potassium 4.0 3.5 - 5.0 mmol/L [facility] Comment: Please note: ??Patients with WBC >100,000 may have falsely elevated Potassium levels. ??For accurate Potassium quantification in these patients send serum separator tube (gold top) for subsequent determinations. ??Contact the Clinical Chemistry Laboratory if there are any questions. Chloride 105 98 - 107 mmol/L [facility] Carbon Dioxide 23 22 - 31 mmol/L [facility] Anion Gap 11 5 - 15 mmol/L [facility] Calcium 9.9 8.5 - 10.5 mg/dL [facility] Est Glomerular Filtration Rate 82 >=60 mL/min/1. 73 m?? [facility] Comment: This patient's estimated [...] In Lab Avril Lyman MD CHEMISTRY ORDERABLES [facility] [place] [id number] * (ABNORMAL) Troponin (01/29/2022 12:10 AM EDT) Troponin-T 0.37(H) 0.00 - 0.00 ng/mL [facility] Comment: The 99th percentile for Troponin T is less than 0.01 ng/mL, any detectable cTnT concentration using this assay should be considered elevated. According to the third universal definition of myocardial infarction the following criteria with a clinical presentation consistent with acute myocardial ischemia meets the diagnosis for a myocardial infarction (OR). Detection of a rise and/or fall of cTnT, with at least one value greater than the 99th percentile (> or = 0.01) and with at least one of the following ?? Symptoms of ischemia ?? New or presumed new significant QF-xjwqucw-B wave (ST-T) changes or new left bundle [...] additional sample may be indicated. Reference: Third [place] Definition of Myocardial Infarction. Journal of the [place] [employer]iology 2012;60:1581-98 Blood 01/29/2022 12:1 0 AM EDT 01/29/2022 12:16 AM EDT Narrative Resulting Agency Comment Spec In Lab Avril Lyman MD CHEMISTRY ORDERABLES Performing Organization Address [facility] Co de Phone Number [facility] [place] [address] * LDL Cholesterol, Direct (01/29/2022 12:10 AM EDT) LDL Cholesterol, Direct 164 mg/dL [facility] Comment: Lowest Risk: <100 mg/dL Lower Risk: 100-129 mg/dL Borderline High Risk: 130-159 mg/dL High Risk: 160-189 mg/dL Very High Risk: >oj=178 mg/dL Blood 01/29/2022 12:1 0 AM EDT 01/29/2022 12:16 AM EDT Narrative Resulting Agency Comment Spec In Lab Avril Lyman MD CHEMISTRY ORDERABLES Performing Organization Address [facility] Co de Phone Number [facility] [place] [address] * Heparin (unfractionated) Level (01/29/2022 12:10 AM EDT) UF Heparin 0.29 IU/mL [facility] Comment: Heparin (anti-Xa) levels should [...] Lab Avril Lyman MD HEMATOLOGY ORDERABLE S [facility] [place] [address] * Type and Screen Validity (01/28/2022 6:03 PM EDT) T&S only valid at [facility] LABORATORY Comment:This Type and Screen result is only valid at the [facility] Blood 01/28/2022 6:03 PM EDT 01/28/2022 6:18 PM EDT Narrative Resulting Agency Comment Spec In Lab Jermaine Sotelo MD BLOOD BANK LAB ORDER USHA Performing Organization Address City/[facility]/ZIP Co de Phone Number [facility] [place] [address] * ABORH Recheck Status (01/28/2022 6:03 PM EDT) ABORH Recheck Order Order Placed [facility] ABORH Type Recheck Complete [facility] Blood 01/28/2022 6:03 PM EDT 01/28/2022 6:18 PM EDT Narrative Resulting Agency Comment Spec In Lab Jermaine Sotelo MD BLOOD BANK LAB ORDER USHA [facility] [place] [address] * Antibody screen (01/28/2022 6:03 PM EDT) Ab Screen Interp Negative [facility] Expires at [id number] on: 01/31/2022 [facility] Blood 01/28/2022 6:03 PM EDT 01/28/2022 6:18 PM EDT Narrative Resulting Agency Comment Spec In Lab Jermaine Sotelo MD BLOOD BANK LAB ORDER USHA [facility] [place] [address] * ABO/Rh Typing (01/28/2022 6:03 PM EDT) ABORH Type O Pos [facility] Blood 01/28/2022 6:03 PM EDT 01/28/2022 6:18 PM EDT Narrative Resulting Agency Comment Spec In Lab Jermaine Sotelo MD BLOOD BANK LAB ORDER USHA Performing Organization Address City/[facility]/ZIP Co de Phone Number [facility] [place] [address] * Heparin (unfractionated) Level (01/28/2022 5:59 PM EDT) UF Heparin 0.52 IU/mL [facility] Comment: Heparin (anti-Xa) levels should [...] MORGAN HEMATOLOGY ORDERABLE S Performing Organization Address City/[facility]/ZIP Co de Phone Number [facility] [place] [address] * HDL/Cholesterol Profile (01/28/2022 5:56 PM EDT) Cholesterol, Total 245 mg/dL [facility] Comment: Lower Risk: <200 mg/dL Average Risk: 200-239 mg/dL Higher Risk: >ih=806 mg/dL HDL Cholesterol 55 mg/dL [facility] Comment: Males: ?? Higher Risk: <40 mg/dL Females: ?? Higher Risk: <50 mg/dL Cholesterol/HDL Ratio 4.5 ratio [facility] Chol/HDL Interpretation See Note [facility] Comment: Lipid management should be guided by a patient? s ASCVD risk, goals and preferences. ACC/AHA Guidelines recommend high intensity statin if clinical ASCVD or LDL greater than or equal to 190 mg/dL. http://[employer].com/FVP-OMU-Gczpcafui Measure LDL if Total Cholesterol minus HDL Cholesterol is greater than 220 mg/dL. Adults aged 40-75 with LDL 70-189 mg/dL should have their 10 year ASCVD risk estimated with the ACC/AHA ASCVD risk laborer tin can http://tools.acc.org/VEGCO-Mjqy-Xchbqgpin/ Statin should be discussed if risk greater [...] Sotelo MD CHEMISTRY ORDERABLES Performing Organization Address City/[facility]/ZIP Co de Phone Number [facility] [place] [address] * (ABNORMAL) Hemoglobin A1c (01/28/2022 5:56 PM EDT) Hemoglobin A1c 5.8(H) 4.3 - 5.6 % [facility] Comment: Reference Range: 4.3 [...] 1, S67-74 Estimated Average Glucose 118 mg/dL [facility] Comment: eAG equivalents for [...] into estimated average glucose values. ??Diabetes Care 2008:31(8):0492-8253. Blood Venous Draw / Unknown 01/28/2022 5:56 PM EDT 01/28/2022 8:41 PM EDT Narrative Resulting Agency Comment Spec In Lab Jermaine Sotelo MD CHEMISTRY ORDERABLES Performing Organization Address City/[facility]/ZIP Co de Phone Number [facility] [place] [address] * Differential, Automated (01/28/2022 5:56 PM EDT) Neutrophil % 56.7 % [facility] Neutrophil Absolute 4.15 1.70 - 6.10 x10(3)/[facility] Lymph % 36.4 % [facility] Lymphocytes Abs 2.7 0.9 - 3.2 x10(3)/[facility] Monocyte % 6.0 % [facility] Monocyte Abs 0.4 0.3 - 0.9 x10(3)/[facility] Eos % 0.3 % [facility] Eosinophils Abs 0.0 0.0 - 0.4 x10(3)/[facility] Basophil % 0.3 % [facility] Baso Absolute 0.0 0.0 - 0.1 x10(3)/[facility] Immature Gran % 0.30 % [facility] Comment: Immature granulocytes(IG's)percentage and absolute count will include metamyelocytes, myelocytes, and promyelocytes. Blood smears from CBCs yielding IG's will be scanned manually for concordance. If this scan disagrees with the automated IG or if promyelocytes are noted, a manual differential will be performed. Immature Gran Absolute 0.02 0.00 - 0.04 x10(3)/[facility] Blood 01/28/2022 5:56 PM EDT 01/28/2022 6:05 PM EDT Narrative Resulting Agency Comment Spec In Lab Belinda Ibrahim APRN HEMATOLOGY ORDERABLE S Performing Organization Address City/[facility]/ZIP Co de Phone Number [facility] [place] [address] * (ABNORMAL) Hemogram (01/28/2022 5:56 PM EDT) Pathologist [facility] White Blood Cell 7.3 4.0 - 9.5 x10(3)/[facility] LABORATORY Red Blood Cell 5.67(H) 4.00 - 5.21 x10(6)/mc L [facility] Hemoglobin 15.4 11.7 - 15.5 g/dL [facility] Hematocrit 44.9 35.7 - 45.8 % [facility] Mean Cell Volume 79.2(L) 82.6 - 94.4 fL [facility] Mean Cell Hemoglobin 27.2 27.1 - 32.0 pg [facility] Mean Cell Hemoglobin Concentration 34.3 31.7 - 35.0 g/dL [facility] Platelet 272 145 - 357 x10(3)/[facility] LABORATORY RDW Standard Deviation 36.3(L) 37.0 - 46.0 [facility] LABORATORY RDW coefficient of variation 12.9 11.5 - 14.1 % [facility] Mean Platelet Volume 10.4 7.6 - 12.9 fL [facility] NRBC% auto 0.0 % [facility] NRBC Absolute 0.000 0.000 - 0.000 x10(3)/[facility] Blood 01/28/2022 5:56 PM EDT 01/28/2022 6:05 PM EDT Narrative Resulting Agency Comment Spec In Lab Belinda Ibrahim APRN HEMATOLOGY ORDERABLE S [facility] [place] [address] * (ABNORMAL) Troponin (01/28/2022 5:56 PM EDT) Pathologist [facility] Troponin-T 0.49(H) 0.00 - 0.00 ng/mL [facility] Comment: The 99th percentile for Troponin T is less than 0.01 ng/mL, any detectable cTnT concentration using this assay should be considered elevated. According to the third universal definition of myocardial infarction the following criteria with a clinical presentation consistent with acute myocardial ischemia meets the diagnosis for a myocardial infarction (OR). Detection of a rise and/or fall of cTnT, with at least one value greater than the 99th percentile (> or = 0.01) and with at least one of the following ?? Symptoms of ischemia ?? New or presumed new significant AP-ikqljkm-S wave (ST-T) changes or new left bundle [...] additional sample may be indicated. Reference: Third [place] Definition of Myocardial Infarction. Journal of the [place] College [employer]iology 2012;60:1581-98 Blood 01/28/2022 5:56 PM EDT 01/28/2022 6:05 PM EDT Narrative Resulting Agency Comment Spec In Lab Belinda Ibrahim APRN CHEMISTRY ORDERABLES Performing Organization Address City/[facility]/ZIP Co de Phone Number [facility] [place] [address] * (ABNORMAL) pro-Brain Natriuretic Peptide (01/28/2022 5:56 PM EDT) NT-proBNP 5,691(H) <=124 pg/mL [facility] Blood 01/28/2022 5:56 PM EDT 01/28/2022 6:05 PM EDT Narrative Resulting Agency Comment Spec In Lab Belinda Ibrahim APRN CHEMISTRY ORDERABLES Performing Organization Address City/[facility]/ZIP Co de Phone Number [facility] [place] [address] * (ABNORMAL) Basic Metabolic Panel (non-fasting) (01/28/2022 5:56 PM EDT) Glucose 117 65 - 199 mg/dL [facility] Comment:Diabetes: >=200 mg/d L plus symptoms Blood Urea Nitrogen 13 8 - 18 mg/dL [facility] Creatinine 0.65(L) 0.70 - 1.20 mg/dL [facility] Sodium 139 135 - 145 mmol/L [facility] Potassium 4.0 3.5 - 5.0 mmol/L [facility] Comment: Please note: ??Patients with WBC >100,000 may have falsely elevated Potassium levels. ??For accurate Potassium quantification in these patients send serum separator tube (gold top) for subsequent determinations. ??Contact the Clinical Chemistry Laboratory if there are any questions. Chloride 106 98 - 107 mmol/L [facility] Carbon Dioxide 21(L) 22 - 31 mmol/L [facility] Anion Gap 12 5 - 15 mmol/L [facility] Calcium 10.0 8.5 - 10.5 mg/dL [facility] Est Glomerular Filtration Rate 95 >=60 mL/min/1. 73 m?? [facility] Comment: This patient's estimated [...] In Lab Belinda Ibrahim APRN CHEMISTRY ORDERABLES [facility] [place] [address] * EKG 12 Lead (01/28/2022 5:47 PM EDT) Ventricular rate 70 BPM MUSE SYSTEM Atrial Rate 70 BPM MUSE SYSTEM P-R Interval 142 ms MUSE SYSTEM QRS Duration 72 ms MUSE SYSTEM Q-T Interval 414 ms MUSE SYSTEM QTC Calculated (Bezet) 447 ms MUSE SYSTEM Calculated P Powersite 52 degrees MUSE SYSTEM Calculated R [place] 40 degrees MUSE SYSTEM Calculated T [place] 49 degrees MUSE SYSTEM INTERPRETATION Normal sinus rhythm ST elevation consider lateral injury or acute infarct ACUTE OR / STEMI Abnormal ECG No previous ECGs available Confirmed by Quinn Garcia ([id number]) on 01/31/2022 8:19:26 AM MUSE SYSTEM 01/28/2022 5:47 PM EDT 01/31/2022 8:19 AM EDT Belinda J King MORGAN ECG ORDERABLES MUSE SYSTEM documented in this [...] Given 02/04/2022 5:36 PM EDT 1,000 mg aspirin chewable tablet 81 mg 81 mg, Oral, DAILY, First dose on Candace 02/01/22 at 1415, Until Discontinued, Start on Post-Op Day 0, please give within 6 hours upon arrival to Unit. If unable to take PO, may give MI, Routine Given 02/05/2022 8:13 AM EDT 81 mg Given 02/04/2022 8:07 AM EDT 81 mg Given 02/03/2022 8:09 AM EDT 81 mg aspirin chewable tablet ONCE PRN, Starting on Sat01/29/22 at 0819, Until Candace 02/01/22 at 1315, Cath (Intra-Procedure), Routine Given 01/29/2022 8:19 AM EDT 81 mg aspirin suppository 300 mg 300 mg, Rectal, DAILY, First dose on Candace 02/01/22 at 1415, Until Discontinued, Start on Post-Op Day 0, please give within 6 hours upon arrival to Unit. Give MI if unable to take PO, Routine Given 02/01/2022 1:47 PM EDT 300 mg atorvastatin (Lipitor) tablet 80 mg 80 mg, Oral, EVERY EVENING, First dose on Sat01/29/22 at 1415, Until Discontinued, Routine Given 02/04/2022 5:36 PM EDT 80 mg Given 02/03/2022 5:22 PM EDT 80 mg Given 02/02/2022 5:44 PM EDT 80 mg clopidogreL (Plavix) tablet ONCE PRN, Starting on Sat01/29/22 at 0819, Until Sat01/29/22 at 0905, Intra-Operative (Intra-Procedure), Routine Given 01/29/2022 8:19 AM EDT 75 mg fentaNYL (pf) (50 mcg/mL) multi-dose injection ONCE PRN, Starting on Sat01/29/22 at 0821, Until Candace 02/01/22 at 1315, Cath (Intra-Procedure), Routine Given 01/29/2022 8:21 AM EDT 25 mcg furosemide (Lasix) tablet 20 mg 20 mg, [...] Given 01/29/2022 8:27 AM EDT 3,000 Units losartan (Cozaar) tablet 25 mg 25 mg, [...] use with renal insufficiency., Routine Given 02/03/2022 8:0 9 AM EDT 10 mLs metoproloL tartrate (Lopressor) tablet 25 mg 25 mg, Oral, EVERY 12 HOURS SCHEDULED (2 times per day), First dose on Sat02/02/22 at 1100, Until Discontinued, Routine Given 02/05/2022 8:17 AM EDT 25 mg Given 02/04/2022 8:12 PM EDT 25 mg Given 02/04/2022 8:07 AM EDT 25 mg midazolam (pf) (Versed) (1 mg/mL) multi-dose injection ONCE PRN, Starting on Sat01/29/22 at 0821, Until Sat02/01/22 at 1315, Cath (Intra-Procedure), Routine Given 01/29/2022 8:21 AM EDT 1 mg nitroGLYcerin 100 mcg/mL intracoronary dilution ONCE PRN, Starting on Sat01/29/22 at 0822, Until Sat02/01/22 at 1315, Cath (Intra-Procedure), Routine Given 01/29/2022 8:22 AM EDT 150 mcg ondansetron (pf) (Zofran) (2 mg/mL) injection 4 mg 4 mg, Intravenous, EVERY 8 HOURS PRN, Starting on Sat02/01/22 at 1315, Until Sat02/05/22 at 1119, Nausea Given 02/02/2022 9:30 AM EDT 4 mg pantoprazole (Protonix) injection 40 mg 40 mg, Intravenous, DAILY, First dose on Sat02/01/22 at 1415, Until Discontinued, Reconstitute with 10 mL of normal saline to a concentration of 4 mg/mL and infuse slowly over 2 minutes. , Routine Given 02/02/2022 8:06 AM EDT 40 mg Given 02/01/2022 1:49 PM EDT 40 mg pantoprazole EC (Protonix) tablet 40 mg 40 mg, Oral, DAILY, First dose on Sat02/01/22 at 1415, Until Discontinued, DO NOT CRUSH [...] Given 02/04/2022 1:15 AM EDT 5 mLs verapamiL (Isoptin) (2.5 mg/mL) injection ONCE PRN, Starting on Sat01/29/22 at 0822, Until Sat02/01/22 at 1315, Administer over 2 Minutes, Cath (Intra-Procedure) Given 01/29/2022 8:22 AM EDT 2.5 mg documented in this encounter Active and Recently [...] Thornton, KYM) 0000 (Given - Provider: Viviana Bonner RN)0600 [...] If unable to take PO, may give MI, Routine 0809 (Given - Provider: Shayla Thornton RN) 0807 (Given - Provider: Kirby Dexter, KYM) 0813 (Given - Provider: Bry Portillo, KYM) aspirin suppository 300 mg(Linked Group 2) 300 mg, Rectal, DAILY, First dose on Candace 02/01/22 at 1415, Until Discontinued, Start on Post-Op Day 0, please give within 6 hours upon arrival to Unit. Give MI if unable to take PO, Routine 0809 (See Alternative - Provider: Shayla Thornton RN) 0807 (See Alternative - Provider: Kirby Dexter, KYM) 0813 (See Alternative - Provider: Bry Portillo, KYM) atorvastatin (Lipitor) tablet 80 mg 80 mg, Oral, EVERY EVENING, First dose on Sat01/29/22 at 1415, Until Discontinued, Routine 1722 (Given - Provider: Shayla Thornton RN) 1736 (Given - Provider: Kirby Dexter, KYM) furosemide (Lasix) tablet 20 mg 20 mg, Oral, DAILY, First dose on Sat02/02/22 at 1115, Until Discontinued, Routine 0809 (Given - Provider: Shayla Thornton RN) 0810 (Given - Provider: Kirby Dexter, KYM) 0813 (Given - Provider: Bry Portillo, KYM) guaiFENesin ER (Mucinex) tablet 600 mg 600 mg, Oral, EVERY 12 HOURS, First dose on Sat02/04/22 at 1045, Until Discontinued, DO NOT CRUSH OR OPEN, Routine 1025 (Given - Provider: Kirby Dexter RN)2301 (Given - Provider: Jeni Benoit, KYM) losartan (Cozaar) tablet 25 mg 25 mg, Oral, DAILY, First dose on Sat02/02/22 at 1115, Until Discontinued, Routine 0809 (Given - Provider: Shayla Thornton RN) 08 (Given - Provider: Kirby Dexter RN) 0817 [...] on Sat02/02/22 at 1100, Until Discontinued, Routine 0809 (Given - Provider: Shayla Thornton RN)2038 (Given [...] Thornton, RN) 0115 (Given - Provider: Viviana Bonner RN)0915 (Hold - Provider: Kirby Dexter, RN - Reason: Medication Discontinued)1715 (Not Given - Provider: Kirby Dexter, RN - Reason: Contraindicated)2301 (Given - Provider: Jeni Benoit RN) 0816 (Given - Provider: Bry Portillo RN) PRN Medication Order 02/03/2022 02/04/2022 02/05/2022 bisacodyL (Dulcolax) suppository 10 mg 10 mg, Rectal, DAILY PRN, Starting on 02/04/22 at 0000, Until 02/05/22 at 1119, Constipation, Starting post-op day 3., [...] If unable to take PO, may give MI, Routine Or aspirin suppository 300 mgJump to med 300 mg, Rectal, DAILY, First dose on Candace 02/01/22 at 1415, Until Discontinued, Start on Post-Op Day 0, please give within 6 hours upon arrival to Unit. Give MI if unable to take PO, Routine Group 3: pantoprazole EC (Protonix) tablet 40 mgJump to med 40 mg, Oral, DAILY, First dose on [facility] 02/01/22 at 1415, Until Discontinued, DO NOT [...] Routine documented in this encounter Care Teams Screen Printing Equipment Setter Relationship Specialty Start Date End Date Kerri Pearce, ADULT PROBATION OFFIC[place] [address] PCP - General Family Medicine 01/04/22 documented as of this encounter
--- OUTSIDE RECORDS SUMMARY | 2024-05-25 11:23 | XMS_ITS | Encounter Summary ---
[facility] [place] [address] Care Team Providers Care Financial Systems Administrator Name Role Phone Kerri Pearce MORGAN Primary Care Provider [phone] Reason for Visit * Auth/Cert Specialty Diagnoses / Procedures Referred By Karli crockett Referred To Contact Diagnoses NSTEMI (non-ST elevated myocardial infarction) Chest Pain Procedures EMERGENCY IPI Nguyễn Lyman MD [facility] [place] [address] [facility] Referral ID Status Reason Start Date Expiration Date Visits Re quested Visits Authorized [id number] 1 1 Encounter Details Date Type Department Care Team (Late st Contact Info) Description 02/01/2022 7:33 AM EDT Anesthesia Event [place] [id number] Ebenezer Morse MD [facility] [place] [address] Anesthesia Record Procedure Summary Procedure Name Responsible Anesthesiologist Anesthesia Start Time Anesthesia Stop Time ENDOSCOPIC HARVEST VEIN(S) FOR CABG (WRVU 0.31) (Leg) Ebenezer Morse MD 02/01/22 0733 02/01/22 1307 Events Date Time Event Comment 02/01/2022 0632 0733 AN Verify 0733 Start 0733 An Start Data 0747 An Induction 0749 An Intubation 0751 MISBAH PROBE ONLY 0805 Anesthesia Ready 0821 Procedure Start 0823 Sternotomy 0844 Quick Note Lines re-zeroed and found to be 10mmHG off 0850 Heparin 84580b 0901 AN AORTIC CANNULA 0904 AN Venous Cannula 0918 CV Bypass init 0923 An Clamp start 0957 Rewarming 1013 [facility] Wellness Coordinator 1016 AN Defib 20J x1 1021 An Clamp Remove 1023 CP Bypass Ended 1056 Chest Closed 1249 an stop data 1307 Recovery or ICU Handoff Seema ent care was transferred to the destination unit staff after review of the patient's medical history, current anesthetic/surgical status and plan, according to the Provider Handoff Checklist. 1307 Stop Meds Name Total Midazolam 2 mg fentaNYL 1,000 mcg Propofol INF 337 mg PHENYLephrine 800 mcg Protamine 200 mg Tranexamic Acid 670 mg Tranexamic Acid INF 339.25 mg Insulin Regular Human 10 Units Insulin Regular INF 1.95 Units cefTRIAXone 2 g Propofol 300 mg Rocuronium 100 mg NORepinephrine INF 1,203 mcg NORepinephrine 64 mcg heparin (porcine) (1,000 units/mL) injec tion 25,000 Units Vasopressin INF 5.39 Units Sodium Chloride 0.9% 500 mL Sodium Chloride 0.9% 400 mL * Agents Name O2 Air N2O Isoflurane (et) * Blood No blood administrations on file. Lines, Drains, and Airways Type Details Placement Removal Incision 02/01/22; 08; ante rior, medial; sternal; vertical, midline 02/01/22 08 by Love Coats RN Incision 02/01/22; 0822; Righ t; leg; non-laparascopic puncture 02/01/22 08 by Love Coats RN (RETIRED) Peripheral IV Line - Single Lumen 01/28/22; 1716; cephalic vein (lateral side of arm), right; 20 gauge; OSH; 02/02/22; 1422 01/28/22 1716 by Angelica Jackson RN 02/02/22 1422 by Michael Kong RN (RETIRED) Peripheral IV Line - Single Lumen 01/28/22; 2311; basilic vein (medial side of arm), left; 18 gauge; Sienna Chavez; 02/05/22; 0842 01/28/22 2311 by Sienna Chavez RN 02/05/22 0842 by Bry Portillo RN Chest Tube 02/01/22; Left; ante rior; mediastinum; 28fr, straight, tip anterior to heart; 02/02/22; 1005 02/01/22 0000 by Love Coats RN 02/02/22 1005 by Michael Kong RN Chest Tube 02/01/22; Right; anterior; other (see comments); 28fr, angled, tip posterior to heart; 02/03/22; 0007 (Not present on assessment) 02/01/22 0000 by Love Coats RN 02/03/22 0007 by Sophia Lanier RN Arterial Line 02/01/22; 0745; radi al artery, left; 20 gauge; Anatomical Landmarks, Guidewire; US Not Used; continuous blood pressure monitoring, frequent blood gas measurement; Danay; Sterile Prep, Sterile Gloves; 02/02/22; 1700 02/01/22 0745 by Rhea Jon MD 02/02/22 1700 by Michael Kogn RN Urethral Catheter 02/01/22; 0745; Surg aleksandr longer than 2 hours, Need for intraoperative urine output monitoring; Immobility without alternative; indwelling catheter with core temperature probe; 14; inserted at this facility; 1; none; 02/02/22; 1005 02/01/22 0745 by Love Coats RN 02/02/22 1005 by Michael Kong RN ETT Mask Ventilation: Ea sy (1); ETT Type: Cuffed, Oral; ETT Size: 8 mm; Prasad Blade: 3; Notes: Asleep, Pre-O2, Stylette; Attempts: 1; Laryngoscopy Grade: 2; ETT Placement Verified By: Capnometry; Secured at Teeth: 23 cm; Inserted by: Lito; Removal Date: 02/01/22; Removal Time: 1700 02/01/22 0749 by Rhea Jon MD 02/01/22 1700 by Landy Mckinney RCP (RETIRED) Percutaneous Central Line - Single Lumen 02/01/22; 0754; internal jugular vein, right; introducer; Anatomical Landmarks, Ultrasound Guidance; Yes - US guidance used for evaluation of potential access sites, vessel patency and realtime visualization of needle entry with permanent recording.; 9 Fr; Suntharalingam; MISBAH; CVC Bundle Performed; 02/02/22; 1710 02/01/22 0754 by Rhea Jon MD 02/02/22 1710 by Michael Kong RN (RETIRED) Pulmonary Artery Catheter - Triple Lumen 02/01/22; 0804; Right; internal jugular vein; standard thermodilution catheter, VIP; 8 Fr; CVC Bundle Performed; no longer indicated; Suntharalingam; 02/01/22; 2130 02/01/22 0804 by Rhea Jon MD 02/01/22 2130 by Joaquin Castanon RN Chest Tube 02/01/22; 0930; Left ; anterior; other (see comments); 24fr, in pleural space; 02/02/22; 1005 02/01/22 0930 by Love Coats RN 02/02/22 1005 by Michael Kong RN Closed/Suction Drain 02/01/22; 0932; Rig ht; Leg; Bulb 02/01/22 0932 by Love Coats RN 02/01/22 1600 by Michael Kong RN documented in this encounter Social History Tobacco [...] OR Notes * Anesthesia Postprocedure Evaluation - Rhea Jon MD - 02/01/2022 1:07 PM EDT Department of Anesthesiology Post-procedure Note Patient: Shellie Lyon Procedure Summary Date: 02/01/22 Room / Location: [facility] OR [address] [place] [address] MAIN OR Anesthesia Start: 732 Anesthesia Stop: 1307 Procedures: ENDOSCOPIC HARVEST VEIN(S) FOR CABG (WRVU 0.31) (N/A Leg) @CABG, USING ARTERIAL GRAFT;SINGLE ARTERIAL GRAFT (WRVU 33.75) (N/A Chest) @CABG, VENOUS & ARTERIAL GRAFT;SINGLE VEIN GRAFT (WRVU 3.61) (N/A Chest) Diagnosis: (2 vessel dz) Surgeons: Hong Tate MD Responsible Provider: Ebenezer Morse MD Anesthesia Type: general ASA Status: 3 All Anesthesia Providers: Anesthesiologist: Ebenezer Morse MD Voting Machine Mechanic: Rhea Jon MD Vitals Value Taken Time BP Temp Pulse Resp SpO2 Pain Level Patient Location: ICU Level of Consciousness: Sedated (Pharmacologic/Intentional) Pain Management: Pain Being Addressed PONV: None Cardiovascular Status: Hypotension (received treatment) Respiratory Status: At Baseline and Intubated/Ventilated Postoperative Fluid Status: Intravascular EUvolemia Possible Anesthetic Complications: NONE apparent at time of evaluation Final Primary Anesthesia Type: General (The anesthetic type performed was the same as planned.) Comments: Transferred to [facility] on Vaso 0.02, NE 2, stable HD Rhea Jon MD * Anesthesia Preprocedure Evaluation - Ebenezer Morse MD - 01/31/2022 3:03 PM EDT Pre-Anesthesia Evaluation for: Shellie Lyon a 71 y.o. female. Procedure(s): ENDOSCOPIC HARVEST VEIN(S) FOR CABG (WRVU 0.31) @CABG, USING ARTERIAL GRAFT;SINGLE ARTERIAL GRAFT (WRVU 33.75) @CABG, VENOUS & ARTERIAL GRAFT;SINGLE VEIN GRAFT (WRVU 3.61) Patient Active Problem List Diagnosis Date Noted ??? NSTEMI (non-ST elevated myocardial infarction) 01/28/2022 ??? Inflamed seborrheic keratosis 02/10/2013 No past medical history on file. No past surgical history on file. Social History Tobacco Use ??? Smoking status: [...] 10.7 oz) Last edited 01/31/22 1437 by BK Currently displaying vitals information from multiple entries within 180 minutes of most recent vitals. Airway Assessment: Mallampati: II TM distance: >3 FB Neck ROM: full Cardiovascular Assessment: (+) murmur system normal Pulmonary Assessment: pulmonary exam normal Dental Assessment: - normal exam Misc Assessment: IV access: Peripheral line Last Filed Perioperative Cognitive Screening None Anesthesia Plan: ASA 3 general, with a(n) intravenous induction Delightful 71 year-old for a CABG in setting of a recent NSTEMI with 3-vessel ASCVD. She denies pulmonary complications and pathology. She does have occasional GERD. She denies any esophageal strictures however she says that chicken takes a while to go down sometimes. She denies recent URIs, DM, GEORGE. NPO guidelines were reviewed with her. GA with ETT, arterial line, central line, MISBAH, and PA cath were all discussed. Questions were elicited and answered. Consent was obtained and placed in the chart. Region - Other Informed Consent: Anesthetic plan and risks discussed with patient and spouse. Plan discussed with resident. Anesthesia Screening documented in this encounter Plan of Treatment Not on file documented as of this encounter Visit Diagnoses Not on filedocumented in this encounter Administered Medications Inactive Administered Medications - up to 3 most recent administrations Medication Order MAR Action Action Date Dose Rate Site cefTRIAXone (Rocephin) injection Intravenous, PRN, Starting on Candace 02/01/22 at 0805, Until Candace 02/01/22 at 1307, Anesthesia Intra-op, Routine Given 02/01/2022 8:05 AM EDT 2 g fentaNYL (pf) (50 mcg/mL) multi-dose injection Intravenous, PRN, Starting on Candace 02/01/22 at 0749, Until Candace 02/01/22 at 1307, Anesthesia Intra-op, Routine Given 02/01/2022 8:23 AM EDT 250 mcg Given 02/01/2022 8:21 AM EDT 250 mcg Given 02/01/2022 8:05 AM EDT 250 mcg heparin (porcine) (1,000 units/mL) injection ONCE PRN, Starting on Sat01/29/22 at 0827, Until Candace 02/01/22 at 1315, Cath (Intra-Procedure), Routine Given 02/01/2022 8:51 AM EDT 25,000 Units Given 02/01/2022 7:57 AM EDT 5,000 Units Given 01/29/2022 8:27 AM EDT 3,000 Units insulin regular (HumuLIN R,NovoLIN R) (100 unit/mL) injection vial Intravenous, PRN, Starting on Candace 02/01/22 at 0948, Until Candace 02/01/22 at 1307, Anesthesia Intra-op, Routine Given 02/01/2022 10:01 AM EDT 5 Units Given 02/01/2022 9:48 AM EDT 5 Units insulin regular (Myxredlin) (1 unit/mL) in sodium chloride 0.9% 100 mL infusion Intravenous, CONTINUOUS PRN, Starting on Candace 02/01/22 at 0948, Until Candace 02/01/22 at 1307, Anesthesia Intra-op, Routine New Bag 02/01/2022 9:48 AM EDT 3 Units/hr 3 mL/hr midazolam (pf) (Versed) (1 mg/mL) multi-dose injection Intravenous, PRN, Starting on Candace 02/01/22 at 0749, Until Candace 02/01/22 at 1307, Anesthesia Intra-op, Routine Given 02/01/2022 7:49 AM EDT 2 mg NORepinephrine (Levophed) (16 mcg/mL) in dextrose 5% 250 mL infusion Intravenous, CONTINUOUS PRN, Starting on Candace 02/01/22 at 0821, Until Candace 02/01/22 at 1307, Anesthesia Intra-op, Routine Rate/Dose Change 02/01/2022 12:34 PM EDT 2 mcg/min 7.5 mL/hr Rate/Dose Change 02/01/2022 11:26 AM EDT 4 mcg/min 15 mL/ hr Rate/Dose Change 02/01/2022 10:54 AM EDT 8 mcg/min 30 mL/ hr NORepinephrine (Levophed) injection Intravenous, PRN, Starting on Candace 02/01/22 at 0842, Until Candace 02/01/22 at 1307, Anesthesia Intra-op, Routine Given 02/01/2022 9:15 AM EDT 8 mcg Given 02/01/2022 9:12 AM EDT 8 mcg Given 02/01/2022 9:08 AM EDT 8 mcg PHENYLephrine in NS (PF) (GOYO-SYNEPHRINE) 0.8 mg/10 mL (80 mcg/mL) multi-dose injection Syrg Intravenous, PRN, Starting on Candace 02/01/22 at 0757, Until Candace 02/01/22 at 1307, Anesthesia Intra-op, Routine Given 02/01/2022 8:30 AM EDT 80 mcg Given 02/01/2022 8:25 AM EDT 80 mcg Given 02/01/2022 8:19 AM EDT 80 mcg propofoL (Diprivan) (10 mg/mL) infusion Intravenous, CONTINUOUS PRN, Starting on Candace 02/01/22 at 1127, Until Candace 02/01/22 at 1307, Anesthesia Intra-op, Routine New Bag 02/01/2022 11:27 AM EDT 50 mcg/kg/min 20.22 mL/hr propofoL (Diprivan) 10 mg/mL bolus injection (Anesthesia) Intravenous, PRN, Starting on Candace 02/01/22 at 0829, Until Candace 02/01/22 at 1307, Anesthesia Intra-op Given 02/01/2022 9:01 AM EDT 100 mg Given 02/01/2022 8:29 AM EDT 200 mg protamine (10 mg/mL) injection Intravenous, PRN, Starting on Candace 02/01/22 at 1035, Until Candace 02/01/22 at 1307, Anesthesia Intra-op, Routine Given 02/01/2022 10:35 AM EDT 200 mg rocuronium (Zemuron) (10 mg/mL) multi-dose injection Intravenous, PRN, Starting on Candace 02/01/22 at 0748, Until Candace 02/01/22 at 1307, Anesthesia Intra-op, Routine Given 02/01/2022 9:23 AM EDT 30 mg Given 02/01/2022 7:48 AM EDT 70 mg sodium chloride 0.9% infusion Intravenous, CONTINUOUS PRN, Starting on Candace 02/01/22 at 0734, Until Candace 02/01/22 at 1307, Anesthesia Intra-op New Bag 02/01/2022 7:34 AM EDT sodium chloride 0.9% infusion Intravenous, CONTINUOUS PRN, Starting on Candace 02/01/22 at 0805, Until Candace 02/01/22 at 1307, Anesthesia Intra-op New Bag 02/01/2022 8:05 AM EDT tranexamic acid (Cyklokapron) (100 mg/mL) infusion Intravenous, Administer over 8 Hours, CONTINUOUS PRN, Starting on Candace 02/01/22 at 0805, Until Candace 02/01/22 at 1307, Anesthesia Intra-op, Routine New Bag 02/01/2022 8:05 AM EDT 1 mg/kg/hr 0.674 mL/hr tranexamic acid (Cyklokapron) (100 mg/mL) IV bolus Intravenous, Administer over 8 Hours, PRN, Starting on Candace 02/01/22 at 0749, Until Candace 02/01/22 at 1307, Anesthesia Intra-op, Routine Given 02/01/2022 8:05 AM EDT 670 mg vasopressin (VASOSTRICT) 0.2 units/mL IV infusion (Anesthesia) Intravenous, CONTINUOUS PRN, Starting on Candace 02/01/22 at 1022, Until Candace 02/01/22 at 1307 Rate/Dose Change 02/01/2022 12:34 PM EDT 0.02 Units/min 6 mL/hr Rate/Dose Change 02/01/2022 11:49 AM EDT 0.04 Units/min 12 mL/hr Restarted 02/01/2022 11:38 AM EDT 0.03 Units/min 9 mL/hr documented in this encounter Care Teams Financial Systems Administrator Relationship Specialty Start Date End Date Kerri Pearce, HERBARIUM CURATOR [facility] [address] PCP - General Family Medicine 01/04/22 documented as of this encounter
== END 2024-05-25 11:18 | disposition home or self-care (01) ==
LOC: LBO 11:18
PROVIDERS: PCP Nurse Practitioner Family; Visit Provider Nurse Practitioner Family
DX: I10 Essential (primary) hypertension (principal); E78.5 Hyperlipidemia, unspecified
CPT/HCPCS: 36415; 80053; 80061; 85027

== ENCOUNTER → 2024-08-14 10:34 | Outpatient (BNVA) | payer MEDICARE, SELFPAY | PROVIDERS: PCP Nurse Practitioner Family; Visit Provider Internal Medicine Cardiovascular Disease | DX: Z95.1 Presence of aortocoronary bypass graft (principal) | CPT/HCPCS: 99214 ==

== ENCOUNTER 2024-12-31 03:16 | Outpatient (CLI) | payer MEDICARE, SELFPAY ==
--- NOTE | 2024-12-31 | DI.MAMMO_ITS ---
Exam(s) MAMMO SCREENING EXAM: MAMMO SCREENING CLINICAL HISTORY: SCREENING,Z12.31 TECHNIQUE: Bilateral full field digital CC and MLO mammographic images were obtained with 3D tomosynthesis and utilizing computer aided detection (CAD). COMPARISON: Comparison is made with prior examinations. FINDINGS: Masses/Architectural Distortion: No suspicious masses or areas of architectural distortion are present. Microcalcifications: No suspicious pleomorphic-type are seen. Skin Thickening/Nipple Retraction: None. IMPRESSION: 1. No significant interval change with no specific features of malignancy noted. 2. Unless there is more urgent need, screening mammography is recommended, as per [employer] guidelines. BI-RADS Category 1 - Negative Breast Density - Category B - There are scattered areas of fibroglandular density. Breast density Category C or D implies that the patient has dense breast tissue. Dense breast tissue can make it harder to find cancer on a mammogram. Dense breast tissue is also associated with an increased risk of breast cancer. This information about the result of the mammogram report was provided to the patient to raise their awareness. Use this report when you speak with the patient about their risks for breast cancer, which includes their family history. At that time, you may recommend additional screening tests (Ultrasound or MRI) as these tests may add significant information. A negative radiographic report should not delay biopsy if a dominant or clinically suspicious mass is present. Up to ten percent of cancers are not identified on mammography. A negative report may reinforce clinical impression. Adenosis and dense breasts may obscure an underlying neoplasm. False positive reports average 6 to 10%. Patient will receive a letter notifying them of these results.
== END 2024-12-31 03:36 ==
PROVIDERS: PCP Nurse Practitioner Family; Visit Provider Nurse Practitioner Family
DX: Z12.31 Encounter for screening mammogram for malignant neoplasm of breast (principal); R92.323 Mammographic fibroglandular density, bilateral breasts
CPT/HCPCS: 77063; 77067